=== PATIENT | female | born 1935 | race Caucasian/White ===

== ENCOUNTER 2017-09-05 17:10 | Inpatient (IN) | payer MEDICARE, OTHER, SELFPAY ==
[2017-09-05 17:22] VITALS: BP 125/73; PULSE 103; RESP 16; TEMP 37.1; O2SAT 91
--- NOTE | 2017-09-05 17:39 | NURSING ---
ARRIVED FROM [facility]IA [facility], FAMILY AT BEDSIDE.
[2017-09-05 17:53] VITALS: BMI 20.2
[2017-09-05 17:58] VITALS: BMI 20.2
--- NOTE | 2017-09-05 20:54 | PCM.HP.STD ---
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 The patient is a 82 year old Female with below past medical history presented to [facility] Emergency Department 08/29/2017 with fall. 08/29/2017 Chest X-ray bibasilar scarring, bilateral breast prosthesis calcifications. 08/29/2017 X-ray pelvis, right hip showed comminuted nondisplaced left intertrochanteric fracture with a cephalic migration of the distal fracture fragment. Right inferior pubic rami fracture. 08/29/2017 EKG sinus rhythm with marked sinus arrhythmia, nonspecific ST abnormality. Recent from [place] to [place]. Lives with medardo Saleh. Fell on right side. Bloodwork negative. Vargas placed, Morphine, Zofran, IV fluids given. 08/29/2017 Admit to Hospital. IV Dilaudid for pain. IV fluids for hypotension, dehydration. 08/29/2017 CT right hip showed comminuted intertrochanteric right hip fracture. 08/30/2017 Dr. Harvey consulted for sinus bradycardia with ventricular asystolic > 12 seconds. Troponin negative. Recommended transfer to tertiary care center for consideration of pacemaker. 08/30/2017 Transferred to [facility] for pacemaker, then right hip surgery. 09/01/2017 Right hip pinning performed. No pacemaker recommended. 09/04/2017 Transfused 2 units Packed Red Blood Cells, Post transfusion hemoglobin 10.1. 09/05/2017 Admit to TCU for rehabilitation, strengthening, prior to discharge home with medardo Saleh. I told [place] resident's risk of is at least 50%. 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 Smoking Status: Former smoker Tobacco Use: Non-smoker Alcohol: None Drugs: None - *Family History Maternal History Items: No pertinent history Paternal History Items: No pertinent history Review of Systems Constitutional: Denies: Chills, Fever, Weight Change HEENT: Denies: Head Aches, Sinus Congestion, Sinus Drainage Cardiovascular: Denies: Chest Pain, Palpitations Respiratory: Denies: Cough, Shortness of breath at rest, Sputum production Gastrointestinal: Denies: Abdominal Pain, Nausea, Vomiting Genitourinary: Denies: Dysuria Musculoskeletal: Denies: Joint Pain, Joint Tenderness Skin: Denies: Rash, Wounds Neurological: Denies: Numbness, Tingling, Focal weakness Psychiatric: Denies: Anxiety, Depression, Homicidal Ideations, Suicidal Ideations Hematologic/ Lymphatic: Denies: Easy Bruising, Easy Bleeding VTE Information - Inpt Only VTE Present on Admission: No VTE Mechan Device Prophylaxis: Knee High MOSHE Hose VTE Pharm Prophylaxis ordered?: Yes Patient Problems: Active and Suspected Problems Fall (Acute) Fracture of right inferior pubic ramus (Acute) Unresponsiveness (Acute) Sinus bradycardia (Acute) Postoperative anemia (Acute) - Physical Exam General: Alert, Oriented x3, Cooperative HEENT: Atraumatic, PERRLA, EOMI, Normocephalic Neck: Supple, No JVD, Negative Carotid Bruits Lungs: Clear to auscultation, Normal air movement Cardiovascular: Regular rate, No murmurs Abdomen: Bowel Sounds Present, Soft, Non Tender Extremities: No edema, Capillary Refill Less than 3 Seconds Skin: No rashes, No breakdown, Incision - Right hip celia clean, dry, intact. Musculoskeletal: No Tenderness to Palpation of Joints or Extremities Neurological: Cranial nerves II-XII grossly intact Psych/Mental Status: Normal Affect, Appropriate Weight: 60.3 kg Body Mass Index (BMI) 20.2 Assessment/Plan Active and Suspected Problems Fall (Acute) Fracture of right inferior pubic ramus (Acute) Unresponsiveness (Acute) Sinus bradycardia (Acute) Postoperative anemia (Acute) 82 year old female with below past medical history hospitalized for right hip fracture, underwent right hip pinning 09/01/2017, complicated by unresponsiveness secondary to prolonged ventricular asystole, no pacemaker recommended, admitted to TCU for rehabilitation, strengthening, prior to discharge home with daughter. Debility - PT/OT. Pain - Tylenol 650MG Q4H PRN mild pain, [place] 5/325MG 1 tablet Q6H PRN severe pain. Bowel - Miralax 17GM daily, Senna/colace 2 tablets BID, Dulcolax 10MG PO daily PRN. Pneumonia vaccination - Administer Prevnar 13 and/or Pneumovax 23 as necessary. DVT prophylaxis - Lovenox 40MG SC daily. CV prophylaxis - Aspirin 81MG daily. Hypertension - Lisinopril 10MG daily. Macular degeneration - Ocuvite 1 tablet daily.
--- NOTE | 2017-09-05 21:04 | HP.PCM_ITS ---
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 The patient is a 82 year old Female with below past medical history presented to [facility] Emergency Department 08/29/2017 with fall. 08/29/2017 Chest X-ray bibasilar scarring, bilateral breast prosthesis calcifications. 08/29/2017 X-ray pelvis, right hip showed comminuted nondisplaced left intertrochanteric fracture with a cephalic migration of the distal fracture fragment. Right inferior pubic rami fracture. 08/29/2017 EKG sinus rhythm with marked sinus arrhythmia, nonspecific ST abnormality. Recent from [place] to [place]. Lives with medardo Saleh. Fell on right side. Bloodwork negative. Vargas placed, Morphine, Zofran, IV fluids given. 08/29/2017 Admit to Hospital. IV Dilaudid for pain. IV fluids for hypotension, dehydration. 08/29/2017 CT right hip showed comminuted intertrochanteric right hip fracture. 08/30/2017 Dr. Harvey consulted for sinus bradycardia with ventricular asystolic > 12 seconds. Troponin negative. Recommended transfer to tertiary care center for consideration of pacemaker. 08/30/2017 Transferred to [facility] for pacemaker, then right hip surgery. 09/01/2017 Right hip pinning performed. No pacemaker recommended. 09/04/2017 Transfused 2 units Packed Red Blood Cells, Post transfusion hemoglobin 10.1. 09/05/2017 Admit to TCU for rehabilitation, strengthening, prior to discharge home with medardo Saleh. I told [place] resident's risk of is at least 50%. 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 Smoking Status: Former smoker Tobacco Use: Non-smoker Alcohol: None Drugs: None - *Family History Maternal History Items: No pertinent history Paternal History Items: No pertinent history Review of Systems Constitutional: Denies: Chills, Fever, Weight Change HEENT: Denies: Head Aches, Sinus Congestion, Sinus Drainage Cardiovascular: Denies: Chest Pain, Palpitations Respiratory: Denies: Cough, Shortness of breath at rest, Sputum production Gastrointestinal: Denies: Abdominal Pain, Nausea, Vomiting Genitourinary: Denies: Dysuria Musculoskeletal: Denies: Joint Pain, Joint Tenderness Skin: Denies: Rash, Wounds Neurological: Denies: Numbness, Tingling, Focal weakness Psychiatric: Denies: Anxiety, Depression, Homicidal Ideations, Suicidal Ideations Hematologic/ Lymphatic: Denies: Easy Bruising, Easy Bleeding VTE Information - Inpt Only VTE Present on Admission: No VTE Mechan Device Prophylaxis: Knee High MOSHE Hose VTE Pharm Prophylaxis ordered?: Yes Patient Problems: Active and Suspected Problems Fall (Acute) Fracture of right inferior pubic ramus (Acute) Unresponsiveness (Acute) Sinus bradycardia (Acute) Postoperative anemia (Acute) - Physical Exam General: Alert, Oriented x3, Cooperative HEENT: Atraumatic, PERRLA, EOMI, Normocephalic Neck: Supple, No JVD, Negative Carotid Bruits Lungs: Clear to auscultation, Normal air movement Cardiovascular: Regular rate, No murmurs Abdomen: Bowel Sounds Present, Soft, Non Tender Extremities: No edema, Capillary Refill Less than 3 Seconds Skin: No rashes, No breakdown, Incision - Right hip celia clean, dry, intact. Musculoskeletal: No Tenderness to Palpation of Joints or Extremities Neurological: Cranial nerves II-XII grossly intact Psych/Mental Status: Normal Affect, Appropriate Weight: 60.3 kg Body Mass Index (BMI) 20.2 Assessment/Plan Active and Suspected Problems Fall (Acute) Fracture of right inferior pubic ramus (Acute) Unresponsiveness (Acute) Sinus bradycardia (Acute) Postoperative anemia (Acute) 82 year old female with below past medical history hospitalized for right hip fracture, underwent right hip pinning 09/01/2017, complicated by unresponsiveness secondary to prolonged ventricular asystole, no pacemaker recommended, admitted to TCU for rehabilitation, strengthening, prior to discharge home with daughter. * Debility - PT/OT. * Pain - Tylenol 650MG Q4H PRN mild pain, [place] 5/325MG 1 tablet Q6H PRN severe pain. * Bowel - Miralax 17GM daily, Senna/colace 2 tablets BID, Dulcolax 10MG PO daily PRN. * Pneumonia vaccination - Administer Prevnar 13 and/or Pneumovax 23 as necessary. * DVT prophylaxis - Lovenox 40MG SC daily. * CV prophylaxis - Aspirin 81MG daily. * Hypertension - Lisinopril 10MG daily. * Macular degeneration - Ocuvite 1 tablet daily.
[2017-09-05] MEDS: Senna/Docusate Sodium 1 Tablet 2 TABLET PO (21:36)
[2017-09-05] MEDS: HYDROcodone Bitartrate/Apap 5/325 Tablet PO (22:28)
[2017-09-05] MEDS: Bisacodyl 5 MG Tablet 10 MG PO (22:29)
[2017-09-06] MEDS: Polyethylene Glycol 3350 17 GM PACKET PO (05:02)
[2017-09-06] MEDS: Lisinopril 10 MG Tablet PO (05:05)
[2017-09-06] MEDS: Enoxaparin 40 MG/0.4 ML Syringe SC (05:05)
[2017-09-06] MEDS: Senna/Docusate Sodium 1 Tablet 2 TABLET PO ×2 (05:05→17:34)
[2017-09-06] MEDS: Menthol/Lanolin/Calamine/Znox 113 GM Tube 1 APPLIC TOPICAL ×2 (05:06→20:43)
[2017-09-06 06:30] LABS: Hematocrit 35.2 % (37-47); Hemoglobin 11.4 g/dl (12.0-15.0); Mean Corp Hgb Conc 32.4 g/gl (32-36); Mean Corpuscular Hgb 29.7 pg (27.0-32.0); Mean Corpuscular Volume 91.7 fL (81-99); Mean Platelet Vol. 9.8 fl (6.2-12.0); Platelet Count 207 K/mm3 (150-450); RBC Distribution Width CV 14.9 % (11.6-14.6); RBC Distribution Width SD 46.3 fl (35.1-43.9); Red Blood Count 3.84 M/mm3 (4.2-5.4); White Blood Count 8.6 K/mm3 (4.4-11.0)
[2017-09-06 06:31] LABS: Anion Gap 8 (5-15); BUN 17 mg/dL (7-18); BUN/Creat Ratio 41.8 RATIO (10-20); Calcium,Total 8.2 mg/dL (8.5-10.1); Chloride 98 mmol/L (98-107); Creatinine, Serum 0.41 mg/dL (0.55-1.02); EST Glomerular Filtration Rate 159 mL/min (>60); Est Glom Filt Rate - Afr Amer 193 mL/min (>60); Estimated Creatinine Clearance 41.29 ml/min; Glucose 88 mg/dL (70-110); Potassium 3.8 mmol/L (3.5-5.1); Sodium Level 135 mmol/L (136-145)
[2017-09-06 06:32] LABS: Differential Indicated MANUAL DIFF; POSITIVE COUNT YES; POSITIVE DIFFERENTIAL NO; POSITIVE MORPHOLOGY YES
[2017-09-06 06:51] LABS: Eosinophil 1 % (0-5); Lymphocyte 23 % (19-41); Metamyelocyte 1 % (0-1); Monocyte 11 % (0-10); Neutrophil-Band 1 % (0-5); Neutrophil-Segmented 63 % (47-70); Nucleated Red Bld Cells,Manual 1 % (0-5); Total Cells Counted 100 (MANUAL DIFF)
[2017-09-06 06:52] LABS: Platelet Estimate ADEQUATE (ADEQ); Red Cell Morphology NORM C+C NORMAL (NORM C&C)
[2017-09-06 06:53] LABS: Absolute Lymphocyte Count 1.98 X10^3/ul (0.83-4.51); Absolute Neutrophil Count 5.5 X10^3/uL (2.0-7.7); Lymphocyte # 1.98 X10^3/ul (4.0)
[2017-09-06] MEDS: HYDROcodone Bitartrate/Apap 5/325 Tablet PO ×2 (07:41→17:37)
--- NOTE | 2017-09-06 09:48 | NURSING ---
CODE STATUS CLARIFIED WITH DAUGHTER, KIKO, WANTS MOTHER TO BE A FULL CODE FOR NOW
[2017-09-06] MEDS: Aspirin 81 MG TAB.CHEW PO (12:23)
[2017-09-06] MEDS: Tuberculin,Purif.prot.deriv. 50 TU/ML Vial 5 ML ID (12:27)
--- NOTE | 2017-09-06 13:59 | PCM.PN.RX ---
<Carlos Bryantip D - Last Filed: 09/06/17 13:59> Progress Note - Pharmacy Subjective: TCU Admission Objective: Allergies Penicillins [PCN] Allergy (Verified 08/29/17 16:37) Unknown Home Medications Medication Instructions Recorded Aspirin [Aspirin, Baby] 81 mg PO DAILY@0800 08/29/17 Lisinopril [Prinivil] 10 mg PO DAILY 08/29/17 Multivitamin [Animal Shapes] 1 each PO DAILY 08/29/17 Acetaminophen 650 mg PO Q4H PRN PRN 09/05/17 Hydrocodone/Acetaminophen 1 each PO Q6H PRN PRN 09/05/17 [Hydrocodon-Acetaminophen 5-325] Current Medications Generic Name Dose Route Start Last Admin Trade Name Scottq PRN Reason Stop Dose Admin Acetaminophen 650 mg 09/05/17 17:31 Tylenol PO Q4H PRN PRN MILD-MOD PAIN (1-5/10) Hydrocodone Bitart/Acetaminophen 1 tablet 09/05/17 17:31 09/06/17 07:41 [place] 5mg-325mg PO 1 tablet Q6H PRN PRN Administration SEVERE PAIN (6-10/10) Aspirin 81 mg 09/06/17 08:00 09/06/17 12:23 Aspirin, Baby PO 81 mg DAILY@0800 [facility] Administration Bisacodyl 10 mg 09/05/17 21:11 09/05/17 22:29 Dulcolax PO 10 mg DAILY PRN Administration Constipation Calamine/Phenol 1 applic 09/06/17 06:00 09/06/17 05:06 Calmoseptine Ointment TOPICAL 1 applicatio 0600,2200 [facility] Administration Protocol Enoxaparin Sodium 40 mg 09/06/17 06:00 09/06/17 05:05 Lovenox SC 40 mg DAILY@0600 [facility] Administration Lisinopril 10 mg 09/06/17 06:00 09/06/17 05:05 Zestril PO 10 mg DAILY [facility] Administration Multivitamins/Minerals 1 tablet 09/06/17 06:00 09/06/17 05:06 Ocuvite PO 1 tablet DAILY [facility] Administration Polyethylene Glycol 17 gm 09/06/17 06:00 09/06/17 05:02 Miralax PO 17 gm DAILY [facility] Administration Senna/Docusate Sodium 2 tablet 09/05/17 18:00 09/06/17 05:05 Senokot-S, Olena-Colace PO 2 tablet BID [facility] Administration Tuberculin PPD 5 tu 09/13/17 10:00 Tubersol, Aplisol, Ppd ID 09/13/17 10:01 X1 ONE Problem List Fall (Acute) Fracture of right inferior pubic ramus (Acute) Unresponsiveness (Acute) Sinus bradycardia (Acute) Hypertension (Chronic) 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 (Chronic) Postoperative anemia (Acute) Vital Signs Temp Pulse Resp BP Pulse Ox 98.7 F 103 H 16 125/73 H 91 09/05/17 17:22 09/05/17 17:22 09/05/17 17:22 09/05/17 17:22 09/05/17 17:22 Oxygen Delivery Method Room Air Weight: 60.3 kg Body Mass Index (BMI) 20.2 Sodium 135 mmol/L (136-145) L 09/06/17 05:28 Potassium 3.8 mmol/L (3.5-5.1) 09/06/17 05:28 Chloride 98 mmol/L (98-107) 09/06/17 05:28 Carbon Dioxide 29.0 mmol/L (21.0-32.0) 09/06/17 05:28 Anion Gap 8 (5-15) 09/06/17 05:28 BUN 17 mg/dL (7-18) 09/06/17 05:28 Creatinine 0.41 mg/dL (0.55-1.02) L 09/06/17 05:28 Est GFR (MDRD) Af Amer 193 mL/min (>60) 09/06/17 05:28 Est GFR (MDRD) Non-Af 159 mL/min (>60) 09/06/17 05:28 BUN/Creatinine Ratio 41.8 RATIO (10-20) H 09/06/17 05:28 Glucose 88 mg/dL (70-110) 09/06/17 05:28 Assessment/Plan: 1) Pain APAP for mild-moderate pain, hydrocodone/APAP for severe pain. Continue to monitor prn medication use, daily pain scores. 2) HTN/CV PPx Lisinopril, ASA. BP within goal range, K wnl, BUN/SCr at baseline. Continue to monitor BP, renal function, electrolytes. 3) Nutrition Multivitamin daily. Continue to monitor clinically. 4) Derm Calmoseptine topically. Continue to monitor clinically. 5) DVT PPx Enoxaparin daily. Continue to monitor s/s bleeding/clot. Psychotropic Medications: None Unnecessary Medications: None Bowel Regimen: 6) Senna/s, PEG, prn bisacodyl. Continue to monitor prn medication use, for constipation/diarrhea. Date of Note:: 09/06/17 - Provider Comments Provider responsibility: Provider responsible to enter orders to implement recommendations <Royce Salinas Chi - Last Filed: 09/06/17 18:34> Progress Note - Pharmacy Subjective: [] Objective: Allergies Penicillins [PCN] Allergy (Verified 08/29/17 16:37) Unknown Home Medications Medication Instructions Recorded Aspirin [Aspirin, Baby] 81 mg PO DAILY@0800 08/29/17 Lisinopril [Prinivil] 10 mg PO DAILY 08/29/17 Multivitamin [Animal Shapes] 1 each PO DAILY 08/29/17 Acetaminophen 650 mg PO Q4H PRN PRN 09/05/17 Hydrocodone/Acetaminophen 1 each PO Q6H PRN PRN 09/05/17 [Hydrocodon-Acetaminophen 5-325] Current Medications Generic Name Dose Route Start Last Admin Trade Name Freq PRN Reason Stop Dose Admin Acetaminophen 650 mg 09/05/17 17:31 Tylenol PO Q4H PRN PRN MILD-MOD PAIN (1-5/10) Hydrocodone Bitart/Acetaminophen 1 tablet 09/05/17 17:31 09/06/17 17:37 [place] 5mg-325mg PO 1 tablet Q6H PRN PRN Administration SEVERE PAIN (6-10/10) Aspirin 81 mg 09/06/17 08:00 09/06/17 12:23 Aspirin, Baby PO 81 mg DAILY@0800 [facility] Administration Bisacodyl 10 mg 09/05/17 21:11 09/05/17 22:29 Dulcolax PO 10 mg DAILY PRN Administration Constipation Calamine/Phenol 1 applic 09/06/17 06:00 09/06/17 05:06 Calmoseptine Ointment TOPICAL 1 applicatio 0600,2200 [facility] Administration Protocol Enoxaparin Sodium 40 mg 09/06/17 06:00 09/06/17 05:05 Lovenox SC 40 mg DAILY@0600 [facility] Administration Lisinopril 10 mg 09/06/17 06:00 09/06/17 05:05 Zestril PO 10 mg DAILY [facility] Administration Multivitamins/Minerals 1 tablet 09/06/17 06:00 09/06/17 05:06 Ocuvite PO 1 tablet DAILY [facility] Administration Nutritional Formula (Lactose Free) 120 ml 09/06/17 17:00 09/06/17 17:34 Ensure Enlive PO 120 ml 4X/DAY [facility] Administration Polyethylene Glycol 17 gm 09/06/17 06:00 09/06/17 05:02 Miralax PO 17 gm DAILY [facility] Administration Senna/Docusate Sodium 2 tablet 09/05/17 18:00 09/06/17 17:34 Senokot-S, Olena-Colace PO 2 tablet BID [facility] Administration Tuberculin PPD 5 tu 09/13/17 10:00 Tubersol, Aplisol, Ppd ID 09/13/17 10:01 X1 ONE Problem List Fall (Acute) Fracture of right inferior pubic ramus (Acute) Unresponsiveness (Acute) Sinus bradycardia (Acute) Hypertension (Chronic) 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 (Chronic) Postoperative anemia (Acute) Vital Signs Temp Pulse Resp BP Pulse Ox 98.3 F 92 16 106/57 L 95 09/06/17 16:00 09/06/17 16:00 09/06/17 16:00 09/06/17 16:00 09/06/17 16:00 Oxygen Delivery Method Room Air Weight: 60.3 kg Body Mass Index (BMI) 20.2 Sodium 135 mmol/L (136-145) L 09/06/17 05:28 Potassium 3.8 mmol/L (3.5-5.1) 09/06/17 05:28 Chloride 98 mmol/L (98-107) 09/06/17 05:28 Carbon Dioxide 29.0 mmol/L (21.0-32.0) 09/06/17 05:28 Anion Gap 8 (5-15) 09/06/17 05:28 BUN 17 mg/dL (7-18) 09/06/17 05:28 Creatinine 0.41 mg/dL (0.55-1.02) L 09/06/17 05:28 Est GFR (MDRD) Af Amer 193 mL/min (>60) 09/06/17 05:28 Est GFR (MDRD) Non-Af 159 mL/min (>60) 09/06/17 05:28 BUN/Creatinine Ratio 41.8 RATIO (10-20) H 09/06/17 05:28 Glucose 88 mg/dL (70-110) 09/06/17 05:28 Assessment/Plan: Psychotropic Medications: Unnecessary Medications: Bowel Regimen: - Provider Comments Provider responsibility: Provider responsible to enter orders to implement recommendations Provider Comments to Recommendations by Pharmacy: Agree
--- NOTE | 2017-09-06 14:04 | PHA.CONS_ITS ---
<Carlos Bryantip D - Last Filed: 09/06/17 13:59> Progress Note - Pharmacy Subjective: TCU Admission Objective: Allergies Penicillins [PCN] Allergy (Verified 08/29/17 16:37) Unknown Home Medications Medication Instructions Recorded Aspirin [Aspirin, Baby] 81 mg PO DAILY@0800 08/29/17 Lisinopril [Prinivil] 10 mg PO DAILY 08/29/17 Multivitamin [Animal Shapes] 1 each PO DAILY 08/29/17 Acetaminophen 650 mg PO Q4H PRN PRN 09/05/17 Hydrocodone/Acetaminophen 1 each PO Q6H PRN PRN 09/05/17 [Hydrocodon-Acetaminophen 5-325] Current Medications Generic Name Dose Route Start Last Admin Trade Name Scottq PRN Reason Stop Dose Admin Acetaminophen 650 mg 09/05/17 17:31 Tylenol PO Q4H PRN PRN MILD-MOD PAIN (1-5/10) Hydrocodone Bitart/Acetaminophen 1 tablet 09/05/17 17:31 09/06/17 07:41 [place] 5mg-325mg PO 1 tablet Q6H PRN PRN Administration SEVERE PAIN (6-10/10) Aspirin 81 mg 09/06/17 08:00 09/06/17 12:23 Aspirin, Baby PO 81 mg DAILY@0800 [facility] Administration Bisacodyl 10 mg 09/05/17 21:11 09/05/17 22:29 Dulcolax PO 10 mg DAILY PRN Administration Constipation Calamine/Phenol 1 applic 09/06/17 06:00 09/06/17 05:06 Calmoseptine Ointment TOPICAL 1 applicatio 0600,2200 [facility] Administration Protocol Enoxaparin Sodium 40 mg 09/06/17 06:00 09/06/17 05:05 Lovenox SC 40 mg DAILY@0600 [facility] Administration Lisinopril 10 mg 09/06/17 06:00 09/06/17 05:05 Zestril PO 10 mg DAILY [facility] Administration Multivitamins/Minerals 1 tablet 09/06/17 06:00 09/06/17 05:06 Ocuvite PO 1 tablet DAILY [facility] Administration Polyethylene Glycol 17 gm 09/06/17 06:00 09/06/17 05:02 Miralax PO 17 gm DAILY [facility] Administration Senna/Docusate Sodium 2 tablet 09/05/17 18:00 09/06/17 05:05 Senokot-S, Olena-Colace PO 2 tablet BID [facility] Administration Tuberculin PPD 5 tu 09/13/17 10:00 Tubersol, Aplisol, Ppd ID 09/13/17 10:01 X1 ONE Problem List Fall (Acute) Fracture of right inferior pubic ramus (Acute) Unresponsiveness (Acute) Sinus bradycardia (Acute) Hypertension (Chronic) 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 (Chronic) Postoperative anemia (Acute) Vital Signs Temp Pulse Resp BP Pulse Ox 98.7 F 103 H 16 125/73 H 91 09/05/17 17:22 09/05/17 17:22 09/05/17 17:22 09/05/17 17:22 09/05/17 17:22 Oxygen Delivery Method Room Air Weight: 60.3 kg Body Mass Index (BMI) 20.2 Sodium 135 mmol/L (136-145) L 09/06/17 05:28 Potassium 3.8 mmol/L (3.5-5.1) 09/06/17 05:28 Chloride 98 mmol/L (98-107) 09/06/17 05:28 Carbon Dioxide 29.0 mmol/L (21.0-32.0) 09/06/17 05:28 Anion Gap 8 (5-15) 09/06/17 05:28 BUN 17 mg/dL (7-18) 09/06/17 05:28 Creatinine 0.41 mg/dL (0.55-1.02) L 09/06/17 05:28 Est GFR (MDRD) Af Amer 193 mL/min (>60) 09/06/17 05:28 Est GFR (MDRD) Non-Af 159 mL/min (>60) 09/06/17 05:28 BUN/Creatinine Ratio 41.8 RATIO (10-20) H 09/06/17 05:28 Glucose 88 mg/dL (70-110) 09/06/17 05:28 Assessment/Plan: 1) Pain APAP for mild-moderate pain, hydrocodone/APAP for severe pain. Continue to monitor prn medication use, daily pain scores. 2) HTN/CV PPx Lisinopril, ASA. BP within goal range, K wnl, BUN/SCr at baseline. Continue to monitor BP, renal function, electrolytes. 3) Nutrition Multivitamin daily. Continue to monitor clinically. 4) Derm Calmoseptine topically. Continue to monitor clinically. 5) DVT PPx Enoxaparin daily. Continue to monitor s/s bleeding/clot. Psychotropic Medications: None Unnecessary Medications: None Bowel Regimen: 6) Senna/s, PEG, prn bisacodyl. Continue to monitor prn medication use, for constipation/diarrhea. Date of Note:: 09/06/17 - Provider Comments Provider responsibility: Provider responsible to enter orders to implement recommendations <Royce Salinas Chi - Last Filed: 09/06/17 18:34> Progress Note - Pharmacy Subjective: [] Objective: Allergies Penicillins [PCN] Allergy (Verified 08/29/17 16:37) Unknown Home Medications Medication Instructions Recorded Aspirin [Aspirin, Baby] 81 mg PO DAILY@0800 08/29/17 Lisinopril [Prinivil] 10 mg PO DAILY 08/29/17 Multivitamin [Animal Shapes] 1 each PO DAILY 08/29/17 Acetaminophen 650 mg PO Q4H PRN PRN 09/05/17 Hydrocodone/Acetaminophen 1 each PO Q6H PRN PRN 09/05/17 [Hydrocodon-Acetaminophen 5-325] Current Medications Generic Name Dose Route Start Last Admin Trade Name Freq PRN Reason Stop Dose Admin Acetaminophen 650 mg 09/05/17 17:31 Tylenol PO Q4H PRN PRN MILD-MOD PAIN (1-5/10) Hydrocodone Bitart/Acetaminophen 1 tablet 09/05/17 17:31 09/06/17 17:37 [place] 5mg-325mg PO 1 tablet Q6H PRN PRN Administration SEVERE PAIN (6-10/10) Aspirin 81 mg 09/06/17 08:00 09/06/17 12:23 Aspirin, Baby PO 81 mg DAILY@0800 [facility] Administration Bisacodyl 10 mg 09/05/17 21:11 09/05/17 22:29 Dulcolax PO 10 mg DAILY PRN Administration Constipation Calamine/Phenol 1 applic 09/06/17 06:00 09/06/17 05:06 Calmoseptine Ointment TOPICAL 1 applicatio 0600,2200 [facility] Administration Protocol Enoxaparin Sodium 40 mg 09/06/17 06:00 09/06/17 05:05 Lovenox SC 40 mg DAILY@0600 [facility] Administration Lisinopril 10 mg 09/06/17 06:00 09/06/17 05:05 Zestril PO 10 mg DAILY [facility] Administration Multivitamins/Minerals 1 tablet 09/06/17 06:00 09/06/17 05:06 Ocuvite PO 1 tablet DAILY [facility] Administration Nutritional Formula (Lactose Free) 120 ml 09/06/17 17:00 09/06/17 17:34 Ensure Enlive PO 120 ml 4X/DAY [facility] Administration Polyethylene Glycol 17 gm 09/06/17 06:00 09/06/17 05:02 Miralax PO 17 gm DAILY [facility] Administration Senna/Docusate Sodium 2 tablet 09/05/17 18:00 09/06/17 17:34 Senokot-S, Olena-Colace PO 2 tablet BID [facility] Administration Tuberculin PPD 5 tu 09/13/17 10:00 Tubersol, Aplisol, Ppd ID 09/13/17 10:01 X1 ONE Problem List Fall (Acute) Fracture of right inferior pubic ramus (Acute) Unresponsiveness (Acute) Sinus bradycardia (Acute) Hypertension (Chronic) 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 (Chronic) Postoperative anemia (Acute) Vital Signs Temp Pulse Resp BP Pulse Ox 98.3 F 92 16 106/57 L 95 09/06/17 16:00 09/06/17 16:00 09/06/17 16:00 09/06/17 16:00 09/06/17 16:00 Oxygen Delivery Method Room Air Weight: 60.3 kg Body Mass Index (BMI) 20.2 Sodium 135 mmol/L (136-145) L 09/06/17 05:28 Potassium 3.8 mmol/L (3.5-5.1) 09/06/17 05:28 Chloride 98 mmol/L (98-107) 09/06/17 05:28 Carbon Dioxide 29.0 mmol/L (21.0-32.0) 09/06/17 05:28 Anion Gap 8 (5-15) 09/06/17 05:28 BUN 17 mg/dL (7-18) 09/06/17 05:28 Creatinine 0.41 mg/dL (0.55-1.02) L 09/06/17 05:28 Est GFR (MDRD) Af Amer 193 mL/min (>60) 09/06/17 05:28 Est GFR (MDRD) Non-Af 159 mL/min (>60) 09/06/17 05:28 BUN/Creatinine Ratio 41.8 RATIO (10-20) H 09/06/17 05:28 Glucose 88 mg/dL (70-110) 09/06/17 05:28 Assessment/Plan: Psychotropic Medications: Unnecessary Medications: Bowel Regimen: - Provider Comments Provider responsibility: Provider responsible to enter orders to implement recommendations Provider Comments to Recommendations by Pharmacy: Agree
[2017-09-06 15:33] LABS: Pathologist Review Reviewed
[2017-09-06 16:00] VITALS: BP 106/57; PULSE 92; RESP 16; TEMP 36.8; O2SAT 95
[2017-09-07] MEDS: HYDROcodone Bitartrate/Apap 5/325 Tablet PO ×2 (01:16→08:58)
[2017-09-07] MEDS: Enoxaparin 40 MG/0.4 ML Syringe SC (04:13)
[2017-09-07] MEDS: Senna/Docusate Sodium 1 Tablet 2 TABLET PO ×2 (04:13→17:48)
[2017-09-07] MEDS: Lisinopril 10 MG Tablet PO (04:13)
[2017-09-07] MEDS: Polyethylene Glycol 3350 17 GM PACKET PO (04:15)
[2017-09-07] MEDS: Menthol/Lanolin/Calamine/Znox 113 GM Tube 1 APPLIC TOPICAL ×2 (04:24→21:44)
[2017-09-07] MEDS: Aspirin 81 MG TAB.CHEW PO (08:57)
--- NOTE | 2017-09-07 15:37 | CASEMGMT ---
Insurance Clinical information faxed. Pending continued stay approval at this time. Auth#[id number] Kari MORALES, FIELD SERVICES MANAGER
[2017-09-07 16:00] VITALS: BP 100/64; PULSE 98; RESP 16; TEMP 36.8; O2SAT 94
[2017-09-08] MEDS: Acetaminophen 325 MG Tablet 650 MG PO (01:22)
[2017-09-08] MEDS: Menthol/Lanolin/Calamine/Znox 113 GM Tube 1 APPLIC TOPICAL ×2 (04:59→20:48)
[2017-09-08] MEDS: Senna/Docusate Sodium 1 Tablet 2 TABLET PO ×2 (04:59→17:19)
[2017-09-08] MEDS: Lisinopril 10 MG Tablet PO (04:59)
[2017-09-08] MEDS: Polyethylene Glycol 3350 17 GM PACKET PO (05:00)
[2017-09-08] MEDS: Enoxaparin 40 MG/0.4 ML Syringe SC (05:01)
[2017-09-08] MEDS: Aspirin 81 MG TAB.CHEW PO (08:38)
[2017-09-08] MEDS: HYDROcodone Bitartrate/Apap 5/325 Tablet PO ×2 (11:10→20:47)
[2017-09-08 16:07] VITALS: BP 121/65; PULSE 94; RESP 16; TEMP 36.8; O2SAT 93
[2017-09-09] MEDS: Enoxaparin 40 MG/0.4 ML Syringe SC (05:15)
[2017-09-09] MEDS: Menthol/Lanolin/Calamine/Znox 113 GM Tube 1 APPLIC TOPICAL ×2 (05:15→20:05)
[2017-09-09] MEDS: Lisinopril 10 MG Tablet PO (05:16)
[2017-09-09] MEDS: Polyethylene Glycol 3350 17 GM PACKET PO (05:16)
[2017-09-09] MEDS: Senna/Docusate Sodium 1 Tablet 2 TABLET PO ×2 (05:17→16:46)
[2017-09-09] MEDS: Aspirin 81 MG TAB.CHEW PO (08:42)
[2017-09-09] MEDS: HYDROcodone Bitartrate/Apap 5/325 Tablet PO (11:57)
--- NOTE | 2017-09-09 13:23 | NURSING ---
DR PONCE NOTIFIED, DAUGHTER REQUESTING SOMETHING TO HELP PT CALM DOWN. PT RAISING FISTS AT STAFF AND ARGUMENTATIVE WITH CARE. RESTLESS, DIFFICULTY SITTING STILL, TRIED PAIN MEDICATION WHICH WAS INEFFECTIVE. PT WAS PAINFUL WITH TRANSFER FROM RECLINER CHAIR TO [facility]SC BUT WHEN ASKING IF SHE HURTS PT STATES NO BUT GRIMMACING AND AGITATED. NEW ORDER FOR ATIVAN PRN
[2017-09-09 16:00] VITALS: BP 126/73; PULSE 94; RESP 14; TEMP 36.4; O2SAT 98
[2017-09-09] MEDS: LORazepam 0.5 MG Tablet PO (16:46)
[2017-09-09] MEDS: Bisacodyl 5 MG Tablet 10 MG PO (20:08)
[2017-09-10] MEDS: Enoxaparin 40 MG/0.4 ML Syringe SC (05:20)
[2017-09-10] MEDS: Menthol/Lanolin/Calamine/Znox 113 GM Tube 1 APPLIC TOPICAL ×2 (05:20→20:15)
[2017-09-10] MEDS: HYDROcodone Bitartrate/Apap 5/325 Tablet PO ×3 (05:21→18:20)
[2017-09-10] MEDS: Senna/Docusate Sodium 1 Tablet 2 TABLET PO ×2 (05:21→17:01)
[2017-09-10] MEDS: Lisinopril 10 MG Tablet PO (05:21)
[2017-09-10] MEDS: Aspirin 81 MG TAB.CHEW PO (08:30)
[2017-09-10] MEDS: LORazepam 0.5 MG Tablet PO (10:36)
[2017-09-10 16:00] VITALS: BP 128/68; PULSE 84; RESP 16; TEMP 36.3; O2SAT 100
[2017-09-11] MEDS: Lisinopril 10 MG Tablet PO (05:05)
[2017-09-11] MEDS: Enoxaparin 40 MG/0.4 ML Syringe SC (05:05)
[2017-09-11] MEDS: Senna/Docusate Sodium 1 Tablet 2 TABLET PO ×2 (05:05→18:07)
[2017-09-11] MEDS: HYDROcodone Bitartrate/Apap 5/325 Tablet PO ×2 (05:05→22:40)
[2017-09-11] MEDS: Polyethylene Glycol 3350 17 GM PACKET PO (05:05)
[2017-09-11] MEDS: Menthol/Lanolin/Calamine/Znox 113 GM Tube 1 APPLIC TOPICAL ×2 (05:06→22:40)
[2017-09-11] MEDS: Bisacodyl 5 MG Tablet 10 MG PO (05:13)
[2017-09-11] MEDS: Aspirin 81 MG TAB.CHEW PO (09:10)
--- NOTE | 2017-09-11 10:57 | RAD_ITS ---
STUDY: X-RAY - ABDOMEN/PELVIS REASON FOR EXAM: Female, 82 years old. Constipation. TECHNIQUE: Two AP supine views of the abdomen and pelvis. COMPARISON: None. FINDINGS: Normal visualized lung bases. Moderate amount of fecal material is seen throughout the colon. I suspect fecal impaction in the rectum. The small bowel measures upper limits of normal. The visualized liver, spleen and kidneys are grossly normal in size and morphology. Normal soft tissue structures. There are degenerative changes of the visualized lumbar spine. The patient is status post intramedullary jayne and screw fixation of a right intertrochanteric fracture. Fracture of the right inferior pubic ramus. There is good alignment. Dextroscoliosis. RAD/Abdomen Single View IMPRESSION: Findings suggestive of constipation. Electronically Signed: Archie Carreon MD at 12:52 EST Tel [phone], Service support ,
--- NOTE | 2017-09-11 10:59 | NURSING ---
Pt's abd distended and hard. Pt has not had a BM in a few days. Dr. Salinas made aware, NO for soap suds enema x1 and KUB xray.
--- NOTE | 2017-09-11 11:49 | NURSING ---
SOAP SUDS ENEMA GIVEN, PT UNABLE TO HOLD IN FOR LONG, MEDIUM RESULTS, SOME SOFT FORMED STOOL AND LIQUID.
--- NOTE | 2017-09-11 12:42 | CASEMGMT ---
Insurance Continued stay approved with next update due on 09/14/17 Auth#[id number] Kari MORALES, MAINT MECHANIC
[2017-09-11 16:00] VITALS: BP 127/52; PULSE 95; RESP 16; TEMP 36.8; O2SAT 97
[2017-09-12] MEDS: Menthol/Lanolin/Calamine/Znox 113 GM Tube 1 APPLIC TOPICAL ×2 (05:46→19:42)
[2017-09-12] MEDS: Lisinopril 10 MG Tablet PO (05:46)
[2017-09-12] MEDS: Enoxaparin 40 MG/0.4 ML Syringe SC (05:46)
[2017-09-12] MEDS: HYDROcodone Bitartrate/Apap 5/325 Tablet PO (05:46)
[2017-09-12] MEDS: Aspirin 81 MG TAB.CHEW PO (09:30)
--- NOTE | 2017-09-12 11:55 | NURSING ---
DR PONCE NOTIFIED THAT PT DAUGHTER IS REQUESTING URINALYSIS. DAUGHTER REPORTS PT IS MORE AGITATED/ANXIOUS AND KEEPS STATING SHE HAS TO URINATE. NEW ORDER RECEIVED FOR U/A AND CULTURE VIA CATH
--- NOTE | 2017-09-12 12:55 | CASEMGMT ---
Brief interview for mental status (BIMS) and resident mood interview (PHQ-9) completed on this day. BIMS score 10/26. PHQ-9 score
[2017-09-12 16:20] VITALS: BP 116/66; PULSE 85; RESP 14; TEMP 36.8; O2SAT 95
[2017-09-12 19:29] LABS: Red Blood Cells-Urine 0 SEEN /hpf (0-5)
[2017-09-12 19:31] LABS: Color, Urine Yellow (Yellow); Glucose, Dipstick Normal (Normal); Ketone-Dipstick Negative (Negative); Leukocyte Esterase-Dipstick 500 /ul (Negative); Nitrite-Dipstick Negative (Negative); Occult Blood-Urine 10 /ul (Negative); Protein-Dipstick 15 mg/dl (Negative); Specific Gravity, Urine 1.025 (1.002-1.030); Urine Bilirubin Dipstick Negative (Negative); Urine Clarity Cloudy (Clear); Urine Urobilinogen 1 mg/dl (Normal)
[2017-09-12 19:51] LABS: White Blood Cells 25-50 SEEN /hpf (0-5)
[2017-09-12 19:52] LABS: Bacteria 2+ /hpf (None Seen); Squamous Epithelial Cells - UA 50-100 SEEN /hpf (5-10)
[2017-09-12 19:56] LABS: Mucous, Urine 2+ /hpf (<or=2+)
--- NOTE | 2017-09-12 20:51 | NURSING ---
Pts urine came back as positive. New order for cipro BID for 10 days. Pts daughter aware.
--- NOTE | 2017-09-12 21:06 | PCA ---
Patient's daughter came into see patient at around 20:00, pt's daughter insisted on having both bottom bed rails up on the bed said that she would do whatever she had to do thru management to make it okay for her mother to have them up while she is in bed due to her confused estate at times, MILO rodriguez Notified
[2017-09-12] MEDS: LORazepam 0.5 MG Tablet PO (21:54)
[2017-09-13] MEDS: HYDROcodone Bitartrate/Apap 5/325 Tablet PO ×2 (00:07→13:04)
[2017-09-13] MEDS: Menthol/Lanolin/Calamine/Znox 113 GM Tube 1 APPLIC TOPICAL ×2 (04:42→21:13)
[2017-09-13] MEDS: Lisinopril 10 MG Tablet PO (04:43)
[2017-09-13] MEDS: Ciprofloxacin 250 MG Tablet PO ×2 (04:43→17:53)
[2017-09-13] MEDS: Enoxaparin 40 MG/0.4 ML Syringe SC (04:44)
[2017-09-13 05:56] LABS: Absolute Lymphocyte Count 1.09 X10^3/ul (0.83-4.51); Absolute Neutrophil Count 4.3 X10^3/uL (2.0-7.7); Basophil# 0.02 X10^3/uL; Basophil% 0.3 % (0-1); Eosinophil# 0.11 X10^3/uL; Eosinophils% 1.7 % (0-5); Hematocrit 33.4 % (37-47); Hemoglobin 10.7 g/dl (12.0-15.0); Lymphocyte # 1.09 X10^3/ul (4.0); Lymphocyte % 16.9 % (19-41); Mean Corpuscular Hgb 29.7 pg (27.0-32.0); Mean Corpuscular Volume 92.8 fL (81-99); Monocyte# 0.86 X10^3/uL; Monocyte% 13.4 % (0-10); Neutrophil # 4.26 X10^3/uL (2.7-7.7); Neutrophil % 66.1 % (47-70); Platelet Count 181 K/mm3 (150-450); RBC Distribution Width CV 15.8 % (11.6-14.6); White Blood Count 6.4 K/mm3 (4.4-11.0)
[2017-09-13 06:02] LABS: POSITIVE COUNT NO; POSITIVE DIFFERENTIAL NO; POSITIVE MORPHOLOGY NO
[2017-09-13 06:12] LABS: Anion Gap 9 (5-15); BUN 29 mg/dL (7-18); BUN/Creat Ratio 69.7 RATIO (10-20); Calcium,Total 7.9 mg/dL (8.5-10.1); Chloride 100 mmol/L (98-107); Creatinine, Serum 0.42 mg/dL (0.55-1.02); EST Glomerular Filtration Rate 155 mL/min (>60); Est Glom Filt Rate - Afr Amer 188 mL/min (>60); Estimated Creatinine Clearance 41.29 ml/min; Glucose 91 mg/dL (70-110); Potassium 3.7 mmol/L (3.5-5.1); Sodium Level 134 mmol/L (136-145)
[2017-09-13] MEDS: Aspirin 81 MG TAB.CHEW PO (08:52)
--- NOTE | 2017-09-13 09:21 | CASEMGMT ---
Plan of care meeting held. Resident present as well as resident daughter, Therese (via speaker phone). Resident to continue with further care and treatment on the Transitional Care Unit at this time. No discharge date set. Resident does have another insurance update due on 09/14. Resident plans to discharge home with daughter where daughter is able to provide 24hr care at time of discharge. Support given. Will continue to follow. Kari MORALES, STILL OPERATOR WHISKEY
[2017-09-13] MEDS: Tuberculin,Purif.prot.deriv. 50 TU/ML Vial 5 ML ID (11:03)
[2017-09-13 15:59] VITALS: BP 141/72; PULSE 90; RESP 18; TEMP 37.1; O2SAT 92
[2017-09-13] MEDS: Senna/Docusate Sodium 1 Tablet 2 TABLET PO (17:53)
[2017-09-13] MEDS: LORazepam 0.5 MG Tablet PO (23:42)
[2017-09-14] MEDS: HYDROcodone Bitartrate/Apap 5/325 Tablet PO (04:29)
[2017-09-14] MEDS: Ciprofloxacin 250 MG Tablet PO ×2 (04:30→17:55)
[2017-09-14] MEDS: Menthol/Lanolin/Calamine/Znox 113 GM Tube 1 APPLIC TOPICAL ×2 (04:30→21:58)
[2017-09-14] MEDS: Enoxaparin 40 MG/0.4 ML Syringe SC (04:31)
[2017-09-14] MEDS: Lisinopril 10 MG Tablet PO (04:31)
[2017-09-14] MEDS: Aspirin 81 MG TAB.CHEW PO (08:37)
--- NOTE | 2017-09-14 09:45 | RAD_ITS ---
STUDY: X-RAY - ABDOMEN/PELVIS REASON FOR EXAM: Female, 82 years old. Constipation. TECHNIQUE: Two AP supine views of the abdomen and pelvis. COMPARISON: Comparison is made with prior study dated March 11, 2018. FINDINGS: Normal visualized lung bases. There is an abundance of fecal material throughout the colon. The visualized liver, spleen and kidneys are grossly normal in size and morphology. Normal soft tissue structures. There are diffuse degenerative changes of the visualized lumbar spine. Loss of height of the L3 vertebrae. Right intertrochanteric fracture nailing. RAD/Abdomen Single View IMPRESSION: Large amount of fecal material is seen in the colon. Electronically Signed: Archie Carreon MD at 12:47 EST Tel [phone], Service support ,
--- NOTE | 2017-09-14 10:24 | CASEMGMT ---
Insurance Clinical information faxed. Pending continued stay approval at this time. Auth#[id number] Kari MORALES, SENIOR ATTORNEY
[2017-09-14] MEDS: LORazepam 0.5 MG Tablet PO ×2 (12:46→21:58)
--- NOTE | 2017-09-14 13:00 | NURSING ---
R' ANXIOUS, RESTLESS. KEEPS TRYING TO GET UP SEVERAL TIMES. DISTRACTION, 1:1 GIVEN. FOOD/FLUIDS/TOILET. ATIVAN GIVEN. WILL MONITOR. ALARM IN PLACE.
[2017-09-14 15:58] VITALS: BP 145/64; PULSE 94; RESP 20; TEMP 37.2; O2SAT 91
[2017-09-14] MEDS: Senna/Docusate Sodium 1 Tablet 2 TABLET PO (17:55)
[2017-09-14] MEDS: Magnesium Citrate 300 ML PO (18:46)
--- NOTE | 2017-09-14 19:46 | NURSING ---
Dr Salinas aware of final urine cx showing E.coli. Continue with Cipro.
[2017-09-15] MEDS: LORazepam 0.5 MG Tablet PO ×2 (02:00→21:15)
[2017-09-15] MEDS: Menthol/Lanolin/Calamine/Znox 113 GM Tube 1 APPLIC TOPICAL ×2 (05:10→21:15)
[2017-09-15] MEDS: Enoxaparin 40 MG/0.4 ML Syringe SC (05:10)
[2017-09-15] MEDS: Ciprofloxacin 250 MG Tablet PO ×2 (05:10→17:58)
[2017-09-15] MEDS: Senna/Docusate Sodium 1 Tablet 2 TABLET PO ×2 (05:10→15:01)
[2017-09-15] MEDS: Lisinopril 10 MG Tablet PO (05:11)
[2017-09-15] MEDS: Aspirin 81 MG TAB.CHEW PO (15:01)
[2017-09-15 16:00] VITALS: BP 120/70; PULSE 88; RESP 20; TEMP 37.1; O2SAT 93
[2017-09-16] MEDS: Menthol/Lanolin/Calamine/Znox 113 GM Tube 1 APPLIC TOPICAL ×2 (05:18→20:27)
[2017-09-16] MEDS: Lisinopril 10 MG Tablet PO (05:19)
[2017-09-16] MEDS: Enoxaparin 40 MG/0.4 ML Syringe SC (05:19)
[2017-09-16] MEDS: Ciprofloxacin 250 MG Tablet PO ×2 (05:19→18:12)
[2017-09-16] MEDS: Senna/Docusate Sodium 1 Tablet 2 TABLET PO ×2 (05:19→18:12)
[2017-09-16] MEDS: Polyethylene Glycol 3350 17 GM PACKET PO (05:19)
[2017-09-16] MEDS: LORazepam 0.5 MG Tablet PO ×2 (09:22→20:26)
[2017-09-16] MEDS: Aspirin 81 MG TAB.CHEW PO (09:22)
[2017-09-16] MEDS: HYDROcodone Bitartrate/Apap 5/325 Tablet PO (14:34)
[2017-09-16 18:28] VITALS: BP 119/56; PULSE 92; RESP 18; TEMP 36.4; O2SAT 93
[2017-09-17] MEDS: Polyethylene Glycol 3350 17 GM PACKET PO (05:02)
[2017-09-17] MEDS: Ciprofloxacin 250 MG Tablet PO ×2 (05:04→17:25)
[2017-09-17] MEDS: Senna/Docusate Sodium 1 Tablet 2 TABLET PO ×2 (05:04→17:25)
[2017-09-17] MEDS: Lisinopril 10 MG Tablet PO (05:05)
[2017-09-17] MEDS: Menthol/Lanolin/Calamine/Znox 113 GM Tube 1 APPLIC TOPICAL ×2 (05:05→21:20)
[2017-09-17] MEDS: Enoxaparin 40 MG/0.4 ML Syringe SC (05:08)
[2017-09-17] MEDS: Aspirin 81 MG TAB.CHEW PO (09:55)
[2017-09-17] MEDS: LORazepam 0.5 MG Tablet PO ×2 (09:55→21:19)
[2017-09-17 15:44] VITALS: BP 114/60; PULSE 88; RESP 14; TEMP 36.6; O2SAT 98
[2017-09-18] MEDS: Lisinopril 10 MG Tablet PO (04:59)
[2017-09-18] MEDS: Enoxaparin 40 MG/0.4 ML Syringe SC (04:59)
[2017-09-18] MEDS: Senna/Docusate Sodium 1 Tablet 2 TABLET PO ×2 (04:59→17:46)
[2017-09-18] MEDS: Polyethylene Glycol 3350 17 GM PACKET PO (04:59)
[2017-09-18] MEDS: Ciprofloxacin 250 MG Tablet PO ×2 (05:07→17:46)
[2017-09-18] MEDS: Menthol/Lanolin/Calamine/Znox 113 GM Tube 1 APPLIC TOPICAL ×2 (05:11→21:27)
[2017-09-18] MEDS: Aspirin 81 MG TAB.CHEW PO (09:01)
[2017-09-18] MEDS: LORazepam 0.5 MG Tablet PO ×2 (09:05→21:27)
--- NOTE | 2017-09-18 11:56 | MDS.RN ---
Information for the mds was obtained from review of the clinical record, interview of resident, staff, and direct observation of resident's care.
[2017-09-18] MEDS: HYDROcodone Bitartrate/Apap 5/325 Tablet PO ×2 (13:25→21:31)
[2017-09-18 15:22] VITALS: BP 152/71; PULSE 82; RESP 20; TEMP 36.8; O2SAT 97
[2017-09-19] MEDS: HYDROcodone Bitartrate/Apap 5/325 Tablet PO ×2 (05:36→21:18)
[2017-09-19] MEDS: Lisinopril 10 MG Tablet PO (05:37)
[2017-09-19] MEDS: Senna/Docusate Sodium 1 Tablet 2 TABLET PO ×2 (05:37→16:50)
[2017-09-19] MEDS: Ciprofloxacin 250 MG Tablet PO ×2 (05:37→16:50)
[2017-09-19] MEDS: Polyethylene Glycol 3350 17 GM PACKET PO (05:37)
[2017-09-19] MEDS: Enoxaparin 40 MG/0.4 ML Syringe SC (05:37)
[2017-09-19] MEDS: Menthol/Lanolin/Calamine/Znox 113 GM Tube 1 APPLIC TOPICAL ×2 (05:45→21:22)
[2017-09-19] MEDS: Aspirin 81 MG TAB.CHEW PO (07:08)
[2017-09-19] MEDS: LORazepam 0.5 MG Tablet PO ×2 (09:06→21:17)
--- NOTE | 2017-09-19 12:59 | CASEMGMT ---
Brief interview for mental status (BIMS) and resident mood interview (PHQ-9) completed under staff assessment due to resident declining to participate in assessment. Kari MOARLES, TRAFFIC ADMINISTRATOR
[2017-09-19 15:16] VITALS: BP 127/71; PULSE 85; RESP 14; TEMP 36.8; O2SAT 95
[2017-09-20] MEDS: HYDROcodone Bitartrate/Apap 5/325 Tablet PO ×2 (04:22→10:35)
[2017-09-20] MEDS: Senna/Docusate Sodium 1 Tablet 2 TABLET PO ×2 (04:23→17:42)
[2017-09-20] MEDS: Polyethylene Glycol 3350 17 GM PACKET PO (04:23)
[2017-09-20] MEDS: Lisinopril 10 MG Tablet PO (04:23)
[2017-09-20] MEDS: Menthol/Lanolin/Calamine/Znox 113 GM Tube 1 APPLIC TOPICAL ×2 (04:24→21:16)
[2017-09-20] MEDS: Enoxaparin 40 MG/0.4 ML Syringe SC (04:24)
[2017-09-20] MEDS: Ciprofloxacin 250 MG Tablet PO ×2 (04:24→17:42)
[2017-09-20 05:58] LABS: Absolute Lymphocyte Count 1.06 X10^3/ul (0.83-4.51); Absolute Neutrophil Count 2.9 X10^3/uL (2.0-7.7); Basophil# 0.04 X10^3/uL; Basophil% 0.8 % (0-1); Eosinophil# 0.13 X10^3/uL; Eosinophils% 2.6 % (0-5); Hematocrit 38.9 % (37-47); Hemoglobin 12.2 g/dl (12.0-15.0); Lymphocyte # 1.06 X10^3/ul (4.0); Lymphocyte % 21.5 % (19-41); Mean Corp Hgb Conc 31.4 g/gl (32-36); Mean Corpuscular Hgb 29.7 pg (27.0-32.0); Mean Corpuscular Volume 94.6 fL (81-99); Mean Platelet Vol. 9.6 fl (6.2-12.0); Monocyte% 16.3 % (0-10); Neutrophil # 2.88 X10^3/uL (2.7-7.7); Neutrophil % 58.6 % (47-70); Platelet Count 244 K/mm3 (150-450); RBC Distribution Width CV 15.8 % (11.6-14.6); RBC Distribution Width SD 52.9 fl (35.1-43.9); Red Blood Count 4.11 M/mm3 (4.2-5.4); White Blood Count 4.9 K/mm3 (4.4-11.0)
[2017-09-20 06:02] LABS: POSITIVE COUNT NO; POSITIVE DIFFERENTIAL NO; POSITIVE MORPHOLOGY NO
[2017-09-20 06:16] LABS: Anion Gap 7 (5-15); BUN 30 mg/dL (7-18); BUN/Creat Ratio 55.1 RATIO (10-20); Calcium,Total 8.6 mg/dL (8.5-10.1); Chloride 101 mmol/L (98-107); Creatinine, Serum 0.54 mg/dL (0.55-1.02); EST Glomerular Filtration Rate 114 mL/min (>60); Est Glom Filt Rate - Afr Amer 138 mL/min (>60); Estimated Creatinine Clearance 39.27 ml/min; Glucose 96 mg/dL (74-106); Potassium 4.1 mmol/L (3.5-5.1); Sodium Level 138 mmol/L (136-145)
[2017-09-20] MEDS: Aspirin 81 MG TAB.CHEW PO (09:05)
[2017-09-20] MEDS: LORazepam 0.5 MG Tablet PO ×2 (09:05→21:14)
--- NOTE | 2017-09-20 11:50 | CASEMGMT ---
Insurance Continued stay approved with next update due on 09/22/17 Auth#[id number] Kari MORALES, WASH OIL COOLER OPERATOR
--- NOTE | 2017-09-20 12:45 | NURSING ---
Weekly labs reviewed, NNO.
[2017-09-20 16:00] VITALS: BP 122/74; PULSE 90; RESP 16; TEMP 36.8; O2SAT 93
[2017-09-21] MEDS: Polyethylene Glycol 3350 17 GM PACKET PO (04:04)
[2017-09-21] MEDS: Senna/Docusate Sodium 1 Tablet 2 TABLET PO ×2 (04:04→17:04)
[2017-09-21] MEDS: Ciprofloxacin 250 MG Tablet PO ×2 (04:04→17:04)
[2017-09-21] MEDS: Lisinopril 10 MG Tablet PO (04:04)
[2017-09-21] MEDS: Menthol/Lanolin/Calamine/Znox 113 GM Tube 1 APPLIC TOPICAL ×2 (04:05→21:07)
[2017-09-21] MEDS: Enoxaparin 40 MG/0.4 ML Syringe SC (04:05)
[2017-09-21] MEDS: Aspirin 81 MG TAB.CHEW PO (09:44)
[2017-09-21] MEDS: LORazepam 0.5 MG Tablet PO ×2 (09:44→21:07)
[2017-09-21] MEDS: HYDROcodone Bitartrate/Apap 5/325 Tablet PO (12:08)
[2017-09-21 15:48] VITALS: BP 112/68; PULSE 89; RESP 18; TEMP 37.2; O2SAT 93
[2017-09-22] MEDS: Ciprofloxacin 250 MG Tablet PO ×2 (06:37→16:44)
[2017-09-22] MEDS: Menthol/Lanolin/Calamine/Znox 113 GM Tube 1 APPLIC TOPICAL ×2 (06:37→20:20)
[2017-09-22] MEDS: Polyethylene Glycol 3350 17 GM PACKET PO (06:37)
[2017-09-22] MEDS: Enoxaparin 40 MG/0.4 ML Syringe SC (06:37)
[2017-09-22] MEDS: Lisinopril 10 MG Tablet PO (06:38)
[2017-09-22] MEDS: HYDROcodone Bitartrate/Apap 5/325 Tablet PO (09:11)
[2017-09-22] MEDS: Aspirin 81 MG TAB.CHEW PO (09:11)
[2017-09-22] MEDS: LORazepam 0.5 MG Tablet PO ×2 (09:12→20:17)
--- NOTE | 2017-09-22 13:33 | CASEMGMT ---
Insurance Clinical information faxed. Pending continued stay approval at this time. Auth#[id number] Kari MORALES, SEARCH ENGINE OPTIMIZATION STRATEGIST
[2017-09-22 16:14] VITALS: BP 109/62; PULSE 63; RESP 18; TEMP 36.9; O2SAT 97
[2017-09-22] MEDS: Senna/Docusate Sodium 1 Tablet 2 TABLET PO (16:44)
[2017-09-23] MEDS: Menthol/Lanolin/Calamine/Znox 113 GM Tube 1 APPLIC TOPICAL ×2 (05:13→21:02)
[2017-09-23] MEDS: Ciprofloxacin 250 MG Tablet PO (05:13)
[2017-09-23] MEDS: Polyethylene Glycol 3350 17 GM PACKET PO (05:13)
[2017-09-23] MEDS: Senna/Docusate Sodium 1 Tablet 2 TABLET PO ×2 (05:13→17:04)
[2017-09-23] MEDS: Enoxaparin 40 MG/0.4 ML Syringe SC (05:14)
[2017-09-23] MEDS: Lisinopril 10 MG Tablet PO (05:14)
[2017-09-23] MEDS: LORazepam 0.5 MG Tablet PO ×2 (09:37→21:02)
[2017-09-23] MEDS: Aspirin 81 MG TAB.CHEW PO (09:37)
[2017-09-23] MEDS: HYDROcodone Bitartrate/Apap 5/325 Tablet PO (12:19)
[2017-09-23 15:44] VITALS: BP 118/73; PULSE 87; RESP 20; TEMP 36.8; O2SAT 93
[2017-09-24] MEDS: Menthol/Lanolin/Calamine/Znox 113 GM Tube 1 APPLIC TOPICAL ×2 (05:16→20:44)
[2017-09-24] MEDS: Enoxaparin 40 MG/0.4 ML Syringe SC (05:16)
[2017-09-24] MEDS: Senna/Docusate Sodium 1 Tablet 2 TABLET PO ×2 (05:17→18:13)
[2017-09-24] MEDS: Polyethylene Glycol 3350 17 GM PACKET PO (05:17)
[2017-09-24] MEDS: Lisinopril 10 MG Tablet PO (05:18)
[2017-09-24] MEDS: Aspirin 81 MG TAB.CHEW PO (12:10)
[2017-09-24] MEDS: LORazepam 0.5 MG Tablet PO ×2 (12:10→20:44)
[2017-09-24 16:00] VITALS: BP 110/48; PULSE 93; RESP 18; TEMP 36.7; O2SAT 92
[2017-09-25] MEDS: Polyethylene Glycol 3350 17 GM PACKET PO (05:37)
[2017-09-25] MEDS: Menthol/Lanolin/Calamine/Znox 113 GM Tube 1 APPLIC TOPICAL ×2 (05:37→21:51)
[2017-09-25] MEDS: Enoxaparin 40 MG/0.4 ML Syringe SC (05:37)
[2017-09-25] MEDS: Lisinopril 10 MG Tablet PO (05:38)
[2017-09-25 05:48] VITALS: PULSE 83; O2SAT 95
[2017-09-25] MEDS: LORazepam 0.5 MG Tablet PO ×2 (09:31→21:52)
[2017-09-25] MEDS: Aspirin 81 MG TAB.CHEW PO (09:31)
[2017-09-25] MEDS: HYDROcodone Bitartrate/Apap 5/325 Tablet PO (13:07)
[2017-09-25 15:38] VITALS: BP 116/61; PULSE 86; RESP 20; TEMP 36.6; O2SAT 95
[2017-09-25] MEDS: Senna/Docusate Sodium 1 Tablet 2 TABLET PO (17:35)
[2017-09-26] MEDS: Polyethylene Glycol 3350 17 GM PACKET PO (04:46)
[2017-09-26] MEDS: Lisinopril 10 MG Tablet PO (04:47)
[2017-09-26] MEDS: Senna/Docusate Sodium 1 Tablet 2 TABLET PO ×2 (04:47→16:48)
[2017-09-26] MEDS: Enoxaparin 40 MG/0.4 ML Syringe SC (04:47)
[2017-09-26] MEDS: Menthol/Lanolin/Calamine/Znox 113 GM Tube 1 APPLIC TOPICAL ×2 (04:52→20:50)
[2017-09-26] MEDS: Aspirin 81 MG TAB.CHEW PO (08:47)
[2017-09-26] MEDS: HYDROcodone Bitartrate/Apap 5/325 Tablet PO ×2 (08:49→23:25)
[2017-09-26] MEDS: LORazepam 0.5 MG Tablet PO ×3 (10:38→23:26)
[2017-09-26 15:46] VITALS: BP 127/77; PULSE 98; RESP 16; TEMP 37.1; O2SAT 96
[2017-09-27] MEDS: Menthol/Lanolin/Calamine/Znox 113 GM Tube 1 APPLIC TOPICAL ×2 (05:10→20:48)
[2017-09-27] MEDS: Senna/Docusate Sodium 1 Tablet 2 TABLET PO ×2 (05:11→17:38)
[2017-09-27] MEDS: Lisinopril 10 MG Tablet PO (05:11)
[2017-09-27] MEDS: Enoxaparin 40 MG/0.4 ML Syringe SC (05:15)
[2017-09-27 06:30] LABS: Absolute Lymphocyte Count 1.51 X10^3/ul (0.83-4.51); Absolute Neutrophil Count 2.6 X10^3/uL (2.0-7.7); Basophil# 0.03 X10^3/uL; Basophil% 0.6 % (0-1); Eosinophil# 0.16 X10^3/uL; Eosinophils% 3.1 % (0-5); Hematocrit 40.9 % (37-47); Hemoglobin 12.4 g/dl (12.0-15.0); Lymphocyte # 1.51 X10^3/ul (4.0); Lymphocyte % 29.5 % (19-41); Mean Corp Hgb Conc 30.3 g/gl (32-36); Mean Corpuscular Volume 95.6 fL (81-99); Mean Platelet Vol. 9.4 fl (6.2-12.0); Monocyte# 0.79 X10^3/uL; Monocyte% 15.4 % (0-10); Neutrophil # 2.62 X10^3/uL (2.7-7.7); Neutrophil % 51.2 % (47-70); Platelet Count 179 K/mm3 (150-450); RBC Distribution Width CV 15.2 % (11.6-14.6); Red Blood Count 4.28 M/mm3 (4.2-5.4); White Blood Count 5.1 K/mm3 (4.4-11.0)
[2017-09-27 06:35] LABS: POSITIVE COUNT NO; POSITIVE DIFFERENTIAL NO; POSITIVE MORPHOLOGY NO
[2017-09-27 06:58] LABS: Anion Gap 9 (5-15); BUN 31 mg/dL (7-18); BUN/Creat Ratio 68.6 RATIO (10-20); Calcium,Total 8.4 mg/dL (8.5-10.1); Chloride 105 mmol/L (98-107); Creatinine, Serum 0.45 mg/dL (0.55-1.02); EST Glomerular Filtration Rate 141 mL/min (>60); Est Glom Filt Rate - Afr Amer 171 mL/min (>60); Estimated Creatinine Clearance 37.87 ml/min; Glucose 79 mg/dL (74-106); Potassium 4.2 mmol/L (3.5-5.1); Sodium Level 138 mmol/L (136-145)
[2017-09-27] MEDS: HYDROcodone Bitartrate/Apap 5/325 Tablet PO (08:49)
[2017-09-27] MEDS: Aspirin 81 MG TAB.CHEW PO (08:50)
[2017-09-27] MEDS: LORazepam 0.5 MG Tablet PO ×2 (08:59→20:47)
--- NOTE | 2017-09-27 11:50 | CASEMGMT ---
Insurance Continued stay approval with next update due on 10/02/17. Auth#[id number] Kari MORALES, AUTOMATIC FABRIC CUTTER
[2017-09-27 15:31] VITALS: BP 114/58; PULSE 86; RESP 18; TEMP 36.7; O2SAT 96
[2017-09-28] MEDS: Polyethylene Glycol 3350 17 GM PACKET PO (05:04)
[2017-09-28] MEDS: Lisinopril 10 MG Tablet PO (05:04)
[2017-09-28] MEDS: Senna/Docusate Sodium 1 Tablet 2 TABLET PO ×2 (05:04→17:36)
[2017-09-28] MEDS: LORazepam 0.5 MG Tablet PO ×3 (05:04→21:07)
[2017-09-28] MEDS: Enoxaparin 40 MG/0.4 ML Syringe SC (05:05)
[2017-09-28] MEDS: Menthol/Lanolin/Calamine/Znox 113 GM Tube 1 APPLIC TOPICAL ×2 (05:09→21:08)
[2017-09-28] MEDS: Aspirin 81 MG TAB.CHEW PO (11:13)
[2017-09-28] MEDS: HYDROcodone Bitartrate/Apap 5/325 Tablet PO (12:27)
[2017-09-28 16:00] VITALS: BP 116/63; PULSE 93; RESP 20; TEMP 37.2; O2SAT 94
[2017-09-29] MEDS: Lisinopril 10 MG Tablet PO (04:32)
[2017-09-29] MEDS: Menthol/Lanolin/Calamine/Znox 113 GM Tube 1 APPLIC TOPICAL ×2 (04:35→21:05)
[2017-09-29] MEDS: Enoxaparin 40 MG/0.4 ML Syringe SC (04:35)
[2017-09-29] MEDS: LORazepam 0.5 MG Tablet PO ×2 (10:22→21:05)
[2017-09-29] MEDS: Aspirin 81 MG TAB.CHEW PO (10:22)
[2017-09-29 15:58] VITALS: BP 113/66; PULSE 92; RESP 20; TEMP 37.6; O2SAT 94
[2017-09-29] MEDS: Senna/Docusate Sodium 1 Tablet 2 TABLET PO (17:35)
[2017-09-29 21:10] VITALS: PULSE 87; O2SAT 95
[2017-09-30] MEDS: Menthol/Lanolin/Calamine/Znox 113 GM Tube 1 APPLIC TOPICAL ×2 (06:11→23:53)
[2017-09-30] MEDS: Lisinopril 10 MG Tablet PO (06:12)
[2017-09-30] MEDS: Enoxaparin 40 MG/0.4 ML Syringe SC (06:12)
[2017-09-30] MEDS: Senna/Docusate Sodium 1 Tablet 2 TABLET PO ×2 (06:12→17:58)
[2017-09-30] MEDS: LORazepam 0.5 MG Tablet PO ×2 (12:32→23:51)
[2017-09-30] MEDS: Aspirin 81 MG TAB.CHEW PO (12:32)
[2017-09-30 16:00] VITALS: BP 102/72; PULSE 70; RESP 16; TEMP 36.2; O2SAT 95
[2017-10-01] MEDS: Menthol/Lanolin/Calamine/Znox 113 GM Tube 1 APPLIC TOPICAL ×2 (05:32→20:30)
[2017-10-01] MEDS: Senna/Docusate Sodium 1 Tablet 2 TABLET PO ×2 (05:33→17:33)
[2017-10-01] MEDS: Enoxaparin 40 MG/0.4 ML Syringe SC (05:33)
[2017-10-01] MEDS: Lisinopril 10 MG Tablet PO (05:33)
[2017-10-01] MEDS: Polyethylene Glycol 3350 17 GM PACKET PO (05:34)
[2017-10-01] MEDS: Aspirin 81 MG TAB.CHEW PO (11:52)
[2017-10-01] MEDS: LORazepam 0.5 MG Tablet PO ×2 (11:52→20:28)
[2017-10-01 15:39] VITALS: BP 135/68; PULSE 87; RESP 18; TEMP 36.8; O2SAT 92
[2017-10-02] MEDS: Polyethylene Glycol 3350 17 GM PACKET PO (05:12)
[2017-10-02] MEDS: Senna/Docusate Sodium 1 Tablet 2 TABLET PO ×2 (05:12→16:29)
[2017-10-02] MEDS: Enoxaparin 40 MG/0.4 ML Syringe SC (05:12)
[2017-10-02] MEDS: Lisinopril 10 MG Tablet PO (05:12)
[2017-10-02] MEDS: Menthol/Lanolin/Calamine/Znox 113 GM Tube 1 APPLIC TOPICAL ×2 (05:22→20:32)
[2017-10-02] MEDS: LORazepam 0.5 MG Tablet PO ×2 (08:47→20:32)
[2017-10-02] MEDS: Acetaminophen 325 MG Tablet 650 MG PO (08:48)
[2017-10-02] MEDS: Aspirin 81 MG TAB.CHEW PO (08:48)
--- NOTE | 2017-10-02 13:00 | CASEMGMT ---
Insurance Clinical information faxed. Pending continued stay approval at this time. Auth#[id number] Kari MORALES, MERCHANDISE MANAGER
[2017-10-02] MEDS: HYDROcodone Bitartrate/Apap 5/325 Tablet PO (15:10)
[2017-10-02 15:33] VITALS: BP 118/71; PULSE 98; RESP 20; TEMP 37.3; O2SAT 95
--- NOTE | 2017-10-02 19:33 | PCM.TCUNOT ---
Subjective: Resident seen sitting. She has no complaints, spoke with daughter Kath, let her know resident is doing well with therapy, but due to her dementia, will need around the clock care. Vitals/I&O's: Vital Signs Temp Pulse Resp BP Pulse Ox 99.2 F H 98 20 H 118/71 95 10/02/17 15:33 10/02/17 15:33 10/02/17 15:33 10/02/17 15:33 10/02/17 15:33 Oxygen Delivery Method Room Air Weight: 55.3 kg Body Mass Index (BMI) 20.2 Intake and Output for Last 24 Hours 09/30/17 10/01/17 10/02/17 23:59 23:59 23:59 Intake Total 300 / 300 320 / 320 700 / 700 Balance 300 / 300 320 / 320 700 / 700 Past Medical History Past Medical History (Chronic Problems): Chronic Problems Hypertension (Chronic) Dementia (Chronic) Essential hypertension, benign (Chronic) 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 (Chronic) Allergies Penicillins [PCN] Allergy (Verified 08/29/17 16:37) Unknown Home Medications: Ambulatory Orders Medication Instructions Recorded Aspirin [Aspirin, Baby] 81 mg PO DAILY@0800 08/29/17 Lisinopril [Prinivil] 10 mg PO DAILY 08/29/17 Multivitamin [Animal Shapes] 1 each PO DAILY 08/29/17 Acetaminophen 650 mg PO Q4H PRN PRN 09/05/17 Hydrocodone/Acetaminophen 1 each PO Q6H PRN PRN 09/05/17 [Hydrocodon-Acetaminophen 5-325] Surgical History: cataract, - - Right hip pinning (09/01/2017). Psychiatric History: No pertinent psych hx SALES REPRESENTATIVE History: No pertinent SALES REPRESENTATIVE history Lives: With Family - Daughter Therese. Smoking Status: Former smoker Tobacco Use: Non-smoker Alcohol: None Drugs: None - *Family History Maternal History Items: No pertinent history Paternal History Items: No pertinent history Review of Systems Constitutional: Denies: Chills, Fever, Weight Change HEENT: Denies: Head Aches, Sinus Congestion, Sinus Drainage Cardiovascular: Denies: Chest Pain, Palpitations Respiratory: Denies: Cough, Shortness of breath at rest, Sputum production Gastrointestinal: Denies: Abdominal Pain, Nausea, Vomiting Genitourinary: Denies: Dysuria Musculoskeletal: Denies: Joint Pain, Joint Tenderness Skin: Denies: Rash, Wounds Neurological: Denies: Numbness, Tingling, Focal weakness Psychiatric: Denies: Anxiety, Depression, Homicidal Ideations, Suicidal Ideations Hematologic/ Lymphatic: Denies: Easy Bruising, Easy Bleeding Patient Problems: Active and Suspected Problems Sinus bradycardia (Acute) Unresponsiveness (Acute) Fracture of right inferior pubic ramus (Acute) Fall (Acute) Postoperative anemia (Acute) - Physical Exam General: Alert, Oriented x3, Cooperative HEENT: Atraumatic, PERRLA, EOMI, Normocephalic Neck: Supple, No JVD, Negative Carotid Bruits Lungs: Clear to auscultation, Normal air movement Cardiovascular: Regular rate, No murmurs Abdomen: Bowel Sounds Present, Soft, Non Tender Extremities: No edema, Capillary Refill Less than 3 Seconds Skin: No rashes, No breakdown Musculoskeletal: No Tenderness to Palpation of Joints or Extremities Neurological: Cranial nerves II-XII grossly intact Psych/Mental Status: Normal Affect, Appropriate Vital Signs Temp Pulse Resp BP Pulse Ox 99.2 F H 98 20 H 118/71 95 10/02/17 15:33 10/02/17 15:33 10/02/17 15:33 10/02/17 15:33 10/02/17 15:33 Oxygen Delivery Method Room Air Weight: 55.3 kg Body Mass Index (BMI) 20.2 Intake and Output for Last 24 Hours 09/30/17 10/01/17 10/02/17 23:59 23:59 23:59 Intake Total 300 / 300 320 / 320 700 / 700 Balance 300 / 300 320 / 320 700 / 700 Assessment/Plan Active and Suspected Problems Sinus bradycardia (Acute) Unresponsiveness (Acute) Fracture of right inferior pubic ramus (Acute) Fall (Acute) Postoperative anemia (Acute) 82 year old female with below past medical history hospitalized for right hip fracture, underwent right hip pinning 09/01/2017, complicated by unresponsiveness secondary to prolonged ventricular asystole, no pacemaker recommended, admitted to TCU for rehabilitation, strengthening, prior to discharge home with daughter. Debility - PT/OT. Pain - Tylenol 650MG Q4H PRN mild pain, [place] 5/325MG 1 tablet Q6H PRN severe pain. Bowel - Miralax 17GM daily, Senna/colace 2 tablets BID, Dulcolax 10MG PO daily PRN. DVT prophylaxis - Lovenox 40MG SC daily. CV prophylaxis - Aspirin 81MG daily. Hypertension - Lisinopril 10MG daily. Macular degeneration - Ocuvite 1 tablet daily. Alzheimer's disease - will need around the clock care.
--- NOTE | 2017-10-02 19:37 | PN_ITS ---
Subjective: Resident seen sitting. She has no complaints, spoke with daughter Kath, let her know resident is doing well with therapy, but due to her dementia, will need around the clock care. Vitals/I&O's: Vital Signs Temp Pulse Resp BP Pulse Ox 99.2 F H 98 20 H 118/71 95 10/02/17 15:33 10/02/17 15:33 10/02/17 15:33 10/02/17 15:33 10/02/17 15:33 Oxygen Delivery Method Room Air Weight: 55.3 kg Body Mass Index (BMI) 20.2 Intake and Output for Last 24 Hours 09/30/17 10/01/17 10/02/17 23:59 23:59 23:59 Intake Total 300 / 300 320 / 320 700 / 700 Balance 300 / 300 320 / 320 700 / 700 Past Medical History Past Medical History (Chronic Problems): Chronic Problems Hypertension (Chronic) Dementia (Chronic) Essential hypertension, benign (Chronic) 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 (Chronic) Allergies Penicillins [PCN] Allergy (Verified 08/29/17 16:37) Unknown Home Medications: Ambulatory Orders Medication Instructions Recorded Aspirin [Aspirin, Baby] 81 mg PO DAILY@0800 08/29/17 Lisinopril [Prinivil] 10 mg PO DAILY 08/29/17 Multivitamin [Animal Shapes] 1 each PO DAILY 08/29/17 Acetaminophen 650 mg PO Q4H PRN PRN 09/05/17 Hydrocodone/Acetaminophen 1 each PO Q6H PRN PRN 09/05/17 [Hydrocodon-Acetaminophen 5-325] Surgical History: cataract, - - Right hip pinning (09/01/2017). Psychiatric History: No pertinent psych hx DIAZO TECHNICIAN History: No pertinent DIAZO TECHNICIAN history Lives: With Family - Daughter Therese. Smoking Status: Former smoker Tobacco Use: Non-smoker Alcohol: None Drugs: None - *Family History Maternal History Items: No pertinent history Paternal History Items: No pertinent history Review of Systems Constitutional: Denies: Chills, Fever, Weight Change HEENT: Denies: Head Aches, Sinus Congestion, Sinus Drainage Cardiovascular: Denies: Chest Pain, Palpitations Respiratory: Denies: Cough, Shortness of breath at rest, Sputum production Gastrointestinal: Denies: Abdominal Pain, Nausea, Vomiting Genitourinary: Denies: Dysuria Musculoskeletal: Denies: Joint Pain, Joint Tenderness Skin: Denies: Rash, Wounds Neurological: Denies: Numbness, Tingling, Focal weakness Psychiatric: Denies: Anxiety, Depression, Homicidal Ideations, Suicidal Ideations Hematologic/ Lymphatic: Denies: Easy Bruising, Easy Bleeding Patient Problems: Active and Suspected Problems Sinus bradycardia (Acute) Unresponsiveness (Acute) Fracture of right inferior pubic ramus (Acute) Fall (Acute) Postoperative anemia (Acute) - Physical Exam General: Alert, Oriented x3, Cooperative HEENT: Atraumatic, PERRLA, EOMI, Normocephalic Neck: Supple, No JVD, Negative Carotid Bruits Lungs: Clear to auscultation, Normal air movement Cardiovascular: Regular rate, No murmurs Abdomen: Bowel Sounds Present, Soft, Non Tender Extremities: No edema, Capillary Refill Less than 3 Seconds Skin: No rashes, No breakdown Musculoskeletal: No Tenderness to Palpation of Joints or Extremities Neurological: Cranial nerves II-XII grossly intact Psych/Mental Status: Normal Affect, Appropriate Vital Signs Temp Pulse Resp BP Pulse Ox 99.2 F H 98 20 H 118/71 95 10/02/17 15:33 10/02/17 15:33 10/02/17 15:33 10/02/17 15:33 10/02/17 15:33 Oxygen Delivery Method Room Air Weight: 55.3 kg Body Mass Index (BMI) 20.2 Intake and Output for Last 24 Hours 09/30/17 10/01/17 10/02/17 23:59 23:59 23:59 Intake Total 300 / 300 320 / 320 700 / 700 Balance 300 / 300 320 / 320 700 / 700 Assessment/Plan Active and Suspected Problems Sinus bradycardia (Acute) Unresponsiveness (Acute) Fracture of right inferior pubic ramus (Acute) Fall (Acute) Postoperative anemia (Acute) 82 year old female with below past medical history hospitalized for right hip fracture, underwent right hip pinning 09/01/2017, complicated by unresponsiveness secondary to prolonged ventricular asystole, no pacemaker recommended, admitted to TCU for rehabilitation, strengthening, prior to discharge home with daughter. * Debility - PT/OT. * Pain - Tylenol 650MG Q4H PRN mild pain, [place] 5/325MG 1 tablet Q6H PRN severe pain. * Bowel - Miralax 17GM daily, Senna/colace 2 tablets BID, Dulcolax 10MG PO daily PRN. * DVT prophylaxis - Lovenox 40MG SC daily. * CV prophylaxis - Aspirin 81MG daily. * Hypertension - Lisinopril 10MG daily. * Macular degeneration - Ocuvite 1 tablet daily. * Alzheimer's disease - will need around the clock care.
[2017-10-03 06:01] VITALS: O2SAT 96
[2017-10-03] MEDS: Menthol/Lanolin/Calamine/Znox 113 GM Tube 1 APPLIC TOPICAL ×2 (06:08→20:32)
[2017-10-03] MEDS: Polyethylene Glycol 3350 17 GM PACKET PO (06:08)
[2017-10-03] MEDS: Enoxaparin 40 MG/0.4 ML Syringe SC (06:08)
[2017-10-03] MEDS: Senna/Docusate Sodium 1 Tablet 2 TABLET PO ×2 (06:09→17:16)
[2017-10-03] MEDS: Lisinopril 10 MG Tablet PO (06:09)
--- NOTE | 2017-10-03 08:10 | MDS.RN ---
Information for the mds was obtained from review of the clinical record, interview of resident, staff, and direct observation of resident's care.
[2017-10-03] MEDS: LORazepam 0.5 MG Tablet PO ×2 (09:37→20:26)
[2017-10-03] MEDS: Aspirin 81 MG TAB.CHEW PO (09:38)
[2017-10-03] MEDS: HYDROcodone Bitartrate/Apap 5/325 Tablet PO (10:42)
[2017-10-03 15:26] VITALS: BP 129/67; PULSE 85; RESP 18; TEMP 36.1; O2SAT 96
[2017-10-04] MEDS: Polyethylene Glycol 3350 17 GM PACKET PO (05:07)
[2017-10-04] MEDS: Menthol/Lanolin/Calamine/Znox 113 GM Tube 1 APPLIC TOPICAL ×2 (05:07→20:37)
[2017-10-04] MEDS: Lisinopril 10 MG Tablet PO (05:09)
[2017-10-04] MEDS: Senna/Docusate Sodium 1 Tablet 2 TABLET PO ×2 (05:09→16:47)
[2017-10-04] MEDS: Enoxaparin 40 MG/0.4 ML Syringe SC (05:12)
[2017-10-04 06:22] LABS: Absolute Lymphocyte Count 1.75 X10^3/ul (0.83-4.51); Absolute Neutrophil Count 3.7 X10^3/uL (2.0-7.7); Basophil# 0.02 X10^3/uL; Basophil% 0.3 % (0-1); Eosinophil# 0.09 X10^3/uL; Eosinophils% 1.4 % (0-5); Hematocrit 41.1 % (37-47); Hemoglobin 12.8 g/dl (12.0-15.0); Lymphocyte # 1.75 X10^3/ul (4.0); Lymphocyte % 27.8 % (19-41); Mean Corp Hgb Conc 31.1 g/gl (32-36); Mean Corpuscular Hgb 29.2 pg (27.0-32.0); Mean Corpuscular Volume 93.6 fL (81-99); Mean Platelet Vol. 10.3 fl (6.2-12.0); Monocyte# 0.68 X10^3/uL; Monocyte% 10.8 % (0-10); Neutrophil # 3.74 X10^3/uL (2.7-7.7); Neutrophil % 59.4 % (47-70); Platelet Count 197 K/mm3 (150-450); RBC Distribution Width CV 14.8 % (11.6-14.6); RBC Distribution Width SD 50.7 fl (35.1-43.9); Red Blood Count 4.39 M/mm3 (4.2-5.4); White Blood Count 6.3 K/mm3 (4.4-11.0)
[2017-10-04 06:24] LABS: POSITIVE COUNT NO; POSITIVE DIFFERENTIAL NO; POSITIVE MORPHOLOGY NO
[2017-10-04 06:29] LABS: Anion Gap 6 (5-15); BUN 30 mg/dL (7-18); BUN/Creat Ratio 53.4 RATIO (10-20); Calcium,Total 8.9 mg/dL (8.5-10.1); Chloride 101 mmol/L (98-107); Creatinine, Serum 0.56 mg/dL (0.55-1.02); EST Glomerular Filtration Rate 110 mL/min (>60); Est Glom Filt Rate - Afr Amer 133 mL/min (>60); Glucose 123 mg/dL (74-106); Potassium 3.9 mmol/L (3.5-5.1); Sodium Level 136 mmol/L (136-145)
[2017-10-04] MEDS: Aspirin 81 MG TAB.CHEW PO (08:11)
[2017-10-04] MEDS: LORazepam 0.5 MG Tablet PO ×2 (08:11→20:36)
--- NOTE | 2017-10-04 08:28 | CASEMGMT ---
Insurance Continued stay approved with next update due on 10/06/17. Auth#[id number] Kari MORALES, DISC PAD GRINDER
[2017-10-04] MEDS: HYDROcodone Bitartrate/Apap 5/325 Tablet PO (11:49)
[2017-10-04 15:45] VITALS: BP 107/70; PULSE 88; RESP 20; TEMP 36.4; O2SAT 93
[2017-10-05] MEDS: Polyethylene Glycol 3350 17 GM PACKET PO (05:10)
[2017-10-05] MEDS: Lisinopril 10 MG Tablet PO (05:11)
[2017-10-05] MEDS: Senna/Docusate Sodium 1 Tablet 2 TABLET PO ×2 (05:11→17:24)
[2017-10-05] MEDS: Enoxaparin 40 MG/0.4 ML Syringe SC (05:18)
[2017-10-05] MEDS: Menthol/Lanolin/Calamine/Znox 113 GM Tube 1 APPLIC TOPICAL ×2 (05:20→22:08)
[2017-10-05] MEDS: Aspirin 81 MG TAB.CHEW PO (08:06)
[2017-10-05] MEDS: HYDROcodone Bitartrate/Apap 5/325 Tablet PO (08:06)
[2017-10-05] MEDS: LORazepam 0.5 MG Tablet PO ×2 (08:07→22:08)
[2017-10-05 15:25] VITALS: BP 98/59; PULSE 91; RESP 20; TEMP 36.4; O2SAT 95
[2017-10-06] MEDS: HYDROcodone Bitartrate/Apap 5/325 Tablet PO (04:54)
[2017-10-06] MEDS: Polyethylene Glycol 3350 17 GM PACKET PO (04:54)
[2017-10-06] MEDS: Senna/Docusate Sodium 1 Tablet 2 TABLET PO ×2 (04:54→17:52)
[2017-10-06] MEDS: Menthol/Lanolin/Calamine/Znox 113 GM Tube 1 APPLIC TOPICAL ×2 (04:55→21:17)
[2017-10-06] MEDS: Enoxaparin 40 MG/0.4 ML Syringe SC (04:55)
[2017-10-06] MEDS: Lisinopril 10 MG Tablet PO (04:55)
[2017-10-06] MEDS: LORazepam 0.5 MG Tablet PO ×2 (08:39→21:08)
[2017-10-06] MEDS: Aspirin 81 MG TAB.CHEW PO (08:39)
--- NOTE | 2017-10-06 09:35 | CASEMGMT ---
Insurance Clinical information faxed. Pending continued stay approval at this time. Auth#[id number] Kari MORALES, IT PORTFOLIO MANAGER
[2017-10-06 13:32] LABS: Mucous, Urine 0 SEEN /hpf (<or=2+); Red Blood Cells-Urine 0 SEEN /hpf (0-5)
[2017-10-06 13:46] LABS: Color, Urine Yellow (Yellow); Glucose, Dipstick Normal (Normal); Ketone-Dipstick Negative (Negative); Leukocyte Esterase-Dipstick Negative /ul (Negative); Nitrite-Dipstick Negative (Negative); Occult Blood-Urine Negative /ul (Negative); Protein-Dipstick Negative (Negative); Specific Gravity, Urine 1.015 (1.002-1.030); Urine Bilirubin Dipstick Negative (Negative); Urine Clarity Clear (Clear); Urine Urobilinogen Normal (Normal); Urine pH 6.5 (5.0 - 8.0)
[2017-10-06 14:01] LABS: Bacteria RARE /hpf (None Seen); Squamous Epithelial Cells - UA 0-5 SEEN /hpf (5-10); White Blood Cells 0-5 SEEN /hpf (0-5)
[2017-10-06 15:26] VITALS: BP 99/57; PULSE 89; RESP 18; TEMP 36.4; O2SAT 93
[2017-10-06 21:00] VITALS: RESP 15
[2017-10-07] MEDS: LORazepam 0.5 MG Tablet PO ×3 (01:48→21:43)
[2017-10-07] MEDS: Enoxaparin 40 MG/0.4 ML Syringe SC (04:45)
[2017-10-07] MEDS: Polyethylene Glycol 3350 17 GM PACKET PO (04:45)
[2017-10-07] MEDS: Senna/Docusate Sodium 1 Tablet 2 TABLET PO ×2 (04:45→16:26)
[2017-10-07] MEDS: Lisinopril 10 MG Tablet PO (04:45)
[2017-10-07] MEDS: Menthol/Lanolin/Calamine/Znox 113 GM Tube 1 APPLIC TOPICAL ×2 (04:52→21:43)
[2017-10-07] MEDS: Aspirin 81 MG TAB.CHEW PO (08:54)
[2017-10-07] MEDS: Acetaminophen 325 MG Tablet 650 MG PO (11:04)
[2017-10-07 13:15] VITALS: BP 105/88; PULSE 96; RESP 20; TEMP 36.8; O2SAT 95
--- NOTE | 2017-10-07 13:43 | NURSING ---
Addendum entered by Shannan De La O 10/07/17 16:07: Daughter here and aware of fall today. Pt asleep in bed. Cont to monitor. Original Note: Addendum entered by Shannan De La O 10/07/17 13:54: supervisor toy assembly aware, Dr. Salinas aware, NNO. This nurse tried to called daughter, unable to leave VM, will try again. Original Note: CALLED OUT OF ROOM 16 BY AIDE CALLING FOR ASSIST D/T PT FELL TO FLOOR. AIDE REPORTS PT USED TABLE IN FRONT OF HER TO TRY TO STAND AND TOOK A STEP TO THE SIDE THEN WENT TO SIT AGAIN BUT CHAIR WAS OFF TO HER SIDE SO PT SAT ON FLOOR AND LAID HEAD DOWN ON FLOOR. AIDE REPORTS PT DID NOT HIT HER HEAD. PT NOT COMPLAINING OF PAIN. ALERT. VSS. PT ASSISTED TO CHAIR X2. ASSISTED TO RESTROOM VIA CHAIR. HAD SMALL BM AND URINATED. ASSISTED TO BED. AGAIN NO C/O PAIN. NO BRUISING OR REDNESS NOTED. BED PLACED IN LOW POSITION, ALARM ON AND PERSONAL ALARM ON. FLOOR MATS IN PLACE.
[2017-10-08] MEDS: Enoxaparin 40 MG/0.4 ML Syringe SC (04:52)
[2017-10-08] MEDS: Lisinopril 10 MG Tablet PO (04:53)
[2017-10-08] MEDS: Senna/Docusate Sodium 1 Tablet 2 TABLET PO ×2 (04:53→17:48)
[2017-10-08] MEDS: Polyethylene Glycol 3350 17 GM PACKET PO (04:53)
[2017-10-08] MEDS: Menthol/Lanolin/Calamine/Znox 113 GM Tube 1 APPLIC TOPICAL ×2 (05:01→20:44)
[2017-10-08] MEDS: Aspirin 81 MG TAB.CHEW PO (09:10)
--- NOTE | 2017-10-08 10:01 | NURSING ---
Pt's daughter, Therese, here, asking how often the schedule Ativan is given. Asking that the pt no longer be on scheduled Ativan as she feels it makes her too sleepy, Dr. Salinas updated. N.O. for 0.5 mg Ativan Q6H PRN, daughter aware.
[2017-10-08 15:53] VITALS: BP 125/66; PULSE 82; RESP 20; TEMP 36.7; O2SAT 93
[2017-10-09] MEDS: Menthol/Lanolin/Calamine/Znox 113 GM Tube 1 APPLIC TOPICAL ×2 (04:36→20:19)
[2017-10-09] MEDS: Lisinopril 10 MG Tablet PO (04:37)
[2017-10-09] MEDS: Senna/Docusate Sodium 1 Tablet 2 TABLET PO ×2 (04:37→17:55)
[2017-10-09] MEDS: Enoxaparin 40 MG/0.4 ML Syringe SC (04:41)
[2017-10-09] MEDS: Polyethylene Glycol 3350 17 GM PACKET PO (04:57)
--- NOTE | 2017-10-09 09:37 | NURSING ---
pt sleeping sound, did not disturb, will administer aspirin when awake
--- NOTE | 2017-10-09 15:11 | CASEMGMT ---
Insurance Continued stay approved with next update due on 10/12/17. Auth#[id number] Kari MORALES, CURRICULUM DEVELOPMENT COORDINATOR
[2017-10-09 15:47] VITALS: BP 119/64; PULSE 83; RESP 20; TEMP 36.6; O2SAT 90
[2017-10-10] MEDS: LORazepam 0.5 MG Tablet PO ×2 (01:09→23:25)
[2017-10-10] MEDS: Menthol/Lanolin/Calamine/Znox 113 GM Tube 1 APPLIC TOPICAL ×2 (04:46→21:47)
[2017-10-10] MEDS: Polyethylene Glycol 3350 17 GM PACKET PO (04:48)
[2017-10-10] MEDS: Enoxaparin 40 MG/0.4 ML Syringe SC (04:48)
[2017-10-10] MEDS: Senna/Docusate Sodium 1 Tablet 2 TABLET PO ×2 (04:48→16:34)
[2017-10-10] MEDS: Lisinopril 10 MG Tablet PO (04:48)
--- NOTE | 2017-10-10 08:56 | CASEMGMT ---
Brief interview for mental status (BIMS) and resident mood assessment (PHQ-9) completed on this day via staff assessment as resident declined to participate in assessment. Kari MORALES, SUPERVISOR METER SHOP
[2017-10-10] MEDS: Aspirin 81 MG TAB.CHEW PO (10:21)
[2017-10-10 15:24] VITALS: BP 133/73; PULSE 84; RESP 16; TEMP 36.4; O2SAT 94
[2017-10-11] MEDS: Polyethylene Glycol 3350 17 GM PACKET PO (05:30)
[2017-10-11] MEDS: Enoxaparin 40 MG/0.4 ML Syringe SC (05:30)
[2017-10-11] MEDS: Senna/Docusate Sodium 1 Tablet 2 TABLET PO ×2 (05:30→16:13)
[2017-10-11] MEDS: Lisinopril 10 MG Tablet PO (05:30)
[2017-10-11] MEDS: Menthol/Lanolin/Calamine/Znox 113 GM Tube 1 APPLIC TOPICAL ×2 (05:36→22:05)
[2017-10-11 06:21] LABS: Absolute Lymphocyte Count 1.45 X10^3/ul (0.83-4.51); Absolute Neutrophil Count 4.1 X10^3/uL (2.0-7.7); Basophil# 0.03 X10^3/uL; Basophil% 0.5 % (0-1); Eosinophil# 0.09 X10^3/uL; Eosinophils% 1.4 % (0-5); Hematocrit 43.4 % (37-47); Hemoglobin 13.9 g/dl (12.0-15.0); Lymphocyte # 1.45 X10^3/ul (4.0); Lymphocyte % 22.8 % (19-41); Mean Corpuscular Volume 93.5 fL (81-99); Mean Platelet Vol. 10.1 fl (6.2-12.0); Monocyte# 0.65 X10^3/uL; Monocyte% 10.2 % (0-10); Neutrophil # 4.13 X10^3/uL (2.7-7.7); Neutrophil % 64.9 % (47-70); Platelet Count 203 K/mm3 (150-450); RBC Distribution Width CV 14.3 % (11.6-14.6); RBC Distribution Width SD 47.6 fl (35.1-43.9); Red Blood Count 4.64 M/mm3 (4.2-5.4); White Blood Count 6.4 K/mm3 (4.4-11.0)
[2017-10-11 06:27] LABS: POSITIVE COUNT NO; POSITIVE DIFFERENTIAL NO; POSITIVE MORPHOLOGY NO
[2017-10-11 06:31] LABS: Anion Gap 7 (5-15); BUN 30 mg/dL (7-18); Chloride 100 mmol/L (98-107); Creatinine, Serum 0.54 mg/dL (0.55-1.02); EST Glomerular Filtration Rate 114 mL/min (>60); Est Glom Filt Rate - Afr Amer 137 mL/min (>60); Estimated Creatinine Clearance 37.59 ml/min; Glucose 93 mg/dL (74-106); Potassium 3.3 mmol/L (3.5-5.1); Sodium Level 139 mmol/L (136-145)
[2017-10-11] MEDS: Aspirin 81 MG TAB.CHEW PO (07:17)
[2017-10-11] MEDS: Acetaminophen 325 MG Tablet 650 MG PO (11:23)
[2017-10-11] MEDS: LORazepam 0.5 MG Tablet PO (14:39)
[2017-10-11 15:25] VITALS: BP 124/53; PULSE 82; RESP 20; TEMP 36.6; O2SAT 95
[2017-10-12] MEDS: Menthol/Lanolin/Calamine/Znox 113 GM Tube 1 APPLIC TOPICAL ×2 (05:45→20:24)
[2017-10-12] MEDS: Enoxaparin 40 MG/0.4 ML Syringe SC (05:46)
[2017-10-12 06:23] LABS: Anion Gap 7 (5-15); BUN 28 mg/dL (7-18); BUN/Creat Ratio 52.4 RATIO (10-20); Calcium,Total 8.5 mg/dL (8.5-10.1); Chloride 105 mmol/L (98-107); Creatinine, Serum 0.53 mg/dL (0.55-1.02); EST Glomerular Filtration Rate 116 mL/min (>60); Est Glom Filt Rate - Afr Amer 141 mL/min (>60); Estimated Creatinine Clearance 37.59 ml/min; Glucose 77 mg/dL (74-106); Potassium 4.2 mmol/L (3.5-5.1); Sodium Level 141 mmol/L (136-145)
[2017-10-12] MEDS: Senna/Docusate Sodium 1 Tablet 2 TABLET PO ×2 (06:45→16:35)
[2017-10-12] MEDS: Polyethylene Glycol 3350 17 GM PACKET PO (06:45)
[2017-10-12] MEDS: Lisinopril 10 MG Tablet PO (06:45)
[2017-10-12] MEDS: Aspirin 81 MG TAB.CHEW PO (08:54)
--- NOTE | 2017-10-12 13:12 | CASEMGMT ---
Insurance Clinical information faxed. Pending continued stay approval at this time. Auth#[id number] Kari MORALES, DONOR SERVICES TECHNICIAN
--- NOTE | 2017-10-12 14:04 | PCM.PN.RX ---
<GelyAbhijeet masterson D - Last Filed: 10/12/17 14:04> Progress Note - Pharmacy Subjective: TCU Follow-Up Objective: Allergies Penicillins [PCN] Allergy (Verified 08/29/17 16:37) Unknown Home Medications Medication Instructions Recorded Aspirin [Aspirin, Baby] 81 mg PO DAILY@0800 08/29/17 Lisinopril [Prinivil] 10 mg PO DAILY 08/29/17 Multivitamin [Animal Shapes] 1 each PO DAILY 08/29/17 Acetaminophen 650 mg PO Q4H PRN PRN 09/05/17 Hydrocodone/Acetaminophen 1 each PO Q6H PRN PRN 09/05/17 [Hydrocodon-Acetaminophen 5-325] Current Medications Generic Name Dose Route Start Last Admin Trade Name Scottq PRN Reason Stop Dose Admin Acetaminophen 650 mg 09/05/17 17:31 10/11/17 11:23 Tylenol PO 650 mg Q4H PRN PRN Administration MILD-MOD PAIN (1-5/10) Hydrocodone Bitart/Acetaminophen 1 tablet 09/05/17 17:31 10/06/17 04:54 [place] 5mg-325mg PO 1 tablet Q6H PRN PRN Administration SEVERE PAIN (6-10/10) Aspirin 81 mg 09/06/17 08:00 10/12/17 08:54 Aspirin, Baby PO 81 mg DAILY@0800 MENDOZA Administration Bisacodyl 10 mg 09/05/17 21:11 09/11/17 05:13 Dulcolax PO 10 mg DAILY PRN Administration Constipation Calamine/Phenol 1 applic 09/06/17 06:00 10/12/17 05:45 Calmoseptine Ointment TOPICAL 1 applicatio 0600,2200 MENDOZA Administration Protocol Enoxaparin Sodium 40 mg 09/06/17 06:00 10/12/17 05:46 Lovenox SC 40 mg DAILY@0600 MENDOZA Administration Lisinopril 10 mg 09/06/17 06:00 10/12/17 06:45 Zestril PO 10 mg DAILY MENDOZA Administration Lorazepam 0.5 mg 10/08/17 09:50 10/11/17 14:39 Ativan PO 0.5 mg Q6H PRN PRN Administration ANXIETY/RESTLESSNESS/SLEEP Multivitamins/Minerals 1 tablet 09/06/17 06:00 10/12/17 06:45 Ocuvite PO 1 tablet DAILY MENDOZA Administration Nutritional Formula (Lactose Free) 120 ml 09/06/17 17:00 10/12/17 11:57 Ensure Enlive PO 120 ml 4X/DAY MENDOZA Administration Polyethylene Glycol 17 gm 09/06/17 06:00 10/12/17 06:45 Miralax PO 17 gm DAILY MENDOZA Administration Senna/Docusate Sodium 2 tablet 09/05/17 18:00 10/12/17 06:45 Senokot-S, Olena-Colace PO 2 tablet BID MENDOZA Administration Problem List Hypertension (Chronic) Sinus bradycardia (Acute) Unresponsiveness (Acute) Fracture of right inferior pubic ramus (Acute) Fall (Acute) Postoperative anemia (Acute) 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 (Chronic) Vital Signs Temp Pulse Resp BP Pulse Ox 97.9 F 82 20 H 124/53 H 95 10/11/17 15:25 10/11/17 15:25 10/11/17 15:25 10/11/17 15:25 10/11/17 15:25 Oxygen Delivery Method Room Air Weight: 54.9 kg Body Mass Index (BMI) 20.2 Sodium 141 mmol/L (136-145) 10/12/17 05:40 Potassium 4.2 mmol/L (3.5-5.1) 10/12/17 05:40 Chloride 105 mmol/L (98-107) 10/12/17 05:40 Carbon Dioxide 29.0 mmol/L (21.0-32.0) 10/12/17 05:40 Anion Gap 7 (5-15) 10/12/17 05:40 BUN 28 mg/dL (7-18) H 10/12/17 05:40 Creatinine 0.53 mg/dL (0.55-1.02) L 10/12/17 05:40 Est GFR (MDRD) Af Amer 141 mL/min (>60) 10/12/17 05:40 Est GFR (MDRD) Non-Af 116 mL/min (>60) 10/12/17 05:40 BUN/Creatinine Ratio 52.4 RATIO (10-20) H 10/12/17 05:40 Glucose 77 mg/dL (74-106) 10/12/17 05:40 Assessment/Plan: 1) Pain APAP for mild-moderate pain, hydrocodone/APAP for severe pain. Continue to monitor prn medication use, daily pain scores. 2) HTN/CV PPx Lisinopril, ASA. BP within goal range, K wnl, BUN/SCr at baseline. Continue to monitor BP, renal function, electrolytes. 3) Nutrition Multivitamin, Ensure. Continue to monitor clinically. 4) Derm Calmoseptine topically. Continue to monitor clinically. 5) DVT PPx Enoxaparin daily. Continue to monitor s/s bleeding/clot. Psychotropic Medications: 6) Anxiety/Restlessness/Sleep Lorazepam as needed. Continue to monitor prn medication use. Unnecessary Medications: None Bowel Regimen: 7) Senna/s, PEG, prn bisacodyl. Continue to monitor prn medication use, for constipation/diarrhea. Date of Note:: 10/12/17 - Provider Comments Provider responsibility: Provider responsible to enter orders to implement recommendations <Royce Salinas Chi - Last Filed: 10/12/17 17:53> Progress Note - Pharmacy Subjective: [] Objective: Allergies Penicillins [PCN] Allergy (Verified 08/29/17 16:37) Unknown Home Medications Medication Instructions Recorded Aspirin [Aspirin, Baby] 81 mg PO DAILY@0800 08/29/17 Lisinopril [Prinivil] 10 mg PO DAILY 08/29/17 Multivitamin [Animal Shapes] 1 each PO DAILY 08/29/17 Acetaminophen 650 mg PO Q4H PRN PRN 09/05/17 Hydrocodone/Acetaminophen 1 each PO Q6H PRN PRN 09/05/17 [Hydrocodon-Acetaminophen 5-325] Current Medications Generic Name Dose Route Start Last Admin Trade Name Freq PRN Reason Stop Dose Admin Acetaminophen 650 mg 09/05/17 17:31 10/11/17 11:23 Tylenol PO 650 mg Q4H PRN PRN Administration MILD-MOD PAIN (1-5/10) Hydrocodone Bitart/Acetaminophen 1 tablet 09/05/17 17:31 10/06/17 04:54 [place] 5mg-325mg PO 1 tablet Q6H PRN PRN Administration SEVERE PAIN (6-10/10) Aspirin 81 mg 09/06/17 08:00 10/12/17 08:54 Aspirin, Baby PO 81 mg DAILY@0800 MENDOZA Administration Bisacodyl 10 mg 09/05/17 21:11 09/11/17 05:13 Dulcolax PO 10 mg DAILY PRN Administration Constipation Calamine/Phenol 1 applic 09/06/17 06:00 10/12/17 05:45 Calmoseptine Ointment TOPICAL 1 applicatio 0600,2200 MENDOZA Administration Protocol Enoxaparin Sodium 40 mg 09/06/17 06:00 10/12/17 05:46 Lovenox SC 40 mg DAILY@0600 MENDOZA Administration Lisinopril 10 mg 09/06/17 06:00 10/12/17 06:45 Zestril PO 10 mg DAILY MENDOZA Administration Lorazepam 0.5 mg 10/08/17 09:50 10/11/17 14:39 Ativan PO 0.5 mg Q6H PRN PRN Administration ANXIETY/RESTLESSNESS/SLEEP Multivitamins/Minerals 1 tablet 09/06/17 06:00 10/12/17 06:45 Ocuvite PO 1 tablet DAILY MENDOZA Administration Nutritional Formula (Lactose Free) 120 ml 09/06/17 17:00 10/12/17 16:35 Ensure Enlive PO 120 ml 4X/DAY MENDOZA Administration Polyethylene Glycol 17 gm 09/06/17 06:00 10/12/17 06:45 Miralax PO 17 gm DAILY MENDOZA Administration Senna/Docusate Sodium 2 tablet 09/05/17 18:00 10/12/17 16:35 Senokot-S, Olena-Colace PO 2 tablet BID MENDOZA Administration Problem List Hypertension (Chronic) Sinus bradycardia (Acute) Unresponsiveness (Acute) Fracture of right inferior pubic ramus (Acute) Fall (Acute) Postoperative anemia (Acute) 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 (Chronic) Vital Signs Temp Pulse Resp BP Pulse Ox 98.3 F 90 18 128/85 H 93 10/12/17 15:52 10/12/17 15:52 10/12/17 15:52 10/12/17 15:52 10/12/17 15:52 Oxygen Delivery Method Room Air Weight: 54.9 kg Body Mass Index (BMI) 20.2 Sodium 141 mmol/L (136-145) 10/12/17 05:40 Potassium 4.2 mmol/L (3.5-5.1) 10/12/17 05:40 Chloride 105 mmol/L (98-107) 10/12/17 05:40 Carbon Dioxide 29.0 mmol/L (21.0-32.0) 10/12/17 05:40 Anion Gap 7 (5-15) 10/12/17 05:40 BUN 28 mg/dL (7-18) H 10/12/17 05:40 Creatinine 0.53 mg/dL (0.55-1.02) L 10/12/17 05:40 Est GFR (MDRD) Af Amer 141 mL/min (>60) 10/12/17 05:40 Est GFR (MDRD) Non-Af 116 mL/min (>60) 10/12/17 05:40 BUN/Creatinine Ratio 52.4 RATIO (10-20) H 10/12/17 05:40 Glucose 77 mg/dL (74-106) 10/12/17 05:40 Assessment/Plan: Psychotropic Medications: Unnecessary Medications: Bowel Regimen: - Provider Comments Provider responsibility: Provider responsible to enter orders to implement recommendations Provider Comments to Recommendations by Pharmacy: Agree
[2017-10-12 15:52] VITALS: BP 128/85; PULSE 90; RESP 18; TEMP 36.8; O2SAT 93
[2017-10-12] MEDS: Acetaminophen 325 MG Tablet 650 MG PO (19:09)
[2017-10-12] MEDS: LORazepam 0.5 MG Tablet PO (20:24)
[2017-10-13] MEDS: Senna/Docusate Sodium 1 Tablet 2 TABLET PO ×2 (05:01→17:57)
[2017-10-13] MEDS: Menthol/Lanolin/Calamine/Znox 113 GM Tube 1 APPLIC TOPICAL ×2 (05:01→22:39)
[2017-10-13] MEDS: Lisinopril 10 MG Tablet PO (05:01)
[2017-10-13] MEDS: Polyethylene Glycol 3350 17 GM PACKET PO (05:01)
[2017-10-13] MEDS: Enoxaparin 40 MG/0.4 ML Syringe SC (05:01)
[2017-10-13] MEDS: Aspirin 81 MG TAB.CHEW PO (07:33)
--- NOTE | 2017-10-13 13:12 | CASEMGMT ---
Insurance Continued stay denied with last cover day being 10/15/17 and resident discharge or financial responsibility to begin on 10/16/17. Auth#[id number] Kari MORALES, WAITER/WAITRESS TOURIST CLASS
--- NOTE | 2017-10-13 13:13 | CASEMGMT ---
Social Work Spoke with resident daughter. This social work faculty member communicating that continued stay has been denied with a last cover day of 10/15/17 and a discharge or resident financial responsibility to begin on 10/16/17. Resident daughter choosing for discharge date to be set for 10/16/17. Resident plans to discharge home with daughter. Resident daughter aware that resident currently requires 24hr care within the home. Resident daughter voicing to be able to provide the 24hr care. This social work faculty member communicating that physical and occupational therapy are recommending for resident to continue with services within the home. Resident daughter is agreeable to recommendation and also requesting for a home health aide to be set up. Resident daughter requesting for home health services to be set up through [facility] ([facility]). Resident daughter reporting to have all needed durable medical equipment already set up within the home for resident. Resident daughter to provide transportation home for resident at time of discharge. Support given. Telephone call to [facility], Brittany. This social work faculty member making referral for physical and occupational therapy as well as a home health aide. Order to be completed. Proposed discharge date: 10/16/17 PLAN: Discharge home with daughter and home health services. Kari MORALES, FOUR SLIDE OPERATOR
--- NOTE | 2017-10-13 14:17 | DCINST_ITS ---
- Discharge Diagnoses Current Active Problems: Current Active and Chronic Problems Hypertension (Chronic) Sinus bradycardia (Acute) Unresponsiveness (Acute) Fracture of right inferior pubic ramus (Acute) Fall (Acute) Postoperative anemia (Acute) 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 (Chronic) You will use the following diet at home:: No restrictions, Regular Your food should be the consistency of: Regular Your liquids should be the consistency of: Regular/Thin Discharge Activity: Return to Normal Activity, May Shower, Use Walker Weight Bearing Status: Weight bearing as tolerated Call your doctor if you observe: Fever of 101 or Higher, Inability to urinate, Inability to have a bowel movement, Shortness of breath, Chest pain, Uncontrolled pain Allergies/Adverse Reactions: Allergies Penicillins [PCN] Allergy (Verified 08/29/17 16:37) Unknown Medications to take at Discharge Aspirin [Aspirin, Baby] 81 mg PO DAILY@0800 08/29/17 Lisinopril [Prinivil] 10 mg PO DAILY 08/29/17 Multivitamin [Animal Shapes] 1 each PO DAILY 08/29/17 Acetaminophen 650 mg PO Q4H PRN PRN 09/05/17 Hydrocodone/Acetaminophen [Hydrocodon-Acetaminophen 5-325] 1 each PO Q6H PRN PRN #30 tablet 10/13/17 Lorazepam [Ativan] 0.5 mg PO Q6H PRN PRN #30 tablet 10/13/17 Menthol/Lanolin/Calamine/Znox [Calmoseptine Ointment] 1 applic TOPICAL 0600, 2200 tube 10/13/17 Polyethylene Glycol 3350 [Miralax] 17 gm PO DAILY #30 packet 10/13/17 The following prescriptions were given: Hydrocodone/Acetaminophen [Hydrocodon-Acetaminophen 5-325] 1 each PO Q6H PRN PRN #30 tablet PRN Reason: Severe Pain (6-10/10) Lorazepam [Ativan] 0.5 mg PO Q6H PRN PRN #30 tablet PRN Reason: ANXIETY/RESTLESSNESS/SLEEP Polyethylene Glycol 3350 [Miralax] 17 gm PO DAILY #30 packet Primary Care Physician: Jay Porter MD [Primary Care Provider] - Please follow up with your Primary Care Physician in: 1 week. Proposed Discharge Date: 10/16/17
--- NOTE | 2017-10-13 14:18 | DS.PCM_ITS ---
Discharge Date and Diagnosis - Problem List Patient Problems: Active and Suspected Problems Sinus bradycardia (Acute) Unresponsiveness (Acute) Fracture of right inferior pubic ramus (Acute) Fall (Acute) Postoperative anemia (Acute) Date of Admission: 09/05/17 Date of Discharge: 10/16/17 - Primary Discharge Diagnosis Active and Suspected Problems Sinus bradycardia (Acute) Unresponsiveness (Acute) Fracture of right inferior pubic ramus (Acute) Fall (Acute) Postoperative anemia (Acute) - Secondary Discharge Diagnosis Chronic Problems Hypertension (Chronic) Dementia (Chronic) Essential hypertension, benign (Chronic) 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 Electronically Signed: Archie Carreon MD at 12:47 EST Tel [phone], Service support , Labs (Last 48 Hours) 10/12/17 05:40 Sodium 141 Potassium 4.2 Chloride 105 Carbon Dioxide 29.0 Anion Gap 7 BUN 28 H Creatinine 0.53 L Estim Creat Clear Calc 37.59 Est GFR (MDRD) Af Amer 141 Est GFR (MDRD) Non-Af 116 BUN/Creatinine Ratio 52.4 H Glucose 77 Calcium 8.5 Operations: None Procedures: None Summary of Care Provided: The patient is a 82 year old Female with below past medical history hospitalized for right hip fracture, underwent right hip pinning 09/01/2017, complicated by unresponsiveness secondary to prolonged ventricular asystole, no pacemaker recommended, admitted to TCU for rehabilitation, strengthening, prior to discharge home with daughter. [] Discharge home with daughter for 24 hour care, and home health services. Home health ordered. Discharge Diet: No Restrictions Discharge Activity: Return to Normal Activity, May Shower, Use Walker Weight Bearing Status: Weight bearing as tolerated Call your doctor if you observe: Fever of 101 or Higher, Inability to urinate, Inability to have a bowel movement, Shortness of breath, Chest pain, Uncontrolled pain Home Medications: Medications to take at Discharge Aspirin [Aspirin, Baby] 81 mg PO DAILY@0800 08/29/17 Lisinopril [Prinivil] 10 mg PO DAILY 08/29/17 Multivitamin [Animal Shapes] 1 each PO DAILY 08/29/17 Acetaminophen 650 mg PO Q4H PRN PRN 09/05/17 Hydrocodone/Acetaminophen [Hydrocodon-Acetaminophen 5-325] 1 each PO Q6H PRN PRN #30 tablet 10/13/17 Lorazepam [Ativan] 0.5 mg PO Q6H PRN PRN #30 tablet 10/13/17 Menthol/Lanolin/Calamine/Znox [Calmoseptine Ointment] 1 applic TOPICAL 0600, 2200 tube 10/13/17 Polyethylene Glycol 3350 [Miralax] 17 gm PO DAILY #30 packet 10/13/17 Following Prescrptions Were Given to Patient: Hydrocodone/Acetaminophen [Hydrocodon-Acetaminophen 5-325] 1 each PO Q6H PRN PRN #30 tablet PRN Reason: Severe Pain (6-10/10) Lorazepam [Ativan] 0.5 mg PO Q6H PRN PRN #30 tablet PRN Reason: ANXIETY/RESTLESSNESS/SLEEP Polyethylene Glycol 3350 [Miralax] 17 gm PO DAILY #30 packet Primary Care Physician: Jay Porter MD [Primary Care Provider] - Please follow up with your Primary Care Physician in: 1 week. Disposition: Home with Home Health Minutes spent on discharge:: 35 Patient Condition:: Good Meaningful Use Info Meaningful Use Diagnoses (Choose all that apply): None applicable
--- NOTE | 2017-10-13 14:19 | HHNOTE_ITS ---
Home Health Note - Plan Overview of reason of hospitalization: The patient is a 82 year old Female with below past medical history hospitalized for right hip fracture, underwent right hip pinning 09/01/2017, complicated by unresponsiveness secondary to prolonged ventricular asystole, no pacemaker recommended, admitted to TCU for rehabilitation, strengthening, prior to discharge home with daughter. [] Discharge home with daughter for 24 hour care, and home health services. Home health ordered. 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 (Chronic) Fracture of hip, right, closed (Acute) - Requirements and Reasons Disciplines Needed/Ordered: Physical Therapy Reason for Disciplines: Gait Training, Stair Training, Fall Prevention, Home Safety/Equipment Instruction, Balance and/or Posture Training, Transfer Training Related To: Limited/Poor Endurance, Shortness of Breath with Activity, Physical Impairments, Unsteady Gait/Balance, Fall Risk Patient is unable to leave the home: Without Aid of Supportive Devices (crutches , cane, wheelchair, walker), Without the assistance of another person - Additional Disciplines Additional Disciplines Needed/Ordered: Occupational Therapy, Home Health Aide
[2017-10-13 15:41] VITALS: BP 145/64; PULSE 89; RESP 20; TEMP 37.3; O2SAT 95
[2017-10-13] MEDS: Acetaminophen 325 MG Tablet 650 MG PO (22:33)
[2017-10-13] MEDS: LORazepam 0.5 MG Tablet PO (22:34)
[2017-10-14] MEDS: Senna/Docusate Sodium 1 Tablet 2 TABLET PO ×2 (04:43→17:11)
[2017-10-14] MEDS: Lisinopril 10 MG Tablet PO (04:43)
[2017-10-14] MEDS: Menthol/Lanolin/Calamine/Znox 113 GM Tube 1 APPLIC TOPICAL ×2 (04:49→20:23)
[2017-10-14] MEDS: Enoxaparin 40 MG/0.4 ML Syringe SC (04:50)
[2017-10-14] MEDS: Aspirin 81 MG TAB.CHEW PO (08:36)
[2017-10-14 15:17] VITALS: BP 125/64; PULSE 85; RESP 18; TEMP 36.4
[2017-10-15] MEDS: Menthol/Lanolin/Calamine/Znox 113 GM Tube 1 APPLIC TOPICAL ×2 (04:54→19:26)
[2017-10-15] MEDS: Polyethylene Glycol 3350 17 GM PACKET PO (04:56)
[2017-10-15] MEDS: Enoxaparin 40 MG/0.4 ML Syringe SC (04:58)
[2017-10-15] MEDS: Senna/Docusate Sodium 1 Tablet 2 TABLET PO (04:58)
[2017-10-15] MEDS: Lisinopril 10 MG Tablet PO (04:58)
[2017-10-15] MEDS: Aspirin 81 MG TAB.CHEW PO (08:45)
[2017-10-15 15:54] VITALS: BP 125/72; PULSE 81; RESP 15; TEMP 37.1; O2SAT 95
[2017-10-15] MEDS: LORazepam 0.5 MG Tablet PO (23:09)
[2017-10-16] MEDS: Senna/Docusate Sodium 1 Tablet 2 TABLET PO (05:48)
[2017-10-16] MEDS: Lisinopril 10 MG Tablet PO (05:48)
[2017-10-16] MEDS: Enoxaparin 40 MG/0.4 ML Syringe SC (05:48)
--- NOTE | 2017-10-16 08:15 | CASEMGMT ---
Insurance Insurance did not send notice of Medicare Noncoverage form on 10/13/17, thus cut letter was not issued on 10/13/17. Insurance contacting this community mental health social worker and now faxing Notice of Medicare Noncoverage form on this day, 10/16/17 with new last cover day now being 10/18/17 and discharge or resident financial responsibility to begin on 10/19/17 in order to be in compliance with Medicare guidelines. Auth#[id number] Kari MORALES, LIMNOLOGY TEACHER
[2017-10-16] MEDS: Aspirin 81 MG TAB.CHEW PO (08:57)
--- NOTE | 2017-10-16 09:18 | MDS.RN ---
Information for the mds was obtained from review of the clinical record, interview of resident, staff, and direct observation of resident's care.
--- NOTE | 2017-10-16 10:35 | CASEMGMT ---
Social Work Spoke with resident daughter. This high school social science teacher informing resident daughter of last cover day now being 10/18/17 with discharge or resident financial responsibility to begin on 10/19/17. Resident daughter is agreeable to change in dates. Discharge plan remains the same with resident discharging home with daughter on 10/19/17 with home health services through [facility] ([facility]). Resident daughter planning to provide transportation. Resident daughter identifying a need for a hospital bed and wheelchair. This high school social science teacher communicating that orders can be faxed to [facility] (resident daughters choice) but that there is not guarantee of coverage. Resident daughter voicing understanding. Support given. Telephone call to [facility], Brittany. This high school social science teacher updating Brittany on discharge date change. Orders for the hospital bed and wheelchair faxed to [facility]. Proposed discharge date: 10/19/17 PLAN: Discharge home with daughter and home health services. Kari MORALES, PARADICHLOROBENZENE MACHINE OPERATOR
[2017-10-16] MEDS: Acetaminophen 325 MG Tablet 650 MG PO (11:37)
[2017-10-16 15:22] VITALS: BP 119/72; PULSE 84; RESP 18; TEMP 36.9; O2SAT 96
[2017-10-16] MEDS: Menthol/Lanolin/Calamine/Znox 113 GM Tube 1 APPLIC TOPICAL (21:10)
[2017-10-16] MEDS: LORazepam 0.5 MG Tablet PO (21:12)
[2017-10-17] MEDS: Senna/Docusate Sodium 1 Tablet 2 TABLET PO ×2 (04:52→17:42)
[2017-10-17] MEDS: Lisinopril 10 MG Tablet PO (04:52)
[2017-10-17] MEDS: Polyethylene Glycol 3350 17 GM PACKET PO (04:52)
[2017-10-17] MEDS: Enoxaparin 40 MG/0.4 ML Syringe SC (04:53)
[2017-10-17] MEDS: Menthol/Lanolin/Calamine/Znox 113 GM Tube 1 APPLIC TOPICAL ×2 (04:53→22:45)
[2017-10-17] MEDS: Aspirin 81 MG TAB.CHEW PO (07:08)
[2017-10-17 15:12] VITALS: BP 111/64; PULSE 87; RESP 14; TEMP 36.3; O2SAT 97
[2017-10-17] MEDS: LORazepam 0.5 MG Tablet PO (22:47)
[2017-10-18] MEDS: Polyethylene Glycol 3350 17 GM PACKET PO (05:16)
[2017-10-18] MEDS: Senna/Docusate Sodium 1 Tablet 2 TABLET PO ×2 (05:17→16:08)
[2017-10-18] MEDS: Enoxaparin 40 MG/0.4 ML Syringe SC (05:17)
[2017-10-18] MEDS: Lisinopril 10 MG Tablet PO (05:17)
[2017-10-18] MEDS: Menthol/Lanolin/Calamine/Znox 113 GM Tube 1 APPLIC TOPICAL ×2 (05:17→21:04)
[2017-10-18 06:56] LABS: Absolute Neutrophil Count 3.7 X10^3/uL (2.0-7.7); Basophil# 0.02 X10^3/uL; Basophil% 0.3 % (0-1); Eosinophil# 0.14 X10^3/uL; Eosinophils% 2.3 % (0-5); Hematocrit 40.1 % (37-47); Hemoglobin 12.7 g/dl (12.0-15.0); Lymphocyte % 25.8 % (19-41); Mean Corp Hgb Conc 31.7 g/gl (32-36); Mean Corpuscular Hgb 29.3 pg (27.0-32.0); Mean Corpuscular Volume 92.6 fL (81-99); Mean Platelet Vol. 9.7 fl (6.2-12.0); Monocyte# 0.72 X10^3/uL; Monocyte% 11.6 % (0-10); Neutrophil # 3.72 X10^3/uL (2.7-7.7); Neutrophil % 59.8 % (47-70); Platelet Count 177 K/mm3 (150-450); RBC Distribution Width CV 14.3 % (11.6-14.6); RBC Distribution Width SD 48.7 fl (35.1-43.9); Red Blood Count 4.33 M/mm3 (4.2-5.4); White Blood Count 6.2 K/mm3 (4.4-11.0)
[2017-10-18 07:13] LABS: Anion Gap 7 (5-15); BUN 31 mg/dL (7-18); BUN/Creat Ratio 55.7 RATIO (10-20); Calcium,Total 8.7 mg/dL (8.5-10.1); Chloride 101 mmol/L (98-107); Creatinine, Serum 0.56 mg/dL (0.55-1.02); EST Glomerular Filtration Rate 111 mL/min (>60); Est Glom Filt Rate - Afr Amer 134 mL/min (>60); Estimated Creatinine Clearance 37.59 ml/min; Glucose 89 mg/dL (74-106); Sodium Level 138 mmol/L (136-145)
[2017-10-18 07:52] LABS: POSITIVE COUNT NO; POSITIVE DIFFERENTIAL NO; POSITIVE MORPHOLOGY NO
[2017-10-18] MEDS: Aspirin 81 MG TAB.CHEW PO (08:31)
[2017-10-18 16:00] VITALS: BP 126/67; PULSE 83; RESP 22; TEMP 37.1; O2SAT 94
[2017-10-18] MEDS: LORazepam 0.5 MG Tablet PO (21:04)
[2017-10-19] MEDS: Menthol/Lanolin/Calamine/Znox 113 GM Tube 1 APPLIC TOPICAL (04:53)
[2017-10-19] MEDS: Enoxaparin 40 MG/0.4 ML Syringe SC (04:54)
[2017-10-19] MEDS: Polyethylene Glycol 3350 17 GM PACKET PO (04:55)
[2017-10-19] MEDS: Lisinopril 10 MG Tablet PO (04:55)
[2017-10-19] MEDS: Senna/Docusate Sodium 1 Tablet 2 TABLET PO ×2 (04:55→17:20)
--- NOTE | 2017-10-19 07:53 | NURSING ---
Addendum entered by Chrissy Godoy 10/19/17 08:06: Dr Salinas aware. N.O. Dottie. Original Note: Pt assisted to restroom. Urine noted to have an order and be cloudy. Will update Dr Salinas.
[2017-10-19] MEDS: Ciprofloxacin 250 MG Tablet PO ×2 (09:36→17:20)
[2017-10-19] MEDS: Aspirin 81 MG TAB.CHEW PO (09:36)
--- NOTE | 2017-10-20 15:56 | CASEMGMT ---
Insurance Notified insurance of resident discharge on 10/19/17 to home with daughter and home health services. Auth#[id number] Kari MORALES, CENTRAL OFFICE TECHNICIAN
== END 2017-10-19 18:45 | disposition home health service (06) | DRG 561 ==
PROVIDERS: Admitting Provider Family Medicine Geriatric Medicine; Family Provider Family Medicine; PCP Family Medicine; Visit Provider Family Medicine Geriatric Medicine
DX: S32.591D Other specified fracture of right pubis, subsequent encounter for fracture with routine healing (principal); G30.9 Alzheimer's disease, unspecified; I49.8 Other specified cardiac arrhythmias; F02.80 Dementia in other diseases classified elsewhere, unspecified severity, without behavioral disturbance, psychotic disturbance, mood disturbance, and anxiety; S72.145D Nondisplaced intertrochanteric fracture of left femur, subsequent encounter for closed fracture with routine healing; W19.XXXD Unspecified fall, subsequent encounter; I10 Essential (primary) hypertension; H35.30 Unspecified macular degeneration; Z79.899 Other long term (current) drug therapy; Z79.82 Long term (current) use of aspirin; Z87.891 Personal history of nicotine dependence
CPT/HCPCS: 36415; 74018; 80048; 81001; 85025; 87077; 87086; 87088; 87186; 97110; 97116; 97162; 97166; 97530; 97535; 97802

== ENCOUNTER 2017-12-30 08:42 | Observation (INO) | payer MEDICARE, OTHER, SELFPAY ==
[2017-12-30] VITALS (10 sets, daily range): BP systolic 92–115; BP diastolic 51–66; PULSE 63–71; RESP 12–18; TEMP 36.3–36.8; O2SAT 90–98; BMI 19.5; BMI 17.8
--- NOTE | 2017-12-30 08:51 | EKG12_ITS ---
Test Reason : Blood Pressure : / mmHG Vent. Rate : 073 BPM Atrial Rate : 073 BPM P-R Int : 206 ms QRS Dur : 080 ms QT Int : 414 ms P-R-T Axes : 054 035 033 degrees QTc Int : 456 ms Normal sinus rhythm Normal ECG Confirmed by ANTONINO WASHINGTON, CHONG ([id number]), greeting card editor FRITZ FOLEY ([id number]) on 01/02/2018 2:36:53 PM Referred By: [place]T Confirmed By:CHONG MUÑIZ MD
--- NOTE | 2017-12-30 08:52 | RAD_ITS ---
STUDY: X-RAY CHEST REASON FOR EXAM: Female, 82 years old. Cough TECHNIQUE: August 29, 2017 COMPARISON: None. FINDINGS: No lung consolidation, pleural effusion or pneumothorax. Mild pulmonary vascular congestion. Subtle developing infiltrates in the right lower lobe suspected. Calcified lesion in the right upper lobe. Cardiac size is slightly prominent. Left lower lobe retrocardiac region airspace opacities also seen bilateral breast prostheses IMPRESSION: Reticulonodular opacities in the lung bases with lower lobe retrocardiac region airspace opacities. No pneumothorax or pleural effusion. Electronically Signed: Vu Novoa, at 10:36 EDT Tel , Service support , RAD/Chest 1 View (Portable)
[2017-12-30] MEDS: Ondansetron 4 MG/2 ML Vial IV (09:03)
[2017-12-30 09:13] LABS: Hematocrit 41.4 % (37-47); Hemoglobin 13.8 g/dl (12.0-15.0); Mean Corp Hgb Conc 33.3 g/gl (32-36); Mean Corpuscular Hgb 29.7 pg (27.0-32.0); Red Blood Count 4.65 M/mm3 (4.2-5.4); White Blood Count 15.4 K/mm3 (4.4-11.0)
[2017-12-30 09:14] LABS: Absolute Lymphocyte Count 2.47 X10^3/ul (0.83-4.51); Absolute Neutrophil Count 11.4 X10^3/uL (2.0-7.7); Basophil# 0.03 X10^3/uL; Basophil% 0.2 % (0-1); Eosinophil# 0.09 X10^3/uL; Eosinophils% 0.6 % (0-5); Lymphocyte # 2.47 X10^3/ul (4.0); Lymphocyte % 16.1 % (19-41); Mean Platelet Vol. 9.6 fl (6.2-12.0); Monocyte# 1.37 X10^3/uL; Monocyte% 8.9 % (0-10); Neutrophil # 11.38 X10^3/uL (2.7-7.7); POSITIVE COUNT NO; POSITIVE DIFFERENTIAL NO; POSITIVE MORPHOLOGY NO; Platelet Count 262 K/mm3 (150-450); RBC Distribution Width CV 14.2 % (11.6-14.6); RBC Distribution Width SD 45.3 fl (35.1-43.9)
[2017-12-30 09:29] LABS: Anion Gap 7 (5-15); BUN 20 mg/dL (7-18); BUN/Creat Ratio 32.7 RATIO (10-20); Calcium,Total 8.5 mg/dL (8.5-10.1); Chloride 102 mmol/L (98-107); Creatinine, Serum 0.61 mg/dL (0.55-1.02); EST Glomerular Filtration Rate 100 mL/min (>60); Est Glom Filt Rate - Afr Amer 120 mL/min (>60); Estimated Creatinine Clearance 38.69 ml/min; Glucose 119 mg/dL (74-106); Potassium 3.8 mmol/L (3.5-5.1); Sodium Level 137 mmol/L (136-145)
--- NOTE | 2017-12-30 10:00 | ED.VISSUMM ---
- ER Visit Summary Date of Service: 12/30/17 Chief Complaint: Syncope History of Present Illness: The patient is a 82 F who sees Silverio Garcia. She does not see a piggyback clerk. Patient has a history of dementia and is not able to give any history. Daughter, whom she lives with, reports that this morning patient was sitting at the table she heard a thump and looked over and the patient's head had slumped backward. Her mouth was open and her eyes were wide open. She had a blank stare. Daughter reports that she is flipped her head forward and got the food out of her mouth. She was unresponsive for approximately 15-30 seconds. There is no seizure activity during this. Patient had a similar episode in August and was transferred to [facility] for assessment for a pacemaker as she had bradycardia with a 12 second period of ventricular asystole while here. 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 Daughter also reports the patient had diarrhea for the past 2 days. She is having at 89 times per day. No blood in her stool. She is given 3 doses of Imodium. She has had sick contacts and daughter reports that this is been going through the house. She has had subjective fever. No vomiting. No cough or difficulty breathing. She is more weak than usual. Physical Examination: Vitals: 97.7, 97/66, 69, 12, 90% on room air which is hypoxic. General: Well-nourished and well-developed. Head: Normocephalic atraumatic. Neck: Supple, no lymphadenopathy. No JVD. Nontender. Cardiovascular: Regular rate and rhythm. 2 out of 6 systolic murmur. Respiratory: No respiratory distress. Clear to auscultation bilaterally. Abdominal: Soft, nontender, nondistended, normal bowel sounds. No guarding, rebound, or peritoneal signs. Back: Nontender. Extremities: Nontender, no edema. Skin: Normal color, no rash. Neurologic: Alert and oriented ?1. Moves all extremities well. Psych: Normal affect. Test Results: EKG is sinus at 73 is unchanged from August. Troponin is negative. Chem-7 is more for glucose of 119, BUN of 20, BUN/creatinine ratio 32.7. CBC is marked for a white count of 15.4 with 74 segmented neutrophils and 16 lymphocytes. Chest x-ray shows chronic changes. Emergency Department Course and Treatment: Patient denies any pain. She did have a straight cath and we were not able to appearing urine. Had a prolonged discussion with patient's daughter about treatment options. Again she does not want a pacemaker placed. Treatment Plan: Patient will be admitted to the hospital for observation and hydration. She was discussed with Dr. Samson. Disposition: Admitted in improved condition. Impression: 1. Diarrhea. 2. Syncope. 3. Dehydration. This note was generated with [employer] dictation software. It may contain incorrect words, spelling, and punctuation that were not noted in review of the chart prior to signing ED Disposition - Plan for ED Patient: Chief Complaint: Syncope Referrals: Kamaljit Garcia PA [Primary Care Provider] -
--- NOTE | 2017-12-30 10:03 | NURSING ---
dr machelle durbin
--- NOTE | 2017-12-30 10:07 | ED.DCSUM_ITS ---
- ER Visit Summary Date of Service: 12/30/17 Chief Complaint: Syncope History of Present Illness: The patient is a 82 F who sees Silverio Garcia. She does not see a continuous process coffee roaster. Patient has a history of dementia and is not able to give any history. Daughter, whom she lives with, reports that this morning patient was sitting at the table she heard a thump and looked over and the patient's head had slumped backward. Her mouth was open and her eyes were wide open. She had a blank stare. Daughter reports that she is flipped her head forward and got the food out of her mouth. She was unresponsive for approximately 15-30 seconds. There is no seizure activity during this. Patient had a similar episode in August and was transferred to [facility] for assessment for a pacemaker as she had bradycardia with a 12 second period of ventricular asystole while here. 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 Daughter also reports the patient had diarrhea for the past 2 days. She is having at 89 times per day. No blood in her stool. She is given 3 doses of Imodium. She has had sick contacts and daughter reports that this is been going through the house. She has had subjective fever. No vomiting. No cough or difficulty breathing. She is more weak than usual. Physical Examination: Vitals: 97.7, 97/66, 69, 12, 90% on room air which is hypoxic. General: Well-nourished and well-developed. Head: Normocephalic atraumatic. Neck: Supple, no lymphadenopathy. No JVD. Nontender. Cardiovascular: Regular rate and rhythm. 2 out of 6 systolic murmur. Respiratory: No respiratory distress. Clear to auscultation bilaterally. Abdominal: Soft, nontender, nondistended, normal bowel sounds. No guarding, rebound, or peritoneal signs. Back: Nontender. Extremities: Nontender, no edema. Skin: Normal color, no rash. Neurologic: Alert and oriented ?1. Moves all extremities well. Psych: Normal affect. Test Results: EKG is sinus at 73 is unchanged from August. Troponin is negative. Chem-7 is more for glucose of 119, BUN of 20, BUN/creatinine ratio 32.7. CBC is marked for a white count of 15.4 with 74 segmented neutrophils and 16 lymphocytes. Chest x-ray shows chronic changes. Emergency Department Course and Treatment: Patient denies any pain. She did have a straight cath and we were not able to appearing urine. Had a prolonged discussion with patient's daughter about treatment options. Again she does not want a pacemaker placed. Treatment Plan: Patient will be admitted to the hospital for observation and hydration. She was discussed with Dr. Samson. Disposition: Admitted in improved condition. Impression: 1. Diarrhea. 2. Syncope. 3. Dehydration. This note was generated with [employer] dictation software. It may contain incorrect words, spelling, and punctuation that were not noted in review of the chart prior to signing ED Disposition - Plan for ED Patient: Chief Complaint: Syncope Referrals: Kamaljit Garcia PA [Primary Care Provider] -
--- NOTE | 2017-12-30 10:16 | NURSING ---
322 OBS SYNCOPE, DIARRHEA SEMENTI
--- NOTE | 2017-12-30 12:38 | HP.PCM_ITS ---
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 She did not fall. Her dtr immediately went to her and swept the food out of her mouth. She was unresponsive for approximately 15-30 seconds. She has been having loose stool since and has not been eating or drinking much. She lives with her dtr and the r runs a daycare in the home with small children. Some of the children have been ill recently. No recent antibiotics. Vital signs at presentation to the emergency room are temperature 97.7, pulse rate 69, blood pressure 97/66, respiratory rate 12 and she was 90%-93% saturated on room air. White blood cell count is elevated at 15.4 with 74% neutrophils. Hemoglobin is 13.8 and the platelets are within normal limits. Electrolytes are within normal limits and the BUN is 20 with a creatinine of 0.61 and a BUN/creatinine ratio of 32.7 troponin was less than 0.015. Chest x-ray showed possible developing infiltrates in the right lower lobe. Once she arrived on MS3 she had another episode of unresponsiveness. The pt is a poor historian and hx was obtained from her dtr. She is being admitted to the hospital with transient unresponsiveness, dehydration and diarrhea. 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 Denies: Abdominal Pain Genitourinary: Reports: - - unknown - hx is being given by the dtr-- pt is unable to answer my questions Gynecological: Reports: - - has BL breast implants Skin: Denies: Jaundice, Rash, Wounds Neurological: Reports: Difficulty swallowing, - - she ambulates at home without an AD.....she takes her daughter's hand or wall walks. No recent falls. Denies : Focal weakness Psychiatric: Reports: Depression Hematologic/ Lymphatic: Denies: Hx of blood clot VTE Information - Inpt Only VTE Present on Admission: No VTE Mechan Device Prophylaxis: Knee High MOSHE Hose VTE Pharm Prophylaxis ordered?: Yes Patient Problems: Active and Suspected Problems Nausea, vomiting and diarrhea (Acute) Syncope (Acute) Dehydration (Acute) UTI (urinary tract infection) (Acute) - Physical Exam General: Confused, - - slow to respond to commands. seems very sleepy HEENT: Atraumatic, PERRLA, EOMI, Normocephalic Oral: No Gingival or Mucosal Lesions/ Ulcerations, Dry Mucosa, - - she has torii Neck: Supple, No JVD, No Nodes, No Nuchal Rigidity, Trachea Midline Lungs: Clear to auscultation, No rhonchi, No wheeze, No rales, Diminished Cardiovascular: Regular Rhythm, Normal S1, Normal S2, No murmurs, Bradycardic, No Gallop Abdomen: Bowel Sounds Present, Soft, Non Tender, Non-Distended, - - No guarding with palpation Extremities: No clubbing, No cyanosis, No edema, Diminished Peripheral Pulses Skin: No rashes, No breakdown Neurological: Cranial nerves II-XII grossly intact, Neuro grossly intact, - - Moving all extremities Psych/Mental Status: - - advanced dementia with no behavioral disturbances Vital Signs Temp Pulse Resp BP Pulse Ox 97.4 F L 66 12 100/61 98 12/30/17 11:10 12/30/17 11:10 12/30/17 11:10 12/30/17 11:10 12/30/17 11:10 Oxygen Flow Rate (L/min) 2 Oxygen Delivery Method Nasal Cannula Weight: 113 lb 11.2 oz Body Mass Index (BMI) 17.8 Intake and Output for Last 24 Hours 12/28/17 12/29/17 12/30/17 23:59 23:59 23:59 Intake Total 501 / 501 Balance 501 / 501 Assessment/Plan Active and Suspected Problems Nausea, vomiting and diarrhea (Acute) Syncope (Acute) Dehydration (Acute) UTI (urinary tract infection) (Acute) Impressions 1. N/V/D - suspect viral 2. transient episodes of unresponsiveness - orthostatics are negative. The second epidose happened when she was lying flat in bed. I suspect this may be cardiac syncope. 3. Advanced Alzheimer's dementia with no behavioral disturbances 4. Leukocytosis with history of urinary tract infections in the past 5. History of depression 6. Hypertension 7. Dehydration 8. possible aspiration? will repeat the CXR for now and start clindamycin and Levaquin which will treat the UTI and also aspiration PNA Hydrate recheck lab in the AM Telemetry orthostatics negative Discussed code status with her dtr. CODE STATUS: Discussed code status at length with patients dtr including the difference between FULL CODE, DNR CCA and DNR CC status. All questions were answered. An order for DNR CC arrest was entered into the computer. A total of 20 minutes face to face time was devoted to advanced care planning. No intubation, no CPR, no Cardioversion but, can give meds She did urinate a large amount this AM......straight cath attempted in the ER and no return......will straight cath for UA and culture after she receives more fluid. enteric pathogen panel, fecal leukocytes Clinda and Levaquin --- allergic to PCN Code Visit OBSV E&M: 84442 Initial observation care L3
[2017-12-30] MEDS: Lactated Ringers 1,000 ML 100 ML IV (13:26)
[2017-12-30] MEDS: 0.9% NaCl Peripheral Flush Adult/Peds IV (13:27)
[2017-12-30] MEDS: levoFLOXacin IV 500 MG/100 ML BAG 100 MG IV (13:55)
[2017-12-30] MEDS: Clindamycin 600 MG/50 ML BAG 100 MG IV ×2 (15:06→22:12)
--- NOTE | 2017-12-30 15:07 | NURSING ---
attempted to straight cath with no return. bladder scan for 200ml.
[2017-12-30 16:33] LABS: Mucous, Urine 0 SEEN /hpf (<or=2+)
[2017-12-30 16:35] LABS: Color, Urine Yellow (Yellow); Glucose, Dipstick Normal (Normal); Ketone-Dipstick Negative (Negative); Leukocyte Esterase-Dipstick 500 /ul (Negative); Nitrite-Dipstick Positive (Negative); Occult Blood-Urine 10 /ul (Negative); Protein-Dipstick 15 mg/dl (Negative); Specific Gravity, Urine 1.015 (1.002-1.030); Urine Bilirubin Dipstick Negative (Negative); Urine Clarity Sl. Cloudy (Clear); Urine Urobilinogen Normal (Normal)
[2017-12-30 16:48] LABS: Amorphous Sediment 1+ URATE; Bacteria 3+ /hpf (None Seen); Red Blood Cells-Urine 0-5 SEEN /hpf (0-5); Squamous Epithelial Cells - UA 0-5 SEEN /hpf (5-10); White Blood Cells 50-100 SEEN /hpf (0-5)
[2017-12-31] MEDS: Lactated Ringers 1,000 ML 100 ML IV (00:32)
[2017-12-31 02:12] VITALS: PULSE 70
[2017-12-31 03:49] VITALS: BP 114/67; PULSE 67; RESP 18; TEMP 36.7; O2SAT 95
--- NOTE | 2017-12-31 03:51 | NURSING ---
Pt sitting in bed with gown and ecg leads off, iv was pulled out of arm. Rice cath beside bed with balloon intact. Replaced leads, IV and rice.
--- NOTE | 2017-12-31 04:50 | NURSING ---
pt pulled out rice with balloon intact for second time and also IV. Charge nurse Janet made aware. She will text hospitalist
[2017-12-31] MEDS: 0.9% NaCl Peripheral Flush Adult/Peds IV (05:22)
[2017-12-31] MEDS: LORazepam 1 MG Tablet PO (05:22)
[2017-12-31] MEDS: Clindamycin 600 MG/50 ML BAG 100 MG IV ×2 (05:33→14:49)
[2017-12-31] MEDS: Enoxaparin 30 MG/0.3 ML Syringe SC (05:35)
[2017-12-31 06:00] VITALS: PULSE 80
[2017-12-31 07:04] LABS: Absolute Lymphocyte Count 1.16 X10^3/ul (0.83-4.51); Absolute Neutrophil Count 6.6 X10^3/uL (2.0-7.7); Basophil# 0.01 X10^3/uL; Basophil% 0.1 % (0-1); Eosinophil# 0.09 X10^3/uL; Hematocrit 37.7 % (37-47); Hemoglobin 12.3 g/dl (12.0-15.0); Lymphocyte # 1.16 X10^3/ul (4.0); Lymphocyte % 13.3 % (19-41); Mean Corp Hgb Conc 32.6 g/gl (32-36); Mean Corpuscular Volume 88.9 fL (81-99); Mean Platelet Vol. 9.3 fl (6.2-12.0); Monocyte# 0.84 X10^3/uL; Monocyte% 9.6 % (0-10); Neutrophil # 6.61 X10^3/uL (2.7-7.7); Neutrophil % 75.9 % (47-70); Platelet Count 197 K/mm3 (150-450); RBC Distribution Width CV 13.8 % (11.6-14.6); RBC Distribution Width SD 44.8 fl (35.1-43.9); Red Blood Count 4.24 M/mm3 (4.2-5.4); White Blood Count 8.7 K/mm3 (4.4-11.0)
[2017-12-31 07:05] LABS: POSITIVE COUNT NO; POSITIVE DIFFERENTIAL NO; POSITIVE MORPHOLOGY NO
[2017-12-31 07:31] LABS: ALB/GLOB Ratio 0.9 RATIO (0.9-2.4); AST(SGOT) 26 U/L (15-37); Alanine Aminotransfer ALT/SGPT 14 U/L (13-56); Albumin, Serum 2.7 g/dL (3.2-5.0); Alkaline Phosphatase 74 U/L (45-117); Anion Gap 8 (5-15); BUN 13 mg/dL (7-18); BUN/Creat Ratio 27.4 RATIO (10-20); Calcium,Total 8.1 mg/dL (8.5-10.1); Chloride 103 mmol/L (98-107); Creatinine, Serum 0.47 mg/dL (0.55-1.02); EST Glomerular Filtration Rate 133 mL/min (>60); Est Glom Filt Rate - Afr Amer 161 mL/min (>60); Estimated Creatinine Clearance 35.31 ml/min; Globulin 3.1 g/dL (2.2-4.2); Glucose 89 mg/dL (74-106); Magnesium 2.2 mg/dL (1.6-2.6); Phosphorus 3.3 mg/dL (2.5-4.9); Potassium 3.4 mmol/L (3.5-5.1); Protein, Total 5.8 g/dL (6.4-8.2); Sodium Level 141 mmol/L (136-145)
[2017-12-31 07:52] VITALS: PULSE 69
[2017-12-31 09:22] VITALS: BP 105/67; PULSE 70; RESP 16; TEMP 36.4; O2SAT 92
[2017-12-31] MEDS: levoFLOXacin IV 250 MG/50 ML BAG 50 MG IV (10:18)
[2017-12-31] MEDS: Sertraline 50 MG Tablet 25 MG PO (10:18)
--- NOTE | 2017-12-31 13:12 | PCM.DC ---
- Discharge Diagnoses Current Active Problems: Current Active and Chronic Problems Nausea, vomiting and diarrhea (Acute) Syncope (Acute) Dehydration (Acute) UTI (urinary tract infection) (Acute) You will use the following diet at home:: No restrictions Your food should be the consistency of: Regular Your liquids should be the consistency of: Regular/Thin Discharge Activity: Return to Normal Activity Call your doctor if you observe: Fever of 101 or Higher, - - rash, greater than 5 BM's in 24H Instructions: ED Hypotension Orthostatic Additional Instructions: 1. You have a urinary tract infection. The infection is the likely reason for the nausea and the vomiting. The urine culture is still pending but the preliminary is consistent with urinary tract infections you have had in the past due to a bacteria called E. Coli. This bacteria lives in everyone's intestines and is a frequent cause of urinary tract infections, maryjo in women. I am sending you home with a prescription for an antibiotic called Levaquin. You will take this antibiotic twice a day until all gone. 2. The final urine culture report should be back Monday or Monday. If you call my cell phone at [phone] Monday afternoon or Monday I will review the results of the urine culture with you on the phone. 3. There was no problem with the rhythm of the heart while you were on the heart monitor in the hospital. The most likely reason for passing out would be low blood pressure due to dehydration and the BP medicine. The BP in the hospital is better after hydration with IV fluids. I have decreased the Lisinopril to 1/2 tab daily (5 mg). Try and stay well hydrated. Sometimes salty foods will increase thirst in patients with dementia and they will drink more......it is always a challenge getting enough fluid into a woman with dementia. Pending Tests on Discharge: final urine culutre Allergies/Adverse Reactions: Allergies Penicillins [PCN] Allergy (Verified 12/30/17 08:43) Unknown Medications to take at Discharge Aspirin [Aspirin, Baby] 81 mg PO DAILY@0800 08/29/17 Multivitamin [Animal Shapes] 1 each PO DAILY 08/29/17 Polyethylene Glycol 3350 [Miralax] 17 gm PO PRN PRN 12/30/17 Sertraline HCl [Zoloft] 25 mg PO DAILY 12/30/17 Lisinopril [Prinivil] 5 mg PO DAILY #0 12/31/17 Potassium Chloride [K-Dur] 20 meq PO BIDCM #2 tab 12/31/17 The following prescriptions were given: Potassium Chloride [K-Dur] 20 meq PO BIDCM #2 tab Primary Care Physician: Kamaljit Garcia PA [Primary Care Provider] - Please follow up with your Primary Care Physician in: 1 week Proposed Discharge Date: 12/31/17
--- NOTE | 2017-12-31 13:40 | DS.PCM_ITS ---
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 (Chronic) Fracture of hip, right, closed (Chronic) - ORIF August 2017 Hospital Course and Treatment Imaging Results: Clinical Impression(s) from Imaging Studies Chest X-Ray 12/30/17 08:52 Laboratory Results - last 24 hr 12/30/17 12/31/17 12/31/17 16:00 06:30 06:30 WBC 8.7 RBC 4.24 Hgb 12.3 Hct 37.7 MCV 88.9 MCH 29.0 MCHC 32.6 RDW 13.8 RDW Differential 44.8 H Plt Count 197 MPV 9.3 Immature Gran % (Auto) 0.100 Neut % (Auto) 75.9 H Lymph % (Auto) 13.3 L [place] % (Auto) 9.6 Eos % (Auto) 1.0 Baso % (Auto) 0.1 Absolute Neuts (auto) 6.6 Absolute Lymphs (auto) 1.16 Total Counted Not Reportable Sodium 141 Potassium 3.4 L Chloride 103 Carbon Dioxide 30.0 Anion Gap 8 BUN 13 Creatinine 0.47 L Estim Creat Clear Calc 35.31 Est GFR (MDRD) Af Amer 161 Est GFR (MDRD) Non-Af 133 BUN/Creatinine Ratio 27.4 H Glucose 89 Calcium 8.1 L Phosphorus 3.3 Magnesium 2.2 Total Bilirubin 0.80 AST 26 ALT 14 Alkaline Phosphatase 74 Total Protein 5.8 L Albumin 2.7 L Globulin 3.1 Albumin/Globulin Ratio 0.9 Urine Color Yellow Urine Clarity Sl. Cloudy Urine pH 6.0 Ur Specific [place] 1.015 Urine Protein 15 H Urine Glucose (UA) Normal Urine Ketones Negative Urine Occult Blood 10 H Urine Nitrite Positive H Urine Bilirubin Negative Urine Urobilinogen Normal Ur Leukocyte Esterase 500 H Urine RBC 0-5 SEEN Urine WBC 50-100 SEEN Ur Squamous Epith Cells 0-5 SEEN Amorphous Sediment 1+ URATE Urine Bacteria 3+ Urine Mucus 0 SEEN none Operations: None Procedures: None Summary of Care Provided: The patient is a 82 year old F with a PMH of severe dementia, HTN, hx of SB and also ventricular asystole when in the hospital for hip fx in August 2017 and depression who was brought to the ED at [facility] today after becoming unresponsive at the table while eating breakfast. She did not fall. Her dtr immediately went to her and swept the food out of her mouth. She was unresponsive for approximately 15-30 seconds. She had been having loose stool since (no more than 2 a day but loose) and had not been eating or drinking much. She lives with her dtr who runs a daycare in the home with small children. Some of the children had been ill recently. She had not been on any recent antibiotics. Vital signs at presentation to the emergency room were temperature 97.7, pulse rate 69, blood pressure 97/66, respiratory rate 12 and she was 90%-93% saturated on room air. White blood cell count was elevated at 15.4 with 74% neutrophils. Hemoglobin was 13.8 and the platelets were within normal limits. Electrolytes were within normal limits and the BUN was 20 with a creatinine of 0.61 and a BUN/creatinine ratio of 32.7 Troponin was less than 0.015. Chest x-ray showed possible developing infiltrates in the right lower lobe. Once she arrived on MS3 she had another episode of unresponsiveness. The pt is a poor historian and hx was obtained from her Kath. She was admitted to the hospital with transient unresponsiveness suspected to be due to dehydration and hypotension. She takes Lisinopril 10 mg daily. Lisinopril was held and she was hydrated. She was straight cath'd for urine and the UA showed 50-100 WBC's per HPF. She was started on Levaquin. Review of old charts shows she has had a few urine cultures + for E. Coli and it has always been sensitive to Levaquin. She was placed on telemetry due to the hx of SB and ventricular asystole in August 2017 when she fractured her hip. Telemetry showed normal sinus rhythm with no significant ectopy, no pauses and no ventricular asystole. One day following admission she was very alert but confused, which is her baseline. She sat up in the chair for a prolonged period of of time with no periods of unresponsiveness. The preliminary on the urine culture is greater than 100,000 gram-negative rods. She was discharged home on Levaquin 250 mg daily to complete 7 days of treatment for urinary tract infection. She was given my cell phone number and will call me Monday or Monday afternoon for the final urine culture results. She will follow-up with Dr. Garcia in 1 week. Potassium was mildly decreased at 3.4 on the date of discharge and she was given a potassium supplement. Because of the hypotension at admission lisinopril was decreased to 5 mg daily from 10 mg daily. PE: alert and in NAD Lungs - CTA Heart - RRR, no gallop Abd: soft, NT, ND no edema This note was generated with [employer] dictation software. It may contain incorrect words, spelling, and punctuation that were not noted in checking the note before signing. Discharge Activity: Return to Normal Activity Call your doctor if you observe: Fever of 101 or Higher, - - rash, greater than 5 BM's in 24H Home Medications: Medications to take at Discharge Aspirin [Aspirin, Baby] 81 mg PO DAILY@0800 08/29/17 Multivitamin [Animal Shapes] 1 each PO DAILY 08/29/17 Polyethylene Glycol 3350 [Miralax] 17 gm PO PRN PRN 12/30/17 Sertraline HCl [Zoloft] 25 mg PO DAILY 12/30/17 Levofloxacin [Levaquin] 250 mg PO DAILY #5 tab 12/31/17 Lisinopril [Prinivil] 5 mg PO DAILY #0 12/31/17 Potassium Chloride [K-Dur] 20 meq PO BIDCM #2 tab 12/31/17 Following Prescrptions Were Given to Patient: Levofloxacin [Levaquin] 250 mg PO DAILY #5 tab Potassium Chloride [K-Dur] 20 meq PO BIDCM #2 tab Primary Care Physician: Kamaljit Garcia PA [Primary Care Provider] - Please follow up with your Primary Care Physician in: 1 week Patient Instructions: ED Hypotension Orthostatic Disposition: Home Minutes spent on discharge:: 30 Patient Condition:: Stable Medical Necessity - Tobacco Use Smoking Status: Former smoker Tobacco Use: Non-smoker Meaningful Use Info Meaningful Use Diagnoses (Choose all that apply): None applicable Code Visit OBSV E&M: 69274 Initial observation care L3
[2017-12-31 17:01] VITALS: BP 102/58; PULSE 83; RESP 16; TEMP 37.4; O2SAT 93
== END 2017-12-31 19:30 | disposition home or self-care (01) ==
LOC: ED 10:16 → MS3 10:19
PROVIDERS: Admitting Provider Internal Medicine; Emergency Provider Emergency Medicine; Family Provider Physician Assistant; PCP Physician Assistant; Visit Provider Internal Medicine
DX: R55 Syncope and collapse (principal); E86.0 Dehydration; N39.0 Urinary tract infection, site not specified; R11.2 Nausea with vomiting, unspecified; R19.7 Diarrhea, unspecified; E87.6 Hypokalemia; I10 Essential (primary) hypertension; G30.9 Alzheimer's disease, unspecified; F02.80 Dementia in other diseases classified elsewhere, unspecified severity, without behavioral disturbance, psychotic disturbance, mood disturbance, and anxiety; Z87.891 Personal history of nicotine dependence; R00.1 Bradycardia, unspecified; Z66 Do not resuscitate; B96.20 Unspecified Escherichia coli [E. coli] as the cause of diseases classified elsewhere
CPT/HCPCS: 36415; 71045; 80048; 80053; 81001; 83735; 84100; 84484; 85025; 87077; 87086; 87088; 87186; 93005; 96361; 96365; 96366; 96372; 96375; 97110; 97162; 97166; 97530; 99218; 99285; J7040; J7120; P9612; A4216; G0378; J2405

== ENCOUNTER 2018-02-16 22:46 | Inpatient (IN) | payer MEDICARE, SELFPAY ==
[2018-02-16 22:47] VITALS: BP 114/89; PULSE 76; RESP 18; TEMP 36.6; O2SAT 94; BMI 18.6
--- NOTE | 2018-02-16 22:52 | RAD_ITS ---
STUDY: X-RAY CHEST REASON FOR EXAM: Female, 82 years old. Patient fell TECHNIQUE: 1 view COMPARISON: None. FINDINGS: Bilateral breast implants. The heart is normal in size. The aorta is tortuous. There is no acute pneumonia or failure and no pleural effusions.. Normal visualized thoracic spine. Normal visualized ribs, clavicles, and shoulders. There is no demonstrated abnormality of the visualized soft tissue structures of the upper abdomen. RAD/Chest 1 View (Portable) IMPRESSION: Bilateral breast implants. No acute findings in the lungs. A tortuous aorta. No acute fractures Electronically Signed: Silvestre Murray, at 0:10 EDT Tel , Service support ,
--- NOTE | 2018-02-16 22:53 | RAD_ITS ---
STUDY: X-RAY - PELVIS AND LEFT HIP REASON FOR EXAM: Female, 82 years old. Patient fell. Left hip pain TECHNIQUE: Radiological exam, hip, unilateral, with pelvis when performed; 2 or 3 views. COMPARISON: None. FINDINGS: There is a midcervical fracture of the proximal left femur with varus deformity. The left hip joint is well-maintained. The left superior inferior pubic rami are normal. An intramedullary jayne and 2 interference screws have been used to transfix a healed or healing intertrochanteric fracture of the proximal right femur. There are no acute fractures. The right superior and inferior rami are normal. RAD/Hip 2-3 Views with Pelvis IMPRESSION: An acute mid cervical fracture of the proximal left femur with a varus deformity. An internally fixed healed or healing intertrochanteric fracture of the proximal right femur. Electronically Signed: Silvestre Murray, at 0:08 EDT Tel , Service support ,
--- NOTE | 2018-02-16 22:53 | EKG12_ITS ---
Test Reason : Blood Pressure : / mmHG Vent. Rate : 075 BPM Atrial Rate : 075 BPM P-R Int : 194 ms QRS Dur : 072 ms QT Int : 394 ms P-R-T Axes : 042 009 024 degrees QTc Int : 439 ms Poor data quality, interpretation may be adversely affected Normal sinus rhythm Normal ECG Confirmed by JOSE ANTONIO WASHINGTON, FRED ([id number]), television news video editor FRITZ FOLEY ([id number]) on 02/19/2018 2:18:55 PM Referred By: GIOVANNI Confirmed By:FRED BRADY MD
--- NOTE | 2018-02-16 22:54 | ED.VISSUMM ---
- ER Visit Summary Date of Service: 02/16/18 Chief Complaint: Fall History of Present Illness: The patient is a 82 F presenting after fall at home. Patient lives with family. She has a history of Alzheimer's dementia. She is unable to provide history. She arrives via EMS. She complains of left hip pain. Per patient's daughter she witnessed the fall. She was trying to close a window and lost her balance and fell. She did not hit her head or lose consciousness. She was unable to get up after the fall. Physical Examination: Vitals are stable. Patient is afebrile. Alert no acute distress. HEENT exam is unremarkable. Neck is nontender Lungs are clear and equal bilaterally. Heart is regular rate and rhythm. Abdomen is soft nontender nondistended. Extremities left anterior hip tenderness with pain with logrolling. Skin is warm and dry. No focal neurologic deficit. Remainder of exam is unremarkable. Emergency Department Course and Treatment: Patient given morphine, Zofran. EKG is sinus rate is 75. CBC, chemistries unremarkable other than creatinine 0.53. INR is 1.0. Left hip x-ray shows an acute mid cervical fracture of the proximal left femur with a varus deformity. An internally fixed healed or healing intertrochanteric fracture of the proximal right femur. Chest x-ray shows no acute process. Discussed with Dr. Gordon and the hospitalist for admission. Disposition: Admission Impression: Left proximal femur fracture This note was generated with [employer] dictation software. It may contain incorrect words, spelling, and punctuation that were not noted in review of the chart prior to signing ED Disposition - Plan for ED Patient: Chief Complaint: Fall Referrals: Kamaljit Garcia PA [Primary Care Provider] -
[2018-02-16] MEDS: Morphine 2 MG/ML Syringe IV (23:08)
[2018-02-16] MEDS: Ondansetron 4 MG/2 ML Vial IV (23:08)
[2018-02-16 23:09] LABS: Absolute Lymphocyte Count 1.73 X10^3/ul (0.83-4.51); Absolute Neutrophil Count 4.5 X10^3/uL (2.0-7.7); Basophil# 0.05 X10^3/uL; Basophil% 0.7 % (0-1); Eosinophil# 0.21 X10^3/uL; Eosinophils% 2.9 % (0-5); Hematocrit 42.3 % (37-47); Hemoglobin 13.6 g/dl (12.0-15.0); Lymphocyte # 1.73 X10^3/ul (4.0); Lymphocyte % 24.2 % (19-41); Mean Corp Hgb Conc 32.2 g/gl (32-36); Mean Corpuscular Hgb 29.4 pg (27.0-32.0); Mean Corpuscular Volume 91.4 fL (81-99); Mean Platelet Vol. 9.3 fl (6.2-12.0); Monocyte# 0.61 X10^3/uL; Monocyte% 8.5 % (0-10); Neutrophil # 4.52 X10^3/uL (2.7-7.7); Neutrophil % 63.3 % (47-70); Platelet Count 215 K/mm3 (150-450); RBC Distribution Width CV 13.2 % (11.6-14.6); RBC Distribution Width SD 44.2 fl (35.1-43.9); Red Blood Count 4.63 M/mm3 (4.2-5.4); White Blood Count 7.2 K/mm3 (4.4-11.0)
[2018-02-16 23:17] LABS: POSITIVE COUNT NO; POSITIVE DIFFERENTIAL NO; POSITIVE MORPHOLOGY NO
[2018-02-16 23:21] LABS: Anion Gap 6 (5-15); BUN 23 mg/dL (7-18); BUN/Creat Ratio 43.3 RATIO (10-20); Calcium,Total 8.7 mg/dL (8.5-10.1); Chloride 102 mmol/L (98-107); Creatinine, Serum 0.53 mg/dL (0.55-1.02); EST Glomerular Filtration Rate 117 mL/min (>60); Est Glom Filt Rate - Afr Amer 142 mL/min (>60); Estimated Creatinine Clearance 39.17 ml/min; Glucose 90 mg/dL (74-106); Potassium 3.8 mmol/L (3.5-5.1); Sodium Level 139 mmol/L (136-145)
[2018-02-16 23:29] LABS: Prothrombin Time (Protime)PT. 13.2 SECONDS (11.7-14.9)
[2018-02-16 23:58] VITALS: O2SAT 94
[2018-02-17] VITALS (17 sets, daily range): BP systolic 97–139; BP diastolic 52–88; PULSE 72–96; RESP 12–20; TEMP 36.6–37.6; O2SAT 95–100; BMI 17.7; BMI 18.6
--- NOTE | 2018-02-17 | HIP_PTH ---
PATIENT: REYNOLD HERNANDEZ LOC: MS3 U#:[id number] AGE/SX: 82/F ROOM: [facility] RE02/17/[address]: Dr. Jessee Falk DO : 1935 BED: 1 DIS: 02/21/2018 SPEC #: [id number] RECD: 02/19/18 14:43 STATUS: JEREMY REQ #: [id number] RUPA: 02/17/18 00:[address]: Roge Gordon DEPT: SURGICAL PATHOLOGY RECD BY: Shyam Dahl ENTERED: 02/19/18 14:44 SP TYPE: TOTAL HIP OTHR DR: DO Kamaljit Hackett PA Tissues: Hip, NOS Procedures: Decalcification bone/plaque Surgery Specimen Level IV Comments: @ Ordering doctor for DEC edited from to @ by ZAC at 02/20/18938 @ Ordering doctor for SUIV edited from to DR.MKNAPI Anderson by ZAC at 02/20/18 0939 @ Submitting doctor edited from to DR.MKNAPI Anderson by ZAC at 02/20/18 0939 HEADER OPERATION: Left hemiarthroplasty, hip PRE-OP DIAGNOSIS: Subcapital fracture left hip TISSUE SUBMITTED: Left femoral head and bone MICROSCOPIC DIAGNOSIS Left femoral head and bone, hemiarthroplasty: Femoral head and detached pieces of bone with focal area of hemorrhage, clinically subcapital fracture left hip. GEORGIE:mal 02/22/18 MICROSCOPIC DESCRIPTION Slides are reviewed. GROSS DESCRIPTION Received is one container designated left femoral head. The specimen consists of a femoral head measuring 4.5 x 4.5 x 4 cm. The resection margin is irregular and hemorrhagic. The articular surface is smooth. Also present in the container are multiple pieces of bone measuring in aggregate 7 x 6 x 3 cm. Soft tissue is not identified. Reservation Clerk sections are submitted in three cassettes as follows: 1 & 2 ? detached pieces of bone, 3- femoral head after decalcification. / GEORGIE:mal 02/19/18 TC:5 CPT: 99363, 44585
[2018-02-17] MEDS: Morphine 4 MG/ML Syringe IV (00:24)
--- NOTE | 2018-02-17 02:10 | HP.PCM_ITS ---
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 She is unable to provide history secondary to dementia x 10 years. History is taken from her daughter. Her daughter told her not to close the window and she went to close the window. Her daughter startled her and she felt on her left hip. No lost of consciousness. However, she was unable to get up and a few minutes later, her daughter heard crackle sounds. Her daughter called EMS given that sound. Past Medical History Past Medical History (Chronic Problems): Chronic Problems Sinus bradycardia (Chronic) Fracture of right inferior pubic ramus (Chronic) Essential hypertension, benign (Chronic) 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 (Chronic) Fracture of hip, right, closed (Chronic) Allergies Penicillins [PCN] Allergy (Verified 12/30/17 08:43) Unknown Home Medications: Ambulatory Orders Medication Instructions Recorded Aspirin [Aspirin, Baby] 81 mg PO DAILY@0800 08/29/17 Multivitamin [Animal Shapes] 1 each PO DAILY 08/29/17 Polyethylene Glycol 3350 [Miralax] 17 gm PO PRN PRN 12/30/17 Sertraline HCl [Zoloft] 25 mg PO DAILY 12/30/17 Lisinopril [Prinivil] 5 mg PO DAILY #0 12/31/17 Doxycycline [Doxycycline] 100 mg PO DAILY 02/16/18 Surgical History: cataract, - - Right hip pinning (09/01/2017). Psychiatric History: No pertinent psych hx TELEVISION SCRIPT WRITER History: No pertinent TELEVISION SCRIPT WRITER history Lives: With Family Smoking Status: Former smoker - *Family History Maternal History Items: No pertinent history Paternal History Items: No pertinent history Review of Systems Constitutional: Denies: Chills, Fever, Weight Change HEENT: Denies: Head Aches, Sinus Congestion, Sinus Drainage Cardiovascular: Denies: Chest Pain, Palpitations Respiratory: Denies: Cough, Shortness of breath at rest, Sputum production Gastrointestinal: Denies: Abdominal Pain, Nausea, Vomiting Genitourinary: Denies: Dysuria Musculoskeletal: Denies: Joint Pain, Joint Tenderness Skin: Denies: Rash, Wounds Neurological: Denies: Numbness, Tingling, Focal weakness Psychiatric: Denies: Anxiety, Depression, Homicidal Ideations, Suicidal Ideations Hematologic/ Lymphatic: Denies: Easy Bruising, Easy Bleeding VTE Information - Inpt Only VTE Present on Admission: No VTE Mechan Device Prophylaxis: SCD's VTE Pharm Prophylaxis ordered?: No Patient Problems: Active and Suspected Problems Left femoral shaft fracture (Acute) - Physical Exam General: Confused, Disoriented HEENT: Atraumatic, PERRLA, EOMI, Normocephalic Neck: Supple, No JVD, Negative Carotid Bruits Lungs: Clear to auscultation, Normal air movement Cardiovascular: Regular rate, No murmurs Abdomen: Bowel Sounds Present, Soft, Non Tender Extremities: No edema, Capillary Refill Less than 3 Seconds Skin: No rashes, No breakdown Musculoskeletal: No Tenderness to Palpation of Joints or Extremities Neurological: Cranial nerves II-XII grossly intact Psych/Mental Status: Normal Affect, Appropriate Vital Signs Temp Pulse Resp BP Pulse Ox 97.8 F 83 12 139/88 H 97 02/16/18 22:47 02/17/18 01:04 02/17/18 01:04 02/17/18 01:04 02/17/18 01:04 Oxygen Flow Rate (L/min) 3 Oxygen Delivery Method Nasal Cannula Weight: 57.2 kg Body Mass Index (BMI) 18.6 Laboratory Tests Past 24 Hrs 02/16/18 02/16/18 02/16/18 23:00 23:00 23:00 WBC 7.2 RBC 4.63 Hgb 13.6 Hct 42.3 MCV 91.4 MCH 29.4 MCHC 32.2 RDW 13.2 RDW Differential 44.2 H Plt Count 215 MPV 9.3 Immature Gran % (Auto) 0.400 Neut % (Auto) 63.3 Lymph % (Auto) 24.2 [place] % (Auto) 8.5 Eos % (Auto) 2.9 Baso % (Auto) 0.7 Absolute Neuts (auto) 4.5 Absolute Lymphs (auto) 1.73 Total Counted Not Reportable PT 13.2 INR 1.0 Sodium 139 Potassium 3.8 Chloride 102 Carbon Dioxide 31.0 Anion Gap 6 BUN 23 H Creatinine 0.53 L Estim Creat Clear Calc 39.17 Est GFR (MDRD) Af Amer 142 Est GFR (MDRD) Non-Af 117 BUN/Creatinine Ratio 43.3 H Glucose 90 Calcium 8.7 Assessment/Plan All Active Problems Nausea, vomiting and diarrhea (Acute) Syncope (Acute) Dehydration (Acute) UTI (urinary tract infection) (Acute) Left femoral shaft fracture (Acute) Ventricular asystolia (Acute) Postoperative anemia (Resolved) 82 year old female w/ h/o HTN and alzheimer's admitted for left proximal femur fracture. 1) Left proximal femur fracture: Secondary to mechanical fall. Xray disclosed acute mid cervical fracture of the proximal left femur with a varus deformity. EKG nondiagnostic. NPO. Pain controlled. IVF hydration. Consulted ortho. 2) HTN: Hold lisinopril given possible surgery. Monitor SBP. Will add coreg if elevated. 3) Alzheimer's: Resume home meds. Supportive care. 4) Prophylaxis: SCD.
[2018-02-17] MEDS: 0.9% Normal Saline 1,000 ML 75 ML IV ×2 (03:53→18:14)
--- NOTE | 2018-02-17 06:14 | NURSING ---
Dr. Gordon called and stated he will be in approximately an hour. Gave him an update on patient.
--- NOTE | 2018-02-17 08:40 | PCM.PN.ORT ---
Patient Problems: Active and Suspected Problems Left femoral shaft fracture (Acute) Subjective: ORTHOPEDIC CONSULT Patient is an 82 yo female with dementia who fell suffering a left hip displaced subcaptital fracture. She apparently had a right intertrochanteric hip fx in August for which she was treated in [place] with an Intertan nail. Family wishes to stay in [place] for definitive treatment of this fracture. Patient is an inadequate historian due to dementia. PMHx, PSHx, family Hx, ROS, medications and allergies reviewed per intake H&P. Patient reports left hip pain. Denies N/T/P or other areas of pain. - Physical Exam General: Alert, No apparent distress Extremities: Tenderness - Left hip. LLE shortened and externaly rotated. NV checkn intact. Vital Signs Temp Pulse Resp BP Pulse Ox 99.5 F H 96 16 132/74 H 95 02/17/18 03:05 02/17/18 03:22 02/17/18 03:05 02/17/18 03:05 02/17/18 07:20 Oxygen Flow Rate (L/min) 2 Oxygen Delivery Method Nasal Cannula Weight: 109 lb 12.643 oz Body Mass Index (BMI) 17.7 Intake and Output for Last 24 Hours 02/15/18 02/16/18 02/17/18 23:59 23:59 23:59 Intake Total 179 / 179 Balance 179 / 179 Laboratory Tests Past 24 Hrs 02/17/18 02/17/18 02/17/18 07:50 07:50 07:50 WBC Pending RBC Pending Hgb Pending Hct Pending MCV Pending MCH Pending MCHC Pending RDW Pending RDW Differential Pending Plt Count Pending Neut % (Auto) Pending Absolute Neuts (auto) Pending Total Counted Pending Sodium Pending Potassium Pending Chloride Pending Carbon Dioxide Pending Anion Gap Pending BUN Pending Creatinine Pending Est GFR (MDRD) Af Amer Pending Est GFR (MDRD) Non-Af Pending BUN/Creatinine Ratio Pending Glucose Pending Calcium Pending Blood Type Pending Antibody Screen Pending Medical Necessity - Tobacco Use Smoking Status: Former smoker Assessment/Plan All Active Problems Nausea, vomiting and diarrhea (Acute) Syncope (Acute) Dehydration (Acute) UTI (urinary tract infection) (Acute) Left femoral shaft fracture (Acute) Ventricular asystolia (Acute) Postoperative anemia (Resolved) Displaced, subcapital fx left hip I reccomend a cemented hemiarthroplasty of the left hip for definitive treatment of this fracture. Potential risks, benefits, complications and alternatives to this treatment plan discussed with patients POA. Consent for treatment on chart.
[2018-02-17 08:50] LABS: Absolute Lymphocyte Count 1.17 X10^3/ul (0.83-4.51); Absolute Neutrophil Count 8.2 X10^3/uL (2.0-7.7); Basophil# 0.02 X10^3/uL; Basophil% 0.2 % (0-1); Eosinophil# 0.06 X10^3/uL; Eosinophils% 0.6 % (0-5); Hematocrit 41.1 % (37-47); Hemoglobin 13.2 g/dl (12.0-15.0); Lymphocyte # 1.17 X10^3/ul (4.0); Lymphocyte % 11.6 % (19-41); Mean Corp Hgb Conc 32.1 g/gl (32-36); Mean Corpuscular Hgb 29.2 pg (27.0-32.0); Mean Corpuscular Volume 90.9 fL (81-99); Mean Platelet Vol. 9.4 fl (6.2-12.0); Monocyte# 0.66 X10^3/uL; Monocyte% 6.5 % (0-10); Neutrophil # 8.17 X10^3/uL (2.7-7.7); Platelet Count 194 K/mm3 (150-450); RBC Distribution Width CV 13.2 % (11.6-14.6); RBC Distribution Width SD 43.8 fl (35.1-43.9); Red Blood Count 4.52 M/mm3 (4.2-5.4); White Blood Count 10.1 K/mm3 (4.4-11.0)
[2018-02-17 08:53] LABS: POSITIVE COUNT NO; POSITIVE DIFFERENTIAL NO; POSITIVE MORPHOLOGY NO
[2018-02-17 09:19] LABS: Anion Gap 7 (5-15); BUN 19 mg/dL (7-18); Calcium,Total 8.3 mg/dL (8.5-10.1); Chloride 103 mmol/L (98-107); Creatinine, Serum 0.54 mg/dL (0.55-1.02); EST Glomerular Filtration Rate 114 mL/min (>60); Est Glom Filt Rate - Afr Amer 138 mL/min (>60); Glucose 85 mg/dL (74-106); Potassium 4.1 mmol/L (3.5-5.1); Sodium Level 138 mmol/L (136-145)
--- NOTE | 2018-02-17 09:52 | NURSING ---
report given to geena sanders or, daughter at bedside and willingly signed consent, daughter is aware it is hemiarthoplasty and not a nailing (as last fx, right side)
--- NOTE | 2018-02-17 09:58 | CASEMGMT ---
Social Work Note Attempted to see pt for initial assessment and to discuss discharge planning. Pt went down for surgery with ortho around 929. SW to f/u on Monday. Shannan Miller, MARINA DRY DOCK MANAGER, THERMO PROCESSOR
--- NOTE | 2018-02-17 10:05 | CASEMGMT ---
Social Work Note Updated by RNXiomy, that family was wanting the pt to go to TCU at discharge. No family present. Left with referral line for TCU at discharge and SW on Monday to / with discharge plan. Plan: SNF pending acceptance and pre-cert. Shannan Miller, WOOD TILE INSTALLATION HELPER, CLOTH SHRINKING TESTER
--- NOTE | 2018-02-17 11:13 | PCM.IMDPSTOP ---
Immediate Post-Op Note Date of Procedure: 02/17/18 Primary Surgeon/Physician: Roge Gordon landfill gas collection system operator: Olayinka Rawls Pre-Operative Diagnosis: Displaced subcapial fracture left hip Post-Operative Diagnosis: same Surgery/Procedure Performed:: Cemented hemiarthroplasty left hip Description of Surgical Findings:: see full note Estimated Blood Loss: 75cc Specimen's removed: femoral head and neck Type of Anesthesia:: Spinal ASA Class: ASA3 Plus Emergency - Admit VTE Documentation VTE Present on Admission: No VTE Mechan Device Prophylaxis: SCD's, Knee High MOSHE Hose VTE Pharm Prophylaxis ordered?: Yes
--- NOTE | 2018-02-17 11:16 | OP.PN_ITS ---
Immediate Post-Op Note Date of Procedure: 02/17/18 Primary Surgeon/Physician: Roge Gordon cam milling machine operator: Olayinka Rawls Pre-Operative Diagnosis: Displaced subcapial fracture left hip Post-Operative Diagnosis: same Surgery/Procedure Performed:: Cemented hemiarthroplasty left hip Description of Surgical Findings:: see full note Estimated Blood Loss: 75cc Specimen's removed: femoral head and neck Type of Anesthesia:: Spinal ASA Class: ASA3 Plus Emergency - Admit VTE Documentation VTE Present on Admission: No VTE Mechan Device Prophylaxis: SCD's, Knee High MOSHE Hose VTE Pharm Prophylaxis ordered?: Yes
--- NOTE | 2018-02-17 11:45 | RAD_ITS ---
STUDY: X-RAY - PELVIS AND RIGHT HIP REASON FOR EXAM: Female, 82 years old. Postop. TECHNIQUE: Radiological exam, hip, unilateral, with pelvis when performed; 2 or 3 views. COMPARISON: Pelvis and left hip, January 17, 2018. FINDINGS: There is a non-specific bowel gas pattern. Normal visualized soft tissue structures. Normal visualized iliac wings, sacroiliac joints and sacrum. Normal bilateral superior and inferior pubic rami. Normal pubic symphysis. Normal bilateral ischial tuberosities. Again seen is evidence of remote internal fixation of a right intertrochanteric fracture which appears unchanged from prior study. There is now a left total hip arthroplasty. The prosthetic components are intact. There is no fracture dislocation or loosening from the underlying bone. Air is seen in the surrounding soft tissues with lateral skin clips. RAD/Hip Min 2 Views (Portable) IMPRESSION: Status post left hip replacement. Electronically Signed: Hebert Felix DO at 12:25 EDT Tel [phone], Service support ,
[2018-02-17 12:21] LABS: Hematocrit 40.5 % (37-47); Hemoglobin 13.3 g/dl (12.0-15.0); Mean Corp Hgb Conc 32.8 g/gl (32-36); Mean Corpuscular Hgb 30.1 pg (27.0-32.0); Mean Corpuscular Volume 91.6 fL (81-99); Mean Platelet Vol. 9.1 fl (6.2-12.0); Platelet Count 170 K/mm3 (150-450); RBC Distribution Width CV 13.2 % (11.6-14.6); RBC Distribution Width SD 43.9 fl (35.1-43.9); Red Blood Count 4.42 M/mm3 (4.2-5.4); White Blood Count 12.7 K/mm3 (4.4-11.0)
[2018-02-17 12:22] LABS: Scan Indicated on CBC? Y/N NO
--- NOTE | 2018-02-17 12:57 | NURSING ---
pt has returned from surgery, pt smiling, denies pain-will monitor-bed exit is on-attends saturated and changed at this time
[2018-02-17] MEDS: Acetaminophen 500 MG Tablet 1000 MG PO ×2 (16:35→22:25)
[2018-02-17] MEDS: oxyCODONE 5 MG Tablet PO (16:36)
[2018-02-18] VITALS (16 sets, daily range): BP systolic 87–129; BP diastolic 35–93; PULSE 88–122; RESP 16–24; TEMP 36.9–38; O2SAT 91–100
[2018-02-18] MEDS: Ketorolac 15 MG/ML Vial IV ×2 (04:12→22:18)
[2018-02-18] MEDS: Rivaroxaban 10 MG Tablet PO (05:48)
[2018-02-18] MEDS: Acetaminophen 500 MG Tablet 1000 MG PO ×2 (05:48→14:20)
--- NOTE | 2018-02-18 06:01 | NURSING ---
This RN attempted to given patient her pills this morning crushed in yogurt. Patient is awake and alert during this time. This RN gave a bite of yogurt with crushed meds, patient would not swallow pills and was holding meds in her mouth. This Rn attempted to give direction to patient and have her swallow yet patient would not. This RN had patient spit out her meds.
[2018-02-18 06:14] LABS: Hematocrit 34.3 % (37-47); Mean Corp Hgb Conc 32.1 g/gl (32-36); Mean Corpuscular Hgb 29.2 pg (27.0-32.0); Mean Platelet Vol. 9.5 fl (6.2-12.0); Platelet Count 154 K/mm3 (150-450); RBC Distribution Width CV 13.3 % (11.6-14.6); RBC Distribution Width SD 44.3 fl (35.1-43.9); Red Blood Count 3.77 M/mm3 (4.2-5.4); White Blood Count 12.4 K/mm3 (4.4-11.0)
[2018-02-18 06:15] LABS: Scan Indicated on CBC? Y/N NO
[2018-02-18 06:44] LABS: Anion Gap 8 (5-15); BUN 21 mg/dL (7-18); BUN/Creat Ratio 37.2 RATIO (10-20); Calcium,Total 7.9 mg/dL (8.5-10.1); Chloride 103 mmol/L (98-107); Creatinine, Serum 0.56 mg/dL (0.55-1.02); EST Glomerular Filtration Rate 109 mL/min (>60); Est Glom Filt Rate - Afr Amer 132 mL/min (>60); Glucose 94 mg/dL (74-106); Sodium Level 137 mmol/L (136-145)
--- NOTE | 2018-02-18 07:35 | NURSING ---
called to pt's room by pt's daughter stating that pt's eyes were rolling back and her mouth was open but not responsive. noted pt did have head thrown back mouth open, responsive to tactile stimuli but nonverbal. staff assist emergancy button pressed. bp checked 135/97, 89%RA, HR 122. pt being hooked up to tele monitor, and getting EKG. on unit into room informed of above and ordered continuous telemonitoring. Dr. Falk paged
--- NOTE | 2018-02-18 07:35 | EKG12_ITS ---
Test Reason : POSS SEIZURE Blood Pressure : / mmHG Vent. Rate : 089 BPM Atrial Rate : 089 BPM P-R Int : 198 ms QRS Dur : 082 ms QT Int : 364 ms P-R-T Axes : 033 005 008 degrees QTc Int : 442 ms Normal sinus rhythm Nonspecific ST abnormality Abnormal ECG When compared with ECG of 16-FEB-2018 23:07, MANUAL COMPARISON REQUIRED, DATA IS UNCONFIRMED Confirmed by JOSE ANTONIO WASHINGTON, FRED ([id number]), news video editor FRITZ FOLEY ([id number]) on 02/27/2018 3:09:34 PM Referred By: GORAN Confirmed By:FRED BRADY MD
--- NOTE | 2018-02-18 07:45 | PCM.PN.ORT ---
Patient Problems: Active and Suspected Problems Left femoral shaft fracture (Acute) Subjective: Patient is demented, but reports no pain. Had an episode of near-syncope this morning. Daughter states it was just like when she was in in August. - Physical Exam General: Cooperative, No apparent distress, Confused HEENT: Atraumatic, PERRLA Oral: Moist Mucosa Skin: Incision - intact Musculoskeletal: Tenderness - lef hip as expected Neurological: Neuro grossly intact Vital Signs Temp Pulse Resp BP Pulse Ox 99.1 F 95 18 109/74 91 02/18/18 02:25 02/18/18 02:25 02/18/18 02:25 02/18/18 02:25 02/18/18 06:50 Oxygen Flow Rate (L/min) 1 Oxygen Delivery Method Nasal Cannula Weight: 109 lb 12.643 oz Body Mass Index (BMI) 17.7 Intake and Output for Last 24 Hours 02/16/18 02/17/18 02/18/18 23:59 23:59 23:59 Intake Total 2745 / 2745 550 / 550 Balance 2745 / 2745 550 / 550 Laboratory Tests Past 24 Hrs 02/17/18 02/17/18 02/17/18 07:50 07:50 07:50 WBC 10.1 RBC 4.52 Hgb 13.2 Hct 41.1 MCV 90.9 MCH 29.2 MCHC 32.1 RDW 13.2 RDW Differential 43.8 Plt Count 194 MPV 9.4 Immature Gran % (Auto) 0.100 Neut % (Auto) 81.0 H Lymph % (Auto) 11.6 L [place] % (Auto) 6.5 Eos % (Auto) 0.6 Baso % (Auto) 0.2 Absolute Neuts (auto) 8.2 H Absolute Lymphs (auto) 1.17 Total Counted Not Reportable Sodium 138 Potassium 4.1 Chloride 103 Carbon Dioxide 28.0 Anion Gap 7 BUN 19 H Creatinine 0.54 L Estim Creat Clear Calc 34.10 Est GFR (MDRD) Af Amer 138 Est GFR (MDRD) Non-Af 114 BUN/Creatinine Ratio 35.0 H Glucose 85 Calcium 8.3 L Blood Type O POSITIVE Antibody Screen NEGATIVE 02/17/18 02/18/18 02/18/18 12:10 05:50 05:50 WBC 12.7 H 12.4 H RBC 4.42 3.77 L Hgb 13.3 11.0 L Hct 40.5 34.3 L MCV 91.6 91.0 MCH 30.1 29.2 MCHC 32.8 32.1 RDW 13.2 13.3 RDW Differential 43.9 44.3 H Plt Count 170 154 MPV 9.1 9.5 Immature Gran % (Auto) Neut % (Auto) Lymph % (Auto) [place] % (Auto) Eos % (Auto) Baso % (Auto) Absolute Neuts (auto) Absolute Lymphs (auto) Total Counted Sodium 137 Potassium 4.0 Chloride 103 Carbon Dioxide 26.0 Anion Gap 8 BUN 21 H Creatinine 0.56 Estim Creat Clear Calc 34.10 Est GFR (MDRD) Af Amer 132 Est GFR (MDRD) Non-Af 109 BUN/Creatinine Ratio 37.2 H Glucose 94 Calcium 7.9 L Blood Type Antibody Screen Medical Necessity - Tobacco Use Smoking Status: Former smoker Assessment/Plan All Active Problems Nausea, vomiting and diarrhea (Acute) Syncope (Acute) Dehydration (Acute) UTI (urinary tract infection) (Acute) Left femoral shaft fracture (Acute) Ventricular asystolia (Acute) Postoperative anemia (Resolved) sp Hemiarthroplasty left hip Post-op xrays reviewed and satisfactory, will start PT with WBAT when able Evaluation of near syncope underway
--- NOTE | 2018-02-18 07:55 | NURSING ---
updated Dr. Falk ordered EEG.
--- NOTE | 2018-02-18 07:55 | NURSING ---
88/52-88 hr. 97% 3lnc Ale RN checking manually 86/50's pt responsive to name but drowsy.
[2018-02-18] MEDS: 0.9% Normal Saline 1,000 ML 999 ML IV (08:10)
[2018-02-18] MEDS: 0.9% Normal Saline 1,000 ML 75 ML IV ×2 (08:12→21:40)
[2018-02-18] MEDS: Sertraline 50 MG Tablet 25 MG PO (10:54)
--- NOTE | 2018-02-18 15:45 | PN_ITS ---
Patient Problems: Active and Suspected Problems Left femoral shaft fracture (Acute) Subjective: Patient was seen and examined today, according to the patient's daughter who was in her room earlier this morning, patient had an episode of unresponsiveness which lasted for a few minutes, patient's daughter states that the patient's head went backwards and her eyes rolled back and the patient became unresponsive. It is unknown exactly how long this episode lasted, probably only for 1-2 minutes. Patient's blood pressure was also low this morning and I gave the patient a fluid bolus which appeared to correct her low blood pressure. Patient's daughter states that the patient had a similar episode in the past and this was worked up as to a cardiac etiology for the episode but none was found. Patient has never been checked for a seizure disorder. Patient's hemoglobin today was slightly lower than yesterday at 11. - Physical Exam General: Alert, Cooperative, No apparent distress, Well developed, Confused HEENT: Atraumatic, PERRLA, EOMI, Normocephalic Oral: Moist Mucosa Neck: Supple Lungs: Clear to auscultation, Normal air movement, No rhonchi, No wheeze, No rales Cardiovascular: Regular rate, Regular Rhythm, Normal S1, Normal S2, No murmurs, No Ectopic Activity, PMI Normal, No rub noted, No Gallop Abdomen: Bowel Sounds Present, Soft, Non Tender, Non-Distended, No hernias noted Extremities: No clubbing, No cyanosis, No edema, Capillary Refill Less than 3 Seconds Neurological: Cranial nerves II-XII grossly intact, Neuro grossly intact, Sensory exam intact to light touch and pain Psych/Mental Status: - - Patient is alert but confused Vital Signs Temp Pulse Resp BP Pulse Ox 98.7 F 113 H 20 H 117/93 H 96 02/18/18 14:24 02/18/18 14:24 02/18/18 14:24 02/18/18 14:24 02/18/18 14:24 Oxygen Flow Rate (L/min) 2 Oxygen Delivery Method Nasal Cannula Weight: 49.8 kg Body Mass Index (BMI) 17.7 Intake and Output for Last 24 Hours 02/16/18 02/17/18 02/18/18 23:59 23:59 23:59 Intake Total 2745 / 2745 2091 Balance 2745 / 2745 2091 Laboratory Tests Past 24 Hrs 02/18/18 02/18/18 05:50 05:50 WBC 12.4 H RBC 3.77 L Hgb 11.0 L Hct 34.3 L MCV 91.0 MCH 29.2 MCHC 32.1 RDW 13.3 RDW Differential 44.3 H Plt Count 154 MPV 9.5 Sodium 137 Potassium 4.0 Chloride 103 Carbon Dioxide 26.0 Anion Gap 8 BUN 21 H Creatinine 0.56 Estim Creat Clear Calc 34.10 Est GFR (MDRD) Af Amer 132 Est GFR (MDRD) Non-Af 109 BUN/Creatinine Ratio 37.2 H Glucose 94 Calcium 7.9 L Medical Necessity - Tobacco Use Smoking Status: Former smoker Assessment/Plan All Active Problems Nausea, vomiting and diarrhea (Resolved) Syncope (Resolved) Dehydration (Resolved) UTI (urinary tract infection) (Resolved) Left femoral shaft fracture (Acute) Fracture of right inferior pubic ramus (Resolved) Ventricular asystolia (Resolved) Postoperative anemia (Resolved) #1 proximal left femur fracture-postop day #1 hemiarthroplasty left hip- continue PT and OT #2 Alzheimer's dementia #3 brief syncopal episode-etiology unclear, patient was placed on telemetry, she will have an EEG performed tomorrow #4 essential hypertension #5 recently diagnosed cystitis-continue Macrodantin for now I talked with the patient's daughter by phone today, patient is a DNR CC arrest , I will enter the order Code Visit Inpatient E&M: 09528 Subs Hosp L2
[2018-02-18 23:16] LABS: Allen Test POS; Base Excess -2 mmol/L (-2 to +2); Bicarbonate 21.3 mmol/L (22-26); Blood Gas Specimen Type ART; O2 Delivery Device Nasal Can; PO2 52 mmHG (75-100); SITE R Radial; SO2 89 % (95-99); Time Given 2305; Total Carbon Dioxide 22 mmol/L; pCO2 29.9 mmHg (35-45); pH 7.46 (7.35-7.45)
--- NOTE | 2018-02-18 23:20 | RAD_ITS ---
STUDY: X-RAY CHEST REASON FOR EXAM: Female, 82 years old. SOB / SOA TECHNIQUE: Single frontal view of the chest. COMPARISON: Study done 2 days ago. FINDINGS: Chronic appearing increased interstitial lung markings. There are bilateral breast implants. The lung coe are hyperexpanded. There is no demonstrated pleural abnormality. There is a new infiltrate in the right lower lobe. Normal heart size. Normal mediastinum and mirza. Normal visualized pulmonary arteries. There is atherosclerotic calcification of the aortic arch with tortuosity. There are diffuse degenerative changes of the visualized thoracic spine. There is degenerative osteoarthritis of the bilateral shoulders. There is no demonstrated abnormality of the visualized soft tissue structures of the upper abdomen. RAD/Chest 1 View (Portable) IMPRESSION: Right lower lobe pneumonia. Electronically Signed: Arthur Valentino MD at 23:33 EDT , Service support ,
[2018-02-19] VITALS (14 sets, daily range): BP systolic 90–130; BP diastolic 46–66; PULSE 74–94; RESP 16–18; TEMP 36.1–37.1; O2SAT 93–99
[2018-02-19] MEDS: Acetaminophen 650 MG Suppository RECTAL ×2 (00:27→16:35)
[2018-02-19] MEDS: Piperacil/Tazobactam 3.375 GM/50 ML ML IV ×4 (01:04→22:06)
[2018-02-19] MEDS: 0.9% Normal Saline 1,000 ML 999 ML IV (02:23)
--- NOTE | 2018-02-19 02:45 | CPS ---
Jaime an ABG on this patient and her pO2 was 52. I put her on a high flow NC @ 8 L and then titrated her down to 6 L. Patient doing well.
[2018-02-19] MEDS: 0.9% Normal Saline 1,000 ML 75 ML IV ×2 (05:16→16:35)
[2018-02-19 06:09] LABS: Hematocrit 27.7 % (37-47); Hemoglobin 9.1 g/dl (12.0-15.0); Mean Corp Hgb Conc 32.9 g/gl (32-36); Mean Corpuscular Hgb 29.5 pg (27.0-32.0); Mean Corpuscular Volume 89.9 fL (81-99); Mean Platelet Vol. 9.6 fl (6.2-12.0); Platelet Count 118 K/mm3 (150-450); RBC Distribution Width CV 13.3 % (11.6-14.6); RBC Distribution Width SD 43.9 fl (35.1-43.9); Red Blood Count 3.08 M/mm3 (4.2-5.4); White Blood Count 9.6 K/mm3 (4.4-11.0)
[2018-02-19 06:33] LABS: Scan Indicated on CBC? Y/N NO
--- NOTE | 2018-02-19 08:55 | CASEMGMT ---
Social Work Note SW placed a call to Laura in TCU and left her a message asking if she received referral over weekend and if she is able to accept pt. JAMES waiting for call back. Plan: TCU pending acceptance and pre-cert Maricruz Wells MSW, AUTOMATIC MOLD SANDER
--- NOTE | 2018-02-19 11:11 | EEG ---
- Electroencephalogram This is an 18 channel EEG performed on this 82-year-old female with history of unresponsiveness status post left femur fracture. Nursing staff has noted an episode of eye rolling. 18 channel EEG is performed utilizing the international 1020 electrode placement protocol along with EKG reference leads. Photic stimulation was also performed however hyperventilation was unable to be performed due to the patient's unresponsiveness. Background activity is very slow at 4-5 Hz symmetrically in the posterior leads. Does not attenuate with eye opening. There are no lateralizing or epileptiform changes during this recording. Photic stimulation generates a normal symmetric driving response in the posterior leads. Impression this is an abnormal electroencephalogram due to the presence of nonspecific slowing it is noted that the patient has history of dementia and this may be the patient's baseline. There are no lateralizing or epileptiform changes.
--- NOTE | 2018-02-19 11:22 | CASEMGMT ---
Social Work Note JAMES received message from Laura in TCU stating that pre-cert has been obtained for TCU. JAMES informed Dr. Falk of this. Per Dr. Falk pt will be discharged tomorrow. JAMES placed a call to Luara in TCU and updated her of this. Laura states understanding. Plan: Discharge to TCU tomorrow Maricruz Wells WEIGHT LOSS SALES CONSULTANT, WIND TURBINE PERFORMANCE ENGINEER
--- NOTE | 2018-02-19 12:02 | PCM.PN.ORT ---
Patient Problems: Active and Suspected Problems Left femoral shaft fracture (Acute) Subjective: Patient asleep and not easily aroused. - Physical Exam General: No apparent distress Skin: Incision - stable Vital Signs Temp Pulse Resp BP Pulse Ox 97.6 F L 74 18 96/49 L 98 02/19/18 08:20 02/19/18 08:20 02/19/18 08:20 02/19/18 08:20 02/19/18 08:20 Oxygen Flow Rate (L/min) 2 Oxygen Delivery Method Nasal Cannula Weight: 109 lb 12.643 oz Body Mass Index (BMI) 17.7 Intake and Output for Last 24 Hours 02/17/18 02/18/18 02/19/18 23:59 23:59 23:59 Intake Total 2745 / 2745 2711 / 2711 1571 / 1571 Balance 2745 / 2745 2711 / 2711 1571 / 1571 Laboratory Tests Past 24 Hrs 02/18/18 02/19/18 23:10 05:46 WBC 9.6 RBC 3.08 L Hgb 9.1 L Hct 27.7 L MCV 89.9 MCH 29.5 MCHC 32.9 RDW 13.3 RDW Differential 43.9 Plt Count 118 L MPV 9.6 Specimen Type ART Sample Site R Radial pH 7.46 H Bicarbonate Actual 21.3 L POC Total CO2 22 Base Excess -2 O2 Saturation 89 L ABG pCO2 29.9 L ABG pO2 52 L Bacilio Test POS O2 Delivery Device Nasal Can Liter Flow 4.0 Blood Gas Notified Whom HOSP Blood Gas Notified Time 2305 Medical Necessity - Tobacco Use Smoking Status: Former smoker Assessment/Plan All Active Problems Nausea, vomiting and diarrhea (Resolved) Syncope (Resolved) Dehydration (Resolved) UTI (urinary tract infection) (Resolved) Left femoral shaft fracture (Acute) Fracture of right inferior pubic ramus (Resolved) Ventricular asystolia (Resolved) Postoperative anemia (Resolved) s/p Left hip tj Will do physical therapy when able
--- NOTE | 2018-02-19 13:10 | CHAPLAIN ---
Type of Pastoral Visit _x__ Initial Visit ___ Follow-up Visit ___ On-call Visit ___ General Patient Visit ___ Spiritual Assessment ___ Family Conference ___ Bereavement ___ Rapid Response ___ Code Blue ___ Other (describe below) Pastoral Care Referral From _x__ Patient ___ Family ___ Nurse ___ Physician ___ Tool Crib Clerk ___ Scene And Lighting Design Lecturer ___ Other (describe below) Sacrament/Intervention ___ Active listening ___ Anointing ___ Congregational ___ Bereavement ___ Communion ___ Darya exploration ___ ___ Life review ___ Prayer ___ Reconciliation ___ Sacrament of Sick ___ Supportive presence ___ Wedding _x__ Other (describe below) Pastoral Comments patient is sound asleep and did not awaken for me; left a calling card
--- NOTE | 2018-02-19 17:36 | PN_ITS ---
Patient Problems: Active and Suspected Problems Left femoral shaft fracture (Acute) Subjective: Patient seen and examined today, she does not appear as alert as she did yesterday, chest x-ray was done last night which showed the presence of a right lower lobe infiltrate or atelectasis, patient was placed on Zosyn, last night she had a spike in her temperature. Speech therapy saw the patient today and she is currently n.p.o., she will be reevaluated tomorrow. I talked to her daughter about these issues plus the fact that her EEG did not show a seizure focus only a diffuse slowing indicative of dementia. - Physical Exam General: No apparent distress, Well developed, Lethargic HEENT: Atraumatic, PERRLA, EOMI, Normocephalic Oral: Moist Mucosa Neck: Supple, No JVD, No Nuchal Rigidity, Trachea Midline, Thyroid Normal Size and Texture Lungs: Clear to auscultation, Normal air movement, No rhonchi, No wheeze, No rales Cardiovascular: Regular rate, Regular Rhythm, Normal S1, Normal S2, No murmurs, No Ectopic Activity, PMI Normal, No rub noted, No Gallop Abdomen: Bowel Sounds Present, Soft, Non Tender, Non-Distended, No hernias noted Extremities: No edema, Capillary Refill Less than 3 Seconds Neurological: Cranial nerves II-XII grossly intact, Neuro grossly intact Psych/Mental Status: Flat Affect, - - Patient is lethargic at the time my examination Vital Signs Temp Pulse Resp BP Pulse Ox 98.7 F 75 18 100/58 L 96 02/19/18 13:50 02/19/18 13:50 02/19/18 13:50 02/19/18 13:50 02/19/18 13:50 Oxygen Flow Rate (L/min) 2 Oxygen Delivery Method Nasal Cannula Weight: 49.8 kg Body Mass Index (BMI) 17.7 Intake and Output for Last 24 Hours 02/17/18 02/18/18 02/19/18 23:59 23:59 23:59 Intake Total 2745 / 2745 2711 / 2711 2288 / 2288 Balance 2745 / 2745 2711 / 2711 2287 / 2288 Laboratory Tests Past 24 Hrs 02/18/18 02/19/18 23:10 05:46 WBC 9.6 RBC 3.08 L Hgb 9.1 L Hct 27.7 L MCV 89.9 MCH 29.5 MCHC 32.9 RDW 13.3 RDW Differential 43.9 Plt Count 118 L MPV 9.6 Specimen Type ART Sample Site R Radial pH 7.46 H Bicarbonate Actual 21.3 L POC Total CO2 22 Base Excess -2 O2 Saturation 89 L ABG pCO2 29.9 L ABG pO2 52 L Bacilio Test POS O2 Delivery Device Nasal Can Liter Flow 4.0 Blood Gas Notified Whom HOSP Blood Gas Notified Time 2305 Medical Necessity - Tobacco Use Smoking Status: Former smoker Assessment/Plan All Active Problems Nausea, vomiting and diarrhea (Resolved) Syncope (Resolved) Dehydration (Resolved) UTI (urinary tract infection) (Resolved) Left femoral shaft fracture (Acute) Fracture of right inferior pubic ramus (Resolved) Ventricular asystolia (Resolved) Postoperative anemia (Resolved) #1 proximal left femur fracture-postop day #2 hemiarthroplasty left hip- continue PT and OT, we have a skilled bed in TCU waiting for the patient #2 Alzheimer's dementia #3 brief syncopal episode-etiology unclear, patient remains on telemetry, there have been no events relayed to me by nursing #4 essential hypertension #5 recently diagnosed cystitis-patient's Macrodantin was stopped due to the fact she is on Zosyn #6 right lower lobe infiltrate-presumed to be either pneumonia or atelectasis, continue aerosol treatments, I have elected to continue her Zosyn for now, I would recommend that she complete a seven-day course of antibiotics with follow- up chest x-ray. Code Visit Inpatient E&M: 11513 Subs Hosp L2
[2018-02-19] MEDS: Enoxaparin 40 MG/0.4 ML Syringe SC (19:31)
[2018-02-20] VITALS (11 sets, daily range): BP systolic 132–144; BP diastolic 68–79; PULSE 77–84; RESP 16–18; TEMP 36.3–37; O2SAT 93–96
[2018-02-20] MEDS: Piperacil/Tazobactam 3.375 GM/50 ML ML IV ×3 (05:59→21:49)
[2018-02-20] MEDS: 0.9% Normal Saline 1,000 ML 75 ML IV ×2 (06:01→23:54)
[2018-02-20 06:18] LABS: Hematocrit 25.9 % (37-47); Hemoglobin 8.5 g/dl (12.0-15.0); Mean Corp Hgb Conc 32.8 g/gl (32-36); Mean Corpuscular Hgb 29.8 pg (27.0-32.0); Mean Corpuscular Volume 90.9 fL (81-99); Mean Platelet Vol. 10.2 fl (6.2-12.0); Platelet Count 152 K/mm3 (150-450); RBC Distribution Width CV 12.9 % (11.6-14.6); RBC Distribution Width SD 41.9 fl (35.1-43.9); Red Blood Count 2.85 M/mm3 (4.2-5.4); White Blood Count 7.3 K/mm3 (4.4-11.0)
[2018-02-20 06:25] LABS: Scan Indicated on CBC? Y/N NO
--- NOTE | 2018-02-20 07:54 | PCM.PN.ORT ---
Patient Problems: Active and Suspected Problems Left femoral shaft fracture (Acute) Subjective: Pt. reports min pain at left hip. Confused, but easily arousable. - Physical Exam General: Alert, No apparent distress HEENT: Atraumatic Skin: Incision - stable, C/D/I Musculoskeletal: Tenderness - Left hip as expected Vital Signs Temp Pulse Resp BP Pulse Ox 98.3 F 80 18 135/68 H 93 02/20/18 05:55 02/20/18 05:55 02/20/18 05:55 02/20/18 05:55 02/20/18 05:55 Oxygen Flow Rate (L/min) 1 Oxygen Delivery Method Nasal Cannula Weight: 109 lb 12.643 oz Body Mass Index (BMI) 17.7 Intake and Output for Last 24 Hours 02/18/18 02/19/18 02/20/18 23:59 23:59 23:59 Intake Total 2711 / 2711 3339.5 / 3339.5 451.7 / 451.7 Balance 2711 / 2711 3339.5 / 3339.5 451.7 / 451.7 Laboratory Tests Past 24 Hrs 02/20/18 06:00 WBC 7.3 RBC 2.85 L Hgb 8.5 L Hct 25.9 L MCV 90.9 MCH 29.8 MCHC 32.8 RDW 12.9 RDW Differential 41.9 Plt Count 152 MPV 10.2 Medical Necessity - Tobacco Use Smoking Status: Former smoker Assessment/Plan All Active Problems Nausea, vomiting and diarrhea (Resolved) Syncope (Resolved) Dehydration (Resolved) UTI (urinary tract infection) (Resolved) Left femoral shaft fracture (Acute) Fracture of right inferior pubic ramus (Resolved) Ventricular asystolia (Resolved) Postoperative anemia (Resolved) POD #3 Hemiarthroplasty left hip D/C abduction pillow 2 pillows between legs Transfer and PT with [facility] out in 1 week F/U in ortho office 2 weeks post discharge
--- NOTE | 2018-02-20 10:34 | NURSING ---
Dr. Rousseau verbal ordered to remove the continuous Pulsox. However, there was no order in the system to have pt. on it. I removed pulsox per doctor order.
[2018-02-20] MEDS: Acetaminophen 500 MG Tablet 1000 MG PO ×2 (13:08→21:49)
[2018-02-20] MEDS: Sertraline 50 MG Tablet 25 MG PO (13:09)
--- NOTE | 2018-02-20 15:00 | CASEMGMT ---
Social Work Note JAMES received call from Dr. Falk informing this worker that ST saw pt and pt is unable to eat at this time and daughter is refusing feeding tube. Dr. Falk asked this worker if TCU will still accept pt. JAMES placed a call to Laura in TCU. Per Laura they can take pt 24 hours without feeding but there needs to be a plan as to what is going to happen to pt if she is unable to eat food. Laura states that pt will either needed a feeding tube, nasal feeding tube, or corepack feeding. Laura states that pre-cert is good for 48 hours, which would be tomorrow, and ST can evaluate pt again tomorrow to determine needs. JAMES updated Dr. Falk of this. JAMES informed Dr. Falk that if pt is unable to eat tomorrow and if pt needs a feeding tube but pt's daughter refuses then Hospice needs to be discussed. Dr. Falk states understanding. Plan: TCU pending speech therapy tomorrow Maricruz Wells REWRITER, DYE RANGE FEEDER
--- NOTE | 2018-02-20 15:37 | PCM.PROGNOTE ---
Patient Problems: Active and Suspected Problems Left femoral shaft fracture (Acute) Subjective: Patient seen and examined today, she appears more alert than yesterday, speech therapy however has not cleared her for food intake only her oral medications. Speech therapy will evaluate her again tomorrow, we are waiting to transfer her to a halfway facility but until we know for sure that she can eat, this transfer is going to be put on hold. Patient voices no complaints this examiner, she remains confused. - Physical Exam General: Alert, Cooperative, No apparent distress, Well developed, Confused HEENT: Atraumatic, PERRLA, EOMI, Normocephalic Oral: Dry Mucosa Neck: Supple, No JVD, No Nuchal Rigidity, Trachea Midline, Thyroid Normal Size and Texture Lungs: Clear to auscultation, Normal air movement, No rhonchi, No wheeze, No rales Cardiovascular: Regular rate, Regular Rhythm, Normal S1, Normal S2, No murmurs, No Ectopic Activity, PMI Normal, No rub noted, No Gallop Abdomen: Bowel Sounds Present, Soft, Non Tender, Non-Distended, No hernias noted Extremities: No clubbing, No cyanosis, No edema, Capillary Refill Less than 3 Seconds Neurological: Cranial nerves II-XII grossly intact, Neuro grossly intact, Sensory exam intact to light touch and pain Psych/Mental Status: Flat Affect, - - Patient is alert but confused Vital Signs Temp Pulse Resp BP Pulse Ox 97.4 F L 79 16 142/71 H 93 02/20/18 11:55 02/20/18 11:55 02/20/18 11:55 02/20/18 11:55 02/20/18 11:55 Oxygen Flow Rate (L/min) 1 Oxygen Delivery Method Room Air Weight: 49.8 kg Body Mass Index (BMI) 17.7 Intake and Output for Last 24 Hours 02/18/18 02/19/18 02/20/18 23:59 23:59 23:59 Intake Total 2710 / 2710 3339.5 / 3339.5 660.7 / 660.7 Balance 2710 / 2710 3339.5 / 3339.5 660.7 / 660.7 Laboratory Tests Past 24 Hrs 02/20/18 06:00 WBC 7.3 RBC 2.85 L Hgb 8.5 L Hct 25.9 L MCV 90.9 MCH 29.8 MCHC 32.8 RDW 12.9 RDW Differential 41.9 Plt Count 152 MPV 10.2 Medical Necessity - Tobacco Use Smoking Status: Former smoker Assessment/Plan All Active Problems Nausea, vomiting and diarrhea (Resolved) Syncope (Resolved) Dehydration (Resolved) UTI (urinary tract infection) (Resolved) Left femoral shaft fracture (Acute) Fracture of right inferior pubic ramus (Resolved) Ventricular asystolia (Resolved) Postoperative anemia (Resolved) #1 proximal left femur fracture-postop day #3 hemiarthroplasty left hip-continue PT and OT, we have a skilled bed in TCU waiting for the patient #2 Alzheimer's dementia #3 brief syncopal episode-etiology unclear, patient remains on telemetry, there have been no events relayed to me by nursing #4 essential hypertension #5 recently diagnosed cystitis-patient's Macrodantin was stopped due to the fact she is on Zosyn #6 right lower lobe infiltrate-presumed to be either pneumonia or atelectasis, continue aerosol treatments, I have elected to continue her Zosyn for now, I would recommend that she complete a seven-day course of antibiotics with follow-up chest x-ray. #7 dysphagia-speech therapy will reevaluate the patient tomorrow, she will be given her oral medications however Code Visit Inpatient E&M: [id number] Subs Hosp L2
--- NOTE | 2018-02-20 15:40 | PN_ITS ---
Patient Problems: Active and Suspected Problems Left femoral shaft fracture (Acute) Subjective: Patient seen and examined today, she appears more alert than yesterday, speech therapy however has not cleared her for food intake only her oral medications. Speech therapy will evaluate her again tomorrow, we are waiting to transfer her to a detention facility but until we know for sure that she can eat, this transfer is going to be put on hold. Patient voices no complaints this examiner , she remains confused. - Physical Exam General: Alert, Cooperative, No apparent distress, Well developed, Confused HEENT: Atraumatic, PERRLA, EOMI, Normocephalic Oral: Dry Mucosa Neck: Supple, No JVD, No Nuchal Rigidity, Trachea Midline, Thyroid Normal Size and Texture Lungs: Clear to auscultation, Normal air movement, No rhonchi, No wheeze, No rales Cardiovascular: Regular rate, Regular Rhythm, Normal S1, Normal S2, No murmurs, No Ectopic Activity, PMI Normal, No rub noted, No Gallop Abdomen: Bowel Sounds Present, Soft, Non Tender, Non-Distended, No hernias noted Extremities: No clubbing, No cyanosis, No edema, Capillary Refill Less than 3 Seconds Neurological: Cranial nerves II-XII grossly intact, Neuro grossly intact, Sensory exam intact to light touch and pain Psych/Mental Status: Flat Affect, - - Patient is alert but confused Vital Signs Temp Pulse Resp BP Pulse Ox 97.4 F L 79 16 142/71 H 93 02/20/18 11:55 02/20/18 11:55 02/20/18 11:55 02/20/18 11:55 02/20/18 11:55 Oxygen Flow Rate (L/min) 1 Oxygen Delivery Method Room Air Weight: 49.8 kg Body Mass Index (BMI) 17.7 Intake and Output for Last 24 Hours 02/18/18 02/19/18 02/20/18 23:59 23:59 23:59 Intake Total 2710 / 2710 3339.5 / 3339.5 660.7 / 660.7 Balance 2710 / 2710 3339.5 / 3339.5 660.7 / 660.7 Laboratory Tests Past 24 Hrs 02/20/18 06:00 WBC 7.3 RBC 2.85 L Hgb 8.5 L Hct 25.9 L MCV 90.9 MCH 29.8 MCHC 32.8 RDW 12.9 RDW Differential 41.9 Plt Count 152 MPV 10.2 Medical Necessity - Tobacco Use Smoking Status: Former smoker Assessment/Plan All Active Problems Nausea, vomiting and diarrhea (Resolved) Syncope (Resolved) Dehydration (Resolved) UTI (urinary tract infection) (Resolved) Left femoral shaft fracture (Acute) Fracture of right inferior pubic ramus (Resolved) Ventricular asystolia (Resolved) Postoperative anemia (Resolved) #1 proximal left femur fracture-postop day #3 hemiarthroplasty left hip- continue PT and OT, we have a skilled bed in TCU waiting for the patient #2 Alzheimer's dementia #3 brief syncopal episode-etiology unclear, patient remains on telemetry, there have been no events relayed to me by nursing #4 essential hypertension #5 recently diagnosed cystitis-patient's Macrodantin was stopped due to the fact she is on Zosyn #6 right lower lobe infiltrate-presumed to be either pneumonia or atelectasis, continue aerosol treatments, I have elected to continue her Zosyn for now, I would recommend that she complete a seven-day course of antibiotics with follow- up chest x-ray. #7 dysphagia-speech therapy will reevaluate the patient tomorrow, she will be given her oral medications however Code Visit Inpatient E&M: [id number] Subs Hosp L2
[2018-02-21] VITALS (9 sets, daily range): BP systolic 142–157; BP diastolic 70–84; PULSE 76–97; RESP 16; TEMP 36.5–37.2; O2SAT 93–96
[2018-02-21] MEDS: Piperacil/Tazobactam 3.375 GM/50 ML ML IV (05:47)
[2018-02-21] MEDS: Rivaroxaban 10 MG Tablet PO (05:47)
[2018-02-21] MEDS: Acetaminophen 500 MG Tablet 1000 MG PO (05:47)
--- NOTE | 2018-02-21 08:15 | PCM.PN.ORT ---
Patient Problems: Active and Suspected Problems Left femoral shaft fracture (Acute) Subjective: Patient denies pain in left hip. Pleasantly confused. - Physical Exam General: Alert, Cooperative, No apparent distress Skin: Incision - C/D/I Musculoskeletal: Tenderness - left hip as expected. Leg lengths equal. Neurological: Neuro grossly intact Vital Signs Temp Pulse Resp BP Pulse Ox 97.7 F L 76 16 147/84 H 93 02/21/18 04:10 02/21/18 06:00 02/21/18 04:10 02/21/18 04:10 02/21/18 04:10 Oxygen Flow Rate (L/min) 2 Oxygen Delivery Method Room Air Weight: 109 lb 12.643 oz Body Mass Index (BMI) 17.7 Intake and Output for Last 24 Hours 02/19/18 02/20/18 02/21/18 23:59 23:59 23:59 Intake Total 3339.5 / 3339.5 1111.7 / 1111.7 1000 / 1000 Output Total 2 / 2 Balance 3339.5 / 3339.5 1109.7 / 1109.7 1000 / 1000 Medical Necessity - Tobacco Use Smoking Status: Former smoker Assessment/Plan All Active Problems Nausea, vomiting and diarrhea (Resolved) Syncope (Resolved) Dehydration (Resolved) UTI (urinary tract infection) (Resolved) Left femoral shaft fracture (Acute) Fracture of right inferior pubic ramus (Resolved) Ventricular asystolia (Resolved) Postoperative anemia (Resolved) s/ hemiarthroplasty left hip D/C celia approximately 1 week from today d/c abduction pillow [facility] f/u as outpatient 2 weeks Ortho off case, call if needed
[2018-02-21] MEDS: Multivitamins,Therapeutic Tablet 1 TABLET PO (09:16)
[2018-02-21] MEDS: Sertraline 50 MG Tablet 25 MG PO (11:07)
[2018-02-21] MEDS: levoFLOXacin IV 500 MG/100 ML BAG 100 MG IV (12:19)
[2018-02-21] MEDS: 0.9% Normal Saline 1,000 ML 75 ML IV (13:38)
--- NOTE | 2018-02-21 14:50 | SP.MBSS_ITS ---
PRIMARY / SECONDARY DIAGNOSIS: dysphagia (R13.12) REFERRING PHYSICIAN: Dr. Jessee Falk MD CURRENT DIET: NPO DENTITION: WFL MENTAL STATUS: severely impaired RESPIRATORY STATUS: O2 via room air PREVIOUS MODIFIED BARIUM SWALLOW STUDY: none REASON FOR REFERRAL: Patient is an 82 year old female referred for a modified barium swallow (MBS) study to objectively assess the Patients oropharyngeal swallow function under fluoroscopy secondary to concerns for silent aspiration associated with recent right lower lung pneumonia and longstanding severe dementia, with inability to advance at bedside. MEDICAL HISTORY: 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, sinus bradycardia, benign essential hypertension, right inferior pubic ramus fracture, closed right hip fracture. STUDY FINDINGS: Patient participated in a Modified Barium Swallow (MBS) study on 02/21/2018. This study was recorded in the lateral view and images were sent to PACs for storage. The following consistencies were presented to this patient for analysis of oropharyngeal swallow function: thin liquids, pudding, and a regular textured, Elizabeth Doone cookie. Results of the MBS are as follows: PENETRATION / ASPIRATION SCALE (GLEASON): 1 = does not enter airway 2 = enters airway/above vocal folds/ejected 3 = enters airway/above vocal folds/not ejected 4 = enters airway/contacts vocal folds/ejected 5 = enters airway/contacts vocal folds/not ejected 6 = enters airway/below vocal folds/ejected 7 = enters airway/below vocal folds/not ejected despite effort 8 = enters airway/below vocal folds/no effort PENETRATION / ASPIRATION SCALE (SCORE): Thin liquid - 5 mL tsp.: 1 Thin liquids via cup (sequential swallows large volume): 1 Thin liquids via cup (sequential swallows large volume): 1 Pudding via spoon: 1 Regular textured cookie: NA* Thin liquids via straw (sequential swallows): 1 Thin liquids via straw (sequential swallows): 1 * denotes complete lack of mastication or attempt to manipulate the bolus despite maintenance of alertness, conversing between trials, apparent oral agnosia; required clinician assisted removal IMPRESSION: DIAGNOSIS: moderate to severe oral dysphagia (R13.11) ORAL PHASE CHARACTERIZED BY: LABIAL SEAL: escape beyond interlabial space or lateral juncture; no extension beyond sue border (associated with odd use of utensil during placement versus labial dysfunction) TONGUE CONTROL DURING BOLUS MANIPULATION: intermittent posterior escape of less than half of bolus BOLUS PREPARATION / MASTICATION: minimal to no chewing/mashing with bolus unchewed; required clinician assisted removal; unnecessary mastication motions with purees BOLUS TRANSPORT / LINGUAL MOTION: slowed tongue motion with occasional delayed initiation of tongue motion in addition to intermittent repetitive / disorganized tongue motion ORAL RESIDUE: residue collection on oral structures (primarily the posterior lingual blade) PHARYNGEAL PHASE CHARACTERIZED BY: INITIATION OF PHARYNGEAL SWALLOW: bolus head in valleculae at first hyoid excursion SOFT PALATE ELEVATION: no bolus between soft palate and pharyngeal wall LARYNGEAL ELEVATION: complete superior movement of thyroid cartilage with complete approximation of arytenoids cartilage to epiglottic petiole ANTERIOR HYOID EXCURSION: partial anterior movement EPIGLOTTIC MOVEMENT: complete epiglottic inversion LARYNGEAL VESTIBULE CLOSURE AT HEIGHT OF SWALLOW: complete laryngeal vestibule closure with no air/contrast in laryngeal vestibule PHARYNGEAL STRIPPING WAVE: pharyngeal stripping wave present / complete PHARYNGOESOPHAGEAL SEGMENT OPENING: partial distension and partial duration; partial obstruction of flow TONGUE BASE RETRACTION: trace column of contrast between tongue base and posterior pharyngeal wall PHARYNGEAL RESIDUE: intermittent collection of residue within or on pharyngeal structures (pyriforms with thin liquids) ESOPHAGEAL PHASE CHARACTERIZED BY: ESOPHAGEAL BOLUS CLEARANCE IN THE UPRIGHT POSITION: could not view DIET TEXTURE RECOMMENDATIONS: Will recommend a pureed textured, thin liquid diet. COMPENSATORY STRATEGIES RECOMMENDED: Supervision with assistance as needed, seated upright at 90 degrees during PO intake, medications whole with purees (check for oral clearance) INTERPRETATION OF RESULTS: Patient presents with moderate to severe oral dysphagia (R13.11) secondary to the diagnosis of Alzheimer's disease with severe major neurocognitive disorder. 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 This would place the Patient at HIGH RISK OF ASPIRATION DURING INTAKE IN SUBOPTIMAL POSITIONS. Based on the current study results and prior knowledge of this Patient, it is suspected that this is the cause of the individuals suspected aspiration event in the absence of silent aspiration. RECOMMENDATIONS: Patient requires intensive skilled speech-language intervention targeting continued diet texture management; and caregiver training targeting meal preparation if unable to advance to baseline diet textures prior to discharge; with any intervention targeting behavioral changes to yield no effect, as the Patient was unable to follow directions, and is considered to be at her baseline cognitive abilities per staff members familiar with the Patient ( prolonged recent TCU admissions). It is anticipated that the Patients oral phase dysphagia will only worsen with continued cognitive decline, and would likely benefit from roll up machine operator care placement. ADDITIONAL COMMENTS/RECOMMENDATIONS: Results and recommendations were discussed with the Patient immediately following MBS completion, with the Patient verbalizing understanding and agreement with all recommendations and education provided. IMAGE COUNT: [id number]
[2018-02-21] MEDS: 0.9% NaCl Peripheral Flush Adult/Peds IV (14:52)
--- NOTE | 2018-02-21 15:00 | RAD_ITS ---
STUDY: SWALLOWING STUDY REASON FOR EXAM: Female, 82 years old. Dysphagia. TECHNIQUE: The examination was performed with Speech Pathology in attendance. Under fluoroscopic observation, the patient ingested thin barium, thick barium, barium pudding, and barium coated cracker. FLUOROSCOPY TIME: 3:06 minutes/seconds. [id number] fluoroscopic images were obtained. RADIOLOGIST INVOLVEMENT: Radiologist was present and providing direct supervision. COMPARISON: None. FINDINGS: The following was observed during swallowing of the various mixtures of barium: Oral phase dysphagia. Thin Barium: There was no evidence of aspiration or laryngeal penetration. Barium Pudding: There was no evidence of aspiration or laryngeal penetration. Barium Coated Cracker: The patient was unable to ingest the cookie. RAD/Swallowing Function w/Video IMPRESSION: Normal tailored barium swallow study. Oral phase dysphagia. The swallow study findings were discussed with the patient by the speech pathologist at the conclusion of the examination. Please see speech pathology report for more information and recommendations. Electronically Signed: Archie Carreon MD at 16:01 EDT Tel [phone], Service support ,
--- NOTE | 2018-02-21 15:56 | CASEMGMT ---
Social Work Note Charge Nurse Vivien updated this worker that ST is clearing pt to go to TCU tonight. JAMES placed a call to Laura in TCU and left her a message informing her of this. Per previous conversations with Laura pt's precert was still good for today. JAMES placed a call to pt's daughter Kath and informed her that pt will be discharging to TCU tonight. Green sheet on pt's chart. Plan: Discharge to TCU tonight Maricruz Wells [employer], FIRST MATE
--- NOTE | 2018-02-21 16:22 | NURSING ---
daughter yue called and updated on plan to DC to TCU yet today.
--- NOTE | 2018-02-22 18:20 | PCM.DC.SUM ---
Discharge Date and Diagnosis Date of Admission: 02/17/18 Date of Discharge: 02/21/18 - Primary Discharge Diagnosis #1 proximal left femur fracture secondary to fall with osteoporosis #2 Alzheimer's dementia #3 syncopal episode-etiology unclear, not related to femur fracture #4 essential hypertension #5 right lower lobe infiltrate-either pneumonia or atelectasis-exact etiology unknown #6 dysphagia secondary to Alzheimer's dementia - Secondary Discharge Diagnosis Chronic Problems Hypertension (Chronic) Alzheimer's disease (Chronic) Sinus bradycardia (Chronic) Essential hypertension, benign (Chronic) 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 On evaluation in the emergency room, x-rays were obtained which indicated a proximal left femoral fracture, labs were remarkable for BUN of 23. Patient was admitted to [place] [id number], seen in consultation by orthopedic surgery who performed a cemented hemiarthroplasty of the left hip on 02/17/18. Patient was seen by PT and OT and it was felt she would benefit from placement in nursing home facility, postop course was complicated by an episode of syncope-the etiology of this was unknown, patient underwent an EEG which showed no evidence of seizure disorder. Evidently the patient had a similar episode during her hospitalization earlier in the year this year. Patient also had an episode of fever and a chest x-ray indicated a right lower lobe infiltrate that was felt to be either due to pneumonia or atelectasis. Patient was placed on a course of antibiotics which were then changed to oral antibiotics at the time of her discharge from [facility]. In addition, patient developed evidence of dysphagia and was seen by speech therapy who had to perform a videofluoroscopic examination to determine if the patient was safe for oral intake, it was determined that she could take oral intake with modifications of her diet. On 02/21/18, patient was seen and examined and felt to be in stable condition for [facility] to [facility]. Home Medications: Medications to take at Discharge Polyethylene Glycol 3350 [Miralax] 17 gm PO PRN PRN 12/30/17 Sertraline HCl [Zoloft] 25 mg PO DAILY 12/30/17 Acetaminophen [Tylenol] 650 mg PO Q6H PRN 02/21/18 Ipratropium/Albuterol Sulfate [Duoneb] 3 ml INHALATION TID 02/21/18 Oxycodone [Oxyir] 5 mg PO Q4H PRN PRN 02/21/18 Rivaroxaban [Xarelto] 10 mg PO DAILY 02/21/18 levoFLOXacin tablet [Levaquin tablet] 250 mg PO DAILY 02/21/18 Primary Care Physician: Kamaljit Garcia PA [Primary Care Provider] - Disposition: Retirement facility Minutes spent on discharge:: 32 Patient Condition:: Stable Medical Necessity - Tobacco Use Smoking Status: Former smoker Meaningful Use Info Meaningful Use Diagnoses (Choose all that apply): None applicable Code Visit Inpatient E&M: 82260 Disch Hosp
--- NOTE | 2018-02-22 18:27 | DS.PCM_ITS ---
Discharge Date and Diagnosis Date of Admission: 02/17/18 Date of Discharge: 02/21/18 - Primary Discharge Diagnosis #1 proximal left femur fracture secondary to fall with osteoporosis #2 Alzheimer's dementia #3 syncopal episode-etiology unclear, not related to femur fracture #4 essential hypertension #5 right lower lobe infiltrate-either pneumonia or atelectasis-exact etiology unknown #6 dysphagia secondary to Alzheimer's dementia - Secondary Discharge Diagnosis Chronic Problems Hypertension (Chronic) Alzheimer's disease (Chronic) Sinus bradycardia (Chronic) Essential hypertension, benign (Chronic) 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 after sustaining a fall at home when she went to close a window at her home, she has a history of Alzheimer's dementia and lives with her daughter. On evaluation in the emergency room, x-rays were obtained which indicated a proximal left femoral fracture, labs were remarkable for BUN of 23. Patient was admitted to [place] [address], seen in consultation by orthopedic surgery who performed a cemented hemiarthroplasty of the left hip on 02/17/18. Patient was seen by PT and OT and it was felt she would benefit from placement in half-way facility, postop course was complicated by an episode of syncope -the etiology of this was unknown, patient underwent an EEG which showed no evidence of seizure disorder. Evidently the patient had a similar episode during her hospitalization earlier in the year this year. Patient also had an episode of fever and a chest x-ray indicated a right lower lobe infiltrate that was felt to be either due to pneumonia or atelectasis. Patient was placed on a course of antibiotics which were then changed to oral antibiotics at the time of her discharge from [facility]. In addition, patient developed evidence of dysphagia and was seen by speech therapy who had to perform a videofluoroscopic examination to determine if the patient was safe for oral intake, it was determined that she could take oral intake with modifications of her diet. On , patient was seen and examined and felt to be in stable condition for transfer to [facility] for rehab services. Home Medications: Medications to take at Discharge Polyethylene Glycol 3350 [Miralax] 17 gm PO PRN PRN 12/30/17 Sertraline HCl [Zoloft] 25 mg PO DAILY 12/30/17 Acetaminophen [Tylenol] 650 mg PO Q6H PRN 02/21/18 Ipratropium/Albuterol Sulfate [Duoneb] 3 ml INHALATION TID 02/21/18 Oxycodone [Oxyir] 5 mg PO Q4H PRN PRN 02/21/18 Rivaroxaban [Xarelto] 10 mg PO DAILY 02/21/18 levoFLOXacin tablet [Levaquin tablet] 250 mg PO DAILY 02/21/18 Primary Care Physician: Kamaljit Garcia PA [Primary Care Provider] - Disposition: [facility] facility Minutes spent on discharge:: 32 Patient Condition:: Stable Medical Necessity - Tobacco Use Smoking Status: Former smoker Meaningful Use Info Meaningful Use Diagnoses (Choose all that apply): None applicable Code Visit Inpatient E&M: 88495 Disch Hosp
== END 2018-02-21 17:23 | disposition skilled nursing facility (03) | DRG 469 ==
LOC: ED 02-17 01:57 → MS3 02-17 02:02
PROVIDERS: Orthopaedic Surgery; Admitting Provider Internal Medicine; Emergency Provider Emergency Medicine; Family Provider Physician Assistant; PCP Physician Assistant; Visit Provider Internal Medicine
PROC: 0SRS0J9 Replacement of Left Hip Joint, Femoral Surface with Synthetic Substitute, Cemented, Open Approach (ICD-10-PCS; CPT 27125; principal; 2018-02-17 10:00)
DX: S72.012A Unspecified intracapsular fracture of left femur, initial encounter for closed fracture (principal); J18.9 Pneumonia, unspecified organism; J98.11 Atelectasis; W18.30XA Fall on same level, unspecified, initial encounter; Y92.009 Unspecified place in unspecified non-institutional (private) residence as the place of occurrence of the external cause; F02.80 Dementia in other diseases classified elsewhere, unspecified severity, without behavioral disturbance, psychotic disturbance, mood disturbance, and anxiety; G30.9 Alzheimer's disease, unspecified; R55 Syncope and collapse; N30.90 Cystitis, unspecified without hematuria; I10 Essential (primary) hypertension; Z66 Do not resuscitate; Z87.891 Personal history of nicotine dependence; M81.0 Age-related osteoporosis without current pathological fracture; R13.10 Dysphagia, unspecified
CPT/HCPCS: 36415; 36600; 71045; 73502; 74230; 80048; 82803; 85025; 85027; 85610; 86850; 86900; 88305; 88311; 92526; 92611; 93005; 97162; 97165; 97530; 99285; C1776; J7030; A4216; J2405

== ENCOUNTER 2018-02-21 17:27 | Inpatient (IN) | payer MEDICARE, SELFPAY ==
[2018-02-21 18:01] VITALS: BP 149/76; PULSE 73; RESP 18; TEMP 36.4; O2SAT 93
--- NOTE | 2018-02-21 18:13 | NURSING ---
pt arrived @ 1725 via bed, supper tray with pt as well. alert to self only.
--- NOTE | 2018-02-21 20:12 | PCM.HP.STD ---
Problem List (1) Hypertension Status: Chronic (2) Alzheimer's disease Status: Chronic (3) Left femoral shaft fracture Status: Acute History of Present Illness Date of Admission: 02/21/18 Chief Complaint: Here for rehabilitation, strengthening, prior to discharge home with family. The patient is a 82 year old Female with below past medical history presented to [facility] Emergency Department 02/16/2018 with fall. 02/16/2018 Chest X-ray bilateral breast implants, tortuous aorta. 02/16/2018 EKG Normal Sinus Rhythm, Normal EKG. 02/16/2018 X-ray pelvis, Left hip acute left femur fracture. Fall, lives with family, History of Alzheimer's Disease. Left hip pain. CBCD, BMP okay, Cr 0.53, INR 1.0. 02/17/2018 Admit to Hospital. IV fluids, hold lisinopril. 02/17/2018 Dr. Gordon performed cemented hemiarthroplasty left hip. 02/18/2018 Chest X-ray right lower lobe pneumonia. 02/19/2018 EEG showed non-specific slowing. 02/19/2018 Was on Macrodantin for UTI but stopped because patient on IV Zosyn for right lower lobe pneumonia. 02/20/2018 Brief syncope. Zosyn IV RLL pneumonia. Dysphagia, Speech Therapy will evaluate. 02/21/2018 Modified barium swallow showed moderate to severe dysphagia. Recommend pureed textured, thin liquid diet. 02/21/2018 Admit to TCU with debility, here for rehabilitation, strengthening, prior to discharge home with family. 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) Fracture of hip, right, closed (Chronic) Allergies Penicillins [PCN] Allergy (Verified 12/30/17 08:43) Unknown Home Medications: Ambulatory Orders Medication Instructions Recorded Polyethylene Glycol 3350 [Miralax] 17 gm PO PRN PRN 12/30/17 Sertraline HCl [Zoloft] 25 mg PO DAILY 12/30/17 Acetaminophen [Tylenol] 650 mg PO Q6H PRN 02/21/18 Ipratropium/Albuterol Sulfate 3 ml INHALATION TID 07/11/18 [Duoneb] Oxycodone [Oxyir] 5 mg PO Q4H PRN PRN 02/21/18 Rivaroxaban [Xarelto] 10 mg PO DAILY 02/21/18 levoFLOXacin tablet [Levaquin 250 mg PO DAILY 02/21/18 tablet] Surgical History: cataract, - - Right hip pinning (09/01/2017), Bilateral breast implants, Left hip cemented hemiarthroplasty. 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 Smoking Status: Former smoker Tobacco Use: Non-smoker Alcohol: None Drugs: None - *Family History Maternal History Items: No pertinent history Paternal History Items: No pertinent history Review of Systems Constitutional: Denies: Chills, Fever, Weight Change HEENT: Denies: Head Aches, Sinus Congestion, Sinus Drainage Cardiovascular: Denies: Chest Pain, Palpitations Respiratory: Denies: Cough, Shortness of breath at rest, Sputum production Gastrointestinal: Denies: Abdominal Pain, Nausea, Vomiting Genitourinary: Denies: Dysuria Musculoskeletal: Denies: Joint Pain, Joint Tenderness Skin: Denies: Rash, Wounds Neurological: Denies: Numbness, Tingling, Focal weakness Psychiatric: Denies: Anxiety, Depression, Homicidal Ideations, Suicidal Ideations Hematologic/ Lymphatic: Denies: Easy Bruising, Easy Bleeding VTE Information - Inpt Only VTE Present on Admission: No VTE Mechan Device Prophylaxis: Knee High MOSHE Hose VTE Pharm Prophylaxis ordered?: Yes - Physical Exam General: Alert, Oriented x3, Cooperative HEENT: Atraumatic, PERRLA, EOMI, Normocephalic Neck: Supple, No JVD, Negative Carotid Bruits Lungs: Clear to auscultation, Normal air movement Cardiovascular: Regular rate, No murmurs Abdomen: Bowel Sounds Present, Soft, Non Tender Extremities: No edema, Capillary Refill Less than 3 Seconds Skin: No rashes, No breakdown, Incision - Left hip clean, dry, intact. Musculoskeletal: No Tenderness to Palpation of Joints or Extremities Neurological: Cranial nerves II-XII grossly intact Psych/Mental Status: Normal Affect, Appropriate Intake and Output for Last 24 Hours 02/19/18 02/20/18 02/21/18 23:59 23:59 23:59 Intake Total 120 / 120 Balance 120 / 120 Assessment/Plan All Active Problems Nausea, vomiting and diarrhea (Resolved) Syncope (Resolved) Dehydration (Resolved) UTI (urinary tract infection) (Resolved) Left femoral shaft fracture (Acute) Fracture of right inferior pubic ramus (Resolved) Ventricular asystolia (Resolved) Postoperative anemia (Resolved) 82 year old female with below past medical history significant for Alzheimer's Disease, hospitalized for left hip fracture, underwent left hip hemiarthroplasty 02/17/[address] Gordon, complicated by right lower lobe pneumonia, admitted to TCU with debility, here for rehabilitation, strengthening, prior to discharge home with family. Debility - PT/OT. Dysphagia - ST, modified diet. Pain - Tylenol 1000MG Q8H PRN mild pain, Oxycodone 5MG Q4H PRN moderate to severe pain. Bowel - Miralax 17GM daily, Senna/colace 1 tablet BID, Dulcolax 10MG PO daily PRN. Pneumonia vaccination - Administer Prevnar 13 and/or Pneumovax 23 as necessary. DVT prophylaxis - Xarelto 10MG thru 03/24/2018. Shortness of breath - Duoneb 3ML TID. Right lower lobe pneumonia - Levaquin 250MG daily thru 02/26/2018. Depression - Sertraline 25MG daily.
--- NOTE | 2018-02-21 20:25 | HP.PCM_ITS ---
Problem List (1) Hypertension Status: Chronic (2) Alzheimer's disease Status: Chronic (3) Left femoral shaft fracture Status: Acute History of Present Illness Date of Admission: 02/21/18 Chief Complaint: Here for rehabilitation, strengthening, prior to discharge home with family. The patient is a 82 year old Female with below past medical history presented to [facility] Emergency Department 02/16/2018 with fall. 02/16/2018 Chest X-ray bilateral breast implants, tortuous aorta. 02/16/2018 EKG Normal Sinus Rhythm, Normal EKG. 02/16/2018 X-ray pelvis, Left hip acute left femur fracture. Fall, lives with family, History of Alzheimer's Disease. Left hip pain. CBCD, BMP okay, Cr 0.53, INR 1.0. 02/17/2018 Admit to Hospital. IV fluids, hold lisinopril. 02/17/2018 Dr. Gordon performed cemented hemiarthroplasty left hip. 02/18/2018 Chest X-ray right lower lobe pneumonia. 02/19/2018 EEG showed non-specific slowing. 02/19/2018 Was on Macrodantin for UTI but stopped because patient on IV Zosyn for right lower lobe pneumonia. 02/20/2018 Brief syncope. Zosyn IV RLL pneumonia. Dysphagia, Speech Therapy will evaluate. 02/21/2018 Modified barium swallow showed moderate to severe dysphagia. Recommend pureed textured, thin liquid diet. 02/21/2018 Admit to TCU with debility, here for rehabilitation, strengthening, prior to discharge home with family. 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) Fracture of hip, right, closed (Chronic) Allergies Penicillins [PCN] Allergy (Verified 12/30/17 08:43) Unknown Home Medications: Ambulatory Orders Medication Instructions Recorded Polyethylene Glycol 3350 [Miralax] 17 gm PO PRN PRN 12/30/17 Sertraline HCl [Zoloft] 25 mg PO DAILY 12/30/17 Acetaminophen [Tylenol] 650 mg PO Q6H PRN 02/21/18 Ipratropium/Albuterol Sulfate 3 ml INHALATION TID 07/11/18 [Duoneb] Oxycodone [Oxyir] 5 mg PO Q4H PRN PRN 02/21/18 Rivaroxaban [Xarelto] 10 mg PO DAILY 02/21/18 levoFLOXacin tablet [Levaquin 250 mg PO DAILY 02/21/18 tablet] Surgical History: cataract, - - Right hip pinning (09/01/2017), Bilateral breast implants, Left hip cemented hemiarthroplasty. 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 Smoking Status: Former smoker Tobacco Use: Non-smoker Alcohol: None Drugs: None - *Family History Maternal History Items: No pertinent history Paternal History Items: No pertinent history Review of Systems Constitutional: Denies: Chills, Fever, Weight Change HEENT: Denies: Head Aches, Sinus Congestion, Sinus Drainage Cardiovascular: Denies: Chest Pain, Palpitations Respiratory: Denies: Cough, Shortness of breath at rest, Sputum production Gastrointestinal: Denies: Abdominal Pain, Nausea, Vomiting Genitourinary: Denies: Dysuria Musculoskeletal: Denies: Joint Pain, Joint Tenderness Skin: Denies: Rash, Wounds Neurological: Denies: Numbness, Tingling, Focal weakness Psychiatric: Denies: Anxiety, Depression, Homicidal Ideations, Suicidal Ideations Hematologic/ Lymphatic: Denies: Easy Bruising, Easy Bleeding VTE Information - Inpt Only VTE Present on Admission: No VTE Mechan Device Prophylaxis: Knee High MOSHE Hose VTE Pharm Prophylaxis ordered?: Yes - Physical Exam General: Alert, Oriented x3, Cooperative HEENT: Atraumatic, PERRLA, EOMI, Normocephalic Neck: Supple, No JVD, Negative Carotid Bruits Lungs: Clear to auscultation, Normal air movement Cardiovascular: Regular rate, No murmurs Abdomen: Bowel Sounds Present, Soft, Non Tender Extremities: No edema, Capillary Refill Less than 3 Seconds Skin: No rashes, No breakdown, Incision - Left hip clean, dry, intact. Musculoskeletal: No Tenderness to Palpation of Joints or Extremities Neurological: Cranial nerves II-XII grossly intact Psych/Mental Status: Normal Affect, Appropriate Intake and Output for Last 24 Hours 02/19/18 02/20/18 02/21/18 23:59 23:59 23:59 Intake Total 120 / 120 Balance 120 / 120 Assessment/Plan All Active Problems Nausea, vomiting and diarrhea (Resolved) Syncope (Resolved) Dehydration (Resolved) UTI (urinary tract infection) (Resolved) Left femoral shaft fracture (Acute) Fracture of right inferior pubic ramus (Resolved) Ventricular asystolia (Resolved) Postoperative anemia (Resolved) 82 year old female with below past medical history significant for Alzheimer's Disease, hospitalized for left hip fracture, underwent left hip hemiarthroplasty 02/17/[address] Gordon, complicated by right lower lobe pneumonia, admitted to TCU with debility, here for rehabilitation, strengthening , prior to discharge home with family. * Debility - PT/OT. * Dysphagia - ST, modified diet. * Pain - Tylenol 1000MG Q8H PRN mild pain, Oxycodone 5MG Q4H PRN moderate to severe pain. * Bowel - Miralax 17GM daily, Senna/colace 1 tablet BID, Dulcolax 10MG PO daily PRN. * Pneumonia vaccination - Administer Prevnar 13 and/or Pneumovax 23 as necessary. * DVT prophylaxis - Xarelto 10MG thru 03/24/2018. * Shortness of breath - Duoneb 3ML TID. * Right lower lobe pneumonia - Levaquin 250MG daily thru 02/26/2018. * Depression - Sertraline 25MG daily.
--- NOTE | 2018-02-21 21:20 | RAD_ITS ---
STUDY: X-RAY - PELVIS AND LEFT HIP REASON FOR EXAM: Female, 82 years old. Postop left hip TECHNIQUE: Radiological exam, hip, unilateral, with pelvis when performed; 2 or 3 views. COMPARISON: 02/17/2018 FINDINGS: Residual contrast in the colon and appendix. Skin celia over the left hip. Right femoral hardware with remote femoral deformity. Left hip arthroplasty with normal alignment. Postoperative air on the left. RAD/Hip 2-3 Views with Pelvis IMPRESSION: Normally aligned left hip arthroplasty. No acute osseous abnormality is evident. Electronically Signed: Carlos Huizar MD at 7:02 EDT Tel , Service support ,
[2018-02-21 23:48] VITALS: BMI 17.6
[2018-02-21 23:50] VITALS: BMI 17.7
[2018-02-22] MEDS: oxyCODONE 5 MG Tablet PO ×2 (00:36→15:39)
[2018-02-22] MEDS: Senna/Docusate Sodium 1 Tablet PO ×2 (05:38→18:00)
[2018-02-22] MEDS: Sertraline 50 MG Tablet 25 MG PO (05:38)
[2018-02-22] MEDS: Polyethylene Glycol 3350 17 GM PACKET PO (05:39)
[2018-02-22] MEDS: Rivaroxaban 10 MG Tablet PO (05:39)
[2018-02-22] MEDS: levoFLOXacin 250 MG Tablet PO (05:41)
[2018-02-22 05:49] LABS: Absolute Lymphocyte Count 0.88 X10^3/ul (0.83-4.51); Basophil# 0.02 X10^3/uL; Basophil% 0.3 % (0-1); Eosinophil# 0.24 X10^3/uL; Eosinophils% 3.5 % (0-5); Hemoglobin 9.4 g/dl (12.0-15.0); Lymphocyte # 0.88 X10^3/ul (4.0); Lymphocyte % 12.8 % (19-41); Mean Corp Hgb Conc 33.6 g/gl (32-36); Mean Corpuscular Hgb 29.6 pg (27.0-32.0); Mean Corpuscular Volume 88.1 fL (81-99); Monocyte# 0.64 X10^3/uL; Monocyte% 9.3 % (0-10); Neutrophil # 5.01 X10^3/uL (2.7-7.7); Neutrophil % 73.2 % (47-70); Platelet Count 229 K/mm3 (150-450); RBC Distribution Width CV 12.6 % (11.6-14.6); RBC Distribution Width SD 39.4 fl (35.1-43.9); Red Blood Count 3.18 M/mm3 (4.2-5.4); White Blood Count 6.9 K/mm3 (4.4-11.0)
[2018-02-22 06:02] LABS: POSITIVE COUNT NO; POSITIVE DIFFERENTIAL NO; POSITIVE MORPHOLOGY NO
[2018-02-22 06:47] LABS: Anion Gap 9 (5-15); BUN 16 mg/dL (7-18); BUN/Creat Ratio 56.9 RATIO (10-20); Calcium,Total 7.8 mg/dL (8.5-10.1); Chloride 104 mmol/L (98-107); Creatinine, Serum 0.28 mg/dL (0.55-1.02); EST Glomerular Filtration Rate 244 mL/min (>60); Est Glom Filt Rate - Afr Amer 295 mL/min (>60); Estimated Creatinine Clearance 34.24 ml/min; Glucose 85 mg/dL (74-106); Potassium 2.7 mmol/L (3.5-5.1); Sodium Level 140 mmol/L (136-145)
--- NOTE | 2018-02-22 07:02 | NURSING ---
Dr Salinas aware of critical K+. N.O. entered
[2018-02-22] MEDS: Ipratropium/Albuterol Sulfate 3 ML AMPUL.NEB INHALATION (07:06)
[2018-02-22 07:07] VITALS: PULSE 99; RESP 16; O2SAT 90
[2018-02-22 10:00] VITALS: PULSE 104; RESP 18; O2SAT 94
[2018-02-22] MEDS: Tuberculin,Purif.prot.deriv. 50 TU/ML Vial 5 ML ID (10:11)
--- NOTE | 2018-02-22 12:39 | PCM.PN.RX ---
<Abhijeet Bryant D - Last Filed: 02/22/18 12:39> Progress Note - Pharmacy Subjective: TCU Admission Objective: Allergies Penicillins [PCN] Allergy (Verified 12/30/17 08:43) Unknown Current Medications Generic Name Dose Route Start Last Admin Trade Name Freq PRN Reason Stop Dose Admin Acetaminophen 1,000 mg 02/21/18 20:31 Tylenol PO Q8H PRN MILD PAIN (1-3/10) Albuterol Sulfate 2.5 mg 02/22/18 07:18 Ventolin Aerosols INHALATION Q2H PRN PRN SHORTNESS OF BREATH Bisacodyl 10 mg 02/21/18 20:31 Dulcolax PO DAILY PRN Constipation Levofloxacin 250 mg 02/22/18 06:00 02/22/18 05:41 Levaquin Tablet PO 02/26/18 06:01 250 mg DAILY MENDOZA Administration Nutritional Formula (Lactose Free) 120 ml 02/22/18 06:00 02/22/18 12:13 Ensure Enlive PO 120 ml 4X/DAY MENDOZA Administration Oxycodone HCl 5 mg 02/21/18 18:13 02/22/18 00:36 Oxyir PO 5 mg Q4H PRN PRN Administration MOD-SEVERE PAIN (4-10/10) Polyethylene Glycol 17 gm 02/22/18 06:00 02/22/18 05:39 Miralax PO 17 gm DAILY MENDOZA Administration Potassium Chloride 20 meq 02/22/18 08:00 02/22/18 07:59 K-Dur PO 20 meq BIDCM MENDOZA Administration Rivaroxaban 10 mg 02/22/18 06:00 02/22/18 05:39 Xarelto PO 03/24/18 23:59 10 mg DAILY MENDOZA Administration Senna/Docusate Sodium 1 tablet 02/22/18 06:00 02/22/18 05:38 Senokot-S, Olena-Colace PO 1 tablet BID MENDOZA Administration Sertraline HCl 25 mg 02/22/18 06:00 02/22/18 05:38 Zoloft PO 25 mg DAILY MENDOZA Administration Tuberculin PPD 5 tu 03/01/18 10:00 Tubersol, Aplisol, Ppd ID 03/01/18 10:01 X1 ONE Problem List Hypertension (Chronic) Alzheimer's disease (Chronic) Vital Signs Temp Pulse Resp BP Pulse Ox 97.6 F L 99 16 149/76 H 90 02/21/18 18:01 02/22/18 07:07 02/22/18 07:07 02/21/18 18:01 02/22/18 07:07 Oxygen Delivery Method Room Air Weight: 50 kg Body Mass Index (BMI) 17.6 Sodium 140 mmol/L (136-145) 02/22/18 05:05 Potassium 2.7 mmol/L (3.5-5.1) L* 02/22/18 05:05 Chloride 104 mmol/L (98-107) 02/22/18 05:05 Carbon Dioxide 27.0 mmol/L (21.0-32.0) 02/22/18 05:05 Anion Gap 9 (5-15) 02/22/18 05:05 BUN 16 mg/dL (7-18) 02/22/18 05:05 Creatinine 0.28 mg/dL (0.55-1.02) L 02/22/18 05:05 Est GFR (MDRD) Af Amer 295 mL/min (>60) 02/22/18 05:05 Est GFR (MDRD) Non-Af 244 mL/min (>60) 02/22/18 05:05 BUN/Creatinine Ratio 56.9 RATIO (10-20) H 02/22/18 05:05 Glucose 85 mg/dL (74-106) 02/22/18 05:05 Assessment/Plan: 1) Pain APAP for mild pain, oxycodone for mod-severe pain. Continue to monitor prn medication use, daily pain scores. 2) Pulm Albuterol for shortness of breath. Continue to monitor prn medication use, for shortness of breath. 3) DVT PPx Rivaroxaban daily. Continue to monitor s/s bleeding/clot. 4) ID Levofloxacin thru 02/26 for pneumonia. Continue to monitor s/s infection. 5) Nutrition KCL twice daily. Continue to monitor electrolytes. Psychotropic Medications: 6) Depression Sertraline daily. Continue to monitor for s/s depression/anxiety. Unnecessary Medications: None Bowel Regimen: 7) Senna/s, PEG, prn bisacodyl. Continue to monitor prn medication use, for constipation/diarrhea. Date of Note:: 02/22/18 - Provider Comments Provider responsibility: Provider responsible to enter orders to implement recommendations <Brad,Royce Chi - Last Filed: 02/22/18 17:52> Progress Note - Pharmacy Subjective: [] Objective: Allergies Penicillins [PCN] Allergy (Verified 12/30/17 08:43) Unknown Current Medications Generic Name Dose Route Start Last Admin Trade Name Freq PRN Reason Stop Dose Admin Acetaminophen 1,000 mg 02/21/18 20:31 Tylenol PO Q8H PRN MILD PAIN (1-3/10) Albuterol Sulfate 2.5 mg 02/22/18 07:18 Ventolin Aerosols INHALATION Q2H PRN PRN SHORTNESS OF BREATH Bisacodyl 10 mg 02/21/18 20:31 Dulcolax PO DAILY PRN Constipation Levofloxacin 250 mg 02/22/18 06:00 02/22/18 05:41 Levaquin Tablet PO 02/26/18 06:01 250 mg DAILY MENDOZA Administration Nutritional Formula (Lactose Free) 120 ml 02/22/18 06:00 02/22/18 12:13 Ensure Enlive PO 120 ml 4X/DAY MENDOZA Administration Oxycodone HCl 5 mg 02/21/18 18:13 02/22/18 15:39 Oxyir PO 5 mg Q4H PRN PRN Administration MOD-SEVERE PAIN (4-1010) Polyethylene Glycol 17 gm 02/22/18 06:00 02/22/18 05:39 Miralax PO 17 gm DAILY MENDOZA Administration Potassium Chloride 20 meq 02/22/18 08:00 02/22/18 07:59 K-Dur PO 20 meq BIDCM MENDOZA Administration Rivaroxaban 10 mg 02/22/18 06:00 02/22/18 05:39 Xarelto PO 03/24/18 23:59 10 mg DAILY MENDOZA Administration Senna/Docusate Sodium 1 tablet 02/22/18 06:00 02/22/18 05:38 Senokot-S, Olena-Colace PO 1 tablet BID MENDOZA Administration Sertraline HCl 25 mg 02/22/18 06:00 02/22/18 05:38 Zoloft PO 25 mg DAILY MENDOZA Administration Tuberculin PPD 5 tu 03/01/18 10:00 Tubersol, Aplisol, Ppd ID 03/01/18 10:01 X1 ONE Problem List Hypertension (Chronic) Alzheimer's disease (Chronic) Vital Signs Temp Pulse Resp BP Pulse Ox 97.6 F L 104 H 18 111/58 L 95 02/22/18 15:53 02/22/18 15:53 02/22/18 15:53 02/22/18 15:53 02/22/18 15:53 Oxygen Delivery Method Room Air Weight: 50 kg Body Mass Index (BMI) 17.6 Sodium 140 mmol/L (136-145) 02/22/18 05:05 Potassium 2.7 mmol/L (3.5-5.1) L* 02/22/18 05:05 Chloride 104 mmol/L (98-107) 02/22/18 05:05 Carbon Dioxide 27.0 mmol/L (21.0-32.0) 02/22/18 05:05 Anion Gap 9 (5-15) 02/22/18 05:05 BUN 16 mg/dL (7-18) 02/22/18 05:05 Creatinine 0.28 mg/dL (0.55-1.02) L 02/22/18 05:05 Est GFR (MDRD) Af Amer 295 mL/min (>60) 02/22/18 05:05 Est GFR (MDRD) Non-Af 244 mL/min (>60) 02/22/18 05:05 BUN/Creatinine Ratio 56.9 RATIO (10-20) H 02/22/18 05:05 Glucose 85 mg/dL (74-106) 02/22/18 05:05 Assessment/Plan: Psychotropic Medications: Unnecessary Medications: Bowel Regimen: - Provider Comments Provider responsibility: Provider responsible to enter orders to implement recommendations Provider Comments to Recommendations by Pharmacy: Agree
[2018-02-22 15:53] VITALS: BP 111/58; PULSE 104; RESP 18; TEMP 36.4; O2SAT 95
[2018-02-23] MEDS: Sertraline 50 MG Tablet 25 MG PO (06:22)
[2018-02-23] MEDS: Rivaroxaban 10 MG Tablet PO (06:23)
[2018-02-23] MEDS: Polyethylene Glycol 3350 17 GM PACKET PO (06:23)
[2018-02-23] MEDS: Senna/Docusate Sodium 1 Tablet PO ×2 (06:23→17:59)
[2018-02-23] MEDS: levoFLOXacin 250 MG Tablet PO (06:23)
[2018-02-23 09:30] VITALS: PULSE 84; RESP 18; O2SAT 92
[2018-02-23] MEDS: Menthol/Lanolin/Calamine/Znox 113 GM Tube 1 APPLIC TOPICAL ×2 (12:54→22:21)
--- NOTE | 2018-02-23 14:52 | CHAPLAIN ---
patient was sleeping and did not awaken; card left
[2018-02-23 15:24] VITALS: BP 118/70; PULSE 87; RESP 20; TEMP 36.9; O2SAT 94
[2018-02-24] MEDS: Menthol/Lanolin/Calamine/Znox 113 GM Tube 1 APPLIC TOPICAL ×3 (05:42→20:49)
[2018-02-24] MEDS: levoFLOXacin 250 MG Tablet PO (05:43)
[2018-02-24] MEDS: Sertraline 50 MG Tablet 25 MG PO (05:43)
[2018-02-24] MEDS: Senna/Docusate Sodium 1 Tablet PO ×2 (05:43→17:59)
[2018-02-24] MEDS: Rivaroxaban 10 MG Tablet PO (05:43)
[2018-02-24] MEDS: Polyethylene Glycol 3350 17 GM PACKET PO (05:44)
[2018-02-24 07:33] LABS: Anion Gap 8 (5-15); BUN 11 mg/dL (7-18); BUN/Creat Ratio 33.5 RATIO (10-20); Calcium,Total 8.3 mg/dL (8.5-10.1); Chloride 104 mmol/L (98-107); Creatinine, Serum 0.33 mg/dL (0.55-1.02); EST Glomerular Filtration Rate 204 mL/min (>60); Est Glom Filt Rate - Afr Amer 247 mL/min (>60); Estimated Creatinine Clearance 34.24 ml/min; Glucose 86 mg/dL (74-106); Potassium 4.2 mmol/L (3.5-5.1); Sodium Level 140 mmol/L (136-145)
[2018-02-24 09:37] VITALS: PULSE 84; RESP 16; O2SAT 94
[2018-02-24 15:19] VITALS: BP 103/71; PULSE 85; RESP 16; TEMP 36.2; O2SAT 90
[2018-02-25] MEDS: Menthol/Lanolin/Calamine/Znox 113 GM Tube 1 APPLIC TOPICAL ×3 (06:00→19:43)
[2018-02-25] MEDS: Senna/Docusate Sodium 1 Tablet PO ×2 (06:05→17:54)
[2018-02-25] MEDS: Sertraline 50 MG Tablet 25 MG PO (06:05)
[2018-02-25] MEDS: Rivaroxaban 10 MG Tablet PO (06:06)
[2018-02-25] MEDS: levoFLOXacin 250 MG Tablet PO (06:06)
[2018-02-25] MEDS: Polyethylene Glycol 3350 17 GM PACKET PO (06:15)
[2018-02-25 10:00] VITALS: PULSE 88; RESP 16; O2SAT 94
[2018-02-25 15:41] VITALS: BP 132/77; PULSE 103; RESP 20; TEMP 36.8; O2SAT 93
[2018-02-26] MEDS: Polyethylene Glycol 3350 17 GM PACKET PO (05:46)
[2018-02-26] MEDS: Sertraline 50 MG Tablet 25 MG PO (05:46)
[2018-02-26] MEDS: Bisacodyl 5 MG Tablet 10 MG PO (05:46)
[2018-02-26] MEDS: Rivaroxaban 10 MG Tablet PO (05:46)
[2018-02-26] MEDS: Senna/Docusate Sodium 1 Tablet PO ×2 (05:46→17:25)
[2018-02-26] MEDS: levoFLOXacin 250 MG Tablet PO (05:46)
[2018-02-26] MEDS: Menthol/Lanolin/Calamine/Znox 113 GM Tube 1 APPLIC TOPICAL ×3 (05:47→20:53)
--- NOTE | 2018-02-26 11:37 | CASEMGMT ---
Insurance Clinical information faxed. Pending continued stay approval. Auth#[id number] Kari MORALES, BOX STAPLER
[2018-02-26 15:32] VITALS: BP 146/75; PULSE 95; RESP 16; TEMP 36.7; O2SAT 94
[2018-02-26 20:00] VITALS: PULSE 84; RESP 18; O2SAT 93
[2018-02-26] MEDS: oxyCODONE 5 MG Tablet PO (22:17)
[2018-02-27] MEDS: Menthol/Lanolin/Calamine/Znox 113 GM Tube 1 APPLIC TOPICAL ×3 (05:27→20:01)
--- NOTE | 2018-02-27 05:46 | NURSING ---
Addendum entered by Shannan De La O 02/27/18 08:40: Daughter here, questions answered. Original Note: Addendum entered by Orin Galindo 02/27/18 07:27: Daughter Kath aware of CIVIL STRUCTURAL ENGINEER being called. Original Note: Addendum entered by Orin Galindo 02/27/18 05:59: Dr. Salinas notified of CIVIL STRUCTURAL ENGINEER. No new orders given Original Note: During am care, pt was yelling at staff while being washed up. Yelling out in pain, appeared in obvious distress. Meds crushed, prn oxyir 5mg added for pain management. Just before med administration pt had several dark yellow/green liquid emesis, foul smelling. When staff was attempting to clean her up, she went unresponsive. Eyes closed, pt did not respond to staff or to sternal rub. RN notified and CIVIL STRUCTURAL ENGINEER called. Vitals bp 139/80, apical 82, sp02 92% R 20. Shortly after staff arrived to assist with CIVIL STRUCTURAL ENGINEER pt began screaming out, returning to baseline. Pt given bed bath, hair washed, bed linens changed. Bed returned to lowest position. Did not receive am meds, will attempt after pt able to rest. All appropriate persons notified. Continuing to monitor.
[2018-02-27 05:51] LABS: Bedside Glucose 98 mg/dL (70-110)
[2018-02-27 06:20] LABS: Absolute Lymphocyte Count 1.26 X10^3/ul (0.83-4.51); Absolute Neutrophil Count 11.5 X10^3/uL (2.0-7.7); Basophil# 0.06 X10^3/uL; Basophil% 0.4 % (0-1); Eosinophil# 0.16 X10^3/uL; Eosinophils% 1.1 % (0-5); Hematocrit 32.7 % (37-47); Hemoglobin 10.4 g/dl (12.0-15.0); Lymphocyte # 1.26 X10^3/ul (4.0); Lymphocyte % 8.6 % (19-41); Mean Corp Hgb Conc 31.8 g/gl (32-36); Mean Corpuscular Volume 91.1 fL (81-99); Monocyte# 1.44 X10^3/uL; Monocyte% 9.9 % (0-10); Neutrophil # 11.53 X10^3/uL (2.7-7.7); POSITIVE COUNT NO; POSITIVE DIFFERENTIAL NO; POSITIVE MORPHOLOGY NO; Platelet Count 256 K/mm3 (150-450); RBC Distribution Width CV 15.4 % (11.6-14.6); RBC Distribution Width SD 47.9 fl (35.1-43.9); Red Blood Count 3.59 M/mm3 (4.2-5.4); White Blood Count 14.6 K/mm3 (4.4-11.0)
[2018-02-27 06:32] LABS: Anion Gap 8 (5-15); BUN 16 mg/dL (7-18); BUN/Creat Ratio 42.2 RATIO (10-20); Calcium,Total 8.4 mg/dL (8.5-10.1); Chloride 97 mmol/L (98-107); Creatinine, Serum 0.38 mg/dL (0.55-1.02); EST Glomerular Filtration Rate 173 mL/min (>60); Est Glom Filt Rate - Afr Amer 209 mL/min (>60); Estimated Creatinine Clearance 34.24 ml/min; Glucose 95 mg/dL (74-106); Potassium 4.2 mmol/L (3.5-5.1); Sodium Level 132 mmol/L (136-145)
[2018-02-27] MEDS: Rivaroxaban 10 MG Tablet PO (07:26)
[2018-02-27] MEDS: Sertraline 50 MG Tablet 25 MG PO (07:27)
[2018-02-27] MEDS: oxyCODONE 5 MG Tablet PO ×2 (07:27→20:03)
[2018-02-27] MEDS: Senna/Docusate Sodium 1 Tablet PO ×2 (07:27→16:45)
--- NOTE | 2018-02-27 07:31 | NURSING ---
Pt accepted am medications plus oxyir 5mg, crushed in applesauce. HOB elevated 30 degrees, no complaints offered from pt who has had no further emesis or abnormal behaviors. Oncoming shift aware, continuing to monitor.
--- NOTE | 2018-02-27 10:41 | CASEMGMT ---
Brief interview for mental status (BIMS) and resident mood interview (PHQ-9) completed on this day. BIMS score 10/26. PHQ-9 score 09/09
--- NOTE | 2018-02-27 15:33 | NURSING ---
Dr. Salinas reviewed labs, N.N.O.
[2018-02-27 15:59] VITALS: BP 107/71; PULSE 97; RESP 16; TEMP 37.2; O2SAT 94
[2018-02-27] MEDS: Acetaminophen 500 MG Tablet 1000 MG PO (16:44)
[2018-02-27] MEDS: Bisacodyl 5 MG Tablet 10 MG PO (16:45)
[2018-02-27 22:00] VITALS: PULSE 78; RESP 18; O2SAT 92
--- NOTE | 2018-02-28 01:13 | NURSING ---
Pt received soap suds enema as ordered, effective; large soft bowel movement produced. Tolerated well with no visible pain or discomfort. Repositioned afterwards and has been resting since.
[2018-02-28] MEDS: oxyCODONE 5 MG Tablet PO (05:17)
[2018-02-28] MEDS: Menthol/Lanolin/Calamine/Znox 113 GM Tube 1 APPLIC TOPICAL ×3 (05:17→20:48)
[2018-02-28] MEDS: Senna/Docusate Sodium 1 Tablet PO ×2 (05:20→18:01)
[2018-02-28] MEDS: Rivaroxaban 10 MG Tablet PO (05:20)
[2018-02-28] MEDS: Polyethylene Glycol 3350 17 GM PACKET PO (05:20)
[2018-02-28] MEDS: Sertraline 50 MG Tablet 25 MG PO (05:20)
--- NOTE | 2018-02-28 07:20 | NURSING ---
Per orders, 22 celia removed from left hip incision. Pt medicated prior with oxyir 5mg which was effective. Incision is clean, dry, and well approximated. 5 short steri strips applied to secure center of incision where skin appeared slightly loose, but not dehisced or open. No drainage, odor, redness or any other s/s infection noted. Incision cleansed and DSD applied. Pt repositioned for comfort, bed returned to lowest position. RN aware. Continuing to monitor.
--- NOTE | 2018-02-28 08:46 | PCA ---
Addendum entered by Ashley Dahl 02/28/18 08:58: Correction: Lunch instead of dinner for following meals Original Note: When total dependant feeding patient dinner on 02/27/2018 and breakfast the following day 02/28/18 patient seem to have no interest in opening her mouth to take bites of food at first. I had to liquify food for patient to eat. After a few drinks patient began to eat small nibbles of dinner. She ate 100% for dinner. Breakfast this morning patient was not opening mouth for bites of food, after liquifying breakfast food patient began drinking breakfast with no issues and ate 100%
--- NOTE | 2018-02-28 09:13 | CASEMGMT ---
Plan of care meeting held. Resident present. Resident daughter declining to have conference call or come in for meeting. Resident daughter requesting for this social economist to contact her later in the day with an update on the meeting. Resident to continue with further care and treatment on the Transitional Care Unit. Resident pending continued stay approval at this time. No discharge date set at this time. Resident plans to discharge home with daughter at time of discharge. Team currently recommending for resident to transition to an extended care facility at time of discharge. Support given. Will contact resident daughter later this day. Will continue to follow. Kari MORALES, ARBORICULTURIST
[2018-02-28 15:30] VITALS: PULSE 109; RESP 18; O2SAT 94
[2018-02-28 16:00] VITALS: BP 123/67; PULSE 109; RESP 16; TEMP 36.9; O2SAT 94
[2018-03-01] MEDS: Rivaroxaban 10 MG Tablet PO (05:16)
[2018-03-01] MEDS: Senna/Docusate Sodium 1 Tablet PO (05:17)
[2018-03-01] MEDS: Sertraline 50 MG Tablet 25 MG PO (05:17)
[2018-03-01] MEDS: Polyethylene Glycol 3350 17 GM PACKET PO (05:17)
[2018-03-01] MEDS: Menthol/Lanolin/Calamine/Znox 113 GM Tube 1 APPLIC TOPICAL ×3 (05:22→21:08)
[2018-03-01 05:23] VITALS: PULSE 87; RESP 18; O2SAT 97
[2018-03-01 05:52] LABS: Absolute Lymphocyte Count 1.63 X10^3/ul (0.83-4.51); Absolute Neutrophil Count 6.8 X10^3/uL (2.0-7.7); Basophil# 0.05 X10^3/uL; Basophil% 0.5 % (0-1); Eosinophil# 0.21 X10^3/uL; Eosinophils% 2.1 % (0-5); Hematocrit 30.6 % (37-47); Hemoglobin 9.7 g/dl (12.0-15.0); Lymphocyte # 1.63 X10^3/ul (4.0); Lymphocyte % 16.3 % (19-41); Mean Corp Hgb Conc 31.7 g/gl (32-36); Mean Corpuscular Hgb 29.6 pg (27.0-32.0); Mean Corpuscular Volume 93.3 fL (81-99); Mean Platelet Vol. 9.3 fl (6.2-12.0); Monocyte# 1.15 X10^3/uL; Monocyte% 11.5 % (0-10); Neutrophil # 6.79 X10^3/uL (2.7-7.7); Neutrophil % 68.2 % (47-70); Platelet Count 311 K/mm3 (150-450); RBC Distribution Width CV 15.6 % (11.6-14.6); RBC Distribution Width SD 49.3 fl (35.1-43.9); Red Blood Count 3.28 M/mm3 (4.2-5.4)
[2018-03-01 06:16] LABS: POSITIVE COUNT NO; POSITIVE DIFFERENTIAL NO; POSITIVE MORPHOLOGY NO
[2018-03-01 06:19] LABS: Anion Gap 8 (5-15); BUN 32 mg/dL (7-18); BUN/Creat Ratio 76.2 RATIO (10-20); Calcium,Total 8.4 mg/dL (8.5-10.1); Chloride 99 mmol/L (98-107); Creatinine, Serum 0.42 mg/dL (0.55-1.02); EST Glomerular Filtration Rate 153 mL/min (>60); Est Glom Filt Rate - Afr Amer 185 mL/min (>60); Estimated Creatinine Clearance 34.24 ml/min; Glucose 86 mg/dL (74-106); Sodium Level 137 mmol/L (136-145)
[2018-03-01] MEDS: Tuberculin,Purif.prot.deriv. 50 TU/ML Vial 5 ML ID (09:12)
--- NOTE | 2018-03-01 12:52 | CASEMGMT ---
Insurance Continued stay approved with clinical update due 03/07/18. Daughter notified. Auth # [id number] CARMEN Wilson
[2018-03-01 15:58] VITALS: BP 121/48; PULSE 103; RESP 18; TEMP 36.6; O2SAT 93
--- NOTE | 2018-03-01 16:17 | CHAPLAIN ---
Type of Pastoral Visit _x__ Initial Visit ___ Follow-up Visit ___ On-call Visit ___ General Patient Visit ___ Spiritual Assessment ___ Family Conference ___ Bereavement ___ Rapid Response ___ Code Blue ___ Other (describe below) Pastoral Care Referral From _x__ Patient ___ Family ___ Nurse ___ Physician ___ Needle Loom Setter ___ Health Outreach Worker ___ Other (describe below) Sacrament/Intervention _x__ Active listening ___ Anointing ___ Temple ___ Bereavement ___ Communion ___ Darya exploration ___ ___ Life review ___ Prayer ___ Reconciliation ___ Sacrament of Sick _x__ Supportive presence ___ Wedding ___ Other (describe below) Pastoral Comments patient is sitting at nursing station in U; engaged pt is conversation; she was not speaking in reality; pt was evidently also seeing things that were not there; pt was pleasant and did not seem to be uncomfortable being in conversation with someone; pt was aware of her surroundings but did not interpret events as others would; there was no response when asked if she would like me to offer a prayer for her and therefore did not say prayers
[2018-03-02] MEDS: Sertraline 50 MG Tablet 25 MG PO (05:40)
[2018-03-02] MEDS: Rivaroxaban 10 MG Tablet PO (05:42)
[2018-03-02] MEDS: Menthol/Lanolin/Calamine/Znox 113 GM Tube 1 APPLIC TOPICAL ×2 (07:14→20:02)
[2018-03-02 15:59] VITALS: BP 134/82; PULSE 83; RESP 16; TEMP 36.9; O2SAT 94
[2018-03-02] MEDS: Senna/Docusate Sodium 1 Tablet PO (20:02)
[2018-03-03] MEDS: Senna/Docusate Sodium 1 Tablet PO ×2 (06:27→17:00)
[2018-03-03] MEDS: Menthol/Lanolin/Calamine/Znox 113 GM Tube 1 APPLIC TOPICAL ×3 (06:27→22:41)
[2018-03-03] MEDS: Polyethylene Glycol 3350 17 GM PACKET PO (06:28)
[2018-03-03] MEDS: Sertraline 50 MG Tablet 25 MG PO (06:29)
[2018-03-03] MEDS: Rivaroxaban 10 MG Tablet PO (06:29)
[2018-03-03 15:31] VITALS: BP 113/60; PULSE 97; RESP 16; TEMP 36.3; O2SAT 92
[2018-03-03 22:45] VITALS: PULSE 78; RESP 18; O2SAT 97
[2018-03-04] MEDS: Menthol/Lanolin/Calamine/Znox 113 GM Tube 1 APPLIC TOPICAL ×3 (05:39→19:58)
[2018-03-04] MEDS: Sertraline 50 MG Tablet 25 MG PO (05:45)
[2018-03-04] MEDS: Rivaroxaban 10 MG Tablet PO (05:45)
[2018-03-04 16:00] VITALS: BP 121/68; PULSE 98; RESP 18; TEMP 36.7; O2SAT 94
[2018-03-04] MEDS: Senna/Docusate Sodium 1 Tablet PO (17:23)
[2018-03-04 19:47] VITALS: PULSE 94; RESP 16; O2SAT 94
[2018-03-05] MEDS: Menthol/Lanolin/Calamine/Znox 113 GM Tube 1 APPLIC TOPICAL ×3 (06:53→20:03)
[2018-03-05] MEDS: Sertraline 50 MG Tablet 25 MG PO (06:53)
[2018-03-05] MEDS: Rivaroxaban 10 MG Tablet PO (06:53)
[2018-03-05] MEDS: Senna/Docusate Sodium 1 Tablet PO (06:53)
[2018-03-05] MEDS: Polyethylene Glycol 3350 17 GM PACKET PO (06:54)
[2018-03-05 08:30] VITALS: PULSE 121; RESP 16
[2018-03-05 16:00] VITALS: BP 110/65; PULSE 100; RESP 16; TEMP 36.6; O2SAT 95
[2018-03-06] MEDS: Menthol/Lanolin/Calamine/Znox 113 GM Tube 1 APPLIC TOPICAL ×3 (06:27→20:24)
[2018-03-06] MEDS: Sertraline 50 MG Tablet 25 MG PO (06:28)
[2018-03-06] MEDS: Senna/Docusate Sodium 1 Tablet PO ×2 (06:28→18:02)
[2018-03-06] MEDS: Polyethylene Glycol 3350 17 GM PACKET PO (06:28)
[2018-03-06] MEDS: Rivaroxaban 10 MG Tablet PO (06:29)
--- NOTE | 2018-03-06 10:14 | MDS.RN ---
Information for the mds was obtained from review of the clinical record, interview of resident, staff, and direct observation of resident's care.
[2018-03-06 15:46] VITALS: BP 146/77; PULSE 91; RESP 14; TEMP 36.7; O2SAT 94
[2018-03-06 20:42] VITALS: PULSE 82; RESP 18; O2SAT 94
[2018-03-07] MEDS: Menthol/Lanolin/Calamine/Znox 113 GM Tube 1 APPLIC TOPICAL ×3 (05:11→19:48)
[2018-03-07] MEDS: Rivaroxaban 10 MG Tablet PO (05:11)
[2018-03-07] MEDS: Senna/Docusate Sodium 1 Tablet PO (05:12)
[2018-03-07] MEDS: Sertraline 50 MG Tablet 25 MG PO (05:13)
[2018-03-07 10:00] VITALS: PULSE 92; RESP 16; O2SAT 94
--- NOTE | 2018-03-07 11:53 | CASEMGMT ---
Insurance Clinical information faxed. Pending continued stay approval at this time. Auth#[id number] Kari MORALES, RESEARCH TEST ENGINE OPERATOR
--- NOTE | 2018-03-07 13:38 | CASEMGMT ---
Brief interview for mental status (BIMS) and resident mood interview (PHQ-9) completed on this day. BIMS score 10/26. PHQ-9 score
[2018-03-07 15:42] VITALS: BP 113/67; PULSE 76; RESP 16; TEMP 36.9; O2SAT 94
[2018-03-08 05:49] LABS: Absolute Lymphocyte Count 1.28 X10^3/ul (0.83-4.51); Absolute Neutrophil Count 2.9 X10^3/uL (2.0-7.7); Basophil# 0.03 X10^3/uL; Basophil% 0.6 % (0-1); Eosinophil# 0.14 X10^3/uL; Eosinophils% 2.7 % (0-5); Hematocrit 37.2 % (37-47); Hemoglobin 11.5 g/dl (12.0-15.0); Lymphocyte # 1.28 X10^3/ul (4.0); Mean Corp Hgb Conc 30.9 g/gl (32-36); Mean Corpuscular Hgb 28.7 pg (27.0-32.0); Mean Corpuscular Volume 92.8 fL (81-99); Mean Platelet Vol. 9.4 fl (6.2-12.0); Monocyte# 0.72 X10^3/uL; Neutrophil # 2.94 X10^3/uL (2.7-7.7); Neutrophil % 57.3 % (47-70); Platelet Count 339 K/mm3 (150-450); RBC Distribution Width CV 15.6 % (11.6-14.6); RBC Distribution Width SD 51.8 fl (35.1-43.9); Red Blood Count 4.01 M/mm3 (4.2-5.4); White Blood Count 5.1 K/mm3 (4.4-11.0)
[2018-03-08 06:09] LABS: Anion Gap 5 (5-15); BUN 24 mg/dL (7-18); Calcium,Total 8.6 mg/dL (8.5-10.1); Chloride 102 mmol/L (98-107); Creatinine, Serum 0.45 mg/dL (0.55-1.02); EST Glomerular Filtration Rate 140 mL/min (>60); Est Glom Filt Rate - Afr Amer 170 mL/min (>60); Glucose 86 mg/dL (74-106); POSITIVE COUNT NO; POSITIVE DIFFERENTIAL NO; POSITIVE MORPHOLOGY NO; Potassium 3.7 mmol/L (3.5-5.1); Sodium Level 140 mmol/L (136-145)
[2018-03-08] MEDS: Rivaroxaban 10 MG Tablet PO (06:43)
[2018-03-08] MEDS: Polyethylene Glycol 3350 17 GM PACKET PO (06:43)
[2018-03-08] MEDS: Sertraline 50 MG Tablet 25 MG PO (06:43)
[2018-03-08] MEDS: Senna/Docusate Sodium 1 Tablet PO ×2 (06:44→18:08)
[2018-03-08] MEDS: Menthol/Lanolin/Calamine/Znox 113 GM Tube 1 APPLIC TOPICAL ×3 (06:44→19:52)
--- NOTE | 2018-03-08 13:02 | CASEMGMT ---
Insurance Continued stay approved with next update due on 03/14/18. Auth#[id number] Kari MORALES, SKETCH LINER
[2018-03-08 15:23] VITALS: BP 125/68; PULSE 88; RESP 18; TEMP 36.8; O2SAT 95
[2018-03-08 19:40] VITALS: PULSE 82; RESP 18; O2SAT 92
[2018-03-09] MEDS: Senna/Docusate Sodium 1 Tablet PO ×2 (06:42→17:46)
[2018-03-09] MEDS: Sertraline 50 MG Tablet 25 MG PO (06:42)
[2018-03-09] MEDS: Rivaroxaban 10 MG Tablet PO (06:43)
[2018-03-09] MEDS: Polyethylene Glycol 3350 17 GM PACKET PO (06:43)
[2018-03-09] MEDS: Menthol/Lanolin/Calamine/Znox 113 GM Tube 1 APPLIC TOPICAL ×3 (06:49→22:53)
[2018-03-09 15:24] VITALS: BP 140/79; PULSE 87; RESP 16; TEMP 36.2; O2SAT 93
[2018-03-09 22:44] VITALS: PULSE 70; RESP 16; O2SAT 93
[2018-03-10] MEDS: Sertraline 50 MG Tablet 25 MG PO (06:49)
[2018-03-10] MEDS: Senna/Docusate Sodium 1 Tablet PO ×2 (06:49→17:08)
[2018-03-10] MEDS: Rivaroxaban 10 MG Tablet PO (06:50)
[2018-03-10] MEDS: Menthol/Lanolin/Calamine/Znox 113 GM Tube 1 APPLIC TOPICAL ×3 (06:50→20:12)
[2018-03-10] MEDS: Polyethylene Glycol 3350 17 GM PACKET PO (06:51)
[2018-03-10 07:00] VITALS: PULSE 83; O2SAT 93
[2018-03-10 15:44] VITALS: BP 135/75; PULSE 93; RESP 16; TEMP 36.4; O2SAT 94
[2018-03-10] MEDS: oxyCODONE 5 MG Tablet PO (16:58)
[2018-03-11] MEDS: oxyCODONE 5 MG Tablet PO ×2 (00:19→06:14)
[2018-03-11] MEDS: Menthol/Lanolin/Calamine/Znox 113 GM Tube 1 APPLIC TOPICAL ×3 (06:14→20:17)
[2018-03-11] MEDS: Rivaroxaban 10 MG Tablet PO (06:15)
[2018-03-11] MEDS: Senna/Docusate Sodium 1 Tablet PO ×2 (06:15→18:35)
[2018-03-11] MEDS: Sertraline 50 MG Tablet 25 MG PO (06:16)
[2018-03-11 10:00] VITALS: PULSE 92; RESP 16; O2SAT 92
[2018-03-11 15:14] VITALS: BP 151/59; PULSE 96; RESP 16; TEMP 36.4; O2SAT 93
[2018-03-12] MEDS: Menthol/Lanolin/Calamine/Znox 113 GM Tube 1 APPLIC TOPICAL ×3 (04:46→20:27)
[2018-03-12] MEDS: Polyethylene Glycol 3350 17 GM PACKET PO (04:47)
[2018-03-12] MEDS: Rivaroxaban 10 MG Tablet PO (04:47)
[2018-03-12] MEDS: Senna/Docusate Sodium 1 Tablet PO ×2 (04:47→17:42)
[2018-03-12] MEDS: oxyCODONE 5 MG Tablet PO (04:47)
[2018-03-12] MEDS: Sertraline 50 MG Tablet 25 MG PO (04:49)
[2018-03-12 11:30] VITALS: PULSE 93; RESP 18; O2SAT 91
[2018-03-12 15:27] VITALS: BP 133/77; PULSE 92; RESP 16; TEMP 36.8; O2SAT 94
[2018-03-13] MEDS: Sertraline 50 MG Tablet 25 MG PO (06:42)
[2018-03-13] MEDS: Senna/Docusate Sodium 1 Tablet PO ×2 (06:42→17:43)
[2018-03-13] MEDS: Rivaroxaban 10 MG Tablet PO (06:43)
[2018-03-13] MEDS: Polyethylene Glycol 3350 17 GM PACKET PO (06:47)
[2018-03-13] MEDS: Menthol/Lanolin/Calamine/Znox 113 GM Tube 1 APPLIC TOPICAL ×3 (06:52→20:55)
[2018-03-13 13:46] VITALS: PULSE 91; RESP 18; O2SAT 95
[2018-03-13 14:16] VITALS: TEMP 37
[2018-03-13 15:14] VITALS: BP 120/70; PULSE 96; RESP 24; TEMP 37.6; O2SAT 93
[2018-03-14] MEDS: Sertraline 50 MG Tablet 25 MG PO (06:53)
[2018-03-14] MEDS: Rivaroxaban 10 MG Tablet PO (06:54)
[2018-03-14] MEDS: Menthol/Lanolin/Calamine/Znox 113 GM Tube 1 APPLIC TOPICAL ×3 (06:55→22:08)
[2018-03-14] MEDS: Senna/Docusate Sodium 1 Tablet PO ×2 (06:59→18:21)
--- NOTE | 2018-03-14 09:35 | CASEMGMT ---
Insurance Clinical information faxed. Pending continued stay approval at this time. Auth#[id number] Kari MORALES, AVIATION ELECTRICIAN
[2018-03-14 10:00] VITALS: PULSE 82; O2SAT 96
[2018-03-14 15:48] VITALS: BP 117/68; PULSE 98; RESP 20; TEMP 36.9; O2SAT 96
[2018-03-15] MEDS: Sertraline 50 MG Tablet 25 MG PO (03:56)
[2018-03-15] MEDS: Senna/Docusate Sodium 1 Tablet PO ×2 (03:57→17:39)
[2018-03-15] MEDS: Polyethylene Glycol 3350 17 GM PACKET PO (03:57)
[2018-03-15] MEDS: Menthol/Lanolin/Calamine/Znox 113 GM Tube 1 APPLIC TOPICAL ×3 (03:57→20:49)
[2018-03-15] MEDS: Rivaroxaban 10 MG Tablet PO (03:58)
[2018-03-15 04:09] VITALS: PULSE 78; O2SAT 95
--- NOTE | 2018-03-15 10:34 | CASEMGMT ---
Insurance Continued stay denied with last cover day being 03/17/18 and resident to discharge or financial responsibility to beg in on 03/18/18. Auth#[id number] Kari MORALES, FIFTH GRADE TEACHER
--- NOTE | 2018-03-15 10:35 | CASEMGMT ---
Social Work Attempted to contact resident daughter, Kath in regards to insurance decision to discontinue coverage. Voicemail left for Kath to contact this social worker health services back. Will continue to follow. Kari MORALES, PARTICLE BOARD SUPERVISOR
--- NOTE | 2018-03-15 12:58 | CASEMGMT ---
Social Work Telephone call received from resident daughter, Kath. This transition social worker communicating to Kath that continued stay has been denied by insurance and that last cover day is 03/17/18 and resident to discharge or financial responsibility to begin on 03/18/18. Kath is not agreeable to insurance decision and is wanting to appeal. This transition social worker communicating how appeal process works. Kath planning to appeal. Kath voicing that plan would be for resident to discharge home with Kath at time of discharge if appeal is lost. Kath aware that team is recommending for resident to have 24hr direct care/supervision at time of discharge. Kath voicing understanding and plans to take resident home on 03/18/18 if appeal is lost. Support given. Proposed discharge date: 03/18/18 pending appeal. PLAN: Discharge home with daughter Kath if appeal is lost vs. continue with stay on TCU if appeal is won. Kari Scott PARACHUTE INSPECTOR, STATION ENGINEER CHIEF
[2018-03-15 15:28] VITALS: BP 135/71; PULSE 98; RESP 18; TEMP 37.2; O2SAT 95
--- NOTE | 2018-03-15 15:47 | NURSING ---
pt in chair at nurses desk d/t attempting to climb out of chair.
--- NOTE | 2018-03-15 18:07 | CASEMGMT ---
Brief interview for mental status (BIMS) and resident mood interview (PHQ-9) completed on this day. BIMS score 10/26. PHQ-9 score
[2018-03-16] MEDS: Menthol/Lanolin/Calamine/Znox 113 GM Tube 1 APPLIC TOPICAL ×3 (05:35→20:30)
[2018-03-16] MEDS: Senna/Docusate Sodium 1 Tablet PO ×2 (05:36→17:44)
[2018-03-16] MEDS: Sertraline 50 MG Tablet 25 MG PO (05:36)
[2018-03-16] MEDS: Polyethylene Glycol 3350 17 GM PACKET PO (05:36)
[2018-03-16] MEDS: Rivaroxaban 10 MG Tablet PO (05:36)
--- NOTE | 2018-03-16 12:29 | DCINST_ITS ---
- Discharge Diagnoses Current Active Problems: Current Active and Chronic Problems Hypertension (Chronic) Alzheimer's disease (Chronic) You will use the following diet at home:: No restrictions, Regular Your food should be the consistency of: Regular Your liquids should be the consistency of: Regular/Thin Discharge Activity: Return to Normal Activity, May Shower, Use Walker Weight Bearing Status: Weight bearing as tolerated Call your doctor if you observe: Fever of 101 or Higher, Inability to urinate, Inability to have a bowel movement, Shortness of breath, Chest pain, Uncontrolled pain Allergies/Adverse Reactions: Allergies Penicillins [PCN] Allergy (Verified 12/30/17 08:43) Unknown Medications to take at Discharge Polyethylene Glycol 3350 [Miralax] 17 gm PO PRN PRN 12/30/17 Sertraline HCl [Zoloft] 25 mg PO DAILY 12/30/17 Acetaminophen [Tylenol] 1,000 mg PO Q8H PRN tablet 03/16/18 Menthol/Lanolin/Calamine/Znox [Calmoseptine Ointment] 1 applic TOPICAL TID tube 03/16/18 Potassium Chloride [K-Dur] 20 meq PO DAILY #30 tab 03/16/18 Rivaroxaban [Xarelto] 10 mg PO DAILY #6 tab 03/16/18 The following prescriptions were given: Potassium Chloride [K-Dur] 20 meq PO DAILY #30 tab Rivaroxaban [Xarelto] 10 mg PO DAILY #6 tab Primary Care Physician: Kamaljit Garcia PA [Primary Care Provider] - Please follow up with your Primary Care Physician in: 1 week. Test Results: Test results from this visit will be discussed in further detail at your follow- up appointment, if applicable. Please Follow Up With: Roge Gordon DO When: 2 weeks Proposed Discharge Date: 03/18/18
--- NOTE | 2018-03-16 12:29 | PCM.DC.SUM ---
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 No acute osseous abnormality is evident. Electronically Signed: Carlos Huizar MD at 7:02 EDT Tel , Service support , Operations: None Procedures: None Summary of Care Provided: The patient is a 82 year old Female with below past medical history significant for Alzheimer's Disease, hospitalized for left hip fracture, underwent left hip hemiarthroplasty 02/17/[address] Gordon, complicated by right lower lobe pneumonia, admitted to TCU with debility, here for rehabilitation, strengthening, prior to discharge home with family. Discharge home with daughter Kath, and Home Health Services. Discharge Diet: No Restrictions Discharge Activity: Return to Normal Activity, May Shower, Use Walker Weight Bearing Status: Weight bearing as tolerated Call your doctor if you observe: Fever of 101 or Higher, Inability to urinate, Inability to have a bowel movement, Shortness of breath, Chest pain, Uncontrolled pain Home Medications: Medications to take at Discharge Polyethylene Glycol 3350 [Miralax] 17 gm PO PRN PRN 12/30/17 Sertraline HCl [Zoloft] 25 mg PO DAILY 12/30/17 Acetaminophen [Tylenol] 1,000 mg PO Q8H PRN tablet 03/16/18 Menthol/Lanolin/Calamine/Znox [Calmoseptine Ointment] 1 applic TOPICAL TID tube 03/16/18 Potassium Chloride [K-Dur] 20 meq PO DAILY #30 tab 03/16/18 Rivaroxaban [Xarelto] 10 mg PO DAILY #6 tab 03/16/18 Following Prescrptions Were Given to Patient: Potassium Chloride [K-Dur] 20 meq PO DAILY #30 tab Rivaroxaban [Xarelto] 10 mg PO DAILY #6 tab Primary Care Physician: Kamaljit Garcia PA [Primary Care Provider] - Please follow up with your Primary Care Physician in: 1 week. Please Follow Up With: Roge Gordon DO When: 2 weeks Disposition: Home with Home Health Minutes spent on discharge:: 35 Patient Condition:: Stable Medical Necessity - Tobacco Use Smoking Status: Former smoker Tobacco Use: Non-smoker Meaningful Use Info Meaningful Use Diagnoses (Choose all that apply): None applicable
--- NOTE | 2018-03-16 12:31 | HHNOTE_ITS ---
Home Health Note - Plan Overview of reason of hospitalization: The patient is a 82 year old Female with below past medical history significant for Alzheimer's Disease, hospitalized for left hip fracture, underwent left hip hemiarthroplasty 02/17/[address] Gordon, complicated by right lower lobe pneumonia, admitted to TCU with debility, here for rehabilitation, strengthening , prior to discharge home with family. Discharge home with daughter Kath, and Home Health Services. 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) Fracture of hip, right, closed (Chronic) - Requirements and Reasons Disciplines Needed/Ordered: Physical Therapy Reason for Disciplines: Gait Training, Stair Training, Fall Prevention, Home Safety/Equipment Instruction, Balance and/or Posture Training, Transfer Training Related To: Limited/Poor Endurance, Shortness of Breath with Activity, Physical Impairments, Unsteady Gait/Balance, Fall Risk Patient is unable to leave the home: Without Aid of Supportive Devices (crutches , cane, wheelchair, walker), Without the assistance of another person - Additional Disciplines Additional Disciplines Needed/Ordered: Occupational Therapy
--- NOTE | 2018-03-16 12:38 | CASEMGMT ---
Insurance Phone call from Desirae at [facility] and pt has won her appeal and will continue with treatment in the TCU. Will await call from insurance company to determine next clinical update. Phone call to pt dgt Kath and VM left informing of the above. Auth # [id number] CARMEN Wilson
--- NOTE | 2018-03-16 12:58 | CASEMGMT ---
Insurance Next review date 03/19/18. Auth # [id number] CARMEN Wilson
[2018-03-16 15:58] VITALS: BP 145/86; PULSE 86; RESP 20; TEMP 37.2; O2SAT 94
[2018-03-16] MEDS: oxyCODONE 5 MG Tablet PO (20:30)
[2018-03-16 22:00] VITALS: PULSE 74; RESP 18; O2SAT 94
[2018-03-17] MEDS: Menthol/Lanolin/Calamine/Znox 113 GM Tube 1 APPLIC TOPICAL ×3 (06:36→20:10)
[2018-03-17] MEDS: Polyethylene Glycol 3350 17 GM PACKET PO (06:37)
[2018-03-17] MEDS: Senna/Docusate Sodium 1 Tablet PO ×2 (06:37→17:04)
[2018-03-17] MEDS: Sertraline 50 MG Tablet 25 MG PO (06:38)
[2018-03-17] MEDS: Rivaroxaban 10 MG Tablet PO (06:38)
[2018-03-17 15:31] VITALS: BP 136/78; PULSE 80; RESP 18; TEMP 36.7; O2SAT 94
[2018-03-17 22:00] VITALS: PULSE 76; RESP 16; O2SAT 95
[2018-03-18] MEDS: Menthol/Lanolin/Calamine/Znox 113 GM Tube 1 APPLIC TOPICAL ×3 (05:39→19:51)
[2018-03-18] MEDS: Senna/Docusate Sodium 1 Tablet PO ×2 (05:40→17:45)
[2018-03-18] MEDS: Polyethylene Glycol 3350 17 GM PACKET PO (05:40)
[2018-03-18] MEDS: Sertraline 50 MG Tablet 25 MG PO (05:40)
[2018-03-18] MEDS: Rivaroxaban 10 MG Tablet PO (05:41)
[2018-03-18 15:30] VITALS: BP 125/69; PULSE 94; RESP 18; TEMP 36.7; O2SAT 95
[2018-03-18 20:00] VITALS: PULSE 88; RESP 16; O2SAT 94
[2018-03-19] MEDS: Menthol/Lanolin/Calamine/Znox 113 GM Tube 1 APPLIC TOPICAL ×3 (05:19→19:49)
[2018-03-19] MEDS: Sertraline 50 MG Tablet 25 MG PO (05:20)
[2018-03-19] MEDS: Polyethylene Glycol 3350 17 GM PACKET PO (05:21)
[2018-03-19] MEDS: Rivaroxaban 10 MG Tablet PO (05:21)
[2018-03-19] MEDS: Senna/Docusate Sodium 1 Tablet PO ×2 (05:21→17:46)
[2018-03-19 06:05] LABS: Absolute Lymphocyte Count 1.52 X10^3/ul (0.83-4.51); Absolute Neutrophil Count 3.3 X10^3/uL (2.0-7.7); Basophil# 0.02 X10^3/uL; Basophil% 0.4 % (0-1); Eosinophil# 0.09 X10^3/uL; Eosinophils% 1.6 % (0-5); Hematocrit 39.6 % (37-47); Hemoglobin 12.3 g/dl (12.0-15.0); Lymphocyte # 1.52 X10^3/ul (4.0); Mean Corp Hgb Conc 31.1 g/gl (32-36); Mean Corpuscular Hgb 28.2 pg (27.0-32.0); Mean Corpuscular Volume 90.8 fL (81-99); Mean Platelet Vol. 9.9 fl (6.2-12.0); Monocyte# 0.66 X10^3/uL; Monocyte% 11.7 % (0-10); Neutrophil # 3.34 X10^3/uL (2.7-7.7); Neutrophil % 59.3 % (47-70); Platelet Count 209 K/mm3 (150-450); RBC Distribution Width CV 14.6 % (11.6-14.6); RBC Distribution Width SD 48.2 fl (35.1-43.9); Red Blood Count 4.36 M/mm3 (4.2-5.4); White Blood Count 5.6 K/mm3 (4.4-11.0)
[2018-03-19 06:06] LABS: POSITIVE COUNT NO; POSITIVE DIFFERENTIAL NO; POSITIVE MORPHOLOGY NO
[2018-03-19 06:27] LABS: Anion Gap 9 (5-15); BUN 24 mg/dL (7-18); BUN/Creat Ratio 53.2 RATIO (10-20); Calcium,Total 8.7 mg/dL (8.5-10.1); Chloride 102 mmol/L (98-107); Creatinine, Serum 0.45 mg/dL (0.55-1.02); EST Glomerular Filtration Rate 141 mL/min (>60); Est Glom Filt Rate - Afr Amer 171 mL/min (>60); Estimated Creatinine Clearance 34.24 ml/min; Glucose 86 mg/dL (74-106); Potassium 3.8 mmol/L (3.5-5.1); Sodium Level 141 mmol/L (136-145)
[2018-03-19] MEDS: Acetaminophen 500 MG Tablet 1000 MG PO (06:40)
--- NOTE | 2018-03-19 07:46 | NURSING ---
Addendum entered by Nichelle Cui 03/19/18 12:04: Pt daughter able to make it to appt with LALIT Fan from appt. Original Note: Addendum entered by Nichelle Cui 03/19/18 08:17: Received call from nurse at Dr. To's office. Patient's daughter did not show up for appointment and patient must have family member present for appointment. Daughter changed appt to this day d/t her schedule. Nurse states she is going to attempt to call daughter's cell phone. Original Note: Pt picked up by Daniele Story at [address] Gordon.
--- NOTE | 2018-03-19 11:24 | CASEMGMT ---
Insurance Clinical information faxed. Pending continued stay approval at this time. Auth#[id number] Kari MORALES, LEGAL DEPARTMENT MANAGER
--- NOTE | 2018-03-19 13:26 | MDS.RN ---
Information for the mds was obtained from review of the clinical record, interview of resident, staff, and direct observation of resident's care.
[2018-03-19 15:16] VITALS: BP 120/82; PULSE 96; RESP 16; TEMP 36.3; O2SAT 95
[2018-03-19] MEDS: oxyCODONE 5 MG Tablet PO (19:49)
[2018-03-19 20:39] VITALS: PULSE 72; RESP 18; O2SAT 95
[2018-03-20] MEDS: Menthol/Lanolin/Calamine/Znox 113 GM Tube 1 APPLIC TOPICAL ×3 (05:36→19:47)
[2018-03-20] MEDS: oxyCODONE 5 MG Tablet PO ×2 (05:36→19:50)
[2018-03-20] MEDS: Sertraline 50 MG Tablet 25 MG PO (05:37)
[2018-03-20] MEDS: Polyethylene Glycol 3350 17 GM PACKET PO (05:38)
[2018-03-20] MEDS: Senna/Docusate Sodium 1 Tablet PO ×2 (05:38→18:05)
[2018-03-20] MEDS: Rivaroxaban 10 MG Tablet PO (05:38)
--- NOTE | 2018-03-20 09:43 | CASEMGMT ---
Insurance Continued stay denied with last cover day being 03/22/18 and resident to discharge or resident financial responsibility to begin on 03/23/18. Auth#[id number] Kari MORALES, CERAMIC RESEARCH ENGINEER
--- NOTE | 2018-03-20 09:45 | CASEMGMT ---
Social Work Telephone call to resident daughter. This social worker assistant communicating that continued stay has been denied with last cover day begin 03/22/18 and resident to discharge or financial responsibility to begin on 03/23/18. Resident daughter, Ktah does not agree with discharge and is planning to appeal. Kath initiating appeal. Kath unsure of discharge plan in the event that appeal is lost. Probable discharge plan would be for resident to discharge home with daughter and home health services. Support given. Proposed discharge date: 03/23/18 pending appeal. PLAN: Discharge home with daughter and home health services vs. continue with stay in facility. Kari MORALES, COOK PRESSURE
[2018-03-20 14:06] VITALS: PULSE 83; RESP 18; O2SAT 96
[2018-03-20 15:56] VITALS: BP 147/90; PULSE 96; RESP 16; TEMP 36.7; O2SAT 92
[2018-03-21] MEDS: Polyethylene Glycol 3350 17 GM PACKET PO (05:31)
[2018-03-21] MEDS: Rivaroxaban 10 MG Tablet PO (05:31)
[2018-03-21] MEDS: Senna/Docusate Sodium 1 Tablet PO ×2 (05:31→17:46)
[2018-03-21] MEDS: Sertraline 50 MG Tablet 25 MG PO (05:32)
[2018-03-21] MEDS: Menthol/Lanolin/Calamine/Znox 113 GM Tube 1 APPLIC TOPICAL ×3 (05:35→19:53)
[2018-03-21 10:00] VITALS: RESP 16
--- NOTE | 2018-03-21 11:39 | CASEMGMT ---
Brief interview for mental status (BIMS) and resident mood interview (PHQ-9) completed on this day. BIMS score 10/26. PHQ-9 score
--- NOTE | 2018-03-21 15:17 | CASEMGMT ---
Social Work Telephone call from [employer]. Resident has won appeal. [facility] notified daughter as well. Resident to continue with further care and treatment on the Transitional Care Unit. Will continue to follow. Kari MORALES, WINDOW DRESSER
[2018-03-21 15:26] VITALS: BP 133/60; PULSE 71; RESP 18; TEMP 36.8; O2SAT 92
[2018-03-21] MEDS: oxyCODONE 5 MG Tablet PO (17:46)
[2018-03-22] MEDS: Polyethylene Glycol 3350 17 GM PACKET PO (05:05)
[2018-03-22] MEDS: Sertraline 50 MG Tablet 25 MG PO (05:05)
[2018-03-22] MEDS: Rivaroxaban 10 MG Tablet PO (05:06)
[2018-03-22] MEDS: Senna/Docusate Sodium 1 Tablet PO ×2 (05:06→18:09)
[2018-03-22] MEDS: Menthol/Lanolin/Calamine/Znox 113 GM Tube 1 APPLIC TOPICAL ×3 (05:07→20:13)
[2018-03-22 10:00] VITALS: PULSE 86; RESP 18; O2SAT 95
[2018-03-22 15:19] VITALS: BP 120/68; PULSE 80; RESP 18; TEMP 36.7; O2SAT 94
[2018-03-23] MEDS: Menthol/Lanolin/Calamine/Znox 113 GM Tube 1 APPLIC TOPICAL ×3 (04:48→19:35)
[2018-03-23] MEDS: Sertraline 50 MG Tablet 25 MG PO (04:50)
[2018-03-23] MEDS: Rivaroxaban 10 MG Tablet PO (04:51)
[2018-03-23] MEDS: Senna/Docusate Sodium 1 Tablet PO ×2 (04:51→17:55)
[2018-03-23] MEDS: Polyethylene Glycol 3350 17 GM PACKET PO (04:52)
[2018-03-23 10:00] VITALS: PULSE 91; RESP 18; O2SAT 93
--- NOTE | 2018-03-23 11:32 | CASEMGMT ---
Insurance Clinical information faxed. Pending continued stay approval at this time. Auth#[id number] Kari MORALES, ACID REGENERATOR
[2018-03-23 14:56] VITALS: BP 131/69; PULSE 84; RESP 16; TEMP 36.4; O2SAT 95
[2018-03-23] MEDS: LORazepam 0.5 MG Tablet PO (17:54)
[2018-03-24] MEDS: Menthol/Lanolin/Calamine/Znox 113 GM Tube 1 APPLIC TOPICAL ×3 (04:51→19:50)
[2018-03-24] MEDS: Sertraline 50 MG Tablet 25 MG PO (04:56)
[2018-03-24] MEDS: Polyethylene Glycol 3350 17 GM PACKET PO (04:56)
[2018-03-24] MEDS: Senna/Docusate Sodium 1 Tablet PO ×2 (04:57→16:59)
[2018-03-24] MEDS: Rivaroxaban 10 MG Tablet PO (04:57)
[2018-03-24 05:10] VITALS: PULSE 80; O2SAT 93
[2018-03-24 15:58] VITALS: BP 150/68; PULSE 72; RESP 18; TEMP 37.2; O2SAT 93
[2018-03-25] MEDS: Sertraline 50 MG Tablet 25 MG PO (05:19)
[2018-03-25] MEDS: Senna/Docusate Sodium 1 Tablet PO (05:19)
[2018-03-25] MEDS: Menthol/Lanolin/Calamine/Znox 113 GM Tube 1 APPLIC TOPICAL ×3 (05:20→21:09)
[2018-03-25] MEDS: Polyethylene Glycol 3350 17 GM PACKET PO (05:21)
[2018-03-25 15:33] VITALS: BP 113/70; PULSE 88; RESP 18; TEMP 36.2; O2SAT 94
--- NOTE | 2018-03-25 21:03 | NURSING ---
pt has a small redness under right breast communicated with RN that she needs nystatin.
[2018-03-25] MEDS: Nystatin Powder 15gm Bottle 1 APPLIC TOPICAL (21:11)
[2018-03-26] MEDS: Nystatin Powder 15gm Bottle 1 APPLIC TOPICAL ×2 (04:57→19:52)
[2018-03-26] MEDS: Menthol/Lanolin/Calamine/Znox 113 GM Tube 1 APPLIC TOPICAL ×3 (04:57→19:52)
[2018-03-26] MEDS: Sertraline 50 MG Tablet 25 MG PO (04:58)
[2018-03-26] MEDS: Polyethylene Glycol 3350 17 GM PACKET PO (04:58)
[2018-03-26] MEDS: Senna/Docusate Sodium 1 Tablet PO ×2 (05:06→18:09)
[2018-03-26 06:08] LABS: Anion Gap 10 (5-15); BUN 22 mg/dL (7-18); BUN/Creat Ratio 40.1 RATIO (10-20); Calcium,Total 8.8 mg/dL (8.5-10.1); Chloride 104 mmol/L (98-107); Creatinine, Serum 0.55 mg/dL (0.55-1.02); EST Glomerular Filtration Rate 113 mL/min (>60); Est Glom Filt Rate - Afr Amer 136 mL/min (>60); Estimated Creatinine Clearance 33.02 ml/min; Glucose 80 mg/dL (74-106); Potassium 3.6 mmol/L (3.5-5.1); Sodium Level 143 mmol/L (136-145)
[2018-03-26 06:46] LABS: Hematocrit 40.1 % (37-47); Hemoglobin 12.5 g/dl (12.0-15.0); Mean Corp Hgb Conc 31.2 g/gl (32-36); Mean Corpuscular Hgb 28.4 pg (27.0-32.0); Mean Corpuscular Volume 91.1 fL (81-99); RBC Distribution Width CV 14.4 % (11.6-14.6); RBC Distribution Width SD 47.1 fl (35.1-43.9); White Blood Count 5.9 K/mm3 (4.4-11.0)
[2018-03-26 06:47] LABS: Absolute Lymphocyte Count 1.63 X10^3/ul (0.83-4.51); Absolute Neutrophil Count 3.5 X10^3/uL (2.0-7.7); Basophil# 0.02 X10^3/uL; Basophil% 0.3 % (0-1); Eosinophil# 0.13 X10^3/uL; Eosinophils% 2.7 % (0-5); Lymphocyte # 1.63 X10^3/ul (4.0); Lymphocyte % 27.4 % (19-41); Mean Platelet Vol. 10.7 fl (6.2-12.0); Monocyte# 0.67 X10^3/uL; Monocyte% 11.3 % (0-10); Neutrophil # 3.45 X10^3/uL (2.7-7.7); Neutrophil % 58.1 % (47-70); POSITIVE COUNT NO; POSITIVE DIFFERENTIAL NO; POSITIVE MORPHOLOGY NO; Platelet Count 225 K/mm3 (150-450)
--- NOTE | 2018-03-26 11:04 | CASEMGMT ---
Insurance Continued stay denied with last cover day being 03/28/18 and resident to discharge or financial responsibility to begin on 03/29/18. Auth#[id number] Kari MORALES, ASSET ACCOUNTANT
--- NOTE | 2018-03-26 11:05 | CASEMGMT ---
Social Work Spoke with resident daughter, Kath. This social media analyst communicating that continued stay has been denied by insurance and last cover day is now 03/28/18 and resident to discharge or financial responsibility to begin on 03/29/18. Kath voicing understanding and not agreeable to the discharge date. Kath planning to initiate appeal. Kath voicing to have all information need in regards to appeal and plans to call [facility] Kath voicing to plan to take resident home with home health services if appeal is lost. Support given. Proposed discharge date: 03/29/18 pending appeal. PLAN: Discharge to home with daughter vs. continue stay on SNF unit. Kari MORALES, FURNITURE FINISHER
[2018-03-26 15:15] VITALS: BP 120/85; PULSE 84; RESP 17; TEMP 36.6; O2SAT 93
[2018-03-26 20:00] VITALS: PULSE 90; RESP 18; O2SAT 93
[2018-03-27 05:30] VITALS: PULSE 70; RESP 16; O2SAT 95
[2018-03-27] MEDS: Polyethylene Glycol 3350 17 GM PACKET PO (05:39)
[2018-03-27] MEDS: Menthol/Lanolin/Calamine/Znox 113 GM Tube 1 APPLIC TOPICAL ×3 (05:40→20:00)
[2018-03-27] MEDS: Nystatin Powder 15gm Bottle 1 APPLIC TOPICAL ×2 (05:41→20:00)
[2018-03-27] MEDS: Sertraline 50 MG Tablet 25 MG PO (05:41)
[2018-03-27] MEDS: Senna/Docusate Sodium 1 Tablet PO ×2 (05:41→16:45)
--- NOTE | 2018-03-27 11:26 | NURSING ---
RASH TO PT LOWER BACK. PT SCRATCHING. CLEANED AND APPLIED LOTION. REPORTED TO MILO ARORA
[2018-03-27 15:33] VITALS: BP 119/79; PULSE 97; RESP 18; TEMP 36.6; O2SAT 94
[2018-03-28] MEDS: Senna/Docusate Sodium 1 Tablet PO (06:32)
[2018-03-28] MEDS: Polyethylene Glycol 3350 17 GM PACKET PO (06:32)
[2018-03-28] MEDS: Menthol/Lanolin/Calamine/Znox 113 GM Tube 1 APPLIC TOPICAL ×3 (06:32→20:56)
[2018-03-28] MEDS: Sertraline 50 MG Tablet 25 MG PO (06:32)
[2018-03-28] MEDS: Nystatin Powder 15gm Bottle 1 APPLIC TOPICAL ×2 (06:33→20:56)
[2018-03-28 07:00] VITALS: PULSE 68; RESP 16; O2SAT 96
--- NOTE | 2018-03-28 11:55 | CASEMGMT ---
Social Work Telephone call from resident daughter, Kath. Kath voicing to have not heard back from [facility] at this time. This social and political studies professor has also not heard back from [facility] in regards to appeal. Kath voicing to need a hospital bed set up for resident within the home and to have all other medical equipment needs already met within the home. Kath requesting for hospital bed to be set up through [facility]. This social and political studies professor also communicating that team is recommending for resident to have 24hr care within the home and to have continued physical and occupational therapy. Kath is agreeable to recommendations and requesting for home health services to be set up through [facility] ([facility]). Kath plans to provide transportation home for resident at time of discharge. Kath is voicing concern about ability to be able to get resident within the home at time of discharge due to stairs to enter the home and resident has not been able to practice stair training at this time. This social and political studies professor broaching topic of [place] for resident. Kath reporting that resident will never go into a [place] and that Kath will care for resident. Kath voicing to just have to figure something out in regards to getting resident within the home. This social and political studies professor also broached topic of a ramp to enter the home, Kath voicing understanding but unsure about this. Kath aware of where to go to get a ramp set up. Support given. [facility] This social and political studies professor making referral for physical and occupational therapy. Order completed. Telephone call to [facility]. This social and political studies professor making referral for hospital bed. Clinical information faxed. Proposed discharge date: 03/29/18 pending appeal. PLAN: Discharge to home with daughter and home health services. Kari MORALES, DRIVEMATIC MACHINE OPERATOR
--- NOTE | 2018-03-28 14:34 | CASEMGMT ---
Social Work Telephone call from [employer]. Resident lost appeal. Last cover day continues to be 03/28/18 with resident to discharge or financial responsibility to begin on 03/29/18. Telephone call to resident daughter, Kath. Ktah voicing to have gotten a call from [employer] as we and to be planning to take resident home tomorrow. Kath requesting for [facility] to also be set up as well as a home health aide along with physical and occupational therapy within the home. Kath reporting to be planning to provide transportation home for resident and declining for this social science teacher to set up transportation for resident. Kath voicing no further needs at this time. Support given. [facility] confirming resident discharge at 03/29/18. [facility] to resident home prior to resident discharge. [facility] This social science teacher adding referral for [facility] and home health aide as well as confirming resident discharge date. Order to be updated. Proposed discharge date: 03/29/18 PLAN: Discharge to home with daughter and home health services. Kari MORALES, AUTOMATIC OVEN OPERATOR
[2018-03-28 16:24] VITALS: BP 150/78; PULSE 85; RESP 16; TEMP 36.6; O2SAT 93
--- NOTE | 2018-03-28 17:38 | NURSING ---
pt refused senna, attempt x3. States no, no, no I don't want that and began shaking head.
[2018-03-29] MEDS: Menthol/Lanolin/Calamine/Znox 113 GM Tube 1 APPLIC TOPICAL ×3 (06:59→19:47)
[2018-03-29] MEDS: Sertraline 50 MG Tablet 25 MG PO (07:00)
[2018-03-29] MEDS: Polyethylene Glycol 3350 17 GM PACKET PO (07:01)
[2018-03-29] MEDS: Senna/Docusate Sodium 1 Tablet PO (07:01)
[2018-03-29] MEDS: Nystatin Powder 15gm Bottle 1 APPLIC TOPICAL ×2 (07:02→19:47)
[2018-03-29 09:59] VITALS: PULSE 81; O2SAT 94
[2018-03-29 15:11] VITALS: BP 126/75; PULSE 78; RESP 16; TEMP 36.9; O2SAT 93
--- NOTE | 2018-03-29 16:50 | CASEMGMT ---
Insurance Telephone call from insurance. This social secretary confirming that plan is for resident to discharge today to home with home health services and daughter. Auth#[id number] Kari MORALES, RANCH HAND SUPERVISOR
--- NOTE | 2018-03-29 20:56 | NURSING ---
Discharge instructions provided to pt's daughter. Pt's daughter denied further questions at this time. Pt's daughter refusing to take abductor pillow. Aides X2 assisting pt to daughter's vehicle.
--- NOTE | 2018-03-29 21:14 | NURSING ---
Aides X2 and pt's daughter, Kath assisting pt into van, gaitbelt in use. Pt bumped back of head on van during transfer. No visible injury noted by TCU staff. Daughter not seeking further evaluation. manager game notified.
--- NOTE | 2018-04-03 09:49 | MDS.RN ---
Information for the mds was obtained from review of the clinical record, interview of resident, staff, and direct observation of resident's care.
== END 2018-03-29 20:58 | disposition home health service (06) | DRG 559 ==
PROVIDERS: Family Medicine; Admitting Provider Family Medicine Geriatric Medicine; Family Provider Physician Assistant; PCP Physician Assistant; Visit Provider Family Medicine Geriatric Medicine
DX: S72.302D Unspecified fracture of shaft of left femur, subsequent encounter for closed fracture with routine healing (principal); J18.9 Pneumonia, unspecified organism; Q25.46 Tortuous aortic arch; W19.XXXD Unspecified fall, subsequent encounter; G30.9 Alzheimer's disease, unspecified; F02.80 Dementia in other diseases classified elsewhere, unspecified severity, without behavioral disturbance, psychotic disturbance, mood disturbance, and anxiety; I10 Essential (primary) hypertension; Z87.891 Personal history of nicotine dependence; F32.9 Major depressive disorder, single episode, unspecified
CPT/HCPCS: 36415; 73502; 80048; 82962; 85025; 92507; 92526; 92610; 94640; 97110; 97116; 97162; 97166; 97530; 97535; 97802

== ENCOUNTER 2018-04-03 00:27 | Inpatient (IN) | payer MEDICARE, SELFPAY ==
[2018-04-03] VITALS (10 sets, daily range): BP systolic 135–164; BP diastolic 71–116; PULSE 82–110; RESP 14–22; TEMP 36.5–37.2; O2SAT 87–95; BMI 20.5; BMI 18.2
[2018-04-03] MEDS: Morphine 2 MG/ML Syringe IV ×5 (01:52→23:36)
[2018-04-03 02:04] LABS: Basophil# 0.01 X10^3/uL; Basophil% 0.1 % (0-1); Eosinophil# 0.11 X10^3/uL; Hematocrit 40.4 % (37-47); Hemoglobin 12.8 g/dl (12.0-15.0); Lymphocyte % 12.2 % (19-41); Mean Corp Hgb Conc 31.7 g/gl (32-36); Mean Corpuscular Hgb 27.9 pg (27.0-32.0); Mean Corpuscular Volume 88.2 fL (81-99); Mean Platelet Vol. 9.4 fl (6.2-12.0); Monocyte# 0.86 X10^3/uL; Monocyte% 7.5 % (0-10); Neutrophil # 9.03 X10^3/uL (2.7-7.7); Platelet Count 211 K/mm3 (150-450); RBC Distribution Width CV 13.8 % (11.6-14.6); RBC Distribution Width SD 44.5 fl (35.1-43.9); Red Blood Count 4.58 M/mm3 (4.2-5.4); White Blood Count 11.4 K/mm3 (4.4-11.0)
[2018-04-03 02:05] LABS: POSITIVE COUNT NO; POSITIVE DIFFERENTIAL NO; POSITIVE MORPHOLOGY NO
[2018-04-03 02:13] LABS: Anion Gap 6 (5-15); BUN 21 mg/dL (7-18); BUN/Creat Ratio 42.4 RATIO (10-20); Calcium,Total 8.8 mg/dL (8.5-10.1); Chloride 100 mmol/L (98-107); EST Glomerular Filtration Rate 127 mL/min (>60); Est Glom Filt Rate - Afr Amer 153 mL/min (>60); Estimated Creatinine Clearance 39.51 ml/min; Glucose 107 mg/dL (74-106); Potassium 3.3 mmol/L (3.5-5.1); Sodium Level 136 mmol/L (136-145)
--- NOTE | 2018-04-03 04:22 | ED.VIS.GEN ---
History of Present Illness Chief Complaint: Upper Extremity Injury Informant: Patient, Family Limited by: Dementia Onset: Today Context: Sudden Onset - fell out of bed -- unwitnessed; limited hx. no apparent LOC Timing: Continuous Quality: pain Location: right shoulder, left hip Current Severity: Mild Maximum Severity: Severe Worsened by: movement Relieved by: remaining still Narrative: Recently discharged from TCU after having a left hip surgery. Still having issues with mobility and working with therapy. Living at home with daughter, but she was just discharged there. - Past Medical History (1) Alzheimer's disease Status: Chronic (2) Essential hypertension, benign Status: Chronic Past Medical History - Allergies and Home Meds Allergies/Adverse Reactions: Allergies Penicillins [PCN] Allergy (Verified 04/03/18 00:30) Unknown Primary Care Physician: Kamaljit Garcia PA [Primary Care Provider] - Surgical History: cataract, - - Right hip pinning (09/01/2017), Bilateral breast implants, Left hip cemented hemiarthroplasty. Smoking Status: Former smoker - Family History Maternal Family History: Reports: No pertinent history Paternal Family History: Reports: No pertinent history Review of Systems ROS: Unable to Obtain Musculoskeletal: Reports: Back pain, Extremity Pain Physical Exam Vital Signs/Narrative: Vital Signs Temp Pulse Resp BP Pulse Ox 04/03/18 01:20 95 04/03/18 00:31 97.9 F 82 14 163/75 H 87 Inital Vital Signs reviewed: Yes General: Well nourished, Well developed, Cachectic Head: Normocephalic, Atraumatic Eyes: Perrl, EOMI ENT: Moist mucous membranes, No rhinorrhea Neck: Supple, Nontender Cardiovascular: Regular rate, Regular rhythm, No murmurs Respiratory: No distress, CTA bilaterally, Chest nontender Abdomen: Soft, Nontender, Nondistended, Normal bowel sounds Back: Normal Inspection, Spinal tenderness - limited exam due to having to roll pt over onto left lat decub; no signs of trauma or step off, states diffusely tender when palpating middle of thoracic spine, multilevel. Extremities: No edema, Tenderness - right shoulder diffusely. limited ROM due to pain. not clinically dislocated. ttp left lateral hip; limited PROM due to pain. Skin: Normal color, No rash Neurological: Alert, Cranial nerves II-XII grossly intact, Normal Strength, Normal Sensation. Negative for: Oriented x3 Psychological: Agitated - verbally Diagnostic/Tx/Re-eval Impressions Brain CT 04/03/18 01:17 IMPRESSION: No fracture or hemorrhage. Electronically Signed: Carlos Huizar MD at 2:35 EDT Tel , Service support , Shoulder X-Ray 04/03/18 01:17 IMPRESSION: Displaced fracture of the surgical neck of the humerus. Electronically Signed: Carlos Huizar MD at 3:05 EDT Tel , Service support , Hip/Pelvis X-Ray 04/03/18 01:47 IMPRESSION: Acute fracture of the left greater femoral trochanter. Electronically Signed: Carlos Huizar MD at 3:09 EDT Tel , Service support , Thoracic Spine X-Ray 04/03/18 01:47 IMPRESSION: No acute osseous injury is evident. Comment: If there is further clinical concern for a radiographically occult spinal fracture, consider CT correlation if possible. Electronically Signed: Carlos Huizar MD at 2:57 EDT Tel , Service support , 04/03/18 01:17 Brain/Head without Contrast [CT] Stat Shoulder min 2 Views [RAD] Stat 04/03/18 01:47 HIP, UNI W/ Pelvis 2-3 Views [RAD] Stat Thoracic Spine 2 Views [RAD] Stat Laboratory Results 04/03/18 04/03/18 Range/Units 01:50 01:50 WBC 11.4 H (4.4-11.0) K/mm3 RBC 4.58 (4.2-5.4) M/mm3 Hgb 12.8 (12.0-15.0) g/dl Hct 40.4 (37-47) % MCV 88.2 (81-99) fL MCH 27.9 (27.0-32.0) pg MCHC 31.7 L (32-36) g/gl RDW 13.8 (11.6-14.6) % RDW Differential 44.5 H (35.1-43.9) fl Plt Count 211 (150-450) K/mm3 MPV 9.4 (6.2-12.0) fl Immature Gran % (Auto) 0.200 (0.0-0.9) % Neut % (Auto) 79.0 H (47-70) % Lymph % (Auto) 12.2 L (19-41) % [place] % (Auto) 7.5 (0-10) % Eos % (Auto) 1.0 (0-5) % Baso % (Auto) 0.1 (0-1) % Absolute Neuts (auto) 9.0 H (2.0-7.7) X10^3/uL Absolute Lymphs (auto) 1.40 (0.83-4.51) X10^3/ul Total Counted Not Reportable Sodium 136 (136-145) mmol/L Potassium 3.3 L (3.5-5.1) mmol/L Chloride 100 (98-107) mmol/L Carbon Dioxide 30.0 (21.0-32.0) mmol/L Anion Gap 6 (5-15) BUN 21 H (7-18) mg/dL Creatinine 0.50 L (0.55-1.02) mg/dL Estim Creat Clear Calc 39.51 ml/min Est GFR (MDRD) Af Amer 153 (>60) mL/min Est GFR (MDRD) Non-Af 127 (>60) mL/min BUN/Creatinine Ratio 42.4 H (10-20) RATIO Glucose 107 H (74-106) mg/dL Calcium 8.8 (8.5-10.1) mg/dL - Rhythm Strip Rhythm Strip: Sinus Rhythm Rate: 85 Ectopy: PAC(s) - EKG Initial EKG Interpretation: Sinus Rhythm, No Acute Injury Pattern Prior: Unchanged - Medical Decision Making X-rays show displaced 2 part proximal humerus fracture that is treated with sling and swath, as well as a new nondisplaced fracture of the left hip at the greater trochanter, this is new compared with her postoperative films from before, however it appears to already be stabilized by the pre-existing hardware. So far, her labs are revealing hypokalemia which is treated here, and she was given morphine for pain. EKG shows no gross changes, it is somewhat limited because the patient would not follow directions to stay still. Discussed with hospitalist for admission. ED Disposition - Plan for ED Patient: Disposition: Acute Care Hospital [facility] Chief Complaint: Upper Extremity Injury Diagnosis: 2-part displaced fracture of surgical neck of right humerus, Fracture of greater trochanter of left femur, Fall from bed, Alzheimer's disease, Hypokalemia
--- NOTE | 2018-04-03 04:29 | PCM.HP.STD ---
History of Present Illness Date of Admission: 04/03/18 Chief Complaint: fall with injury The patient is a 82 year old female withe a significant past medical history of severe dementia who is status post ORIF of left hip from fracture and subsequent stay for rehab presents after falling at home. The patient was found on the floor out of her hospital bed. X-ray reveals a new fracture line along her recent left hip repair and a displace right humerus fracture. The patient is not able to provide history due to dementia. The daughter is disappointed that the patient was discharged home when her insurance ran out. She did tell me that she refused to put her in a residential to her expressed wishes in her will. The daughter runs a day care in the home for children. The patient is DNR- CCA. 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) Fracture of hip, right, closed (Chronic) Allergies Penicillins [PCN] Allergy (Verified 04/03/18 00:30) Unknown Home Medications: Ambulatory Orders Medication Instructions Recorded Polyethylene Glycol 3350 [Miralax] 17 gm PO PRN PRN 12/30/17 Sertraline HCl [Zoloft] 25 mg PO DAILY 12/30/17 Acetaminophen [Tylenol] 1,000 mg PO Q8H PRN tablet 03/16/18 Menthol/Lanolin/Calamine/Znox 1 applic TOPICAL TID tube 03/16/18 [Calmoseptine Ointment] Potassium Chloride [K-Dur] 20 meq PO DAILY #30 tab 03/16/18 Rivaroxaban [Xarelto] 10 mg PO DAILY #6 tab 03/16/18 Surgical History: cataract, - - Right hip pinning (09/01/2017), Bilateral breast implants, Left hip cemented hemiarthroplasty. Smoking Status: Former smoker - *Family History Maternal History Items: No pertinent history Paternal History Items: No pertinent history Review of Systems Constitutional: Denies: Chills, Fever, Weight Change HEENT: Denies: Head Aches, Sinus Congestion, Sinus Drainage Cardiovascular: Denies: Chest Pain, Palpitations Respiratory: Denies: Cough, Shortness of breath at rest, Sputum production Gastrointestinal: Denies: Abdominal Pain, Nausea, Vomiting Genitourinary: Denies: Dysuria Musculoskeletal: Reports: Joint Pain, Joint Tenderness, Shoulder Pain Skin: Denies: Rash, Wounds Neurological: Denies: Numbness, Tingling, Focal weakness Psychiatric: Denies: Anxiety, Depression, Homicidal Ideations, Suicidal Ideations Hematologic/ Lymphatic: Denies: Easy Bruising, Easy Bleeding VTE Information - Inpt Only VTE Present on Admission: No VTE Mechan Device Prophylaxis: None VTE Pharm Prophylaxis ordered?: Yes - Physical Exam General: Alert, Confused, Disoriented HEENT: Atraumatic, Normocephalic Neck: Supple Lungs: Clear to auscultation, Normal air movement Cardiovascular: Regular rate, Regular Rhythm, Normal S1, Normal S2, No murmurs Abdomen: Bowel Sounds Present, Soft, Non Tender Extremities: No edema, Capillary Refill Less than 3 Seconds Skin: No rashes, No breakdown Musculoskeletal: No Tenderness to Palpation of Joints or Extremities Neurological: Neuro grossly intact, - Psych/Mental Status: Agitated, Restless, - - incoherent speech Vital Signs Temp Pulse Resp BP Pulse Ox 97.9 F 82 14 163/75 H 95 04/03/18 00:31 04/03/18 00:31 04/03/18 00:31 04/03/18 00:31 04/03/18 01:20 Oxygen Flow Rate (L/min) 2 Oxygen Delivery Method Nasal Cannula Weight: 127 lb 3.307 oz Body Mass Index (BMI) 20.5 Laboratory Tests Past 24 Hrs 04/03/18 04/03/18 01:50 01:50 WBC 11.4 H RBC 4.58 Hgb 12.8 Hct 40.4 MCV 88.2 MCH 27.9 MCHC 31.7 L RDW 13.8 RDW Differential 44.5 H Plt Count 211 MPV 9.4 Immature Gran % (Auto) 0.200 Neut % (Auto) 79.0 H Lymph % (Auto) 12.2 L [place] % (Auto) 7.5 Eos % (Auto) 1.0 Baso % (Auto) 0.1 Absolute Neuts (auto) 9.0 H Absolute Lymphs (auto) 1.40 Total Counted Not Reportable Sodium 136 Potassium 3.3 L Chloride 100 Carbon Dioxide 30.0 Anion Gap 6 BUN 21 H Creatinine 0.50 L Estim Creat Clear Calc 39.51 Est GFR (MDRD) Af Amer 153 Est GFR (MDRD) Non-Af 127 BUN/Creatinine Ratio 42.4 H Glucose 107 H Calcium 8.8 Assessment/Plan All Active Problems Nausea, vomiting and diarrhea (Resolved) Syncope (Resolved) Dehydration (Resolved) UTI (urinary tract infection) (Resolved) Left femoral shaft fracture (Acute) Fracture of right inferior pubic ramus (Resolved) Ventricular asystolia (Resolved) Postoperative anemia (Resolved) assessment 1. fall with reinjury to left hip 2. displaced right humerus fracture Plan - admit to general medical floor - morphine 2-4mg IV q 2hrs prn - Normal saline at 75cc/hour - consult Dr Cuellar - NPO pending consult - LMWH for DVT prohylaxis - place rice and bed rest only Code Visit Inpatient E&M: 16756 Init Hosp L3
[2018-04-03] MEDS: 0.9% Normal Saline 1,000 ML 75 ML IV ×2 (06:42→15:12)
[2018-04-03] MEDS: 0.9% NaCl Peripheral Flush Adult/Peds IV ×3 (06:42→18:25)
--- NOTE | 2018-04-03 07:49 | NURSING ---
Two different RNs attempted rice catheter insertion for a total of two times. Both times unsuccessful. Will pass on to dayshift.
--- NOTE | 2018-04-03 09:03 | PCM.PN.HOSP ---
Patient Problems: Active and Suspected Problems 2-part displaced fracture of surgical neck of right humerus (Acute) Fracture of greater trochanter of left femur (Acute) Fall from bed (Acute) Hypokalemia (Acute) Subjective: Patient was seen and examined. Daughter at the bedside. Pain is asleep. Pain was not well controlled overnight. It was worse with movements. No other acute events. Vitals/I&O's: Vital Signs Temp Pulse Resp BP Pulse Ox 98.2 F 97 20 H 138/87 H 93 04/03/18 05:39 04/03/18 05:39 04/03/18 05:39 04/03/18 05:39 04/03/18 05:39 Oxygen Flow Rate (L/min) 2 Oxygen Delivery Method Room Air Weight: 51.2 kg Body Mass Index (BMI) 18.2 General: Alert, Cooperative, No apparent distress, Lethargic HEENT: Atraumatic, PERRLA, EOMI, Normocephalic Oral: Dry Mucosa Neck: Supple Lungs: Clear to auscultation, Normal air movement Cardiovascular: Regular rate, Regular Rhythm, Normal S1, Normal S2, No murmurs Abdomen: Bowel Sounds Present, Soft, Non Tender, Non-Distended, No Hepato-splenomegaly Extremities: No edema, Tenderness - over the left UE, in brace, tenderness over the left hip Skin: No rashes Musculoskeletal: No Tenderness to Palpation of Joints or Extremities Lymphatic: No Cervical, Supraclavicular, or Inguinal Adenopathy Neurological: Cranial nerves II-XII grossly intact, Neuro grossly intact Psych/Mental Status: Normal Affect, Appropriate Current Medications Enoxaparin Sodium (Lovenox) 40 mg SC DAILY@1000 MENDOZA Sodium Chloride () 1,000 mls @ 75 mls/hr IV .[id number] [facility] Last Admin: 04/03/18 06:42 Dose: 75 mls/hr Magnesium Hydroxide (Milk Of Magnesia) 30 ml PO DAILY PRN PRN PRN Reason: Constipation Morphine Sulfate () 2 mg IV Q2H PRN PRN PRN Reason: SEVERE PAIN (6-10/10) Last Admin: 04/03/18 06:41 Dose: 2 mg Sodium Chloride () 5 - 30 ml IV UD PRN PRN Reason: SALINE FLUSH Last Admin: 04/03/18 06:42 Dose: 10 ml Medical Necessity - Tobacco Use Smoking Status: Former smoker Assessment/Plan All Active Problems 2-part displaced fracture of surgical neck of right humerus (Acute) Fracture of greater trochanter of left femur (Acute) Fall from bed (Acute) Hypokalemia (Acute) Nausea, vomiting and diarrhea (Resolved) Syncope (Resolved) Dehydration (Resolved) UTI (urinary tract infection) (Resolved) Left femoral shaft fracture (Acute) Fracture of right inferior pubic ramus (Resolved) Ventricular asystolia (Resolved) Postoperative anemia (Resolved) 2-year-old female with past medical history of eczematous disease, history of recent fracture, [facility] comes in after a fall sustained a displaced fracture surgical neck of the humerus as well as fracture of the left greater femoral trochanter. 1. Acute left surgical neck of the humerus fracture, left greater tomorrow trochanteric fracture, pain is uncontrolled, patient in upper extremity brace, orthopedics consulted, Plan: Schedule Tylenol, continue with morphine as needed, start also oxycodone as needed 2. Hypertension, controlled, not on meds, will continue to monitor especially whilst in pain 3. Alzheimer's dementia, not on any meds 4. Depression, on Zoloft 5. DVT PPx- Lovenox SC Code Visit Inpatient E&M: 56805 Subs Hosp L2
--- NOTE | 2018-04-03 10:08 | CASEMGMT ---
Social Work Note JAMES met with pt and pt's daughter Kath to confirm discharge plans. Pt soundly sleeping. Pt's daughter Kath is present and able to answer questions. It should be noted that Pt's Durable POA and Healthcare POA and guardianship paperwork has all been scanned into [facility] system and pt's daughter Kath is listed as Durable POA, HCPOA, and guardian for pt. Kath states that pt will need rehabilitation again before returning home. Kath states that insurance cut pt too soon at TCU and pt still need a few weeks at TCU. Kath states that her first choice would be for pt to return to TCU at [facility]. JAMES explained that this worker will have to check on bed availability and see if TCU can accept pt. Kath states understanding. JAMES placed a call to referral line and spoke with Nasrin and Laura. 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 JAMES updated Kath of pt not being accepted into TCU. JAMES provided Kath with list of in network SNF in [place], [place] and encouraged Kath to pick top three. Kath states understanding. AJMES will check back with pt's daughter Kath later today or tomorrow to confirm placement. Orthopedics should be seeing pt as well. 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
[2018-04-03 10:31] LABS: Bacteria 0 SEEN /hpf (None Seen); Mucous, Urine 0 SEEN /hpf (<or=2+); Red Blood Cells-Urine 0 SEEN /hpf (0-5)
[2018-04-03 10:37] LABS: Color, Urine Yellow (Yellow); Glucose, Dipstick Normal (Normal); Ketone-Dipstick Negative (Negative); Leukocyte Esterase-Dipstick 100 /ul (Negative); Nitrite-Dipstick Negative (Negative); Occult Blood-Urine Negative /ul (Negative); Protein-Dipstick 15 mg/dl (Negative); Urine Bilirubin Dipstick Negative (Negative); Urine Clarity Sl. Cloudy (Clear); Urine Urobilinogen Normal (Normal)
[2018-04-03 10:43] LABS: Squamous Epithelial Cells - UA 10-25 SEEN /hpf (5-10); White Blood Cells 0-5 SEEN /hpf (0-5)
--- NOTE | 2018-04-03 19:13 | PCM.CONS.GEN ---
Reason for Consult Date of Consultation: 04/03/18 Reason for Consultation: Left hip pain, right shoulder pain status post fall. Requested by Dr. Forman History of Present Illness: The patient is a 82 year old F with severe dementia who lives at home with her family presented to the emergency department last evening after a fall. Patient had a previous fall with left hip femoral neck fracture and subsequent hemiarthroplasty with cemented implants on February 17. Patient's daughter is at bedside and gives most of the history. She states the patient was discharged from the TCU after her insurance benefits ran out. She was discharged home with the family. Patient's daughter states patient is not able to follow orders and try to get up and walk and ended up falling last evening. She is complaining of left hip pain and right shoulder pain. The remainder of the details of the pain are difficult to obtain due to the patient's mental cognition. She is in her right sling. He remains neurovascularly intact. Per the daughter the patient has had dementia and Alzheimer's for the last 10 years and is noncompliant with instructions. When I asked if she will be able to do nonweightbearing or restrictions after surgery patient's daughter did not feel patient can follow with compliance. She is worried about nonweightbearing with nonoperative treatment during our discussion. 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) Fracture of hip, right, closed (Chronic) Allergies Penicillins [PCN] Allergy (Verified 04/03/18 05:48) Unknown Home Medications: Ambulatory Orders Medication Instructions Recorded Polyethylene Glycol 3350 [Miralax] 17 gm PO PRN PRN 12/30/17 Sertraline HCl [Zoloft] 25 mg PO DAILY 12/30/17 Acetaminophen [Tylenol] 1,000 mg PO Q8H PRN tablet 03/16/18 Menthol/Lanolin/Calamine/Znox 1 applic TOPICAL TID tube 03/16/18 [Calmoseptine Ointment] Potassium Chloride [K-Dur] 20 meq PO DAILY #30 tab 03/16/18 Aspirin [Aspirin, Baby] 81 mg PO DAILY@0800 04/03/18 Multivitamin [Multiple Vitamins] 1 tab PO DAILY 04/03/18 Surgical History: cataract, - - Right hip pinning (09/01/2017), Bilateral breast implants, Left hip cemented hemiarthroplasty. Smoking Status: Former smoker - *Family History Maternal History Items: No pertinent history Paternal History Items: No pertinent history Review of Systems Constitutional: Reports: - - Cachectic HEENT: Denies: Dysphasia Cardiovascular: Denies: Chest Pain Respiratory: Denies: Cough Gastrointestinal: Denies: Abdominal Pain Genitourinary: Denies: Dysuria Musculoskeletal: Reports: - - See HPI Skin: Denies: Dryness Neurological: Reports: Balance problems Psychiatric: Reports: - - Alzheimer's dementia Hematologic/ Lymphatic: Denies: Adenopathy Patient Problems: Active and Suspected Problems 2-part displaced fracture of surgical neck of right humerus (Acute) Fracture of greater trochanter of left femur (Acute) Fall from bed (Acute) Hypokalemia (Acute) Objective: Left hip radiographs are reviewed showing a nondisplaced greater trochanteric fracture. This is a Sims a periprosthetic fracture. Right shoulder x-ray show a displaced anatomic neck proximal humerus fracture with varus alignment and posterior displacement. - Physical Exam General: Non-Cooperative Abdomen: - - Right upper extremity bruising ecchymosis around the shoulder. Bruising and ecchymosis over the hip. Previous incision is well-healed. Remainder of the exam is difficult to obtain secondary to patient's mental status. Vital Signs Temp Pulse Resp BP Pulse Ox 98.9 F 99 14 149/74 H 91 04/03/18 17:52 04/03/18 17:52 04/03/18 17:52 04/03/18 17:52 04/03/18 17:52 Oxygen Flow Rate (L/min) 2 Oxygen Delivery Method Room Air Weight: 112 lb 14.027 oz Body Mass Index (BMI) 18.2 Intake and Output for Last 24 Hours 04/01/18 04/02/18 04/03/18 23:59 23:59 23:59 Intake Total 620 / 620 Output Total 110 / 110 Balance 510 / 510 Laboratory Tests Past 24 Hrs 04/03/18 10:25 Urine Color Yellow Urine Clarity Sl. Cloudy Urine pH 6.0 Ur Specific Robertson 1.020 Urine Protein 15 H Urine Glucose (UA) Normal Urine Ketones Negative Urine Occult Blood Negative Urine Nitrite Negative Urine Bilirubin Negative Urine Urobilinogen Normal Ur Leukocyte Esterase 100 H Urine RBC 0 SEEN Urine WBC 0-5 SEEN Ur Squamous Epith Cells 10-25 SEEN Urine Bacteria 0 SEEN Urine Mucus 0 SEEN Assessment/Plan All Active Problems 2-part displaced fracture of surgical neck of right humerus (Acute) Fracture of greater trochanter of left femur (Acute) Fall from bed (Acute) Hypokalemia (Acute) Nausea, vomiting and diarrhea (Resolved) Syncope (Resolved) Dehydration (Resolved) UTI (urinary tract infection) (Resolved) Left femoral shaft fracture (Acute) Fracture of right inferior pubic ramus (Resolved) Ventricular asystolia (Resolved) Postoperative anemia (Resolved) Patient has left greater trochanteric fracture periprosthetic fracture. The prosthesis appears stable at this time. I recommend weightbearing as tolerated. For the right shoulder fracture I explained to the daughter that normally this would likely be an operative fracture based on the displacement and positioning of the fracture however based on patient's inability to follow postoperative orders and overall medical health I recommended nonoperative treatment she is likely to feel operative interventions with her noncompliance. Patient's family demonstrated understanding at this time are going to be nonweightbearing on the right upper extremity placed in a sling follow-up in the office in 2 weeks weightbearing as tolerated on the left lower extremity with pain control per primary service patient would likely benefit from long-term [facility] facility I discussed this with the family. She would likely show greatest benefit from being in a Alzheimer's unit or dementia unit where she can be closely monitored. [facility] Office:
[2018-04-04 03:25] VITALS: BP 128/96; PULSE 96; RESP 18; TEMP 36.3; O2SAT 93
[2018-04-04] MEDS: 0.9% Normal Saline 1,000 ML 75 ML IV (06:23)
[2018-04-04 07:02] LABS: Absolute Lymphocyte Count 1.15 X10^3/ul (0.83-4.51); Absolute Neutrophil Count 6.5 X10^3/uL (2.0-7.7); Basophil# 0.03 X10^3/uL; Basophil% 0.3 % (0-1); Eosinophil# 0.09 X10^3/uL; Hematocrit 34.8 % (37-47); Hemoglobin 10.6 g/dl (12.0-15.0); Lymphocyte # 1.15 X10^3/ul (4.0); Lymphocyte % 13.3 % (19-41); Mean Corp Hgb Conc 30.5 g/gl (32-36); Mean Corpuscular Volume 91.8 fL (81-99); Mean Platelet Vol. 9.8 fl (6.2-12.0); Monocyte# 0.89 X10^3/uL; Monocyte% 10.3 % (0-10); Neutrophil # 6.47 X10^3/uL (2.7-7.7); Platelet Count 149 K/mm3 (150-450); RBC Distribution Width CV 14.2 % (11.6-14.6); RBC Distribution Width SD 47.4 fl (35.1-43.9); Red Blood Count 3.79 M/mm3 (4.2-5.4); White Blood Count 8.6 K/mm3 (4.4-11.0)
[2018-04-04 07:13] LABS: Anion Gap 12 (5-15); BUN 17 mg/dL (7-18); BUN/Creat Ratio 50.9 RATIO (10-20); Chloride 106 mmol/L (98-107); Creatinine, Serum 0.33 mg/dL (0.55-1.02); EST Glomerular Filtration Rate 200 mL/min (>60); Est Glom Filt Rate - Afr Amer 242 mL/min (>60); Estimated Creatinine Clearance 35.06 ml/min; Glucose 94 mg/dL (74-106); Potassium 3.8 mmol/L (3.5-5.1); Sodium Level 138 mmol/L (136-145)
[2018-04-04 07:24] LABS: POSITIVE COUNT NO; POSITIVE DIFFERENTIAL NO; POSITIVE MORPHOLOGY NO
[2018-04-04 08:38] VITALS: BP 161/94; PULSE 90; RESP 16; TEMP 37; O2SAT 93
[2018-04-04] MEDS: Morphine 2 MG/ML Syringe IV (08:46)
[2018-04-04] MEDS: Enoxaparin 40 MG/0.4 ML Syringe SC (11:30)
[2018-04-04 13:13] VITALS: BP 167/85; PULSE 84; RESP 16; TEMP 36.4; O2SAT 100
--- NOTE | 2018-04-04 14:30 | CASEMGMT ---
Per JAMES, referral to be sent to [facility]. Called and left voicemail for Elysia, agustín, that referral would be sent on pt. Referral packet faxed, confirmation rec'd. Shannan Reed LPN Clinical Support
--- NOTE | 2018-04-04 15:46 | CASEMGMT ---
Social Work Note JAMES placed a call to pt's daughter Kath to confirm discharge plans. Kath once again states that TCU would be her first choice for pt for rehabilitation. JAMES explained to Kath that pt's level of care is too much for TCU and pt may need longer stay at SNF then what TCU can provide. Kath states that her second choice is [facility]. JAMES explained referral process and that pre-cert will need to be obtained before pt can discharge to SNF. Kath states understanding. JAMES placed a call to Shannan Reed, case management support, to make referral to [facility]. Plan: [facility] pending acceptance and pre-cert Maricruz Wells CONCAVING MACHINE OPERATOR, CAKE ICER
--- NOTE | 2018-04-04 15:54 | PCM.PN.HOSP ---
Patient Problems: Active and Suspected Problems 2-part displaced fracture of surgical neck of right humerus (Acute) Fracture of greater trochanter of left femur (Acute) Fall from bed (Acute) Hypokalemia (Acute) Objective: Physical exam: General: Alert, Cooperative, No apparent distress, Lethargic HEENT: Atraumatic, PERRLA, EOMI, Normocephalic Oral: Dry Mucosa Neck: Supple Lungs: Clear to auscultation, Normal air movement Cardiovascular: Regular rate, Regular Rhythm, Normal S1, Normal S2, No murmurs Abdomen: Bowel Sounds Present, Soft, Non Tender, Non-Distended, No Hepato-splenomegaly Extremities: No edema, Tenderness - over the left UE, in brace, tenderness over the left hip Skin: No rashes Musculoskeletal: No Tenderness to Palpation of Joints or Extremities Lymphatic: No Cervical, Supraclavicular, or Inguinal Adenopathy Neurological: Cranial nerves II-XII grossly intact, Neuro grossly intact Psych/Mental Status: Normal Affect, Appropriate Vitals/I&O's: Vital Signs Temp Pulse Resp BP Pulse Ox 97.6 F L 84 16 167/85 H 100 04/04/18 13:13 04/04/18 13:13 04/04/18 13:13 04/04/18 13:13 04/04/18 13:13 Oxygen Flow Rate (L/min) 2 Oxygen Delivery Method Nasal Cannula Weight: 51.2 kg Body Mass Index (BMI) 18.2 Intake and Output for Last 24 Hours 04/02/18 04/03/18 04/04/18 23:59 23:59 23:59 Intake Total 620 / 620 1421 / 1421 Output Total 110 / 110 290 / 290 Balance 510 / 510 1131 / 1131 Laboratory Results 04/04/18 06:08: WBC 8.6, RBC 3.79 L, Hgb 10.6 L, Hct 34.8 L, MCV 91.8, MCH 28.0, MCHC 30.5 L, RDW 14.2, RDW Differential 47.4 H, Plt Count 149 L, MPV 9.8, Immature Gran % (Auto) 0.100, Neut % (Auto) 75.0 H, Lymph % (Auto) 13.3 L, [place] % (Auto) 10.3 H, Eos % (Auto) 1.0, Baso % (Auto) 0.3, Absolute Neuts (auto) 6.5, Absolute Lymphs (auto) 1.15, Total Counted Not Reportable 04/04/18 06:08: Sodium 138, Potassium 3.8, Chloride 106, Carbon Dioxide 20.0 L, Anion Gap 12, BUN 17, Creatinine 0.33 L, Estim Creat Clear Calc 35.06, Est GFR (MDRD) Af Amer 242, Est GFR (MDRD) Non-Af 200, BUN/Creatinine Ratio 50.9 H, Glucose 94, Calcium 8.0 L Current Medications Acetaminophen (Tylenol) 1,000 mg PO Q8 [facility] Last Admin: 04/04/18 13:12 Dose: Not Given Enoxaparin Sodium (Lovenox) 40 mg SC DAILY@1000 [facility] Last Admin: 04/04/18 11:30 Dose: 40 mg Sodium Chloride () 1,000 mls @ 100 mls/hr IV .Q10H [facility] Last Admin: 04/04/18 11:28 Dose: Not Given Magnesium Hydroxide (Milk Of Magnesia) 30 ml PO DAILY PRN PRN PRN Reason: Constipation Morphine Sulfate () 1 mg IV Q2H PRN PRN PRN Reason: SEVERE PAIN (6-10/10) Multivitamins (Multivitamin) 1 tablet PO DAILY@0800 [facility] Last Admin: 04/04/18 10:23 Dose: Not Given Nutritional Formula (Lactose Free) (Ensure Enlive) 120 ml PO 4X/DAY [facility] Last Admin: 04/04/18 15:47 Dose: Not Given Oxycodone HCl (Oxyir) 5 mg PO Q4H PRN PRN PRN Reason: SEVERE PAIN (6-10/10) Sertraline HCl (Zoloft) 25 mg PO DAILY [facility] Last Admin: 04/04/18 10:23 Dose: Not Given Sodium Chloride () 5 - 30 ml IV UD PRN PRN Reason: SALINE FLUSH Last Admin: 04/03/18 18:25 Dose: 10 ml Medical Necessity - Tobacco Use Smoking Status: Former smoker Assessment/Plan All Active Problems 2-part displaced fracture of surgical neck of right humerus (Acute) Fracture of greater trochanter of left femur (Acute) Fall from bed (Acute) Hypokalemia (Acute) Nausea, vomiting and diarrhea (Resolved) Syncope (Resolved) Dehydration (Resolved) UTI (urinary tract infection) (Resolved) Left femoral shaft fracture (Acute) Fracture of right inferior pubic ramus (Resolved) Ventricular asystolia (Resolved) Postoperative anemia (Resolved) 2-year-old female with past medical history of eczematous disease, history of recent fracture, discharged from [facility] facility comes in after a fall sustained a displaced fracture surgical neck of the humerus as well as fracture of the left greater femoral trochanter. 1. Acute left surgical neck of the humerus fracture, left greater tomorrow trochanteric fracture, pain is fairly controlled, patient is very sensitive to pain meds with increasing lethargy, orthopedics consulted, check recommendations. Do not recommend surgical output for now, recommend pain control and follow-up. Continue with scheduled Tylenol, oxycodone and morphine as needed. 2. Hypertension, fluctuating, may be somhow related to pain, will continue to monitor. If persistent, will start on low dose of amlodipine. 3. 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 Alzheimer's dementia, not on any meds 5. Depression, on Zoloft 6. DVT PPx- Lovenox SC Code Visit Inpatient E&M: 88003 Subs Hosp L2
--- NOTE | 2018-04-04 16:30 | CASEMGMT ---
Social Work Note JAMES received call from Elysia at [facility] asking about pt's discharge plans and plan for SNF. JAMES placed a call back to Elysia at [facility] and states that pt's daughter is wanting short term rehabilitation and then to have pt return home. JAMES updated Elysia of pt's home situation and how she has had multiple falls at home and would be a good fit for buttermaker care. Elysia states that she is unsure if insurance would even pay for pt to go to SNF. JAMES informed Elysia that this worker also had concerns about that as well but informed her that a pre-cert could at least be attempted for pt. Elysia states that she will continue to review referral and give this worker a call back tomorrow. Plan: [facility] pending acceptance and pre-cert Maricruz Wells PROMOTIONS ASSISTANT SALES MARKETING, CONSTRUCTION REPRESENTATIVE
[2018-04-04] MEDS: 0.9% Normal Saline 1,000 ML 100 ML IV (16:59)
[2018-04-04 17:00] VITALS: BP 157/93; PULSE 107; RESP 16; TEMP 37.1; O2SAT 94
[2018-04-04] MEDS: Morphine 2 MG/ML Syringe 1 MG IV (17:14)
[2018-04-04 21:24] VITALS: BP 153/99; PULSE 93; RESP 16; TEMP 37.2; O2SAT 97
[2018-04-05] MEDS: 0.9% Normal Saline 1,000 ML 100 ML IV ×3 (02:41→21:34)
[2018-04-05 02:43] VITALS: BP 177/92; PULSE 93; RESP 16; TEMP 36.7; O2SAT 100
[2018-04-05] MEDS: Morphine 2 MG/ML Syringe 1 MG IV (03:02)
[2018-04-05 05:06] VITALS: BP 149/73
--- NOTE | 2018-04-05 07:24 | PN_ITS ---
Patient Problems: Active and Suspected Problems 2-part displaced fracture of surgical neck of right humerus (Acute) Fracture of greater trochanter of left femur (Acute) Fall from bed (Acute) Hypokalemia (Acute) Subjective: Patient was seen and examined. Morning pain. No other acute events overnight. Seen by speech therapy, diet started. Objective: Physical exam: General: Alert, Cooperative, No apparent distress, Lethargic HEENT: Atraumatic, PERRLA, EOMI, Normocephalic Oral: Dry Mucosa Neck: Supple Lungs: Clear to auscultation, Normal air movement Cardiovascular: Regular rate, Regular Rhythm, Normal S1, Normal S2, No murmurs Abdomen: Bowel Sounds Present, Soft, Non Tender, Non-Distended, No Hepato- splenomegaly Extremities: No edema, Tenderness - over the left UE, in brace, tenderness over the left hip Skin: No rashes Musculoskeletal: No Tenderness to Palpation of Joints or Extremities Lymphatic: No Cervical, Supraclavicular, or Inguinal Adenopathy Neurological: Cranial nerves II-XII grossly intact, Neuro grossly intact Psych/Mental Status: Normal Affect, Appropriate Vitals/I&O's: Vital Signs Temp Pulse Resp BP Pulse Ox 98.1 F 93 16 149/73 H 100 04/05/18 02:43 04/05/18 02:43 04/05/18 02:43 04/05/18 05:06 04/05/18 02:43 Oxygen Flow Rate (L/min) 2 Oxygen Delivery Method Nasal Cannula Weight: 51.2 kg Body Mass Index (BMI) 18.2 Intake and Output for Last 24 Hours 04/03/18 04/04/18 04/05/18 23:59 23:59 23:59 Intake Total 620 / 620 1965 / 1965 1288 / 1288 Output Total 110 / 110 290 / 290 Balance 510 / 510 1676 / 1676 1288 / 1288 Laboratory Results 04/04/18 06:08: WBC 8.6, RBC 3.79 L, Hgb 10.6 L, Hct 34.8 L, MCV 91.8, MCH 28.0 , MCHC 30.5 L, RDW 14.2, RDW Differential 47.4 H, Plt Count 149 L, MPV 9.8, Immature Gran % (Auto) 0.100, Neut % (Auto) 75.0 H, Lymph % (Auto) 13.3 L, [place] % (Auto) 10.3 H, Eos % (Auto) 1.0, Baso % (Auto) 0.3, Absolute Neuts (auto) 6.5 , Absolute Lymphs (auto) 1.15, Total Counted Not Reportable Current Medications Acetaminophen (Tylenol) 1,000 mg PO Q8 [facility] Last Admin: 04/05/18 05:07 Dose: Not Given Enoxaparin Sodium (Lovenox) 40 mg SC DAILY@1000 [facility] Last Admin: 04/04/18 11:30 Dose: 40 mg Sodium Chloride () 1,000 mls @ 100 mls/hr IV .Q10H [facility] Last Admin: 04/05/18 02:41 Dose: 100 mls/hr Magnesium Hydroxide (Milk Of Magnesia) 30 ml PO DAILY PRN PRN PRN Reason: Constipation Morphine Sulfate () 1 mg IV Q4H PRN PRN PRN Reason: SEVERE PAIN (6-10/10) Last Admin: 04/05/18 03:02 Dose: 1 mg Multivitamins (Multivitamin) 1 tablet PO DAILY@0800 [facility] Last Admin: 04/04/18 10:23 Dose: Not Given Nutritional Formula (Lactose Free) (Ensure Enlive) 120 ml PO 4X/DAY [facility] Last Admin: 04/04/18 21:30 Dose: Not Given Oxycodone HCl (Oxyir) 5 mg PO Q4H PRN PRN PRN Reason: SEVERE PAIN (6-10/10) Sertraline HCl (Zoloft) 25 mg PO DAILY [facility] Last Admin: 04/04/18 10:23 Dose: Not Given Sodium Chloride () 5 - 30 ml IV UD PRN PRN Reason: SALINE FLUSH Last Admin: 04/03/18 18:25 Dose: 10 ml Medical Necessity - Tobacco Use Smoking Status: Former smoker Assessment/Plan All Active Problems 2-part displaced fracture of surgical neck of right humerus (Acute) Fracture of greater trochanter of left femur (Acute) Fall from bed (Acute) Hypokalemia (Acute) Nausea, vomiting and diarrhea (Resolved) Syncope (Resolved) Dehydration (Resolved) UTI (urinary tract infection) (Resolved) Left femoral shaft fracture (Acute) Fracture of right inferior pubic ramus (Resolved) Ventricular asystolia (Resolved) Postoperative anemia (Resolved) 82-year-old female with past medical history of Alzheimer's disease, osteoporosis, history of recent fracture, discharged from [facility] facility comes in after a fall sustained a displaced fracture surgical neck of the humerus as well as fracture of the left greater femoral trochanter. 1. Acute left surgical neck of the humerus fracture, left greater trochanteric fracture, pain is fairly controlled, patient is very sensitive to pain meds with increasing lethargy, orthopedics consulted, appreciate recommendations. Surgical option not recommended for now, recommended pain control and follow- up. Continue with scheduled Tylenol, oxycodone and morphine as needed. 2. Hypertension, fluctuating, may be somehow related to pain, will continue to monitor. If persistent, will start on low dose of amlodipine. 3. 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 4. Alzheimer's dementia, not on any meds 5. Depression, on Zoloft 6. DVT PPx- Lovenox SC Code Visit Inpatient E&M: 47710 Subs Hosp L2
--- NOTE | 2018-04-05 09:03 | CASEMGMT ---
Addendum entered by Maricruz Wells 04/05/18 10:18: JAMES faxed updated clinicals to Elysia at [facility]. JAMES placed a call to Elysia and informed her to submit for pre-cert to try to obtain it. Original Note: Addendum entered by Maricruz Wells 04/05/18 09:33: JAMES received message from Elysia at [facility] stating that they are recommending pt go into tank assembler bed at facility but they will submit for pre-cert for skilled services. Elysia states that if pt gets denied then it would be private pay for pt. JAMES placed a call to pt's daughter Kath to update her of this. Kath questioned why pt would be going in to tank assembler bed and not short term skilled. JAMES explained that pt may not be able to tolerate PT/OT at facility so the facility is recommending pt still get skilled services but in a tank assembler bed. JAMES explained to Kath that pt may get denied as currently she isn't moving well with therapy. Kath states of course she isn't moving well she has a hip fracture and arm fracture. JAMES informed Kath that this worker understands that and so does [facility] and that is probably why they are recommending tank assembler bed for pt in the event she is unable to tolerate PT/OT. JAMES explained that Elysia at [facility] will submit for pre-cert and this worker will let Kath know there are updates. Kath states understanding. Original Note: Social Work Note SW received message from Elysia at [facility] stating that they are able to accept pt in assisted room and that pt and pt's family may have to pay out of pocket. JAMES called Elysia at [facility] to confirm the plans for pt. JAMES waiting for call back from Elysia at [facility]. Plan: Possibly [facility] Maricruz Wells HEEL GUMMER, CONTRACT RECRUITER
[2018-04-05 09:34] VITALS: BP 146/73; PULSE 102; RESP 18; TEMP 37.1; O2SAT 94
[2018-04-05 09:38] VITALS: PULSE 102
[2018-04-05] MEDS: Enoxaparin 40 MG/0.4 ML Syringe SC (10:44)
[2018-04-05] MEDS: Acetaminophen 500 MG Tablet 1000 MG PO ×2 (14:18→21:33)
[2018-04-05 20:18] VITALS: BP 126/71; PULSE 89; RESP 18; TEMP 36.8; O2SAT 95
[2018-04-06 02:05] VITALS: BP 133/71; PULSE 78; RESP 18; TEMP 36.9; O2SAT 93
[2018-04-06] MEDS: Acetaminophen 500 MG Tablet 1000 MG PO ×2 (05:16→15:30)
--- NOTE | 2018-04-06 07:44 | PCM.PN.HOSP ---
Patient Problems: Active and Suspected Problems 2-part displaced fracture of surgical neck of right humerus (Acute) Fracture of greater trochanter of left femur (Acute) Fall from bed (Acute) Hypokalemia (Acute) Subjective: No acute events overnight. Waiting on insurance pre-cert for discharge Objective: Physical exam: General: Alert, Cooperative, No apparent distress, much awake today HEENT: Atraumatic, PERRLA, EOMI, Normocephalic Oral: Dry Mucosa Neck: Supple Lungs: Clear to auscultation, Normal air movement Cardiovascular: Regular rate, Regular Rhythm, Normal S1, Normal S2, No murmurs Abdomen: Bowel Sounds Present, Soft, Non Tender, Non-Distended, No Hepato-splenomegaly Extremities: No edema, Tenderness - over the left UE, in brace, tenderness over the left hip Skin: No rashes Musculoskeletal: No Tenderness to Palpation of Joints or Extremities Lymphatic: No Cervical, Supraclavicular, or Inguinal Adenopathy Neurological: Cranial nerves II-XII grossly intact, Neuro grossly intact Psych/Mental Status: Normal Affect, Appropriate Vitals/I&O's: Vital Signs Temp Pulse Resp BP Pulse Ox 98.5 F 78 18 133/71 H 93 04/06/18 02:05 04/06/18 02:05 04/06/18 02:05 04/06/18 02:05 04/06/18 02:05 Oxygen Flow Rate (L/min) 2 Oxygen Delivery Method Room Air Weight: 51.2 kg Body Mass Index (BMI) 18.2 Intake and Output for Last 24 Hours 04/04/18 04/05/18 04/06/18 23:59 23:59 23:59 Intake Total 1965 / 1965 2933 / 2933 644 / 644 Output Total 290 / 290 Balance 1676 / 1676 2933 / 2933 644 / 644 Current Medications Acetaminophen (Tylenol) 1,000 mg PO Q8 [facility] Last Admin: 04/06/18 05:16 Dose: 1,000 mg Enoxaparin Sodium (Lovenox) 40 mg SC DAILY@1000 [facility] Last Admin: 04/05/18 10:44 Dose: 40 mg Sodium Chloride () 1,000 mls @ 100 mls/hr IV .Q10H [facility] Last Admin: 04/05/18 21:34 Dose: 100 mls/hr Magnesium Hydroxide (Milk Of Magnesia) 30 ml PO DAILY PRN PRN PRN Reason: Constipation Morphine Sulfate () 1 mg IV Q4H PRN PRN PRN Reason: SEVERE PAIN (6-1010) Last Admin: 04/05/18 03:02 Dose: 1 mg Multivitamins (Multivitamin) 1 tablet PO DAILY@0800 [facility] Last Admin: 04/05/18 07:49 Dose: Not Given Nutritional Formula (Lactose Free) (Ensure Enlive) 120 ml PO 4X/DAY [facility] Last Admin: 04/05/18 21:35 Dose: 120 ml Oxycodone HCl (Oxyir) 5 mg PO Q4H PRN PRN PRN Reason: SEVERE PAIN (6-10) Sertraline HCl (Zoloft) 25 mg PO DAILY [facility] Last Admin: 04/05/18 10:43 Dose: Not Given Sodium Chloride () 5 - 30 ml IV UD PRN PRN Reason: SALINE FLUSH Last Admin: 04/03/18 18:25 Dose: 10 ml Medical Necessity - Tobacco Use Smoking Status: Former smoker Assessment/Plan All Active Problems 2-part displaced fracture of surgical neck of right humerus (Acute) Fracture of greater trochanter of left femur (Acute) Fall from bed (Acute) Hypokalemia (Acute) Nausea, vomiting and diarrhea (Resolved) Syncope (Resolved) Dehydration (Resolved) UTI (urinary tract infection) (Resolved) Left femoral shaft fracture (Acute) Fracture of right inferior pubic ramus (Resolved) Ventricular asystolia (Resolved) Postoperative anemia (Resolved) 82-year-old female with past medical history of Alzheimer's disease, osteoporosis, history of recent fracture, discharged from longterm facility comes in after a fall sustained a displaced fracture surgical neck of the humerus as well as fracture of the left greater femoral trochanter. 1. Acute left surgical neck of the humerus fracture, left greater trochanteric fracture, pain is fairly controlled, patient is very sensitive to pain meds with increasing lethargy, orthopedics consulted, appreciate recommendations. Surgical option not recommended for now, recommended pain control and follow-up. Continue with scheduled Tylenol, oxycodone and morphine as needed. 2. Hypertension, better controlled, not on meds, will continue to monitor. 3. 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 4. Malnutrition, moderate, director loss prevention following 5. Alzheimer's dementia, not on any meds 6. Depression, on Zoloft 7. DVT PPx- Lovenox SC Code Visit Inpatient E&M: 16891 Subs Hosp L2
--- NOTE | 2018-04-06 08:51 | CASEMGMT ---
Addendum entered by Maricruz Wells 04/06/18 08:53: SW faxed updated clinicals to Elysia at [facility]. Original Note: Social Work Note SW received message from Elysia at [facility] stating that pt's case has went to Medical Review. SW also received call from Charley at [facility] stating that pt's case went to Medical Review. Direct number for Charley at [employer] ext. [phone]. Plan: [facility] pending pre-cert/Medical Review Maricruz Wells POULTRY PROCESS WORKER, SPINDLE PLUMBER
[2018-04-06 10:00] VITALS: BP 130/66; PULSE 75; RESP 16; TEMP 36.6; O2SAT 93
[2018-04-06] MEDS: Sertraline 50 MG Tablet 25 MG PO (10:24)
[2018-04-06] MEDS: Enoxaparin 40 MG/0.4 ML Syringe SC (10:24)
[2018-04-06] MEDS: Multivitamins,Therapeutic Tablet 1 TABLET PO (10:24)
--- NOTE | 2018-04-06 12:32 | PCM.TXEXTCAR ---
- Diet 04/05/18 09:21 Diet: Regular Diet Food consistency:: Puree Liquid Consistency:: Regular/Thin Dietary Modifications:: Pureed Diet Type of Dietary Supplement:: [place] Breakfast Is pt able to select menu?: No Diet Comments: 1:1 supervision, meds crushed, likes chocolate ice cream & strwbrry yogurt - Routine Orders/Code Status Routine Lab Work: CBC - within 3 days, BMP - within 3 days Code Status: DNRCC-A - Therapies Weight Bearing: Weight bearing as tolerated Extremity Affected:: Bilateral Lower Physical Therapy: Eval and Treat Occupational Therapy: Eval and Treat - Allergies/Procedures Done in Hospital Allergies/Adverse Reactions: Allergies Penicillins [PCN] Allergy (Verified 04/03/18 05:48) Unknown Procedures: None - Type of Care/Length of Stay Estimated LOS: Convalescent Care Less Than 30 days Type of Care Needed: Skilled Rehab Potential: Fair Prognosis: Fair - Additional Orders/Day of Discharge Day of Discharge: 04/06/18 - Dietary and Speech Recommendations Dietitian Recommendations/Changes: Suggest advance diet as tolerated to regular/no added salt as medically able. Will add 120 ml ensure enlive 4 times per day on medpass, pending advancement of PO diet. - Follow Up Care Primary Care Physician: Kamaljit Garcia PA [Primary Care Provider] - Please follow up with your Primary Care Physician in: within 2 weeks Please Follow Up With: Nick To MD When: in 2 weeks
--- NOTE | 2018-04-06 12:35 | TREXTCAR_ITS ---
- Diet 04/05/18 09:21 Diet: Regular Diet Food consistency:: Puree Liquid Consistency:: Regular/Thin Dietary Modifications:: Pureed Diet Type of Dietary Supplement:: [place] Breakfast Is pt able to select menu?: No Diet Comments: 1:1 supervision, meds crushed, likes chocolate ice cream & strwbrry yogurt - Routine Orders/Code Status Routine Lab Work: CBC - within 3 days, BMP - within 3 days Code Status: DNRCC-A - Therapies Weight Bearing: Weight bearing as tolerated Extremity Affected:: Bilateral Lower Physical Therapy: Eval and Treat Occupational Therapy: Eval and Treat - Allergies/Procedures Done in Hospital Allergies/Adverse Reactions: Allergies Penicillins [PCN] Allergy (Verified 04/03/18 05:48) Unknown Procedures: None - Type of Care/Length of Stay Estimated LOS: Convalescent Care Less Than 30 days Type of Care Needed: Skilled Rehab Potential: Fair Prognosis: Fair - Additional Orders/Day of Discharge Day of Discharge: 04/06/18 - Dietary and Speech Recommendations Dietitian Recommendations/Changes: Suggest advance diet as tolerated to regular/ no added salt as medically able. Will add 120 ml ensure enlive 4 times per day on medpass, pending advancement of PO diet. - Follow Up Care Primary Care Physician: Kamaljit Garcia PA [Primary Care Provider] - Please follow up with your Primary Care Physician in: within 2 weeks Please Follow Up With: Nick To MD When: in 2 weeks
--- NOTE | 2018-04-06 12:35 | PCM.DC.SUM ---
Discharge Date and Diagnosis - Problem List Patient Problems: Active and Suspected Problems 2-part displaced fracture of surgical neck of right humerus (Acute) Fracture of greater trochanter of left femur (Acute) Fall from bed (Acute) Hypokalemia (Acute) Date of Admission: 04/03/18 Date of Discharge: 04/06/18 - Primary Discharge Diagnosis Active and Suspected Problems 2-part displaced fracture of surgical neck of right humerus (Acute) Fracture of greater trochanter of left femur (Acute) Fall from bed (Acute) Hypokalemia (Acute) - Secondary Discharge Diagnosis Chronic Problems Hypertension (Chronic) Alzheimer's disease (Chronic) Sinus bradycardia (Chronic) Essential hypertension, benign (Chronic) 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 Electronically Signed: Carlos Huizar MD at 2:35 EDT Tel , Service support , Shoulder X-Ray 04/03/18 01:17 IMPRESSION: Displaced fracture of the surgical neck of the humerus. Electronically Signed: Carlos Huizar MD at 3:05 EDT Tel , Service support , Hip/Pelvis X-Ray 04/03/18 01:47 IMPRESSION: Acute fracture of the left greater femoral trochanter. Electronically Signed: Carlos Huizar MD at 3:09 EDT Tel , Service support , Thoracic Spine X-Ray 04/03/18 01:47 IMPRESSION: No acute osseous injury is evident. Comment: If there is further clinical concern for a radiographically occult spinal fracture, consider CT correlation if possible. Electronically Signed: Carlos Huizar MD at 2:57 EDT Tel , Service support , Hip X-Ray 04/03/18 07:55 IMPRESSION: Status post left total hip replacement. Nondisplaced fracture in the proximal femoral shaft just distal to the intertrochanteric region. Electronically Signed: Archie Carreon MD at 11:26 EDT Tel [phone], Service support , Orthopedics Operations: None Procedures: None Summary of Care Provided: 82-year-old female with past medical history of Alzheimer's disease, osteoporosis, history of recent fracture, [facility] comes in after a fall and sustained a displaced fracture surgical neck of the humerus as well as fracture of the left greater femoral trochanter. 1. Acute left surgical neck of the humerus fracture, left greater trochanteric fracture, secondary to mechanical fall, orthopedics were consulted. Did not recommend surgery after long discussion with the patient's daughter. Recommended conservative management with pain control and follow-up. Patient was managed on scheduled Tylenol as well as oxycodone. She was found to be very sensitive to the IV morphine and pain meds with reported lethargy 2. Hypertension, initially was elevated secondary to pain, better controlled with pain control, not on any home regimen 3. 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 4. Malnutrition, moderate, cable spooler following 5. Alzheimer's dementia, not on any meds 6. Depression, on Zoloft Discharge Diet: No Restrictions Discharge Activity: Return to Normal Activity Home Medications: Medications to take at Discharge Polyethylene Glycol 3350 [Miralax] 17 gm PO PRN PRN 12/30/17 Sertraline HCl [Zoloft] 25 mg PO DAILY 12/30/17 Acetaminophen [Tylenol] 1,000 mg PO Q8H PRN tablet 03/16/18 Menthol/Lanolin/Calamine/Znox [Calmoseptine Ointment] 1 applic TOPICAL TID tube 03/16/18 Potassium Chloride [K-Dur] 20 meq PO DAILY #30 tab 03/16/18 Aspirin [Aspirin, Baby] 81 mg PO DAILY@0800 04/03/18 Multivitamin [Multiple Vitamins] 1 tab PO DAILY 04/03/18 Enoxaparin [Lovenox] 40 mg SC DAILY@1000 syringe 04/06/18 Ensure Enlive 120 ml PO 4X/DAY liquid 04/06/18 Oxycodone [Oxyir] 5 mg PO Q4H PRN PRN 5 Days #20 tab 04/06/18 Following Prescrptions Were Given to Patient: Oxycodone [Oxyir] 5 mg PO Q4H PRN PRN 5 Days #20 tab PRN Reason: Severe Pain (-05/23) Primary Care Physician: Kamaljit Garcia PA [Primary Care Provider] - Please follow up with your Primary Care Physician in: within 2 weeks Please Follow Up With: Nick To MD When: in 2 weeks Disposition: Custodial facility Minutes spent on discharge:: 40 Patient Condition:: Stable Medical Necessity - Tobacco Use Smoking Status: Former smoker Meaningful Use Info Meaningful Use Diagnoses (Choose all that apply): None applicable Code Visit Inpatient E&M: 79742 Disch Hosp
--- NOTE | 2018-04-06 15:30 | CASEMGMT ---
Social Work Note SW received message from Elysia at [facility] stating that pre-cert has been obtained and pt is able to discharge today. JAMES faxed completed discharge paperwork to Elysia at [facility] including transfer to extended care facility, signed medication list and any scripts. Originals in SNF folder and copy on pt's chart. JAMES set up transportation through [facility] via cot for 4:00pm. Transportation form on SNF folder and copy on pt's chart. JAMES completed [facility] in [facility] with original in SNF folder and copy on pt's chart. JAMES placed a call to pt's daughter Kath and updated her on pre-cert and of transportation time. Kath states understanding. JAMES updated Charge Nurse Vivien and RN Kyle of transportation time. JAMES placed a call to Elysia at [facility] and left her a message informing her of transportation time and that this worker will make APS referral and to have SW at [facility] follow up with referral once pt is at [facility]. JAMES placed a call to [facility] and provide APS referral to [facility]. JAMES informed [facility] that pt is being discharged today to [facility] and that the SW is to follow up with referral once pt is at [facility]. Plan: Pt to discharge to [facility] today under skilled through [facility] via cot at 4:00pm. Maricruz Wells MSW, SPRAGGER
[2018-04-06 15:42] VITALS: BP 140/70; PULSE 85; RESP 18; TEMP 36.7; O2SAT 93
== END 2018-04-06 16:18 | disposition skilled nursing facility (03) | DRG 562 ==
LOC: ED 04:29 → MS3 04:34
PROVIDERS: Admitting Provider Family Medicine; Emergency Provider Emergency Medicine; Family Provider Physician Assistant; PCP Physician Assistant; Visit Provider Internal Medicine
DX: S42.221A 2-part displaced fracture of surgical neck of right humerus, initial encounter for closed fracture (principal); S72.115A Nondisplaced fracture of greater trochanter of left femur, initial encounter for closed fracture; M97.02XA Periprosthetic fracture around internal prosthetic left hip joint, initial encounter; E44.0 Moderate protein-calorie malnutrition; Z68.1 Body mass index [BMI] 19.9 or less, adult; W06.XXXA Fall from bed, initial encounter; Y92.009 Unspecified place in unspecified non-institutional (private) residence as the place of occurrence of the external cause; E87.6 Hypokalemia; I10 Essential (primary) hypertension; G30.9 Alzheimer's disease, unspecified; F02.80 Dementia in other diseases classified elsewhere, unspecified severity, without behavioral disturbance, psychotic disturbance, mood disturbance, and anxiety; F32.9 Major depressive disorder, single episode, unspecified; R13.10 Dysphagia, unspecified; Z87.891 Personal history of nicotine dependence; Z66 Do not resuscitate; Z96.642 Presence of left artificial hip joint; M81.0 Age-related osteoporosis without current pathological fracture
CPT/HCPCS: 36415; 70450; 72070; 73030; 73502; 80048; 81001; 85025; 92526; 93005; 97162; 97166; 97530; 97535; 97802; 99284; J7030; A4216; G8978; G8979; G8987; G8988

== ENCOUNTER 2018-07-28 17:04 | Emergency (ER) | payer SELFPAY ==
[2018-07-28 17:05] VITALS: BP 148/83; PULSE 82; RESP 16; TEMP 36.6; O2SAT 96; BMI 19.3
--- NOTE | 2018-07-28 17:20 | ED.VISSUMM ---
- ER Visit Summary Date of Service: 07/28/18 Chief Complaint: Left shoulder injury History of Present Illness: The patient is a 83 F who presents with a left shoulder injury that occurred today. Patient fell out of a chair today and landed on her left shoulder. Patient lives at a hospice facility due to advanced Alzheimer's dementia. Patient is a poor historian. Staff at the facility does not report any change in mental status. Patient denies any numbness. Physical Examination: Vital signs are stable. Patient is afebrile. Patient is in no acute distress. There is a hematoma noted over the left shoulder. Range of motion was limited in all motions of the left shoulder secondary to pain. Sensation was intact to light touch in the radial, median, ulnar, and axillary areas. Radial pulses are equal bilaterally. Cranial nerves II through XII are grossly intact. Heart was regular rate and rhythm. Lungs are clear and equal bilaterally. There is adequate respiratory effort noted. Abdomen is soft and nontender. Test Results: X-rays of the left shoulder were obtained. There is a proximal humerus fracture. Emergency Department Course and Treatment: Patient was given an injection of morphine here. Patient was placed in a sling and swath. Patient was discharged back to the hospice facility. Disposition: Discharged back to hospice facility Impression: Left proximal humerus fracture This note was generated with [employer] dictation software. It may contain incorrect words, spelling, and punctuation that were not noted in review of the chart prior to signing ED Disposition - Plan for ED Patient: Disposition: Penitentiary Facility Chief Complaint: Upper Extremity Injury Diagnosis: Closed fracture of left proximal humerus Instructions: ED Fx Shoulder Referrals: Kamajlit Garcia PA [PHYSICIAN PROMOTIONS ASSOCIATE] -
--- NOTE | 2018-07-28 17:26 | ED.DCSUM_ITS ---
- ER Visit Summary Date of Service: 07/28/18 Chief Complaint: Left shoulder injury History of Present Illness: The patient is a 83 F who presents with a left shoulder injury that occurred today. Patient fell out of a chair today and landed on her left shoulder. Patient lives at a hospice facility due to a dvanced Alzheimer's dementia. Patient is a poor historian. Staff at the facility does not report any change in mental status. Patient denies any numbness. Physical Examination: Vital signs are stable. Patient is afebrile. Patient is in no acute distress. There is a hematoma noted over the left shoulder. Range of motion was limited in all motions of the left shoulder secondary to pain. Sensation was intact to light touch in the radial, median, ulnar, and axillary areas. Radial pulses are equal bilaterally. Cranial nerves II through XII are grossly intact. Heart was regular rate and rhythm. Lungs are clear and equal bilaterally. There is adequate respiratory effort noted. Abdomen is soft and nontender. Test Results: X-rays of the left shoulder were obtained. There is a proximal humerus fracture. Emergency Department Course and Treatment: Patient was given an injection of morphine here. Patient was placed in a sling and swath. Patient was discharged back to the hospice facility. Disposition: Discharged back to hospice facility Impression: Left proximal humerus fracture This note was generated with [employer] dictation software. It may contain incorrect words, spelling, and punctuation that were not noted in review of the chart prior to signing ED Disposition - Plan for ED Patient: Disposition: Nursing Home Facility Chief Complaint: Upper Extremity Injury Diagnosis: Closed fracture of left proximal humerus Instructions: ED Fx Shoulder Referrals: Kamaljit Garcia PA [PHYSICIAN MANAGER REQUIREMENTS] -
--- NOTE | 2018-07-28 17:30 | RAD_ITS ---
STUDY: X-RAY - LEFT SHOULDER REASON FOR EXAM: Female, 83 years old. Left shoulder deformity after fall TECHNIQUE: 3 view(s) of the shoulder. COMPARISON: None. FINDINGS: Normal glenohumeral articulation. Normal acromioclavicular joint. Normal acromion. Transverse comment fracture of the humeral neck with longitudinal components extending into the lesser and greater tuberosities. Maximum displacement measures up to 9 mm. There is anterior apical angulation on scapular Y view, approximately 55 degrees. The soft tissue structures are unremarkable. Normal visualized pulmonary apex. RAD/Shoulder min 2 Views IMPRESSION: 1. Humeral neck fracture, likely Neer 2 part classification. Electronically Signed: Sushant Saha MD at 17:53 EST , Service support ,
[2018-07-28] MEDS: morphine 10 MG/ML Syringe 4 MG SC (18:57)
[2018-07-28 19:41] VITALS: BP 131/74; PULSE 82; RESP 18; O2SAT 98
--- NOTE | 2018-07-28 19:41 | ED.RN ---
REPORT GIVEN TO [facility]
--- OUTSIDE RECORDS SUMMARY | 2018-10-31 12:16 | XMS RPT_ITS ---
:1935 Author Organization OHIP Support Name Relationship Address Phone Merillat, Rosa Unavailable [address] + [place] [address] R Unavailable Unavailable Unavailable Merillat, Rosa Unavailable [address] + [place] [address] R Unavailable Unavailable Unavailable Merillat, Rosa Unavailable [address] + [place] [address] R Unavailable Unavailable Unavailable MERILLAT, ROSA Unavailable [address] + [place] [address] R Unavailable Unavailable Unavailable MERILLAT, ROSA Unavailable [address] + [place] [address] R Unavailable Unavailable Unavailable MERILLAT, ROSA Unavailable [address] + [place] [address] R Unavailable Unavailable Unavailable MERILLAT, ROSA Unavailable [address] + [place] [address] R Unavailable Unavailable Unavailable MERILLAT, ROSA Unavailable [address] + [place] [address] R Unavailable Unavailable Unavailable MERILLAT, ROSA Unavailable [address] + [place] [address] R Unavailable Unavailable Unavailable MERILLAT, ROSA Unavailable [address] + [place] [address] R Unavailable Unavailable Unavailable MERILLAT, ROSA Unavailable [address] + [place] [address] R Unavailable Unavailable Unavailable MERILLAT, ROSA Unavailable [address] + [place] [address] R Unavailable Unavailable Unavailable MERILLAT, ROSA Unavailable [address] + [place] [address] R Unavailable Unavailable Unavailable MERILLAT, ROSA Unavailable [address] + [place] [address] R Unavailable Unavailable Unavailable MERILLAT, ROSA Unavailable [address] + [place] [address] R Unavailable Unavailable Unavailable MERILLAT, ROSA Unavailable [address] + [place] [address] R Unavailable Unavailable Unavailable MERILLAT, ROSA Unavailable [address] + [place] [address] R Unavailable Unavailable Unavailable MERILLAT, ROSA Unavailable [address] + [place] [address] R Unavailable Unavailable Unavailable MERILLAT, ROSA Unavailable [address] + [place] [address] R Unavailable Unavailable Unavailable MERILLAT, ROSA Unavailable [address] + [place] [address] R Unavailable Unavailable Unavailable MERILLAT, ROSA Unavailable [address] + [place] [address] R Unavailable Unavailable Unavailable Care Team Providers Name Role Phone DAPHNE ROCHA ([facility]) Attending Unavailable Kamaljit GARCIA (PA-C) Attending Unavailable SHIMA CULP Attending Unavailable KULDIP YOUNGBLOOD Referring Unavailable Kamaljit GARCIA (ITAC) Attending Unavailable Kamaljit GARCIA (EVA-C) Referring Unavailable CARLOS BELTRAN Attending Unavailable CARLOS BELTRAN Referring Unavailable KULDIP YOUNGBLOOD Referring Unavailable CARLOS BELTRAN Referring Unavailable Sandip Valencia Attending Unavailable PROVIDER, UNKNOWN Referring Unavailable Mila Hodge Primary Care Unavailable Cristiano Best Attending Unavailable Carlos Beltran Primary Care Unavailable Adan Hernandez Admitting Unavailable Edmondtsil, Caldwell Attending Unavailable Kamaljit Garcia Primary Care Unavailable Nick To Consulting Unavailable Paintsil, Caldwell Consulting Unavailable Brad, Royce Chi Admitting Unavailable Brad, Royce Chi Attending Unavailable Jay Youngblood Primary Care Unavailable Jay Youngblood Primary Care Unavailable Pricilla, Yoichi Admitting Unavailable Roge Pelayo Consulting Unavailable Naveen Bonilla Attending Unavailable Adan Harvey Consulting Unavailable Brendon Foley Attending Unavailable Brendon Foley Attending Unavailable David Adan Admitting Unavailable Paintsil, Caldwell Attending Unavailable Kamaljit Garcia Primary Care Unavailable Zuleika, Nick Consulting Unavailable Paintsil, Caldwell Consulting Unavailable Hernandez, Adan Admitting Unavailable Paintsil, Caldwell Attending Unavailable Kamaljit Garciaory Primary Care Unavailable Zuleika, Nick Consulting Unavailable Paintsil, Caldwell Consulting Unavailable Andrez Parkril Attending Unavailable Jesese Falk Referring Unavailable Deepthi, Cayetano Admitting Unavailable Jessee Falk Attending Unavailable Kamaljit Garcia Primary Care Unavailable Roge Gordon Consulting Unavailable TerJessee curtis Consulting Unavailable Brad, Royce Chi Admitting Unavailable Brad, Royce Chi Attending Unavailable Brad, Royce Chi Referring Unavailable Kamaljit Garcia Primary Care Unavailable Jessee Falk Admitting Unavailable TerJessee curtis Attending Unavailable Kamaljit Garcia Primary Care Unavailable TerJessee curits Consulting Unavailable DioniciokyJessee Admitting Unavailable Jessee Falk Attending Unavailable Kamaljit Garcia Primary Care Unavailable Jessee Falk Consulting Unavailable Jessee Falk Admitting Unavailable Jessee Falk Attending Unavailable Kamaljit Garciaory Primary Care Unavailable TereletsJessee lloyd Consulting Unavailable Deepthi, Cayetano Admitting Unavailable Kamaljit Garcia Primary Care Unavailable Deepthi, Cayetano Consulting Unavailable Janny Alves Attending Unavailable Kamaljit Garciaory Primary Care Unavailable TerJessee curtis Attending Unavailable Jessee Falk Admitting Unavailable Sementi, Beverly Admitting Unavailable Sementi, Beverly Attending Unavailable Kamaljit Garciaory Primary Care Unavailable Sementi, Beverly Consulting Unavailable Sementi, Beverly Admitting Unavailable Sementi, Beverly Attending Unavailable Kamaljit Garciaory Primary Care Unavailable Sementi, Beverly Consulting Unavailable Kamaljit Garciaory Primary Care Unavailable Sementi, Beverly Admitting Unavailable Sementi, Beverly Attending Unavailable Hernandez, Adan Admitting Unavailable Hernandez, Adan Attending Unavailable Kamaljit Garciaory Primary Care Unavailable Hernandez, Adan Consulting Unavailable Kamaljit Garciaory Primary Care Unavailable Hernandez, Adan Admitting Unavailable Paintsil, Caldwell Attending Unavailable Zuleika, Nick Consulting Unavailable PROBLEMS PROBLEMS DATE TYPE CONDITION / CODE ATTENDING STATUS SOURCE Unknown S49.92XA - Unspecified Cristiano Best Active [place] 9 injury of left Community shoulder and upper Hospital arm, initial encounter Repository / S49.92XA(ICD-10) Active Unknown / UNK(Unknown) NA Active [address] Main [place] Repository Unknown S72.001A - Fracture of Paintsil, Caldwell Active [place] 8 unspecified part of Community neck of right femur, Hospital initial encounter for Repository closed fracture / S72.001A(ICD-10) Unknown S42.221A - 2-part Paintsil, Caldwell Active [place] 8 displaced fracture of Community surgical neck of right Hospital humerus, initial Repository encounter for closed fracture / S42.221A(ICD-10) Unknown S72.302D - Unspecified Brad, Royce Chi Active [place] 8 fracture of shaft of Community left femur, subsequent Hospital encounter for closed Repository fracture with routine healing / S72.302D(ICD-10) Unknown R13.12 - Dysphagia, Brad, Royce Chi Active [place] 8 oropharyngeal phase / Community R13.12(ICD-10) Hospital Repository Unknown R94.31 - Abnormal Xavier, Jayy Active [place] 8 electrocardiogram Community [ECG] [EKG] / Hospital R94.31(ICD-10) Repository Unknown I10 - Essential Xavier, [place] Active [place] 8 (primary) hypertension Community / I10(ICD-10) Hospital Repository Unknown S72.002A - Fracture of Tereletsky, Active [place] 8 unspecified part of [place] Community neck of left femur, Hospital initial encounter for Repository closed fracture / S72.002A(ICD-10) Active Alzheimer's disease, NA Active [place] 8 unspecified / Clinic Main G30.9(ICD-10) [place] Repository Active Dementia in other NA Active [place] 8 diseases classified Clinic Main elsewhere without [place] behavioral disturbance Repository / F02.80(ICD-10) Active Hesitancy of NA Active [place] 8 micturition / Clinic Main R39.11(ICD-10) [place] Repository Active Unspecified urinary NA Active [place] 8 incontinence / Clinic Main R32(ICD-10) [place] Repository Active Cough / R05(ICD-10) NA Active [place] [address] [facility] Main [place] Repository Active Dehydration / NA Active [place] [address] E86.0(ICD-10) Clinic Main [place] Repository Active Urinary tract NA Active [place] [address] infection, site not Clinic Main specified / [place] N39.0(ICD-10) Repository Active Unspecified NA Active [place] 8 Escherichia coli (E. Clinic Main coli) as the cause of [place] diseases classified Repository elsewhere / B96.20(ICD-10) Admitting Displ intertroch fx r Frangiamore, [facility] femur, subs for clos Sandip System fx w routn heal / Repository S72.141D(ICD-10) Unknown S32.591D - Other Brad, Royce Chi Active [place] 8 specified fracture of Community right pubis, Hospital subsequent encounter Repository for fracture with routine healing / S32.591D(ICD-10) Unknown S72.141A - Displaced Chad, Naveen Active [place] 8 intertrochanteric Community fracture of right Hospital femur, initial Repository encounter for closed fracture / S72.141A(ICD-10) PROCEDURES PROCEDURES No Procedure Records FoundRESULTS RESULTS EMERGENCY DEPARTMENT Observed: 07/28/2018 Status: F Source: [place] SUMMARY 6:47 PM [facility] [place] [facility] Medical Records Department [address] [place] [address] Emergency Department Summary 07/28/18 1720 MR#: [id number] Acct: [id number] Name: REYNOLD HERNANDEZ Rep #: [id number] : 1935 83 From: Cristiano Best DO PCP: Carlos Beltran MD Status: REG ER - ER Visit Summary Date of Service: 07/28/18 Chief Complaint: Left shoulder injury History of Present Illness: The patient is a 83 F who presents with a left shoulder injury that occurred today. Patient fell out of a chair today and landed on her left shoulder. Patient lives at a hospice facility due to advanced Alzheimer's dementia. Patient is a poor historian. Staff at the facility does not report any change in mental status. Patient denies any numbness. Physical Examination: Vital signs are stable. Patient is afebrile. Patient is in no acute distress. There is a hematoma noted over the left shoulder. Range of motion was limited in all motions of the left shoulder secondary to pain. Sensation was intact to light touch in the radial, median, ulnar, and axillary areas. Radial pulses are equal bilaterally. Cranial nerves II through XII are grossly intact. Heart was regular rate and rhythm. Lungs are clear and equal bilaterally. There is adequate respiratory effort noted. Abdomen is soft and nontender. Test Results: X-rays of the left shoulder were obtained. There is a proximal humerus fracture. Emergency Department Course and Treatment: Patient was given an injection of morphine here. Patient was placed in a sling and swath. Patient was discharged back to the hospice facility. Disposition: Discharged back to hospice facility Impression: Left proximal humerus fracture This note was generated with [employer] dictation software. It may contain incorrect words, spelling, and punctuation that were not noted in review of the chart prior to signing ED Disposition - Plan for ED Patient: Disposition: Nursing Home Facility Chief Complaint: Upper Extremity Injury Diagnosis: Closed fracture of left proximal humerus Instructions: ED Fx Shoulder Referrals: Kamaljit Garcia PA [[employer]] - What to do if you have Problems For any increased pain, shortness of breath, bleeding, nausea or vomiting, chest pain, or any unexpected problems, contact your Primary Care Provider. Call [facility] ([phone]) or report to the closest Emergency Room. Call 911 if necessary. 07/28/18 9495 <Electronically signed by Cristiano Best DO> Date Cristiano Best DO Cosigner Signature (If Indicated): Date CC: Carlos Beltran MD SHOULDER MIN 2 VIEWS Observed: 07/28/2018 Status: F Source: [place] 5:20 PM [facility] [place] [facility] Imaging Services [address] [place] [address] Shoulder min 2 Views MR#: [id number] Acct: [id number] Name: REYNOLD HERNANDEZ Rep #: [id number] : 1935 F 83 From: Sushant Saha MD PCP: Carlos Beltran MD Status: REG ER Study: Shoulder min 2 Views Date of Exam: 07/28/18 Exam# [id number] Ordering Dr: Cristiano Best DO STUDY: X-RAY - LEFT SHOULDER REASON FOR EXAM: Female, 83 years old. Left shoulder deformity after fall TECHNIQUE: 3 view(s) of the shoulder. COMPARISON: None. FINDINGS: Normal glenohumeral articulation. Normal acromioclavicular joint. Normal acromion. Transverse comment fracture of the humeral neck with longitudinal components extending into the lesser and greater tuberosities. Maximum displacement measures up to 9 mm. There is anterior apical angulation on scapular Y view, approximately 55 degrees. The soft tissue structures are unremarkable. Normal visualized pulmonary apex. RAD/Shoulder min 2 Views IMPRESSION: 1. Humeral neck fracture, likely Neer 2 part classification. Electronically Signed: Sushant Saha MD at 17:53 EST , Service support , CC: Cristiano Best DO; Carlos Beltran MD 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: Signed PROGRESS Observed: 06/25/2018 Status: COMPLETED Source: [place] 3:07 PM [facility] REPOSITORY O ID: [id number] Author: Marisela Thomas LPN Service: (none) Author Type: (none) Type: Progress Notes Filed: 06/25/2018 3:07 PM Note Text: 83 year old female here for INACTIVATED INFLUENZA VACCINE. [id number] Season Patient is identified by name and date of : Yes [] CONTRAINDICATIONS color enhanced section Age less than 6 months? No Allergy to eggs, chicken, chicken feathers, or chicken dander? No Allergy to thimerosal (a preservative) or formaldehyde, gelatin? No History of severe reaction to any vaccine component or a previous dose of influenza vaccination? No History of Guillain-Aguas Buenas Syndrome within 6 weeks after a previous influenza vaccine? No Patient is not moderately or severely ill? No Current temperature greater or equal to 100.4F? No History of Bone Marrow Transplant prior 6 months or solid organ transplant in the past 3 months ? No History of fainting after a prior injection or medical procedure? No- ? If patient has fainted in the past, the CDC recommends sitting or lying down for 15 minutes after the vaccination. [] VERIFICATION color enhanced section Was the answer Yes for any of the above contraindications? No contraindications present. Acceptable to proceed with vaccine. Patient/guardian agrees the above answers are true to the best of their knowledge? Yes Flu vaccine information sheet given? Yes See immunization activity in [facility] for details of immunizations adminstered today. Patient age: [age] year old For The 2879-6386 Flu Season 6-35 months old: Fluzone 0.25 ml - IM (Preservative Free) 3 years of age: Fluzone 0.5 ml - IM (Preservative Free) 3 years and older: Fluzone 0.5 ml- IM-(with Preservatives) 65+ years old: 2-49 years old Fluzone High-Dose 0.5 ml - IM (Preservative Free) FLUMIST- intranasal REMEMBER: If patient is less than 9 years of age and this is the first vaccine of Influenza to be received in any flu season, they should receive a second dose in one months time. CNNURSE Observed: 06/25/2018 Status: COMPLETED Source: [place] 3:00 PM [facility] REPOSITORY [facility] REYNOLD HERNANDEZ ([id number]) 1935 F Date Time Provider Department 06/25/18 3:00 PM [place] NURSE BETTY During your visit today, we recorded the following information about you: Marisela Hoskinsgisselle MARSH 06/25/2018 3:07 PM Signed 83 year old female here for INACTIVATED INFLUENZA VACCINE. [id number] Season Patient is identified by name and date of : Yes [] CONTRAINDICATIONS color enhanced section Age less than 6 months? No Allergy to eggs, chicken, chicken feathers, or chicken dander? No Allergy to thimerosal (a preservative) or formaldehyde, gelatin? No History of severe reaction to any vaccine component or a previous dose of influenza vaccination? No History of Guillain-Aguas Buenas Syndrome within 6 weeks after a previous influenza vaccine? No Patient is not moderately or severely ill? No Current temperature greater or equal to 100.4F? No History of Bone Marrow Transplant prior 6 months or solid organ transplant in the past 3 months ? No History of fainting after a prior injection or medical procedure? No- ? If patient has fainted in the past, the CDC recommends sitting or lying down for 15 minutes after the vaccination. [] VERIFICATION color enhanced section Was the answer Yes for any of the above contraindications? No contraindications present. Acceptable to proceed with vaccine. Patient/guardian agrees the above answers are true to the best of their knowledge? Yes Flu vaccine information sheet given? Yes See immunization activity in [facility] for details of immunizations adminstered today. Patient age: [age] year old For The 6915-0083 Flu Season 6-35 months old: Fluzone 0.25 ml - IM (Preservative Free) 3 years of age: Fluzone 0.5 ml - IM (Preservative Free) 3 years and older: Fluzone 0.5 ml- IM-(with Preservatives) 65+ years old: 2-49 years old Fluzone High-Dose 0.5 ml - IM (Preservative Free) FLUMIST- intranasal REMEMBER: If patient is less than 9 years of age and this is the first vaccine of Influenza to be received in any flu season, they should receive a second dose in one months time. Referring Provider: CARLOS BELTRAN [[id number]] Allergies As of Date: 06/25/2018 Noted Allergy Reaction PENICILLIN 11/01/2017 16 - Unknown Date Reviewed: 01/02/2018 Reviewed by: Selena Alva) DEBORAH Kiran - Fully Assessed Reason for Visit: Imm/Inj [58] Cmt: Flu Vaccine Primary Visit Diagnosis:Need for vaccination [Z23] Order(s):INFLUENZA SEASONAL HIGH DOSE AGE 65+ [16203PMR] Order #: [id number] Prescriptions as of 06/25/2018 Sig: SERTRALINE 25 MG TABLET Take 1 tablet by mouth once d* LISINOPRIL 10 MG TABLET Take 1 tablet by mouth once d* CHILDREN'S CHEWABLE MULTIVITM* Take 1 tablet by mouth once d* BOOST HIGH PROTEIN ORAL Take by mouth. BABY ASPIRIN ORAL Take by mouth. Problem List As Of Date 06/25/2018 Noted Resolved Hip fx, right, sequela [S72.001S] INVALID FOR* Alzheimer's dementia without behavioral disturb*INVALID FOR* More... Benign essential HTN [I10] INVALID FOR* Anxiety [F41.9] INVALID FOR* More... Adenomatous polyp [D36.9] INVALID FOR* More... Age-related osteoporosis without current pathol*INVALID FOR* More... Hyperlipidemia, mixed [E78.2] INVALID FOR* More... Fracture of proximal end of left femur (HCC) [S*INVALID FOR* More... Encounter Status:Closed by MARISELA THOMAS LPN on 06/25/18 PROGRESS Observed: 06/20/2018 Status: COMPLETED Source: [place] 2:31 PM CL[facility]IC MAIN [facility]AMPUS REPOSITORY HNO ID: [id number] Author: Olga ([facility]) Jayne Service: (none) Author Type: Registered Nurse Type: Progress Notes Filed: 06/22/2018 11:20 AM Note Text: PRIMARY CARE COORDINATION QUICK NOTE Provider Action/YSABEL Pt taken home from [facility] 2 weeks ago by dgt. Pt home with dgt now and is ambulating with gait belt and 1-2 person assist Pt has been getting to bathroom to void rather than be in diapers. Pt is on Hospice Dgt will bring pt in to see Cherise Garcia in 1-2 weeks Patient identified by name and date . TC from daughter, left message stating patient came home from [facility] SNF 2 weeks ago. Pt is now Hospice. Hospice will send a wheelchair van for patient to go to appt with Dr. Gordon 06/25 at 3:30. Dgt wants pt to come in for Flu shot, appt scheduled for 06/25 at 3:00 Dgt will bring pt in to see Cherise Garcia in a week or two. Pt was in diapers and not performing PT while in [facility], however the nurses were not giving her pain meds and pt was in too much pain to participate in PT. Pt has been home and dgt and private pay aid have been working with pt. She is now walking 35 ft with gait belt assist and is getting up to bathroom. Olga Godoy RN June 20, 2018 3:49 PM PETRA Observed: 06/20/2018 Status: COMPLETED Source: [place] 12:00 AM [facility] REPOSITORY Patient Outreach ([facility]) REYNOLD HERNANDEZ ([id number]) 1935 F Date Time Provider Department 06/20/18 OLGA GODOY) BETTY During your visit today, we recorded the following information about you: Olga Godoy RN 06/22/2018 11:20 AM Signed PRIMARY CARE COORDINATION QUICK NOTE Provider Action/FYI Pt taken home from [facility] 2 weeks ago by dgt. Pt home with dgt now and is ambulating with gait belt and 1-2 person assist Pt has been getting to bathroom to void rather than be in diapers. Pt is on Hospice Dgt will bring pt in to see Cherise Garcia in 1-2 weeks Patient identified by name and date . TC from daughter, left message stating patient came home from [facility] 2 weeks ago. Pt is now Hospice. Hospice will send a wheelchair van for patient to go to appt with Dr. Gordon 06/25 at 3:30. Dgt wants pt to come in for Flu shot, appt scheduled for 06/25 at 3:00 Dgt will bring pt in to see Cherise Garcia in a week or two. Pt was in diapers and not performing PT while in [facility], however the nurses were not giving her pain meds and pt was in too much pain to participate in PT. Pt has been home and dgt and private pay aid have been working with pt. She is now walking 35 ft with gait belt assist and is getting up to bathroom. Olga Godoy RN June 20, 2018 3:49 PM Allergies As of Date: 06/20/2018 Noted Allergy Reaction PENICILLIN 11/01/2017 16 - Unknown Date Reviewed: 01/02/2018 Reviewed by: Selena Alva) DEBORAH Kiran - Fully Assessed Reason for Visit: [facility] Follow Up [3610] Prescriptions as of 06/20/2018 Sig: SERTRALINE 25 MG TABLET Take 1 tablet by mouth once d* LISINOPRIL 10 MG TABLET Take 1 tablet by mouth once d* CHILDREN'S CHEWABLE MULTIVITM* Take 1 tablet by mouth once d* BOOST HIGH PROTEIN ORAL Take by mouth. BABY ASPIRIN ORAL Take by mouth. Problem List As Of Date 06/20/2018 Noted Resolved Hip fx, right, sequela [S72.001S] INVALID FOR* Alzheimer's dementia without behavioral disturb*INVALID FOR* More... Benign essential HTN [I10] INVALID FOR* Anxiety [F41.9] INVALID FOR* More... Adenomatous polyp [D36.9] INVALID FOR* More... Age-related osteoporosis without current pathol*INVALID FOR* More... Hyperlipidemia, mixed [E78.2] INVALID FOR* More... Fracture of proximal end of left femur (HCC) [S*INVALID FOR* More... Encounter Status:Closed by OLGA GODOY on 06/22/18 CBC-COMPLETE BLOOD CNT Collected: 04/18/2018 Status: F Source: [place] NO DIFF 7:00 AM [facility] [place] Order Comment: ROOM 305 TYPE CODE TESTS RESULT OUT OF RANGE REFERENCE UNITS LAB L100.1000 4.4-11.0 K/mm3 Normal WBC 8.1 LAB L100.1200 4.2-5.4 M/mm3 Low RBC 4.09 LAB L100.1300 12.0-15.0 g/dl Low HGB 11.3 LAB L100.1400 37-47 % Low HCT 36.2 LAB L100.1500 81-99 fL Normal MCV 88.5 LAB L100.1600 27.0-32.0 pg Normal MCH 27.6 LAB L100.1700 32-36 g/gl Low MCHC 31.2 LAB L100.1810 11.6-14.6 % Normal RDW CV 14.5 LAB L100.1820 35.1-43.9 fl High RDW SD 46.9 LAB L100.1900 150-450 K/mm3 Normal PLT 442 LAB L100.2000 6.2-12.0 fl Normal MPV 9.4 Performed By: #### L100.0500 #### [facility] [place], [address] BASIC METABOLIC Collected: 04/18/2018 Status: F Source: [place] PROFILE (BMP) 7:00 AM [facility] [place] Order Comment: ROOM 305 TYPE CODE TESTS RESULT OUT OF RANGE REFERENCE UNITS LAB L501.0100 74-106 mg/dL Normal GLU 85 Result Comment: Please note revised GLUCOSE reference range effective 2017. LAB L501.1000 7-18 mg/dL High BUN 23 LAB L501.1100 0.55-1.02 mg/dL Low CREAT,SERUM 0.39 Result Comment: The validity of the calculated GFR AND GFRAA in patients over 70 years has not been determined. Clinical correlation is essential. LAB L501.1110 >60 mL/min Normal EST GFR 169 Result Comment: Non- GFR Calc LAB L501.1115 >60 mL/min Normal EST GFR - AA 204 Result Comment: GFR Calc LAB L501.1300 10-20 RATIO High BUN/CRE 59.6 LAB L501.2200 8.5-10.1 mg/dL CA Normal 8.7 LAB L501.5300 136-145 mmol/L NA Normal 138 LAB L501.5600 3.5-5.1 mmol/L K Normal 3.7 LAB L501.5900 98-107 mmol/L CL Normal 102 LAB L501.6100 21.0-32.0 mmol/L Normal CO2 29.0 LAB L501.6200 5-15 Normal GAP 7 Performed By: #### L500.2500 #### [facility] [address] [place], [address] BASIC METABOLIC Collected: 04/11/2018 Status: F Source: [place] PROFILE (BMP) 6:00 AM [facility] [place] [facility] Order Comment: ROOM 305 TYPE CODE TESTS RESULT OUT OF RANGE REFERENCE UNITS LAB L501.0100 74-106 mg/dL Normal GLU 81 Result Comment: Please note revised GLUCOSE reference range effective 2017. LAB L501.1000 7-18 mg/dL High BUN 21 LAB L501.1100 0.55-1.02 mg/dL Low CREAT,SERUM 0.34 Result Comment: The validity of the calculated GFR AND GFRAA in patients over 70 years has not been determined. Clinical correlation is essential. LAB L501.1110 >60 mL/min Normal EST GFR 195 Result Comment: Non- GFR Calc LAB L501.1115 >60 mL/min Normal EST GFR - AA 236 Result Comment: GFR Calc LAB L501.1300 10-20 RATIO High BUN/CRE 61.6 LAB L501.2200 8.5-10.1 mg/dL Low CA 8.4 LAB L501.5300 136-145 mmol/L NA Normal 137 LAB L501.5600 3.5-5.1 mmol/L K Normal 3.9 LAB L501.5900 98-107 mmol/L CL Normal 102 LAB L501.6100 21.0-32.0 mmol/L Normal CO2 26.0 LAB L501.6200 5-15 Normal GAP 9 Performed By: #### L500.2500 #### [facility] [address] [place], [address] CBC-COMPLETE BLOOD CNT Collected: 04/11/2018 Status: F Source: [place] NO DIFF 6:00 AM [facility] [place] [facility] Order Comment: ROOM 305 TYPE CODE TESTS RESULT OUT OF RANGE REFERENCE UNITS LAB L100.1000 4.4-11.0 K/mm3 Normal WBC 6.9 LAB L100.1200 4.2-5.4 M/mm3 Low RBC 3.73 LAB L100.1300 12.0-15.0 g/dl Low HGB 10.2 LAB L100.1400 37-47 % Low HCT 32.9 LAB L100.1500 81-99 fL Normal MCV 88.2 LAB L100.1600 27.0-32.0 pg Normal MCH 27.3 LAB L100.1700 32-36 g/gl Low MCHC 31.0 LAB L100.1810 11.6-14.6 % Normal RDW CV 14.6 LAB L100.1820 35.1-43.9 fl High RDW SD 46.7 LAB L100.1900 150-450 K/mm3 Normal PLT 280 LAB L100.2000 6.2-12.0 fl Normal MPV 9.3 Performed By: #### L100.0500 #### [facility] [address] [place], [address] DISCHARGE SUMMARY Observed: 04/06/2018 Status: F Source: [place] 3:10 PM [facility] [place] [facility] Medical Records Department [facility] [place] [place] [address] Discharge Summary 04/06/18 1235 MR#: [id number] Acct: [id number] Name: REYNOLD HERNANDEZ Rep #: [id number] : 1935 82 From: Elma Forman MD PCP: Kamaljit Garcia Status: ADM IN [place] [facility] [place] [id number] Discharge Date and Diagnosis - Problem List Patient Problems: Active and Suspected Problems 2-part displaced fracture of surgical neck of right humerus (Acute) Fracture of greater trochanter of left femur (Acute) Fall from bed (Acute) Hypokalemia (Acute) Date of Admission: 04/03/18 Date of Discharge: 04/06/18 - Primary Discharge Diagnosis Active and Suspected Problems 2-part displaced fracture of surgical neck of right humerus (Acute) Fracture of greater trochanter of left femur (Acute) Fall from bed (Acute) Hypokalemia (Acute) - Secondary Discharge Diagnosis Chronic Problems Hypertension (Chronic) Alzheimer's disease (Chronic) Sinus bradycardia (Chronic) Essential hypertension, benign (Chronic) 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 Electronically Signed: Carlos Huizar MD at 2:35 EDT Tel , Service support , Shoulder X-Ray 04/03/18 01:17 IMPRESSION: Displaced fracture of the surgical neck of the humerus. Electronically Signed: Carlos Huizar MD at 3:05 EDT Tel , Service support , Hip/Pelvis X-Ray 04/03/18 01:47 IMPRESSION: Acute fracture of the left greater femoral trochanter. Electronically Signed: Carlos Huizar MD at 3:09 EDT Tel , Service support , Thoracic Spine X-Ray 04/03/18 01:47 IMPRESSION: No acute osseous injury is evident. Comment: If there is further clinical concern for a radiographically occult spinal fracture, consider CT correlation if possible. Electronically Signed: Carlos Huizar MD at 2:57 EDT Tel , Service support , Hip X-Ray 04/03/18 07:55 IMPRESSION: Status post left total hip replacement. Nondisplaced fracture in the proximal femoral shaft just distal to the intertrochanteric region. Electronically Signed: Archie Carreon MD at 11:26 EDT Tel [phone], Service support , Orthopedics Operations: None Procedures: None Summary of Care Provided: 82-year-old female with past medical history of Alzheimer's disease, osteoporosis, history of recent fracture, discharged from long term facility comes in after a fall and sustained a displaced fracture surgical neck of the humerus as well as fracture of the left greater femoral trochanter. 1. Acute left surgical neck of the humerus fracture, left greater trochanteric fracture, secondary to mechanical fall, orthopedics were consulted. Did not recommend surgery after long discussion with the patient's daughter. Recommended conservative management with pain control and follow-up. Patient was managed on scheduled Tylenol as well as oxycodone. She was found to be very sensitive to the IV morphine and pain meds with reported lethargy 2. Hypertension, initially was elevated secondary to pain, better controlled with pain control, not on any home regimen 3. 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 4. Malnutrition, moderate, storage architect following 5. Alzheimer's dementia, not on any meds 6. Depression, on Zoloft Discharge Diet: No Restrictions Discharge Activity: Return to Normal Activity Home Medications: Medications to take at Discharge Polyethylene Glycol 3350 [Miralax] 17 gm PO PRN PRN 12/30/17 Sertraline HCl [Zoloft] 25 mg PO DAILY 12/30/17 Acetaminophen [Tylenol] 1,000 mg PO Q8H PRN tablet 03/16/18 Menthol/Lanolin/Calamine/Znox [Calmoseptine Ointment] 1 applic TOPICAL TID tube 03/16/18 Potassium Chloride [K-Dur] 20 meq PO DAILY #30 tab 03/16/18 Aspirin [Aspirin, Baby] 81 mg PO DAILY@0800 04/03/18 Multivitamin [Multiple Vitamins] 1 tab PO DAILY 04/03/18 Enoxaparin [Lovenox] 40 mg SC DAILY@1000 syringe 04/06/18 Ensure Enlive 120 ml PO 4X/DAY liquid 04/06/18 Oxycodone [Oxyir] 5 mg PO Q4H PRN PRN 5 Days #20 tab 04/06/18 Following Prescrptions Were Given to Patient: Oxycodone [Oxyir] 5 mg PO Q4H PRN PRN 5 Days #20 tab PRN Reason: Severe Pain (-05/23) Primary Care Physician: Kamaljit Garcia PA [Primary Care Provider] - Please follow up with your Primary Care Physician in: within 2 weeks Please Follow Up With: Nick To MD When: in 2 weeks Disposition: Nursing Home facility Minutes spent on discharge:: 40 Patient Condition:: Stable Medical Necessity - Tobacco Use Smoking Status: Former smoker Meaningful Use Info Meaningful Use Diagnoses (Choose all that apply): None applicable Code Visit Inpatient E AND M: 54715 Disch Hosp 04/06/18 1510 <Electronically signed by Elma Forman MD> Date Elma Forman MD Cosigner Signature (if applicable): Date CC: Kamaljit Garcia; Elma Forman MD Signed TRANSFER TO EXTENDED Observed: 04/06/2018 Status: F Source: [facility] 12:37 PM [facility] [place] [facility] Medical Records Department [address] [place] [address] Transfer to Extended Care MR#: [id number] Acct: [id number] Name: REYNOLD HERNANDEZ Michi Rep #: [id number] : 1935 82 From: Elma Forman MD PCP: Kamaljit Garcia Status: ADM IN REYNOLD HERNANDEZ (Patient) (Health Ins. Claim No.) (Day of Discharge to Facility) Certification of patient admission REQUIRED AT TIME OF ADMISSION. I CERTIFY THAT POST-HOSPITAL ECF SERVICES ARE REQUIRED TO BE GIVEN ON AN IN-PATIENT BASIS BECAUSE OF THE ABOVE NAMED PATIENT'S NEED FOR CORRECTION CARE ON A CONTINUING BASIS FOR THE CONDITION(S) FOR WHICH HE/SHE WAS RECEIVING IN-PATIENT HOSPITAL SERVICES PRIOR TO HIS/HER TRANSFER TO THE [facility]. 04/06/18 1235 <Electronically signed by Elma Forman MD> Date Elma Forman MD ADDENDUM by Elma Forman MD on 04/06/18 at 1237 Code Visit Speech therapy to evaluate and treat in SNF 04/06/18 1237 <Electronically signed by Elma Forman MD> Date Elma Forman MD cc: Kamaljit Garcia; Nick To MD * Signed - Diet 04/05/18 09:21 Diet: Regular Diet Food consistency:: Puree Liquid Consistency:: Regular/Thin Dietary Modifications:: Pureed Diet Type of Dietary Supplement:: [place] Breakfast Is pt able to select menu?: No Diet Comments: 1:1 supervision, meds crushed, likes chocolate ice cream AND strwbrry yogurt - Routine Orders/Code Status Routine Lab Work: CBC - within 3 days, BMP - within 3 days Code Status: DNRCC-A - Therapies Weight Bearing: Weight bearing as tolerated Extremity Affected:: Bilateral Lower Physical Therapy: Eval and Treat Occupational Therapy: Eval and Treat - Allergies/Procedures Done in Hospital Allergies/Adverse Reactions: Allergies Penicillins [PCN] Allergy (Verified 04/03/18 05:48) Unknown Procedures: None - Type of Care/Length of Stay Estimated LOS: Convalescent Care Less Than 30 days Type of Care Needed: Skilled Rehab Potential: Fair Prognosis: Fair - Additional Orders/Day of Discharge Day of Discharge: 04/06/18 - Dietary and Speech Recommendations Dietitian Recommendations/Changes: Suggest advance diet as tolerated to regular/no added salt as medically able. Will add 120 ml ensure enlive 4 times per day on medpass, pending advancement of PO diet. - Follow Up Care Primary Care Physician: Kamaljit Garcia PA [Primary Care Provider] - Please follow up with your Primary Care Physician in: within 2 weeks Please Follow Up With: Nick To MD When: in 2 weeks 04/06/18 1235 <Electronically signed by Elma Forman MD> Date Elma Forman MD CC: Kamaljit Garcia; Nick To MD Signed PROGRESS Observed: 04/06/2018 Status: COMPLETED Source: [place] 11:46 AM [facility] HNO ID: [id number] Author: Carlos Beltran Service: (none) Author Type: Physician Type: Progress Notes Filed: 04/06/2018 4:52 PM Note Text: noted PROGRESS Observed: 04/06/2018 Status: COMPLETED Source: [place] 11:24 AM [facility] RE[facility] HNO ID: [id number] Author: Olga Hoffman) Jayne Service: (none) Author Type: Registered Nurse Type: Progress Notes Filed: 04/06/2018 11:30 AM Note Text: PRIMARY CARE COORDINATION FOLLOW-UP NOTE Provider Action/FYI Re-admitted to [facility] on 04/03 for 2 part displaced fracture of surgical neck of right humerus, fracture of greater trochanter of left femur, fall from bed, Alzheimer's disease and Hypokalemia PCC re-admitted patient to Care Coordination Patient identified by name and date of . YES Spoke to daughterRosa Concerns: Pt had another fall and was re-admitted to [facility] on 04/03 for 2 part displaced fracture of surgical neck of right humerus, fracture of greater trochanter of left femur, fall from bed, Alzheimer's disease and Hypokalemia Immigration Case Worker plan for next outreach: Will follow up at hospital discharge Signature Olga Godoy RN April 06, 2018 12 LEAD ELECTROCARDIOGRAM Observed: 04/05/2018 Status: F Source: [place] 1:37 PM [facility] [place] [facility] Cardiovascular Services [address] [place] [address] 12 Lead EKG 04/03/18 0138 MR#: [id number] Acct: [id number] Name: REYNOLD HERNANDEZ Rep #: [id number] : 1935 82 From: Adan Harvey MD Attending Dr: Elma Forman MD Status: ADM IN Ordering Dr: Nilo Mcclendon MD Date: 04/03/18 Location: [facility] Sex: F C Admitted: 04/03/18 Test Reason : UPPER EXTREMITY Blood Pressure : / mmHG Vent. Rate : 088 BPM Atrial Rate : 088 BPM P-R Int : 186 ms QRS Dur : 074 ms QT Int : 394 ms P-R-T Axes : 058 069 073 degrees QTc Int : 476 ms Sinus rhythm with Premature atrial complexes Nonspecific ST abnormality Abnormal ECG Confirmed by ANTONINO WASHINGTON, ADAN ([id number]), deputy editor in chief FRITZ FOLEY ([id number]) on 04/05/2018 1:37:18 PM Referred By: HAKAN Confirmed By:ADAN HARVEY MD 04/05/18 1337 Date Adan Harvey MD CC: Kamaljit Garcia; Elma Forman MD; NILO MCCLENDON MD Signed BASIC METABOLIC Collected: 04/04/2018 Status: F Source: [place] PROFILE (BMP) 6:08 AM [facility] [place] [facility] TYPE CODE TESTS RESULT OUT OF RANGE REFERENCE UNITS LAB L501.0100 74-106 mg/dL Normal GLU 94 Result Comment: Please note revised GLUCOSE reference range effective 2017. LAB L501.1000 7-18 mg/dL Normal BUN 17 LAB L501.1100 0.55-1.02 mg/dL Low CREAT,SERUM 0.33 Result Comment: The validity of the calculated GFR AND GFRAA in patients over 70 years has not been determined. Clinical correlation is essential. LAB L501.1110 >60 mL/min Normal EST GFR 200 Result Comment: Non- GFR Calc LAB L501.1115 >60 mL/min Normal EST GFR - AA 242 Result Comment: GFR Calc LAB L501.1255 ml/min Normal Estimated CRCL 35.06 LAB L501.1300 10-20 RATIO High BUN/CRE 50.9 LAB L501.2200 8.5-10 mg/dL Low .1 CA 8.0 LAB L501.5300 136-14 mmol/L Normal 5 NA 138 LAB L501.5600 3.5-5. mmol/L Normal 1 K 3.8 LAB L501.5900 98-107 mmol/L Normal CL 106 LAB L501.6100 21.0-3 mmol/L Low 2.0 CO2 20.0 LAB L501.6200 5-15 Normal GAP 12 Performed By: #### L500.2500 #### [facility] [place], [address] CBC W/DIFF, AUTOMATED Collected: 04/04/2018 Status: F Source: [place] 6:08 AM [facility] [place] [facility] TYPE CODE TESTS RESULT OUT OF RANGE REFERENCE UNITS LAB L100.1000 4.4-11.0 K/mm3 Normal WBC 8.6 LAB L100.1200 4.2-5.4 M/mm3 Low RBC 3.79 LAB L100.1300 12.0-15.0 g/dl Low HGB 10.6 LAB L100.1400 37-47 % Low HCT 34.8 LAB L100.1500 81-99 fL Normal MCV 91.8 LAB L100.1600 27.0-32.0 pg Normal MCH 28.0 LAB L100.1700 32-36 g/gl Low MCHC 30.5 LAB L100.1810 11.6-14.6 % Normal RDW CV 14.2 LAB L100.1820 35.1-43.9 fl High RDW SD 47.4 LAB L100.1900 150-450 K/mm3 Low PLT 149 LAB L100.2000 6.2-12.0 fl Normal MPV 9.8 LAB L100.2100 47-70 % High NEUT% 75.0 LAB L100.2200 19-41 % Low LY% 13.3 LAB L100.2300 0-10 % High MONO% 10.3 LAB L100.2400 0-5 % Normal EO% 1.0 LAB L100.2500 0-1 % Normal BASO% 0.3 LAB L100.2550 0.0-0.9 % Normal IM GRAN % 0.100 Result Comment: IG% - Immature Granulocytes (promyelocytes, myelocytes and metamyelocytes) > 1% indicates that a LEFT SHIFT is Present. LAB L100.2620 2.0-7.7 X10 3/uL Normal Absolute Neut 6.5 LAB L100.2720 0.83-4.51 X10 3/ul Normal Absolute Lymph 1.15 Performed By: #### L100.0100 #### [facility] [address] [place], [address] CONSULTATION Observed: 04/03/2018 Status: F Source: [place] 7:20 PM [facility] [place] [facility] Medical Records Department [address] [place] [address] Consultation 04/03/181912 MR#: [id number] Acct: [id number] Name: REYNOLD HERNANDEZ Rep #: [id number] : 1935 82 From: Nick To MD PCP: Kamaljit Garcia Status: ADM IN Y [id number] Reason for Consult Date of Consultation: 04/03/18 Reason for Consultation: Left hip pain, right shoulder pain status post fall. Requested by Dr. Forman History of Present Illness: The patient is a 82 year old F with severe dementia who lives at home with her family presented to the emergency department last evening after a fall. Patient had a previous fall with left hip femoral neck fracture and subsequent hemiarthroplasty with cemented implants on February 17. Patient's daughter is at bedside and gives most of the history. She states the patient was discharged from the TCU after her insurance benefits ran out. She was discharged home with the family. Patient's daughter states patient is not able to follow orders and try to get up and walk and ended up falling last evening. She is complaining of left hip pain and right shoulder pain. The remainder of the details of the pain are difficult to obtain due to the patient's mental cognition. She is in her right sling. He remains neurovascularly intact. Per the daughter the patient has had dementia and Alzheimer's for the last 10 years and is noncompliant with instructions. When I asked if she will be able to do nonweightbearing or restrictions after surgery patient's daughter did not feel patient can follow with compliance. She is worried about nonweightbearing with nonoperative treatment during our discussion. 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 Smoking Status: Former smoker - *Family History Maternal History Items: No pertinent history Paternal History Items: No pertinent history Review of Systems Constitutional: Reports: - - Cachectic HEENT: Denies: Dysphasia Cardiovascular: Denies: Chest Pain Respiratory: Denies: Cough Gastrointestinal: Denies: Abdominal Pain Genitourinary: Denies: Dysuria Musculoskeletal: Reports: - - See HPI Skin: Denies: Dryness Neurological: Reports: Balance problems Psychiatric: Reports: - - Alzheimer's dementia Hematologic/ Lymphatic: Denies: Adenopathy Patient Problems: Active and Suspected Problems 2-part displaced fracture of surgical neck of right humerus (Acute) Fracture of greater trochanter of left femur (Acute) Fall from bed (Acute) Hypokalemia (Acute) Objective: Left hip radiographs are reviewed showing a nondisplaced greater trochanteric fracture. This is a [place] a periprosthetic fracture. Right shoulder x-ray show a displaced anatomic neck proximal humerus fracture with varus alignment and posterior displacement. - Physical Exam General: Non-Cooperative Abdomen: - - Right upper extremity bruising ecchymosis around the shoulder. Bruising and ecchymosis over the hip. Previous incision is well-healed. Remainder of the exam is difficult to obtain secondary to patient's mental status. Vital Signs Temp Pulse Resp BP Pulse Ox 98.9 F 99 14 149/74 H 91 04/03/18 17:52 04/03/18 17:52 04/03/18 17:52 04/03/18 17:52 04/03/18 17:52 Oxygen Flow Rate (L/min) 2 Oxygen Delivery Method Room Air Weight: 112 lb 14.027 oz Body Mass Index (BMI) 18.2 Intake and Output for Last 24 Hours Intake Total 620 / 620 Output Total 110 / 110 Balance 510 / 510 Laboratory Tests Past 24 Hrs Urine Color Yellow Urine Clarity Sl. Cloudy Assessment/Plan All Active Problems 2-part displaced fracture of surgical neck of right humerus (Acute) Fracture of greater trochanter of left femur (Acute) Fall from bed (Acute) Hypokalemia (Acute) Nausea, vomiting and diarrhea (Resolved) Syncope (Resolved) Dehydration (Resolved) UTI (urinary tract infection) (Resolved) Left femoral shaft fracture (Acute) Fracture of right inferior pubic ramus (Resolved) Ventricular asystolia (Resolved) Postoperative anemia (Resolved) Patient has left greater trochanteric fracture periprosthetic fracture. The prosthesis appears stable at this time. I recommend weightbearing as tolerated. For the right shoulder fracture I explained to the daughter that normally this would likely be an operative fracture based on the displacement and positioning of the fracture however based on patient's inability to follow postoperative orders and overall medical health I recommended nonoperative treatment she is likely to feel operative interventions with her noncompliance. Patient's family demonstrated understanding at this time are going to be nonweightbearing on the right upper extremity placed in a sling follow-up in the office in 2 weeks weightbearing as tolerated on the left lower extremity with pain control per primary service patient would likely benefit from long-term long term facility I discussed this with the family. She would likely show greatest benefit from being in a Alzheimer's unit or dementia unit where she can be closely monitored. [facility] Office: 04/03/181919 <Electronically signed by Nick To MD> Date Nick To MD Cosigner Signature (if applicable): Date CC: Kamaljit Garcia; Nick To MD Signed URINALYSIS, COMPLETE Collected: 04/03/2018 Status: F Source: [place] 10:25 AM [facility] [place] [facility] Order Comment: How was Urine Obtained? CATHETER SPECIMEN TYPE CODE TESTS RESULT OUT OF RANGE REFERENCE UNITS LAB L400.3000 Yellow COLOR Normal Yellow LAB L400.3050 Clear Normal CLARITY Sl. Cloudy LAB L400.3200 Normal mg/dl Normal GLUCOSE, UR Normal LAB L400.3300 Negative mg/dL Normal BILIRUBIN URINE Negative LAB L400.3400 Negative mg/dl Normal KETONE UR Negative LAB L400.3465 1.002-1.030 Normal SP.GR. DIPSTX 1.020 LAB L400.3550 5.0 - 8.0 pH UR Normal 6.0 LAB L400.3600 Negative mg/dl High PROT 15 DIPSTX LAB L400.3700 Normal mg/dl Normal UROBILI Normal LAB L400.3750 Negative Normal NITRITE UR Negative LAB L400.3780 Negative /ul Normal OCCULT BLOOD-UR Negative LAB L400.3800 Negative /ul High LEUK ESTERASE 100 LAB L400.4050 0-5 /hpf WBC Normal 0-5 SEEN LAB L400.4100 0-5 /hpf 0 Normal RBC-UA SEEN LAB L400.4150 5-10 /hpf SQUAM Normal EPI 10-25 SEEN LAB L400.4300 None Seen /hpf 0 Normal BACTERIA SEEN LAB L400.4350 <or=2+ /hpf 0 Normal MUCUS, URINE SEEN Performed By: #### L400.0001 #### [facility] [address] [place], [address] HIP MIN 2 VIEWS Observed: 04/03/2018 Status: F Source: [place] (PORTABLE) 8:00 AM [facility] [place] [facility] Imaging Services [address] [place] [address] Hip Min 2 Views (Portable) MR#: [id number] Acct: [id number] Name: REYNOLD HERNANDEZ Rep #: [id number] : 1935 F 82 From: Archie Carreon MD PCP: Kamaljit Garcia Status: ADM IN Study: Hip Min 2 Views (Portable) Date of Exam: 04/03/18 Exam# [id number] Ordering Dr: Nick To MD STUDY: X-RAY - PELVIS AND LEFT HIP REASON FOR EXAM: Female, 82 years old. History of fall. TECHNIQUE: Radiological exam, hip, unilateral, with pelvis when performed; 2 or 3 views. COMPARISON: Comparison is made with prior study done earlier in the day. FINDINGS: The patient is status post total knee replacement. There now is evidence of a nondisplaced fracture in the proximal femoral shaft. RAD/Hip Min 2 Views (Portable) IMPRESSION: Status post left total hip replacement. Nondisplaced fracture in the proximal femoral shaft just distal to the intertrochanteric region. Electronically Signed: Archie Carreon MD at 11:26 EDT Tel [phone], Service support , CC: Kamaljit Garcia; Nick To MD 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: Signed HISTORY AND PHYSICAL Observed: 04/03/2018 Status: F Source: [place] EXAM 4:38 AM [facility] [place] [facility] Medical Records Department [address] [place] [address] History and Physical 04/03/18 0429 MR#: [id number] Acct: [id number] Name: REYNOLD HERNANDEZ Rep #: [id number] : 1935 82 From: Adan Hernandez MD PCP: Kamaljit Garcia Status: ADM DOLLY Y Location: [place] [id number] History of Present Illness Date of Admission: 04/03/18 Chief Complaint: fall with injury The patient is a 82 year old female withe a significant past medical history of severe dementia who is status post ORIF of left hip from fracture and subsequent stay for rehab presents after falling at home. The patient was found on the floor out of her hospital bed. X-ray reveals a new fracture line along her recent left hip repair and a displace right humerus fracture. The patient is not able to provide history due to dementia. The daughter is disappointed that the patient was discharged home when her insurance ran out. She did tell me that she refused to put her in a snf to her expressed wishes in her will. The daughter runs a day care in the home for children. The patient is DNR- CCA. 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 Smoking Status: Former smoker - *Family History Maternal History Items: No pertinent history Paternal History Items: No pertinent history Review of Systems Constitutional: Denies: Chills, Fever, Weight Change HEENT: Denies: Head Aches, Sinus Congestion, Sinus Drainage Cardiovascular: Denies: Chest Pain, Palpitations Respiratory: Denies: Cough, Shortness of breath at rest, Sputum production Gastrointestinal: Denies: Abdominal Pain, Nausea, Vomiting Genitourinary: Denies: Dysuria Musculoskeletal: Reports: Joint Pain, Joint Tenderness, Shoulder Pain Skin: Denies: Rash, Wounds Neurological: Denies: Numbness, Tingling, Focal weakness Psychiatric: Denies: Anxiety, Depression, Homicidal Ideations, Suicidal Ideations Hematologic/ Lymphatic: Denies: Easy Bruising, Easy Bleeding VTE Information - Inpt Only VTE Present on Admission: No VTE Mechan Device Prophylaxis: None VTE Pharm Prophylaxis ordered?: Yes - Physical Exam General: Alert, Confused, Disoriented HEENT: Atraumatic, Normocephalic Neck: Supple Lungs: Clear to auscultation, Normal air movement Cardiovascular: Regular rate, Regular Rhythm, Normal S1, Normal S2, No murmurs Abdomen: Bowel Sounds Present, Soft, Non Tender Extremities: No edema, Capillary Refill Less than 3 Seconds Skin: No rashes, No breakdown Musculoskeletal: No Tenderness to Palpation of Joints or Extremities Neurological: Neuro grossly intact, - Psych/Mental Status: Agitated, Restless, - - incoherent speech Vital Signs Temp Pulse Resp BP Pulse Ox 97.9 F 82 14 163/75 H 95 04/03/18 00:31 04/03/18 00:31 04/03/18 00:31 04/03/18 00:31 04/03/18 01:20 Oxygen Flow Rate (L/min) 2 Oxygen Delivery Method Nasal Cannula Weight: 127 lb 3.307 oz Body Mass Index (BMI) 20.5 Laboratory Tests Past 24 Hrs WBC 11.4 H RBC 4.58 Hgb 12.8 Hct 40.4 MCV 88.2 MCH 27.9 MCHC 31.7 L RDW 13.8 Assessment/Plan All Active Problems Nausea, vomiting and diarrhea (Resolved) Syncope (Resolved) Dehydration (Resolved) UTI (urinary tract infection) (Resolved) Left femoral shaft fracture (Acute) Fracture of right inferior pubic ramus (Resolved) Ventricular asystolia (Resolved) Postoperative anemia (Resolved) assessment 1. fall with reinjury to left hip 2. displaced right humerus fracture Plan - admit to general medical floor - morphine 2-4mg IV q 2hrs prn - Normal saline at 75cc/hour - consult Dr Cuellar - NPO pending consult - LMWH for DVT prohylaxis - place vargas and bed rest only Code Visit Inpatient E AND M: [id number] Init Hosp L3 04/03/18 0438 <Electronically signed by Adan Hernandez MD> Date Adan Hernandez MD Cosigner Signature: Date (if applicable) CC: Kamaljit Garcia; Adan Hernandez MD Signed EMERGENCY DEPARTMENT Observed: 04/03/2018 Status: F Source: [place] SUMMARY 4:29 AM [facility] [place] [facility] Medical Records Department [address] [place] [address] Emergency Department Summary 04/03/18 0422 MR#: [id number] Acct: [id number] Name: REYNOLD HERNANDEZ Rep #: [id number] : 1935 82 From: Nilo Mcclendon MD PCP: Kamaljit Garcia Status: REG ER History of Present Illness Chief Complaint: Upper Extremity Injury Informant: Patient, Family Limited by: Dementia Onset: Today Context: Sudden Onset - fell out of bed -- unwitnessed; limited hx. no apparent LOC Timing: Continuous Quality: pain Location: right shoulder, left hip Current Severity: Mild Maximum Severity: Severe Worsened by: movement Relieved by: remaining still Narrative: Recently discharged from TCU after having a left hip surgery. Still having issues with mobility and working with therapy. Living at home with daughter, but she was just discharged there. - Past Medical History (1) Alzheimer's disease Status: Chronic (2) Essential hypertension, benign Status: Chronic Past Medical History - Allergies and Home Meds Allergies/Adverse Reactions: Allergies Penicillins [PCN] Allergy (Verified 04/03/18 00:30) Unknown Primary Care Physician: Kamaljit Garcia PA [Primary Care Provider] - Surgical History: cataract, - - Right hip pinning (09/01/2017), Bilateral breast implants, Left hip cemented hemiarthroplasty. Smoking Status: Former smoker - Family History Maternal Family History: Reports: No pertinent history Paternal Family History: Reports: No pertinent history Review of Systems ROS: Unable to Obtain Musculoskeletal: Reports: Back pain, Extremity Pain Physical Exam Vital Signs/Narrative: Vital Signs 04/03/18 01:20 95 04/03/18 00:31 97.9 F 82 14 163/75 H 87 Inital Vital Signs reviewed: Yes General: Well nourished, Well developed, Cachectic Head: Normocephalic, Atraumatic Eyes: Perrl, EOMI ENT: Moist mucous membranes, No rhinorrhea Neck: Supple, Nontender Cardiovascular: Regular rate, Regular rhythm, No murmurs Respiratory: No distress, CTA bilaterally, Chest nontender Abdomen: Soft, Nontender, Nondistended, Normal bowel sounds Back: Normal Inspection, Spinal tenderness - limited exam due to having to roll pt over onto left lat decub; no signs of trauma or step off, states diffusely tender when palpating middle of thoracic spine, multilevel. Extremities: No edema, Tenderness - right shoulder diffusely. limited ROM due to pain. not clinically dislocated. ttp left lateral hip; limited PROM due to pain. Skin: Normal color, No rash Neurological: Alert, Cranial nerves II-XII grossly intact, Normal Strength, Normal Sensation. Negative for: Oriented x3 Psychological: Agitated - verbally Diagnostic/Tx/Re-eval Impressions Brain CT 04/03/18 01:17 IMPRESSION: No fracture or hemorrhage. Electronically Signed: Carlos Huizar MD at 2:35 EDT Tel , Service support , Shoulder X-Ray 04/03/18 01:17 IMPRESSION: Displaced fracture of the surgical neck of the humerus. Electronically Signed: Carlos Huizar MD at 3:05 EDT Tel , Service support , Hip/Pelvis X-Ray 04/03/18 01:47 IMPRESSION: Acute fracture of the left greater femoral trochanter. Electronically Signed: Carlos Huizar MD at 3:09 EDT Tel , Service support , Thoracic Spine X-Ray 04/03/18 01:47 IMPRESSION: No acute osseous injury is evident. Comment: If there is further clinical concern for a radiographically occult spinal fracture, consider CT correlation if possible. Electronically Signed: Carlos Huizar MD at 2:57 EDT Tel , Service support , 04/03/18 01:17 Brain/Head without Contrast [CT] Stat Shoulder min 2 Views [RAD] Stat 04/03/18 01:47 HIP, UNI W/ Pelvis 2-3 Views [RAD] Stat Thoracic Spine 2 Views [RAD] Stat Laboratory Results WBC 11.4 H (4.4-11.0) K/mm3 - Rhythm Strip Rhythm Strip: Sinus Rhythm Rate: 85 Ectopy: PAC(s) - EKG Initial EKG Interpretation: Sinus Rhythm, No Acute Injury Pattern Prior: Unchanged - Medical Decision Making X-rays show displaced 2 part proximal humerus fracture that is treated with sling and swath, as well as a new nondisplaced fracture of the left hip at the greater trochanter, this is new compared with her postoperative films from before, however it appears to already be stabilized by the pre-existing hardware. So far, her labs are revealing hypokalemia which is treated here, and she was given morphine for pain. EKG shows no gross changes, it is somewhat limited because the patient would not follow directions to stay still. Discussed with hospitalist for admission. ED Disposition - Plan for ED Patient: Disposition: Acute Care Hospital [facility] Chief Complaint: Upper Extremity Injury Diagnosis: 2-part displaced fracture of surgical neck of right humerus, Fracture of greater trochanter of left femur, Fall from bed, Alzheimer's disease, Hypokalemia What to do if you have Problems For any increased pain, shortness of breath, bleeding, nausea or vomiting, chest pain, or any unexpected problems, contact your Primary Care Provider. Call [facility] ([phone]) or report to the closest Emergency Room. Call 911 if necessary. 04/03/18 0429 <Electronically signed by Nilo Mcclendon MD> Date Nilo Mcclendon MD Cosigner Signature (If Indicated): Date CC: Kamaljit Garcia CBC W/DIFF, AUTOMATED Collected: 04/03/2018 Status: F Source: [place] 1:50 AM [facility] [place] TYPE CODE TESTS RESULT OUT OF RANGE REFERENCE UNITS LAB L100.1000 4.4-11.0 K/mm3 High WBC 11.4 LAB L100.1200 4.2-5.4 M/mm3 Normal RBC 4.58 LAB L100.1300 12.0-15.0 g/dl Normal HGB 12.8 LAB L100.1400 37-47 % Normal HCT 40.4 LAB L100.1500 81-99 fL Normal MCV 88.2 LAB L100.1600 27.0-32.0 pg Normal MCH 27.9 LAB L100.1700 32-36 g/gl Low MCHC 31.7 LAB L100.1810 11.6-14.6 % Normal RDW CV 13.8 LAB L100.1820 35.1-43.9 fl High RDW SD 44.5 LAB L100.1900 150-450 K/mm3 Normal PLT 211 LAB L100.2000 6.2-12.0 fl Normal MPV 9.4 LAB L100.2100 47-70 % High NEUT% 79.0 LAB L100.2200 19-41 % Low LY% 12.2 LAB L100.2300 0-10 % Normal MONO% 7.5 LAB L100.2400 0-5 % Normal EO% 1.0 LAB L100.2500 0-1 % Normal BASO% 0.1 LAB L100.2550 0.0-0.9 % Normal IM GRAN % 0.200 Result Comment: IG% - Immature Granulocytes (promyelocytes, myelocytes and metamyelocytes) > 1% indicates that a LEFT SHIFT is Present. LAB L100.2620 2.0-7.7 X10 3/uL High Absolute Neut 9.0 LAB L100.2720 0.83-4.51 X10 3/ul Normal Absolute Lymph 1.40 Performed By: #### L100.0100 #### [facility] [address] [place], [place], [address] BASIC METABOLIC Collected: 04/03/2018 Status: F Source: [place] PROFILE (BMP) 1:50 AM [facility] [place] TYPE CODE TESTS RESULT OUT OF RANGE REFERENCE UNITS LAB L501.0100 74-106 mg/dL High GLU 107 Result Comment: Fasting Glucose result from 100 to 125 mg/dL suggests IMPAIRED HOMEOSTASIS per A.D.A. criteria. Please note revised GLUCOSE reference range effective 2017. LAB L501.1000 7-18 mg/dL High BUN 21 LAB L501.1100 0.55-1.02 mg/dL Low CREAT,SERUM 0.50 Result Comment: The validity of the calculated GFR AND GFRAA in patients over 70 years has not been determined. Clinical correlation is essential. LAB L501.1110 >60 mL/min Normal EST GFR 127 Result Comment: Non- GFR Calc LAB L501.1115 >60 mL/min Normal EST GFR - AA 153 Result Comment: GFR Calc LAB L501.1255 ml/min Normal Estimated CRCL 39.51 LAB L501.1300 10-20 RATIO High BUN/CRE 42.4 LAB L501.2200 8.5-10 mg/dL Normal .1 CA 8.8 LAB L501.5300 136-14 mmol/L Normal 5 NA 136 LAB L501.5600 3.5-5. mmol/L Low 1 K 3.3 LAB L501.5900 98-107 mmol/L Normal CL 100 LAB L501.6100 21.0-3 mmol/L Normal 2.0 CO2 30.0 LAB L501.6200 5-15 Normal GAP 6 Performed By: #### L500.2500 #### [facility] [address] [facility] [address] [place], [address] THORACIC SPINE 2 Observed: 04/03/2018 Status: F Source: [place] VIEWS 1:48 AM [facility] [place] [facility] Imaging Services [address] [place] [address] Thoracic Spine 2 Views MR#: [id number] Acct: [id number] Name: REYNOLD HERNANDEZ Rep #: [id number] : 1935 F 82 From: Carlos Huizar MD PCP: Kamaljit Garcia Status: REG ER Study: Thoracic Spine 2 Views Date of Exam: 04/03/18 Exam# [id number] Ordering Dr: Nilo Mcclendon MD STUDY: X-RAY - THORACIC SPINE REASON FOR EXAM: Female, 82 years old. Fall TECHNIQUE: 2 view(s) of the thoracic spine were obtained. COMPARISON: None. FINDINGS: Normal kyphosis of the thoracic spine. There is no substantial scoliosis. Normal thoracic vertebrae and endplates. Normal disc space heights. The soft tissue structures are unremarkable. Breast implants. RAD/Thoracic Spine 2 Views IMPRESSION: No acute osseous injury is evident. Comment: If there is further clinical concern for a radiographically occult spinal fracture, consider CT correlation if possible. Electronically Signed: Carlos Huizar MD at 2:57 EDT Tel , Service support , CC: Kamaljit Garcia; NILO MCCLENDON MD 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: Signed HIP, UNI W/ PELVIS Observed: 04/03/2018 Status: F Source: [place] 2-3 VIEWS 1:48 AM [facility] [place] [facility] Imaging Services [address] [place] [address] HIP, UNI W/ Pelvis 2-3 Views MR#: [id number] Acct: [id number] Name: REYNOLD HERNANDEZ Rep #: [id number] : 1935 F 82 From: Carlos Huizar MD PCP: Kamaljit Garcia Status: REG ER Study: HIP, UNI W/ Pelvis 2-3 Views Date of Exam: 04/03/18 Exam# [id number] Ordering Dr: Nilo Mcclendon MD STUDY: X-RAY - PELVIS AND LEFT HIP REASON FOR EXAM: Female, 82 years old. Fall and pain TECHNIQUE: Radiological exam, hip, unilateral, with pelvis when performed; 2 or 3 views. COMPARISON: 01/22/2018 FINDINGS: Previous surgical fusion of the right proximal femur. Remote right proximal femur deformity. Left hip arthroplasty. An acute appearing fracture is noted involving the left greater femoral trochanter. No acute pelvic fractures seen. RAD/HIP, UNI W/ Pelvis 2-3 Views IMPRESSION: Acute fracture of the left greater femoral trochanter. Electronically Signed: Carlos Huizar MD at 3:09 EDT Tel , Service support , CC: Kamaljit Garcia; NILO MCCLENDON MD 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: Signed BRAIN/HEAD WITHOUT Observed: 04/03/2018 Status: F Source: [place] CONTRAST 1:18 AM [facility] [place] [facility] [place] [address] Brain/Head without Contrast MR#: [id number] Acct: [id number] Name: REYNOLD HERNANDEZ Rep #: [id number] : 1935 F 82 From: Carlos Huizar MD PCP: Kamaljit Garcia Status: REG ER Study: Brain/Head without Contrast Date of Exam: 04/03/18 Exam# [id number] Ordering Dr: Nilo Mcclendon MD STUDY: CT BRAIN WITHOUT CONTRAST REASON FOR EXAM: Female, 82 years old. Fall RADIATION DOSAGE (If Supplied By Facility): CTDIvol = ( 44.99 ) mGy, DLP = ( 779.24 ) mGycm TECHNIQUE: Transaxial CT imaging of the brain was performed without administration of intravenous contrast material. Individualized dose optimization techniques were used for this CT. COMPARISON: None. FINDINGS: Left temporal scalp injury. Right lens replacement. Normal calvarium. Normal size ventricles and extra-axial spaces for the patient's age. There are areas of decreased attenuation within the white matter tracts of the supratentorial brain, consistent with microvascular disease changes. There are small punctate calcifications of the basal ganglia which are seen in the aging brain as a normal variant. Normal brainstem. Normal cerebellum. There is no intracranial hemorrhage. There are no findings of an acute ischemic infarction. Normal visualized paranasal sinuses. CT/Brain/Head without Contrast IMPRESSION: No fracture or hemorrhage. Electronically Signed: Carlos Huizar MD at 2:35 EDT Tel , Service support , CC: Kamaljit Garcia; NILO MCCLENDON MD 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: Signed SHOULDER MIN 2 VIEWS Observed: 04/03/2018 Status: F Source: [place] 1:18 AM [facility] [place] [facility] Imaging Services [address] [place] [address] Shoulder min 2 Views MR#: [id number] Acct: [id number] Name: REYNOLD HERNANDEZ Rep #: [id number] : 1935 F 82 From: Carlos Huizar MD PCP: Kamaljit Garcia Status: REG ER Study: Shoulder min 2 Views Date of Exam: 04/03/18 Exam# [id number] Ordering Dr: Nilo Mcclendon MD STUDY: X-RAY - RIGHT SHOULDER REASON FOR EXAM: Female, 82 years old. Fall and pain TECHNIQUE: 3 view(s) of the shoulder. COMPARISON: None. FINDINGS: Displaced fracture of the surgical neck of the humerus. Glenohumeral and acromioclavicular joints are intact. Visualized right lung is intact. RAD/Shoulder min 2 Views IMPRESSION: Displaced fracture of the surgical neck of the humerus. Electronically Signed: Carlos Huizar MD at 3:05 EDT Tel , Service support , CC: Kamaljit Garcia; NILO MCCLENDON MD 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: Signed PROGRESS Observed: 04/02/2018 Status: COMPLETED Source: [place] 4:49 PM [facility] [place] REPOS[facility] HNO ID: [id number] Author: Olga (Rn) Jayne Service: (none) Author Type: Registered Nurse Type: Progress Notes Filed: 04/06/2018 11:24 AM Note Text: TRANSITION CARE MANAGEMENT (TCM) INITIAL CONTACT Provider Action/FYI: Initial contact with patient post discharge, Patient identified by name and . SUMMARY: -Pt discharged from [facility] on 03/29/18. -Follow up appointment on N/A. -Medication review done N/A L Hip Fx 02/17 with tj-arthroplasty repair AND was transferred to [facility] 02[facility] for rehab. CONCERNS: NEW MEDICATIONS: MEDS HELD/DISCONTINUED: BRIEF HOSPITAL COURSE: The patient is a 82 year old F who was seen in the emergency room at [facility] after sustaining a fall at home when she went to close a window at her home, she has a history of Alzheimer's dementia and lives with her daughter. On evaluation in the emergency room, x-rays were obtained which indicated a proximal left femoral fracture, labs were remarkable for BUN of 23. Patient was admitted to [place] [address], seen in consultation by orthopedic surgery who performed a cemented hemiarthroplasty of the left hip on 02/17/18. Patient was seen by PT and OT and it was felt she would benefit from placement in long term facility, postop course was complicated by an episode of syncope-the etiology of this was unknown, patient underwent an EEG which showed no evidence of seizure disorder. Evidently the patient had a similar episode during her hospitalization earlier in the year this year. Patient also had an episode of fever and a chest x-ray indicated a right lower lobe infiltrate that was felt to be either due to pneumonia or atelectasis. Patient was placed on a course of antibiotics which were then changed to oral antibiotics at the time of her discharge from [facility]. In addition, patient developed evidence of dysphagia and was seen by speech therapy who had to perform a videofluoroscopic examination to determine if the patient was safe for oral intake, it was determined that she could take oral intake with modifications of her diet. On 02/21/18, patient was seen and examined and felt to be in stable condition for transfer to [facility] for [facility] services. She was then D[facility]C from [facility] to [facility], Rosa with services. CNPTOUTRDONNACH Observed: 04/02/2018 Status: COMPLETED Source: [place] 12:00 AM [facility] REPOSITORY Patient Outreach (INTMWS) REYNOLD HERNANDEZ ([id number]) 1935 F Date Time Provider Department 04/02/18 NATHAN THOMPSON During your visit today, we recorded the following information about you: Olga Godoy RN 04/06/2018 11:24 AM Signed TRANSITION CARE MANAGEMENT (TCM) INITIAL CONTACT Provider Action/FYI: Initial contact with patient post discharge, Patient identified by name and . SUMMARY: -Pt discharged from [facility] on 03/29/18. -Follow up appointment on N/A. -Medication review done N/A L Hip Fx 02/17 with tj-arthroplasty repair AND was transferred to [facility] for rehab. CONCERNS: NEW MEDICATIONS: MEDS HELD/DISCONTINUED: BRIEF HOSPITAL COURSE: The patient is a 82 year old F who was seen in the emergency room at [facility] after sustaining a fall at home when she went to close a window at her home, she has a history of Alzheimer's dementia and lives with her daughter. On evaluation in the emergency room, x-rays were obtained which indicated a proximal left femoral fracture, labs were remarkable for BUN of 23. Patient was admitted to [place] [address], seen in consultation by orthopedic surgery who performed a cemented hemiarthroplasty of the left hip on 02/17/18. Patient was seen by PT and OT and it was felt she would benefit from placement in long term facility, postop course was complicated by an episode of syncope-the etiology of this was unknown, patient underwent an EEG which showed no evidence of seizure disorder. Evidently the patient had a similar episode during her hospitalization earlier in the year this year. Patient also had an episode of fever and a chest x-ray indicated a right lower lobe infiltrate that was felt to be either due to pneumonia or atelectasis. Patient was placed on a course of antibiotics which were then changed to oral antibiotics at the time of her discharge from [facility]. In addition, patient developed evidence of dysphagia and was seen by speech therapy who had to perform a videofluoroscopic examination to determine if the patient was safe for oral intake, it was determined that she could take oral intake with modifications of her diet. On 02/21/18, patient was seen and examined and felt to be in stable condition for transfer to [facility] for rehab services. She was then D/C from [facility] to daughterRosa with services. Olga Godoy RN 04/06/2018 11:30 AM Addendum PRIMARY CARE COORDINATION FOLLOW-UP NOTE Provider Action/FYI Re-admitted to [facility] on 04/03 for 2 part displaced fracture of surgical neck of right humerus, fracture of greater trochanter of left femur, fall from bed, Alzheimer's disease and Hypokalemia PCC re-admitted patient to Care Coordination Patient identified by name and date of . YES Spoke to Rosa batres Concerns: Pt had another fall and was re-admitted to [facility] on 04/03 for 2 part displaced fracture of surgical neck of right humerus, fracture of greater trochanter of left femur, fall from bed, Alzheimer's disease and Hypokalemia Immigration Case Worker plan for next outreach: Will follow up at hospital discharge Signature Olga Godoy RN April 06, 2018 Carlos Beltran MD 04/06/2018 4:52 PM Signed noted Allergies As of Date: 04/02/2018 Noted Allergy Reaction PENICILLIN 11/01/2017 16 - Unknown Date Reviewed: 01/02/2018 Reviewed by: Selena Alva) DEBORAH Kiran - Fully Assessed Reason for Visit: Clinical Data Research Hospital Follow Up [7943] Cmt: D/C 03/29 from TCU Prescriptions as of 04/02/2018 Sig: SERTRALINE 25 MG TABLET Take 1 tablet by mouth once d* LISINOPRIL 10 MG TABLET Take 1 tablet by mouth once d* CHILDREN'S CHEWABLE MULTIVITM* Take 1 tablet by mouth once d* BOOST HIGH PROTEIN ORAL Take by mouth. BABY ASPIRIN ORAL Take by mouth. Problem List As Of Date 04/02/2018 Noted Resolved Hip fx, right, sequela [S72.001S] INVALID FOR* Alzheimer's dementia without behavioral disturb*INVALID FOR* More... Benign essential HTN [I10] INVALID FOR* Anxiety [F41.9] INVALID FOR* More... Adenomatous polyp [D36.9] INVALID FOR* More... Age-related osteoporosis without current pathol*INVALID FOR* More... Hyperlipidemia, mixed [E78.2] INVALID FOR* More... Fracture of proximal end of left femur (HCC) [S*INVALID FOR* More... Encounter Status:Closed by OLGA GODOY on 04/06/18 HOME HEALTH PROGRESS Observed: 03/28/2018 Status: F Source: [place] NOTE 4:30 PM [facility] [place] [facility] Medical Records Department [address] [place] [address] Home Health Progress Note Vctc-rr-Bowg Encounter Encounter Date: 03/16/18 1230 MR#: [id number] Acct: [id number] Name: REYNOLD HERNANDEZ Rep #: [id number] : 1935 82 From: Royce Salinas MD PCP: Kamaljit Garcia Status: ADM IN Location: [facility] TCU01-1 ADDENDUM by Royce Salinas MD on 03/28/18 at 1630 Add long term for medical management, and Home Health Aide. 03/28/18 1630 <Electronically signed by Royce Salinas MD> Date Royce Salinas MD cc: * Signed ADDENDUM by Royce Salinas MD on 03/26/18 at 1745 Discharge 03/29/2018. 03/26/18 1745 <Electronically signed by Royce Salinas MD> Date Royce Salinas MD cc: * Signed ADDENDUM by Royce Salinas MD on 03/20/18 at 2033 Discharge 03/23/2018. 03/20/18 203 <Electronically signed by Royce Salinas MD> Date Royce Salinas MD cc: * Signed ADDENDUM by Royce Salinas MD on 03/16/18 at 1239 Hold discharge until further notice. 03/16/18 1240 <Electronically signed by Royce Salinas MD> Date Royce Salinas MD cc: * Signed Home Health Note - Plan Overview of reason of hospitalization: The patient is a 82 year old Female with below past medical history significant for Alzheimer's Disease, hospitalized for left hip fracture, underwent left hip hemiarthroplasty 02/17/[address] Gordon, complicated by right lower lobe pneumonia, admitted to TCU with debility, here for rehabilitation, strengthening, prior to discharge home with family. Discharge home with daughter Rosa, and Home Health Services. 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) Fracture of hip, right, closed (Chronic) - Requirements and Reasons Disciplines Needed/Ordered: Physical Therapy Reason for Disciplines: Gait Training, Stair Training, Fall Prevention, Home Safety/Equipment Instruction, Balance and/or Posture Training, Transfer Training Related To: Limited/Poor Endurance, Shortness of Breath with Activity, Physical Impairments, Unsteady Gait/Balance, Fall Risk Patient is unable to leave the home: Without Aid of Supportive Devices (crutches, cane, wheelchair, walker), Without the assistance of another person - Additional Disciplines Additional Disciplines Needed/Ordered: Occupational Therapy 03/16/18 1231 <Electronically signed by Royce Salinas MD> Date Royce Salians MD Cosigner Signature (if indicated): Date CC: Signed PROGRESS Observed: 03/28/2018 Status: COMPLETED Source: [place] 3:20 PM [facility] REPOSITORY [facility] ID: [id number] Author: Olga (Mercy) Jayne Service: (none) Author Type: Registered Nurse Type: Progress Notes Filed: 03/28/2018 3:24 PM Note Text: PRIMARY CARE COORDINATION FOLLOW-UP NOTE Provider Action/FYI Pt is being discharged from [facility] will be seeing pt. Informed Dr. Beltran will sign orders for Silverio Garcia left hip fracture, underwent left hip hemiarthroplasty 02/17/[address] Gordon Patient identified by name and date of . YES Spoke to Julieta at [facility] Summary: Pt is being discharged from [facility]. HH needs the name of the physician who will be signing orders since PCP is Cherise Garcia. Informed Dr. Beltran will sign orders. Copied from [facility]: The patient is a 82 year old Female with below past medical history significant for Alzheimer's Disease, hospitalized for left hip fracture, underwent left hip hemiarthroplasty 02/17/[address] Gordon, complicated by right lower lobe pneumonia, admitted to [facility] with debility, here for rehabilitation, strengthening, prior to discharge home with family. Discharge home with daughter Rosa, and Home Health Services. Immigration Case Worker plan for next outreach: No further follow up needed at this time Signature Olga Godoy RN March 28, 2018 CNPTOUTREACH Observed: 03/28/2018 Status: COMPLETED Source: [place] 12:00 AM [facility] REPOSITORY Patient Outreach (FAMPWS) REYNOLD HERNANDEZ ([id number]) 1935 F Date Time Provider Department 03/28/18 OLGA GODOY) BETTY During your visit today, we recorded the following information about you: Olga Godoy RN 03/28/2018 3:24 PM Signed PRIMARY CARE COORDINATION FOLLOW-UP NOTE Provider Action/FYI Pt is being discharged from [facility] will be seeing pt. Informed Dr. Beltran will sign orders for Silverio Garcia left hip fracture, underwent left hip hemiarthroplasty 02/17/[address] Gordon Patient identified by name and date of . YES Spoke to Julieta at [facility] Summary: Pt is being discharged from TCU. HH needs the name of the physician who will be signing orders since PCP is Cherise Garcia. Informed Dr. Beltran will sign orders. Copied from [facility] [employer]: The patient is a 82 year old Female with below past medical history significant for Alzheimer's Disease, hospitalized for left hip fracture, underwent left hip hemiarthroplasty 02/17/[address] Gordon, complicated by right lower lobe pneumonia, admitted to TCU with debility, here for rehabilitation, strengthening, prior to discharge home with family. Discharge home with daughter Rosa, and Home Health Services. Immigration Case Worker plan for next outreach: No further follow up needed at this time Signature Olga Godoy RN March 28, 2018 Allergies As of Date: 03/28/2018 Noted Allergy Reaction PENICILLIN 11/01/2017 16 - Unknown Date Reviewed: 01/02/2018 Reviewed by: Selena Alva) DEBORAH Kiran - Fully Assessed Reason for Visit: Transition Of Care [4074] Prescriptions as of 03/28/2018 Sig: SERTRALINE 25 MG TABLET Take 1 tablet by mouth once d* LISINOPRIL 10 MG TABLET Take 1 tablet by mouth once d* CHILDREN'S CHEWABLE MULTIVITM* Take 1 tablet by mouth once d* BOOST HIGH PROTEIN ORAL Take by mouth. BABY ASPIRIN ORAL Take by mouth. Problem List As Of Date 03/28/2018 Noted Resolved Hip fx, right, sequela [S72.001S] INVALID FOR* Alzheimer's dementia without behavioral disturb*INVALID FOR* More... Benign essential HTN [I10] INVALID FOR* Anxiety [F41.9] INVALID FOR* More... Adenomatous polyp [D36.9] INVALID FOR* More... Age-related osteoporosis without current pathol*INVALID FOR* More... Hyperlipidemia, mixed [E78.2] INVALID FOR* More... Fracture of proximal end of left femur (HCC) [S*INVALID FOR* More... Encounter Status:Closed by OLGA GODOY on 03/29/18 DISCHARGE INSTRUCTION Observed: 03/26/2018 Status: F Source: [place] 5:44 PM [facility] [place] [facility] Medical Records Department [address] [place] [address] Instructions for Home/Discharge Instructions 03/16/18 1227 MR#: [id number] Acct: [id number] Name: REYNOLD HERNANDEZ Rep #: [id number] : 1935 82 From: Royce Salinas MD PCP: Kamaljit Garcia Status: ADM IN ADDENDUM by Royce Salinas MD on 03/26/18 at 1744 Discharge 03/29/2018. Date Royce Salinas MD cc: Kamaljit Garcia * Signed ADDENDUM by Royce Salinas MD on 03/20/18 at 2032 Discharge 03/23/2018. Date Royce Salinas MD cc: Kamaljit Garcia * Signed ADDENDUM by Royce Sailnas MD on 03/16/18 at 1238 Hold discharge until further notice. Date Royce Salinas MD cc: Kamaljit Garcia * Signed - Discharge Diagnoses Current Active Problems: Current Active and Chronic Problems Hypertension (Chronic) Alzheimer's disease (Chronic) You will use the following diet at home:: No restrictions, Regular Your food should be the consistency of: Regular Your liquids should be the consistency of: Regular/Thin Discharge Activity: Return to Normal Activity, May Shower, Use Walker Weight Bearing Status: Weight bearing as tolerated Call your doctor if you observe: Fever of 101 or Higher, Inability to urinate, Inability to have a bowel movement, Shortness of breath, Chest pain, Uncontrolled pain Allergies/Adverse Reactions: Allergies Penicillins [PCN] Allergy (Verified 12/30/17 08:43) Unknown Medications to take at Discharge Polyethylene Glycol 3350 [Miralax] 17 gm PO PRN PRN 12/30/17 Sertraline HCl [Zoloft] 25 mg PO DAILY 12/30/17 Acetaminophen [Tylenol] 1,000 mg PO Q8H PRN tablet 03/16/18 Menthol/Lanolin/Calamine/Znox [Calmoseptine Ointment] 1 applic TOPICAL TID tube 03/16/18 Potassium Chloride [K-Dur] 20 meq PO DAILY #30 tab 03/16/18 Rivaroxaban [Xarelto] 10 mg PO DAILY #6 tab 03/16/18 The following prescriptions were given: Potassium Chloride [K-Dur] 20 meq PO DAILY #30 tab Rivaroxaban [Xarelto] 10 mg PO DAILY #6 tab Primary Care Physician: Kamaljit Garcia PA [Primary Care Provider] - Please follow up with your Primary Care Physician in: 1 week. Test Results: Test results from this visit will be discussed in further detail at your follow-up appointment, if applicable. Please Follow Up With: Roge Gordon DO When: 2 weeks Proposed Discharge Date: 03/18/18 03/16/18 1229 <Electronically signed by Royce Sailnas MD> Date Royce Salinas MD CC: Kamaljit Garcia DISCHARGE SUMMARY Observed: 03/26/2018 Status: F Source: [place] 5:44 PM [facility] [place] [facility] Medical Records Department [address] [place] [id number] Discharge Summary 03/16/18 1229 MR#: [id number] Acct: [id number] Name: REYNOLD HERNANDEZ Rep #: [id number] : 1935 82 From: Royce Salinas MD PCP: Kamaljit Garcia Status: ADM IN Location: [facility] TCU01-1 ADDENDUM by Royce Salinas MD on 03/26/18 at 1744 Code Visit Discharge 03/29/2018. 03/26/18 1744 <Electronically signed by Royce Salinas MD> Date Royce Salinas MD cc: Kamaljit Garcia; Royce Salinas MD * Signed ADDENDUM by Royce Salinas MD on 03/20/18 at 2032 Code Visit Discharge 03/23/2018. 03/20/18 2032 <Electronically signed by Royce Salinas MD> Date Royce Salinas MD cc: Kamaljit Garcia; Royce Salinas MD * Signed ADDENDUM by Royce Salinas MD on 03/16/18 at 1238 Code Visit Hold discharge until further notice. 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 No acute osseous abnormality is evident. Electronically Signed: Carlos Huizar MD at 7:02 EDT Tel , Service support , Operations: None Procedures: None Summary of Care Provided: The patient is a 82 year old Female with below past medical history significant for Alzheimer's Disease, hospitalized for left hip fracture, underwent left hip hemiarthroplasty 02/17/[address] Gordon, complicated by right lower lobe pneumonia, admitted to TCU with debility, here for rehabilitation, strengthening, prior to discharge home with family. Discharge home with daughter Rosa, and Home Health Services. Discharge Diet: No Restrictions Discharge Activity: Return to Normal Activity, May Shower, Use Walker Weight Bearing Status: Weight bearing as tolerated Call your doctor if you observe: Fever of 101 or Higher, Inability to urinate, Inability to have a bowel movement, Shortness of breath, Chest pain, Uncontrolled pain Home Medications: Medications to take at Discharge Polyethylene Glycol 3350 [Miralax] 17 gm PO PRN PRN 12/30/17 Sertraline HCl [Zoloft] 25 mg PO DAILY 12/30/17 Acetaminophen [Tylenol] 1,000 mg PO Q8H PRN tablet 03/16/18 Menthol/Lanolin/Calamine/Znox [Calmoseptine Ointment] 1 applic TOPICAL TID tube 03/16/18 Potassium Chloride [K-Dur] 20 meq PO DAILY #30 tab 03/16/18 Rivaroxaban [Xarelto] 10 mg PO DAILY #6 tab 03/16/18 Following Prescrptions Were Given to Patient: Potassium Chloride [K-Dur] 20 meq PO DAILY #30 tab Rivaroxaban [Xarelto] 10 mg PO DAILY #6 tab Primary Care Physician: Kamaljit Garcia PA [Primary Care Provider] - Please follow up with your Primary Care Physician in: 1 week. Please Follow Up With: Roge Gordon DO When: 2 weeks Disposition: Home with Home Health Minutes spent on discharge:: 35 Patient Condition:: Stable Medical Necessity - Tobacco Use Smoking Status: Former smoker Tobacco Use: Non-smoker Meaningful Use Info Meaningful Use Diagnoses (Choose all that apply): None applicable 03/16/18 1231 <Electronically signed by Royce Salinas MD> Date Royec Salinas MD Cosigner Signature (if applicable): Date CC: Kamaljit Garcia; Royce Salinas MD Signed BASIC METABOLIC Collected: 03/26/2018 Status: F Source: [place] PROFILE (BMP) 5:05 AM [facility] [place] TYPE CODE TESTS RESULT OUT OF RANGE REFERENCE UNITS LAB L501.0100 74-106 mg/dL Normal GLU 80 Result Comment: Please note revised GLUCOSE reference range effective 2017. LAB L501.1000 7-18 mg/dL High BUN 22 LAB L501.1100 0.55-1.02 mg/dL Normal CREAT,SERUM 0.55 Result Comment: The validity of the calculated GFR AND GFRAA in patients over 70 years has not been determined. Clinical correlation is essential. LAB L501.1110 >60 mL/min Normal EST GFR 113 Result Comment: Non- GFR Calc LAB L501.1115 >60 mL/min Normal EST GFR - AA 136 Result Comment: GFR Calc LAB L501.1255 ml/min Normal Estimated CRCL 33.02 LAB L501.1300 10-20 RATIO High BUN/CRE 40.1 LAB L501.2200 8.5-10 mg/dL Normal .1 CA 8.8 LAB L501.5300 136-14 mmol/L Normal 5 NA 143 LAB L501.5600 3.5-5. mmol/L Normal 1 K 3.6 LAB L501.5900 98-107 mmol/L Normal CL 104 LAB L501.6100 21.0-3 mmol/L Normal 2.0 CO2 29.0 LAB L501.6200 5-15 Normal GAP 10 Performed By: #### L500.2500 #### [facility] [address] [place], [place], [address] CBC W/DIFF, AUTOMATED Collected: 03/26/2018 Status: F Source: [place] 5:05 AM [facility] [place] TYPE CODE TESTS RESULT OUT OF RANGE REFERENCE UNITS LAB L100.1000 4.4-11.0 K/mm3 Normal WBC 5.9 LAB L100.1200 4.2-5.4 M/mm3 Normal RBC 4.40 LAB L100.1300 12.0-15.0 g/dl Normal HGB 12.5 LAB L100.1400 37-47 % Normal HCT 40.1 LAB L100.1500 81-99 fL Normal MCV 91.1 LAB L100.1600 27.0-32.0 pg Normal MCH 28.4 LAB L100.1700 32-36 g/gl Low MCHC 31.2 LAB L100.1810 11.6-14.6 % Normal RDW CV 14.4 LAB L100.1820 35.1-43.9 fl High RDW SD 47.1 LAB L100.1900 150-450 K/mm3 Normal PLT 225 LAB L100.2000 6.2-12.0 fl Normal MPV 10.7 LAB L100.2100 47-70 % Normal NEUT% 58.1 LAB L100.2200 19-41 % Normal LY% 27.4 LAB L100.2300 0-10 % High MONO% 11.3 LAB L100.2400 0-5 % Normal EO% 2.7 LAB L100.2500 0-1 % Normal BASO% 0.3 LAB L100.2550 0.0-0.9 % Normal IM GRAN % 0.200 Result Comment: IG% - Immature Granulocytes (promyelocytes, myelocytes and metamyelocytes) > 1% indicates that a LEFT SHIFT is Present. LAB L100.2620 2.0-7.7 X10 3/uL Normal Absolute Neut 3.5 LAB L100.2720 0.83-4.51 X10 3/ul Normal Absolute Lymph 1.63 Performed By: #### L100.0100 #### [facility] [address] [place], [address] CBC W/DIFF, AUTOMATED Collected: 03/19/2018 Status: F Source: [place] 5:22 AM [facility] [place] TYPE CODE TESTS RESULT OUT OF RANGE REFERENCE UNITS LAB L100.1000 4.4-11.0 K/mm3 Normal WBC 5.6 LAB L100.1200 4.2-5.4 M/mm3 Normal RBC 4.36 LAB L100.1300 12.0-15.0 g/dl Normal HGB 12.3 LAB L100.1400 37-47 % Normal HCT 39.6 LAB L100.1500 81-99 fL Normal MCV 90.8 LAB L100.1600 27.0-32.0 pg Normal MCH 28.2 LAB L100.1700 32-36 g/gl Low MCHC 31.1 LAB L100.1810 11.6-14.6 % Normal RDW CV 14.6 LAB L100.1820 35.1-43.9 fl High RDW SD 48.2 LAB L100.1900 150-450 K/mm3 Normal PLT 209 LAB L100.2000 6.2-12.0 fl Normal MPV 9.9 LAB L100.2100 47-70 % Normal NEUT% 59.3 LAB L100.2200 19-41 % Normal LY% 27.0 LAB L100.2300 0-10 % High MONO% 11.7 LAB L100.2400 0-5 % Normal EO% 1.6 LAB L100.2500 0-1 % Normal BASO% 0.4 LAB L100.2550 0.0-0.9 % Normal IM GRAN % 0.000 Result Comment: IG% - Immature Granulocytes (promyelocytes, myelocytes and metamyelocytes) > 1% indicates that a LEFT SHIFT is Present. LAB L100.2620 2.0-7.7 X10 3/uL Normal Absolute Neut 3.3 LAB L100.2720 0.83-4.51 X10 3/ul Normal Absolute Lymph 1.52 Performed By: #### L100.0100 #### [facility] [address] [place] [address]. [place], [address] BASIC METABOLIC Collected: 03/19/2018 Status: F Source: [place] PROFILE (BMP) 5:22 AM [facility] [place] TYPE CODE TESTS RESULT OUT OF RANGE REFERENCE UNITS LAB L501.0100 74-106 mg/dL Normal GLU 86 Result Comment: Please note revised GLUCOSE reference range effective 2017. LAB L501.1000 7-18 mg/dL High BUN 24 LAB L501.1100 0.55-1.02 mg/dL Low CREAT,SERUM 0.45 Result Comment: The validity of the calculated GFR AND GFRAA in patients over 70 years has not been determined. Clinical correlation is essential. LAB L501.1110 >60 mL/min Normal EST GFR 141 Result Comment: Non- GFR Calc LAB L501.1115 >60 mL/min Normal EST GFR - AA 171 Result Comment: GFR Calc LAB L501.1255 ml/min Normal Estimated CRCL 34.24 LAB L501.1300 10-20 RATIO High BUN/CRE 53.2 LAB L501.2200 8.5-10 mg/dL Normal .1 CA 8.7 LAB L501.5300 136-14 mmol/L Normal 5 NA 141 LAB L501.5600 3.5-5. mmol/L Normal 1 K 3.8 LAB L501.5900 98-107 mmol/L Normal CL 102 LAB L501.6100 21.0-3 mmol/L Normal 2.0 CO2 30.0 LAB L501.6200 5-15 Normal GAP 9 Performed By: #### L500.2500 #### [facility] [address] [place], [place], [address] BASIC METABOLIC Collected: 03/08/2018 Status: F Source: [place] PROFILE (BMP) 5:05 AM [facility] [place] TYPE CODE TESTS RESULT OUT OF RANGE REFERENCE UNITS LAB L501.0100 74-106 mg/dL Normal GLU 86 Result Comment: Please note revised GLUCOSE reference range effective 2017. LAB L501.1000 7-18 mg/dL High BUN 24 LAB L501.1100 0.55-1.02 mg/dL Low CREAT,SERUM 0.45 Result Comment: The validity of the calculated GFR AND GFRAA in patients over 70 years has not been determined. Clinical correlation is essential. LAB L501.1110 >60 mL/min Normal EST GFR 140 Result Comment: Non- GFR Calc LAB L501.1115 >60 mL/min Normal EST GFR - AA 170 Result Comment: GFR Calc LAB L501.1255 ml/min Normal Estimated CRCL 32.30 LAB L501.1300 10-20 RATIO High BUN/CRE 53.0 LAB L501.2200 8.5-10 mg/dL Normal .1 CA 8.6 LAB L501.5300 136-14 mmol/L Normal 5 NA 140 LAB L501.5600 3.5-5. mmol/L Normal 1 K 3.7 LAB L501.5900 98-107 mmol/L Normal CL 102 LAB L501.6100 21.0-3 mmol/L High 2.0 CO2 33.0 LAB L501.6200 5-15 Normal GAP 5 Performed By: #### L500.2500 #### [facility] [place], [address] CBC W/DIFF, AUTOMATED Collected: 03/08/2018 Status: F Source: [place] 5:05 AM [facility] [place] TYPE CODE TESTS RESULT OUT OF RANGE REFERENCE UNITS LAB L100.1000 4.4-11.0 K/mm3 Normal WBC 5.1 LAB L100.1200 4.2-5.4 M/mm3 Low RBC 4.01 LAB L100.1300 12.0-15.0 g/dl Low HGB 11.5 LAB L100.1400 37-47 % Normal HCT 37.2 LAB L100.1500 81-99 fL Normal MCV 92.8 LAB L100.1600 27.0-32.0 pg Normal MCH 28.7 LAB L100.1700 32-36 g/gl Low MCHC 30.9 LAB L100.1810 11.6-14.6 % High RDW CV 15.6 LAB L100.1820 35.1-43.9 fl High RDW SD 51.8 LAB L100.1900 150-450 K/mm3 Normal PLT 339 LAB L100.2000 6.2-12.0 fl Normal MPV 9.4 LAB L100.2100 47-70 % Normal NEUT% 57.3 LAB L100.2200 19-41 % Normal LY% 25.0 LAB L100.2300 0-10 % High MONO% 14.0 LAB L100.2400 0-5 % Normal EO% 2.7 LAB L100.2500 0-1 % Normal BASO% 0.6 LAB L100.2550 0.0-0.9 % Normal IM GRAN % 0.400 Result Comment: IG% - Immature Granulocytes (promyelocytes, myelocytes and metamyelocytes) > 1% indicates that a LEFT SHIFT is Present. LAB L100.2620 2.0-7.7 X10 3/uL Normal Absolute Neut 2.9 LAB L100.2720 0.83-4.51 X10 3/ul Normal Absolute Lymph 1.28 Performed By: #### L100.0100 #### [facility] [address] [place], [place], [address] CBC W/DIFF, AUTOMATED Collected: 03/01/2018 Status: F Source: [place] 5:05 AM [facility] [place] TYPE CODE TESTS RESULT OUT OF RANGE REFERENCE UNITS LAB L100.1000 4.4-11.0 K/mm3 Normal WBC 10.0 LAB L100.1200 4.2-5.4 M/mm3 Low RBC 3.28 LAB L100.1300 12.0-15.0 g/dl Low HGB 9.7 LAB L100.1400 37-47 % Low HCT 30.6 LAB L100.1500 81-99 fL Normal MCV 93.3 LAB L100.1600 27.0-32.0 pg Normal MCH 29.6 LAB L100.1700 32-36 g/gl Low MCHC 31.7 LAB L100.1810 11.6-14.6 % High RDW CV 15.6 LAB L100.1820 35.1-43.9 fl High RDW SD 49.3 LAB L100.1900 150-450 K/mm3 Normal PLT 311 LAB L100.2000 6.2-12.0 fl Normal MPV 9.3 LAB L100.2100 47-70 % Normal NEUT% 68.2 LAB L100.2200 19-41 % Low LY% 16.3 LAB L100.2300 0-10 % High MONO% 11.5 LAB L100.2400 0-5 % Normal EO% 2.1 LAB L100.2500 0-1 % Normal BASO% 0.5 LAB L100.2550 0.0-0.9 % High IM GRAN % 1.400 Result Comment: IG% - Immature Granulocytes (promyelocytes, myelocytes and metamyelocytes) > 1% indicates that a LEFT SHIFT is Present. LAB L100.2620 2.0-7.7 X10 3/uL Normal Absolute Neut 6.8 LAB L100.2720 0.83-4.51 X10 3/ul Normal Absolute Lymph 1.63 Performed By: #### L100.0100 #### [facility] [address] [place], [place], [address] BASIC METABOLIC Collected: 03/01/2018 Status: F Source: [place] PROFILE (BMP) 5:05 AM [facility] [place] TYPE CODE TESTS RESULT OUT OF RANGE REFERENCE UNITS LAB L501.0100 74-106 mg/dL Normal GLU 86 Result Comment: Please note revised GLUCOSE reference range effective 2017. LAB L501.1000 7-18 mg/dL High BUN 32 LAB L501.1100 0.55-1.02 mg/dL Low CREAT,SERUM 0.42 Result Comment: The validity of the calculated GFR AND GFRAA in patients over 70 years has not been determined. Clinical correlation is essential. LAB L501.1110 >60 mL/min Normal EST GFR 153 Result Comment: Non- GFR Calc LAB L501.1115 >60 mL/min Normal EST GFR - AA 185 Result Comment: GFR Calc LAB L501.1255 ml/min Normal Estimated CRCL 34.24 LAB L501.1300 10-20 RATIO High BUN/CRE 76.2 LAB L501.2200 8.5-10 mg/dL Low .1 CA 8.4 LAB L501.5300 136-14 mmol/L Normal 5 NA 137 LAB L501.5600 3.5-5. mmol/L Normal 1 K 4.0 Result Comment: Critical Result(s) Called at: 06:46:09 02/22/2018 by: Donovan Oneill to Dolores Griffith RN (TCU). LAB L501.5900 98-107 mmol/L Normal CL 99 LAB L501.6100 21.0-32.0 mmol/L Normal CO2 30.0 LAB L501.6200 5-15 Normal GAP 8 Performed By: #### L500.2500 #### [facility] [address] [place], [address] 12 LEAD ELECTROCARDIOGRAM Observed: 02/27/2018 Status: F Source: [place] 3:09 PM [facility] [place] [facility] Cardiovascular Services [address] [address] 12 Lead EKG 02/18/18 0753 MR#: [id number] Acct: [id number] Name: MARYREYNOLD L Rep #: [id number] : 1935 82 From: Jayy Park MD Attending Dr: Jessee Falk DO Status: DIS IN Ordering Dr: Jessee Falk DO Date: 02/18/18 Location: MS3 Sex: F C Admitted: 02/17/18 Test Reason : POSS SEIZURE Blood Pressure : / mmHG Vent. Rate : 089 BPM Atrial Rate : 089 BPM P-R Int : 198 ms QRS Dur : 082 ms QT Int : 364 ms P-R-T Axes : 033 005 008 degrees QTc Int : 442 ms Normal sinus rhythm Nonspecific ST abnormality Abnormal ECG When compared with ECG of 16-FEB-2018 23:07, MANUAL COMPARISON REQUIRED, DATA IS UNCONFIRMED Confirmed by XAVIER WASHINGTON, JAYY ([id number]), deputy editor in chief FRITZ FOLEY ([id number]) on 02/27/2018 3:09:34 PM Referred By: GORAN Confirmed By:JAYY PARK MD 02/27/18 1509 Date Jayy Park MD CC: Kamaljit Garcia; Jessee Falk DO Signed CBC W/DIFF, AUTOMATED Collected: 02/27/2018 Status: F Source: [place] 6:10 AM [facility] [place] TYPE CODE TESTS RESULT OUT OF RANGE REFERENCE UNITS LAB L100.1000 4.4-11.0 K/mm3 High WBC 14.6 LAB L100.1200 4.2-5.4 M/mm3 Low RBC 3.59 LAB L100.1300 12.0-15.0 g/dl Low HGB 10.4 LAB L100.1400 37-47 % Low HCT 32.7 LAB L100.1500 81-99 fL Normal MCV 91.1 LAB L100.1600 27.0-32.0 pg Normal MCH 29.0 LAB L100.1700 32-36 g/gl Low MCHC 31.8 LAB L100.1810 11.6-14.6 % High RDW CV 15.4 LAB L100.1820 35.1-43.9 fl High RDW SD 47.9 LAB L100.1900 150-450 K/mm3 Normal PLT 256 LAB L100.2000 6.2-12.0 fl Normal MPV 9.0 LAB L100.2100 47-70 % High NEUT% 79.0 LAB L100.2200 19-41 % Low LY% 8.6 LAB L100.2300 0-10 % Normal MONO% 9.9 LAB L100.2400 0-5 % Normal EO% 1.1 LAB L100.2500 0-1 % Normal BASO% 0.4 LAB L100.2550 0.0-0.9 % High IM GRAN % 1.000 Result Comment: IG% - Immature Granulocytes (promyelocytes, myelocytes and metamyelocytes) > 1% indicates that a LEFT SHIFT is Present. LAB L100.2620 2.0-7.7 X10 3/uL High Absolute Neut 11.5 LAB L100.2720 0.83-4.51 X10 3/ul Normal Absolute Lymph 1.26 Performed By: #### L100.0100, L500.2500 #### [facility] [address] [place], [place], [address] BASIC METABOLIC Collected: 02/27/2018 Status: F Source: [place] PROFILE (BMP) 6:10 AM [facility] [place] TYPE CODE TESTS RESULT OUT OF RANGE REFERENCE UNITS LAB L501.0100 74-106 mg/dL Normal GLU 95 Result Comment: Please note revised GLUCOSE reference range effective 2017. LAB L501.1000 7-18 mg/dL Normal BUN 16 LAB L501.1100 0.55-1.02 mg/dL Low CREAT,SERUM 0.38 Result Comment: The validity of the calculated GFR AND GFRAA in patients over 70 years has not been determined. Clinical correlation is essential. LAB L501.1110 >60 mL/min Normal EST GFR 173 Result Comment: Non- GFR Calc LAB L501.1115 >60 mL/min Normal EST GFR - AA 209 Result Comment: GFR Calc LAB L501.1255 ml/min Normal Estimated CRCL 34.24 LAB L501.1300 10-20 RATIO High BUN/CRE 42.2 LAB L501.2200 8.5-10 mg/dL Low .1 CA 8.4 LAB L501.5300 136-14 mmol/L Low 5 NA 132 LAB L501.5600 3.5-5. mmol/L Normal 1 K 4.2 LAB L501.5900 98-107 mmol/L Low CL 97 LAB L501.6100 21.0-3 mmol/L Normal 2.0 CO2 27.0 LAB L501.6200 5-15 Normal GAP 8 Performed By: #### L100.0100, L500.2500 #### [facility] [address] [place], [place], [address] BEDSIDE GLUCOSE Collected: 02/27/2018 Status: F Source: [place] 5:36 AM [facility] [place] CODE TESTS RESULT OUT OF RANGE REFERENCE UNITS LAB L501.080 70-110 mg/dL Normal BEDSIDE GLU 98 Result Comment: MANAGEMENT OF PATIENT CARE PER NURSING PROTOCOL Performed By: #### L501.080 #### [facility] Point of Care [address] [place], [place] [address] BASIC METABOLIC Collected: 02/24/2018 Status: F Source: [place] PROFILE (BMP) 6:05 AM [facility] [place] TYPE CODE TESTS RESULT OUT OF RANGE REFERENCE UNITS LAB L501.0100 74-106 mg/dL Normal GLU 86 Result Comment: Please note revised GLUCOSE reference range effective 2017. LAB L501.1000 7-18 mg/dL Normal BUN 11 LAB L501.1100 0.55-1.02 mg/dL Low CREAT,SERUM 0.33 Result Comment: The validity of the calculated GFR AND GFRAA in patients over 70 years has not been determined. Clinical correlation is essential. LAB L501.1110 >60 mL/min Normal EST GFR 204 Result Comment: Non- GFR Calc LAB L501.1115 >60 mL/min Normal EST GFR - AA 247 Result Comment: GFR Calc LAB L501.1255 ml/min Normal Estimated CRCL 34.24 LAB L501.1300 10-20 RATIO High BUN/CRE 33.5 LAB L501.2200 8.5-10 mg/dL Low .1 CA 8.3 LAB L501.5300 136-14 mmol/L Normal 5 NA 140 LAB L501.5600 3.5-5. mmol/L Normal 1 K 4.2 LAB L501.5900 98-107 mmol/L Normal CL 104 LAB L501.6100 21.0-3 mmol/L Normal 2.0 CO2 28.0 LAB L501.6200 5-15 Normal GAP 8 Performed By: #### L500.2500 #### [facility] [address] [place], [address] DISCHARGE SUMMARY Observed: 02/22/2018 Status: F Source: [place] 6:27 PM [facility] [place] [facility] Medical Records Department [address] [place] [address] Discharge Summary 02/22/18 1820 MR#: [id number] Acct: [id number] Name: REYNOLD HERNANDEZ Rep #: [id number] : 1935 82 From: Jessee Falk DO PCP: Kamaljit Garcia Status: DIS IN Y [place] [facility] [place] [id number] Discharge Date and Diagnosis Date of Admission: 02/17/18 Date of Discharge: 02/21/18 - Primary Discharge Diagnosis #1 proximal left femur fracture secondary to fall with osteoporosis #2 Alzheimer's dementia #3 syncopal episode-etiology unclear, not related to femur fracture #4 essential hypertension #5 right lower lobe infiltrate-either pneumonia or atelectasis- exact etiology unknown #6 dysphagia secondary to Alzheimer's dementia - Secondary Discharge Diagnosis Chronic Problems Hypertension (Chronic) Alzheimer's disease (Chronic) Sinus bradycardia (Chronic) Essential hypertension, benign (Chronic) 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 On evaluation in the emergency room, x-rays were obtained which indicated a proximal left femoral fracture, labs were remarkable for BUN of 23. Patient was admitted to [place] [address], seen in consultation by orthopedic surgery who performed a cemented hemiarthroplasty of the left hip on 02/17/18. Patient was seen by PT and OT and it was felt she would benefit from placement in long term facility, postop course was complicated by an episode of syncope-the etiology of this was unknown, patient underwent an EEG which showed no evidence of seizure disorder. Evidently the patient had a similar episode during her hospitalization earlier in the year this year. Patient also had an episode of fever and a chest x-ray indicated a right lower lobe infiltrate that was felt to be either due to pneumonia or atelectasis. Patient was placed on a course of antibiotics which were then changed to oral antibiotics at the time of her discharge from [facility]. In addition, patient developed evidence of dysphagia and was seen by speech therapy who had to perform a videofluoroscopic examination to determine if the patient was safe for oral intake, it was determined that she could take oral intake with modifications of her diet. On 02/21/18, patient was seen and examined and felt to be in stable condition for transfer to TCU for rehab services. Home Medications: Medications to take at Discharge Polyethylene Glycol 3350 [Miralax] 17 gm PO PRN PRN 12/30/17 Sertraline HCl [Zoloft] 25 mg PO DAILY 12/30/17 Acetaminophen [Tylenol] 650 mg PO Q6H PRN 02/21/18 Ipratropium/Albuterol Sulfate [Duoneb] 3 ml INHALATION TID 02/21/18 Oxycodone [Oxyir] 5 mg PO Q4H PRN PRN 02/21/18 Rivaroxaban [Xarelto] 10 mg PO DAILY 02/21/18 levoFLOXacin tablet [Levaquin tablet] 250 mg PO DAILY 02/21/18 Primary Care Physician: Kamaljit Garcia PA [Primary Care Provider] - Disposition: Nursing Home facility Minutes spent on discharge:: 32 Patient Condition:: Stable Medical Necessity - Tobacco Use Smoking Status: Former smoker Meaningful Use Info Meaningful Use Diagnoses (Choose all that apply): None applicable Code Visit Inpatient E AND M: 83993 Disch Hosp 02/22/18 1827 <Electronically signed by Jessee Falk DO> Date Jessee Falk DO Cosigner Signature (if applicable): Date CC: Kamaljit Garcia; Jessee Falk DO Signed HIP 2-3 VIEWS WITH Observed: 02/21/2018 Status: F Source: [place] PELVIS 8:31 PM [facility] REPOSITORY [facility] Imaging Services [address] [place] [address] Hip 2-3 Views with Pelvis MR#: [id number] Acct: [id number] Name: REYNOLD HERNANDEZ Rep #: [id number] : 1935 F 82 From: Carlos Huizar MD PCP: Kamaljit Garcia Status: ADM IN Study: Hip 2-3 Views with Pelvis Date of Exam: 02/21/18 Exam# [id number] Ordering Dr: Royce Salinas MD STUDY: X-RAY - PELVIS AND LEFT HIP REASON FOR EXAM: Female, 82 years old. Postop left hip TECHNIQUE: Radiological exam, hip, unilateral, with pelvis when performed; 2 or 3 views. COMPARISON: 02/17/2018 FINDINGS: Residual contrast in the colon and appendix. Skin celia over the left hip. Right femoral hardware with remote femoral deformity. Left hip arthroplasty with normal alignment. Postoperative air on the left. RAD/Hip 2-3 Views with Pelvis IMPRESSION: Normally aligned left hip arthroplasty. No acute osseous abnormality is evident. Electronically Signed: Carlos Huizar MD at 7:02 EDT Tel , Service support , CC: Kamaljit Garcia; Royce Salinas MD 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: Signed HISTORY AND PHYSICAL Observed: 02/21/2018 Status: F Source: [place] EXAM 8:29 PM [facility] REPOSITORY [facility] Medical Records Department [address] [place] [address] History and Physical 02/21/182011 MR#: [id number] Acct: [id number] Name: REYNOLD HERNANDEZ Rep #: [id number] : 1935 82 From: Royce Salinas MD PCP: Kamaljit Garcia Status: ADM IN Y Location: [place] [address] Problem List (1) Hypertension Status: Chronic (2) Alzheimer's disease Status: Chronic (3) Left femoral shaft fracture Status: Acute History of Present Illness Date of Admission: 02/21/18 Chief Complaint: Here for rehabilitation, strengthening, prior to discharge home with family. The patient is a 82 year old Female with below past medical history presented to [facility] Emergency Department 02/16/2018 with fall. 02/16/2018 Chest X-ray bilateral breast implants, tortuous aorta. 02/16/2018 EKG Normal Sinus Rhythm, Normal EKG. 02/16/2018 X-ray pelvis, Left hip acute left femur fracture. Fall, lives with family, History of Alzheimer's Disease. Left hip pain. CBCD, BMP okay, Cr 0.53, INR 1.0. 02/17/2018 Admit to Hospital. IV fluids, hold lisinopril. 02/17/2018 Dr. Gordon performed cemented hemiarthroplasty left hip. 02/18/2018 Chest X-ray right lower lobe pneumonia. 02/19/2018 EEG showed non-specific slowing. 02/19/2018 Was on Macrodantin for UTI but stopped because patient on IV Zosyn for right lower lobe pneumonia. 02/20/2018 Brief syncope. Zosyn IV RLL pneumonia. Dysphagia, Speech Therapy will evaluate. 02/21/2018 Modified barium swallow showed moderate to severe dysphagia. Recommend pureed textured, thin liquid diet. 02/21/2018 Admit to TCU with debility, here for rehabilitation, strengthening, prior to discharge home with family. 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 Psychiatric History: No pertinent psych hx PROFESSOR OF FINANCE History: No pertinent PROFESSOR OF FINANCE history Lives: With Family - Lives with daughter who runs in home daycare for children. Smoking Status: Former smoker Tobacco Use: Non-smoker Alcohol: None Drugs: None - *Family History Maternal History Items: No pertinent history Paternal History Items: No pertinent history Review of Systems Constitutional: Denies: Chills, Fever, Weight Change HEENT: Denies: Head Aches, Sinus Congestion, Sinus Drainage Cardiovascular: Denies: Chest Pain, Palpitations Respiratory: Denies: Cough, Shortness of breath at rest, Sputum production Gastrointestinal: Denies: Abdominal Pain, Nausea, Vomiting Genitourinary: Denies: Dysuria Musculoskeletal: Denies: Joint Pain, Joint Tenderness Skin: Denies: Rash, Wounds Neurological: Denies: Numbness, Tingling, Focal weakness Psychiatric: Denies: Anxiety, Depression, Homicidal Ideations, Suicidal Ideations Hematologic/ Lymphatic: Denies: Easy Bruising, Easy Bleeding VTE Information - Inpt Only VTE Present on Admission: No VTE Mechan Device Prophylaxis: Knee High MOSHE Hose VTE Pharm Prophylaxis ordered?: Yes - Physical Exam General: Alert, Oriented x3, Cooperative HEENT: Atraumatic, PERRLA, EOMI, Normocephalic Neck: Supple, No JVD, Negative Carotid Bruits Lungs: Clear to auscultation, Normal air movement Cardiovascular: Regular rate, No murmurs Abdomen: Bowel Sounds Present, Soft, Non Tender Extremities: No edema, Capillary Refill Less than 3 Seconds Skin: No rashes, No breakdown, Incision - Left hip clean, dry, intact. Musculoskeletal: No Tenderness to Palpation of Joints or Extremities Neurological: Cranial nerves II-XII grossly intact Psych/Mental Status: Normal Affect, Appropriate Intake and Output for Last 24 Hours Intake Total 120 / 120 Balance 120 / 120 Assessment/Plan All Active Problems Nausea, vomiting and diarrhea (Resolved) Syncope (Resolved) Dehydration (Resolved) UTI (urinary tract infection) (Resolved) Left femoral shaft fracture (Acute) Fracture of right inferior pubic ramus (Resolved) Ventricular asystolia (Resolved) Postoperative anemia (Resolved) 82 year old female with below past medical history significant for Alzheimer's Disease, hospitalized for left hip fracture, underwent left hip hemiarthroplasty 02/17/[address] Gordon, complicated by right lower lobe pneumonia, admitted to TCU with debility, here for rehabilitation, strengthening, prior to discharge home with family. * Debility - PT/OT. * Dysphagia - ST, modified diet. * Pain - Tylenol 1000MG Q8H PRN mild pain, Oxycodone 5MG Q4H PRN moderate to severe pain. * Bowel - Miralax 17GM daily, Senna/colace 1 tablet BID, Dulcolax 10MG PO daily PRN. * Pneumonia vaccination - Administer Prevnar 13 and/or Pneumovax 23 as necessary. * DVT prophylaxis - Xarelto 10MG thru 03/24/2018. * Shortness of breath - Duoneb 3ML TID. * Right lower lobe pneumonia - Levaquin 250MG daily thru 02/26/2018. * Depression - Sertraline 25MG daily. 02/21/182028 <Electronically signed by Royce Salinas MD> Date Royce Salinas MD Cosigner Signature: Date (if applicable) CC: Kamaljit Garcia; Royce Salinas MD Signed MODIFIED BARIUM Observed: 02/21/2018 Status: F Source: [place] SWALLOW STUDY 5:41 PM [facility] [place] [facility] Speech Pathology [address] [place] [address] Modified Barium Swallow Study MR#: [id number] Acct: [id number] Name: REYNOLD HERNANDEZ Rep #: [id number] : 1935 82 From: Yoel Deng M.A., CFY-TANK INSULATOR RUBBER PRIMARY / SECONDARY DIAGNOSIS: dysphagia (R13.12) REFERRING PHYSICIAN: Dr. Jessee Falk MD CURRENT DIET: NPO DENTITION: WFL MENTAL STATUS: severely impaired RESPIRATORY STATUS: O2 via room air PREVIOUS MODIFIED BARIUM SWALLOW STUDY: none REASON FOR REFERRAL: Patient is an 82 year old female referred for a modified barium swallow (MBS) study to objectively assess the Patients oropharyngeal swallow function under fluoroscopy secondary to concerns for silent aspiration associated with recent right lower lung pneumonia and longstanding severe dementia, with inability to advance at bedside. MEDICAL HISTORY: 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, sinus bradycardia, benign essential hypertension, right inferior pubic ramus fracture, closed right hip fracture. STUDY FINDINGS: Patient participated in a Modified Barium Swallow (MBS) study on 02/21/2018. This study was recorded in the lateral view and images were sent to PACs for storage. The following consistencies were presented to this patient for analysis of oropharyngeal swallow function: thin liquids, pudding, and a regular textured, Elizabeth Doone cookie. Results of the MBS are as follows: PENETRATION / ASPIRATION SCALE (GLEASON): 1 = does not enter airway 2 = enters airway/above vocal folds/ejected 3 = enters airway/above vocal folds/not ejected 4 = enters airway/contacts vocal folds/ejected 5 = enters airway/contacts vocal folds/not ejected 6 = enters airway/below vocal folds/ejected 7 = enters airway/below vocal folds/not ejected despite effort 8 = enters airway/below vocal folds/no effort PENETRATION / ASPIRATION SCALE (SCORE): Thin liquid - 5 mL tsp.: 1 Thin liquids via cup (sequential swallows large volume): 1 Thin liquids via cup (sequential swallows large volume): 1 Pudding via spoon: 1 Regular textured cookie: NA* Thin liquids via straw (sequential swallows): 1 Thin liquids via straw (sequential swallows): 1 * denotes complete lack of mastication or attempt to manipulate the bolus despite maintenance of alertness, conversing between trials, apparent oral agnosia; required clinician assisted removal IMPRESSION: DIAGNOSIS: moderate to severe oral dysphagia (R13.11) ORAL PHASE CHARACTERIZED BY: LABIAL SEAL: escape beyond interlabial space or lateral juncture; no extension beyond sue border (associated with odd use of utensil during placement versus labial dysfunction) TONGUE CONTROL DURING BOLUS MANIPULATION: intermittent posterior escape of less than half of bolus BOLUS PREPARATION / MASTICATION: minimal to no chewing/mashing with bolus unchewed; required clinician assisted removal; unnecessary mastication motions with purees BOLUS TRANSPORT / LINGUAL MOTION: slowed tongue motion with occasional delayed initiation of tongue motion in addition to intermittent repetitive / disorganized tongue motion ORAL RESIDUE: residue collection on oral structures (primarily the posterior lingual blade) PHARYNGEAL PHASE CHARACTERIZED BY: INITIATION OF PHARYNGEAL SWALLOW: bolus head in valleculae at first hyoid excursion SOFT PALATE ELEVATION: no bolus between soft palate and pharyngeal wall LARYNGEAL ELEVATION: complete superior movement of thyroid cartilage with complete approximation of arytenoids cartilage to epiglottic petiole ANTERIOR HYOID EXCURSION: partial anterior movement EPIGLOTTIC MOVEMENT: complete epiglottic inversion LARYNGEAL VESTIBULE CLOSURE AT HEIGHT OF SWALLOW: complete laryngeal vestibule closure with no air/contrast in laryngeal vestibule PHARYNGEAL STRIPPING WAVE: pharyngeal stripping wave present / complete PHARYNGOESOPHAGEAL SEGMENT OPENING: partial distension and partial duration; partial obstruction of flow TONGUE BASE RETRACTION: trace column of contrast between tongue base and posterior pharyngeal wall PHARYNGEAL RESIDUE: intermittent collection of residue within or on pharyngeal structures (pyriforms with thin liquids) ESOPHAGEAL PHASE CHARACTERIZED BY: ESOPHAGEAL BOLUS CLEARANCE IN THE UPRIGHT POSITION: could not view DIET TEXTURE RECOMMENDATIONS: Will recommend a pureed textured, thin liquid diet. COMPENSATORY STRATEGIES RECOMMENDED: Supervision with assistance as needed, seated upright at 90 degrees during PO intake, medications whole with purees (check for oral clearance) INTERPRETATION OF RESULTS: Patient presents with moderate to severe oral dysphagia (R13.11) secondary to the diagnosis of Alzheimer's disease with severe major neurocognitive disorder. 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 This would place the Patient at HIGH RISK OF ASPIRATION DURING INTAKE IN SUBOPTIMAL POSITIONS. Based on the current study results and prior knowledge of this Patient, it is suspected that this is the cause of the individuals suspected aspiration event in the absence of silent aspiration. RECOMMENDATIONS: Patient requires intensive skilled speech-language intervention targeting continued diet texture management; and caregiver training targeting meal preparation if unable to advance to baseline diet textures prior to discharge; with any intervention targeting behavioral changes to yield no effect, as the Patient was unable to follow directions, and is considered to be at her baseline cognitive abilities per staff members familiar with the Patient (prolonged recent TCU admissions). It is anticipated that the Patients oral phase dysphagia will only worsen with continued cognitive decline, and would likely benefit from test and research reactor operator care placement. ADDITIONAL COMMENTS/RECOMMENDATIONS: Results and recommendations were discussed with the Patient immediately following MBS completion, with the Patient verbalizing understanding and agreement with all recommendations and education provided. IMAGE COUNT: [id number] 02/21/18 1741 <Electronically signed by Yoel Deng M.A., CFY-TANK INSULATOR RUBBER> Date Yoel Deng M.A., CFY-TANK INSULATOR RUBBER Co-Signature Required for all Medicare patients Date/Time Co-Signature CC: SWALLOWING FUNCTION Observed: 02/21/2018 Status: F Source: [place] W/VIDEO 9:02 AM [facility] [place] [facility] Imaging Services [address] [place] [address] Swallowing Function w/Video MR#: [id number] Acct: [id number] Name: REYNOLD HERNANDEZ Rep #: [id number] : 1935 F 82 From: Archie Carreon MD PCP: Kamaljit Garcia Status: ADM IN Study: Swallowing Function w/Video Date of Exam: 02/21/18 Exam# [id number] Ordering Dr: Jessee Falk DO STUDY: SWALLOWING STUDY REASON FOR EXAM: Female, 82 years old. Dysphagia. TECHNIQUE: The examination was performed with Speech Pathology in attendance. Under fluoroscopic observation, the patient ingested thin barium, thick barium, barium pudding, and barium coated cracker. FLUOROSCOPY TIME: 3:06 minutes/seconds. 2837 fluoroscopic images were obtained. RADIOLOGIST INVOLVEMENT: Radiologist was present and providing direct supervision. COMPARISON: None. FINDINGS: The following was observed during swallowing of the various mixtures of barium: Oral phase dysphagia. Thin Barium: There was no evidence of aspiration or laryngeal penetration. Barium Pudding: There was no evidence of aspiration or laryngeal penetration. Barium Coated Cracker: The patient was unable to ingest the cookie. RAD/Swallowing Function w/Video IMPRESSION: Normal tailored barium swallow study. Oral phase dysphagia. The swallow study findings were discussed with the patient by the speech pathologist at the conclusion of the examination. Please see speech pathology report for more information and recommendations. Electronically Signed: Archie Carreon MD at 16:01 EDT Tel [phone], Service support , CC: Kamaljit Garcia; Jessee Falk DO 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: Signed CBC-COMPLETE BLOOD CNT Collected: 02/20/2018 Status: F Source: [place] NO DIFF 6:00 AM [facility] [place] TYPE CODE TESTS RESULT OUT OF RANGE REFERENCE UNITS LAB L100.1000 4.4-11.0 K/mm3 Normal WBC 7.3 LAB L100.1200 4.2-5.4 M/mm3 Low RBC 2.85 LAB L100.1300 12.0-15.0 g/dl Low HGB 8.5 LAB L100.1400 37-47 % Low HCT 25.9 LAB L100.1500 81-99 fL Normal MCV 90.9 LAB L100.1600 27.0-32.0 pg Normal MCH 29.8 LAB L100.1700 32-36 g/gl Normal MCHC 32.8 LAB L100.1810 11.6-14.6 % Normal RDW CV 12.9 LAB L100.1820 35.1-43.9 fl Normal RDW SD 41.9 LAB L100.1900 150-450 K/mm3 Normal PLT 152 LAB L100.2000 6.2-12.0 fl Normal MPV 10.2 Performed By: #### L100.0500 #### [facility] [address] [place], [address] 12 LEAD ELECTROCARDIOGRAM Observed: 02/19/2018 Status: F Source: [place] 2:19 PM [facility] [place] [facility] Cardiovascular Services [address] [place] [address] 12 Lead EKG 02/16/18 2307 MR#: [id number] Acct: [id number] Name: REYNOLD HERNANDEZ Rep #: [id number] : 1935 82 From: Jayy Park MD Attending Dr: Jessee Falk DO Status: ADM IN Ordering Dr: Rebecca Holley MD Date: 02/16/18 [place] [facility] [place] Sex: F C Admitted: 02/17/18 Test Reason : Blood Pressure : / mmHG Vent. Rate : 075 BPM Atrial Rate : 075 BPM P-R Int : 194 ms QRS Dur : 072 ms QT Int : 394 ms P-R-T Axes : 042 009 024 degrees QTc Int : 439 ms Poor data quality, interpretation may be adversely affected Normal sinus rhythm Normal ECG Confirmed by JAYY PARK MD ([id number]), deputy editor in chief FRITZ FOLEY ([id number]) on 02/19/2018 2:18:55 PM Referred By: GIOVANNI Confirmed By:JAYY PARK MD 02/19/18 1419 Date Jayy Park MD CC: Kamaljit Garcia; Rebecca Holley MD; Jessee Falk DO Signed ELECTROENCEPHALOGRAM Observed: 02/19/2018 Status: F Source: [place] 11:14 AM [facility] [place] [facility] Pulmonary Services/Neurology [address] [place] [address] MR#: [id number] Acct: [id number] Name: REYNOLD HERNANDEZ Rep #: [id number] : 1935 82 From: Vijay Sanchez MD Referring Dr: Jessee Falk DO Status: ADM IN Ordering Dr: Date: Location: MS3 QR123-1 Sex: F C - Electroencephalogram This is an 18 channel EEG performed on this 82-year-old female with history of unresponsiveness status post left femur fracture. Nursing staff has noted an episode of eye rolling. 18 channel EEG is performed utilizing the international 1020 electrode placement protocol along with EKG reference leads. Photic stimulation was also performed however hyperventilation was unable to be performed due to the patient's unresponsiveness. Background activity is very slow at 4-5 Hz symmetrically in the posterior leads. Does not attenuate with eye opening. There are no lateralizing or epileptiform changes during this recording. Photic stimulation generates a normal symmetric driving response in the posterior leads. Impression this is an abnormal electroencephalogram due to the presence of nonspecific slowing it is noted that the patient has history of dementia and this may be the patient's baseline. There are no lateralizing or epileptiform changes. 02/19/18 1114 <Electronically signed by Vijay Sanchez MD> Date Vijay Sanchez MD CC: Kamaljit Garcia; Jessee Falk DO; Vijay Sanchez MD Date Dictated: 02/19/18 1111 Date Transcribed: 02/19/18 1111 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: NF Signed CBC-COMPLETE BLOOD CNT Collected: 02/19/2018 Status: F Source: [place] NO DIFF 5:46 AM [facility] [place] [facility] TYPE CODE TESTS RESULT OUT OF RANGE REFERENCE UNITS LAB L100.1000 4.4-11.0 K/mm3 Normal WBC 9.6 LAB L100.1200 4.2-5.4 M/mm3 Low RBC 3.08 LAB L100.1300 12.0-15.0 g/dl Low HGB 9.1 LAB L100.1400 37-47 % Low HCT 27.7 LAB L100.1500 81-99 fL Normal MCV 89.9 LAB L100.1600 27.0-32.0 pg Normal MCH 29.5 LAB L100.1700 32-36 g/gl Normal MCHC 32.9 LAB L100.1810 11.6-14.6 % Normal RDW CV 13.3 LAB L100.1820 35.1-43.9 fl Normal RDW SD 43.9 LAB L100.1900 150-450 K/mm3 Low PLT 118 LAB L100.2000 6.2-12.0 fl Normal MPV 9.6 Performed By: #### L100.0500 #### [facility] [address] [place], [address] BLOOD GASES BY CPS Collected: 02/18/2018 Status: F Source: [place] 11:10 PM [facility] [place] [facility] TYPE CODE TESTS RESULT OUT OF RANGE REFERENCE UNITS LAB L9000.9990 Normal BLD GAS TYPE ART LAB L9001.1000 Normal SITE R Radial LAB L9001.1010 Normal JESSICA TEST POS LAB L9001.1050 O2 Normal Delivery Dev Nasal Can LAB L9001.1055 /min Normal LPM 4.0 LAB L9001.1104 Normal Results To HOSP MD LAB L9001.1105 Normal Time Given 2305 LAB L9001.1110 7.35-7.45 High pH - I-STAT 7.46 LAB L9001.1210 35-45 mmHg Low pCO2 - ISTAT 29.9 LAB L9001.1310 75-100 mmHG Low PO2 I-STAT 52 LAB L9001.2300 22-26 mmol/L Low HCO3 ISTAT 21.3 LAB L9001.2400 -2 to +2 mmol/L BE Normal ISTAT -2 LAB L9001.2415 mmol/L Normal TOTAL CO2 22 ISTAT LAB L9001.2425 95-99 % Low SO2 ISTAT 89 Performed By: #### L9000.0800 #### [facility] Point of Care [address] [place] [address] CHEST 1 VIEW Observed: 02/18/2018 Status: F Source: [place] (PORTABLE) 10:48 PM [facility] [place] [facility] Imaging Services [address] [place] [address] Chest 1 View (Portable) MR#: [id number] Acct: [id number] Name: REYNOLD HERNANDEZ Rep #: [id number] : 1935 F 82 From: Arthur Valentino MD PCP: Kamaljit Garcia Status: ADM IN Study: Chest 1 View (Portable) Date of Exam: 02/18/18 Exam# [id number] Ordering Dr: Cayetano Lacey MD STUDY: X-RAY CHEST REASON FOR EXAM: Female, 82 years old. SOB / SOA TECHNIQUE: Single frontal view of the chest. COMPARISON: Study done 2 days ago. FINDINGS: Chronic appearing increased interstitial lung markings. There are bilateral breast implants. The lung coe are hyperexpanded. There is no demonstrated pleural abnormality. There is a new infiltrate in the right lower lobe. Normal heart size. Normal mediastinum and mirza. Normal visualized pulmonary arteries. There is atherosclerotic calcification of the aortic arch with tortuosity. There are diffuse degenerative changes of the visualized thoracic spine. There is degenerative osteoarthritis of the bilateral shoulders. There is no demonstrated abnormality of the visualized soft tissue structures of the upper abdomen. RAD/Chest 1 View (Portable) IMPRESSION: Right lower lobe pneumonia. Electronically Signed: Arthur Valentino MD at 23:33 EDT , Service support , CC: Kamaljit Garcia; Cayetano Lacey MD 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: Signed CBC-COMPLETE BLOOD CNT Collected: 02/18/2018 Status: F Source: [place] NO DIFF 5:50 AM [facility] [place] [facility] TYPE CODE TESTS RESULT OUT OF RANGE REFERENCE UNITS LAB L100.1000 4.4-11.0 K/mm3 High WBC 12.4 LAB L100.1200 4.2-5.4 M/mm3 Low RBC 3.77 LAB L100.1300 12.0-15.0 g/dl Low HGB 11.0 LAB L100.1400 37-47 % Low HCT 34.3 LAB L100.1500 81-99 fL Normal MCV 91.0 LAB L100.1600 27.0-32.0 pg Normal MCH 29.2 LAB L100.1700 32-36 g/gl Normal MCHC 32.1 LAB L100.1810 11.6-14.6 % Normal RDW CV 13.3 LAB L100.1820 35.1-43.9 fl High RDW SD 44.3 LAB L100.1900 150-450 K/mm3 Normal PLT 154 LAB L100.2000 6.2-12.0 fl Normal MPV 9.5 Performed By: #### L100.0500 #### [facility] [address] [place], [place], [address] BASIC METABOLIC Collected: 02/18/2018 Status: F Source: [place] PROFILE (BMP) 5:50 AM [facility] [place] [facility] TYPE CODE TESTS RESULT OUT OF RANGE REFERENCE UNITS LAB L501.0100 74-106 mg/dL Normal GLU 94 Result Comment: Please note revised GLUCOSE reference range effective 2017. LAB L501.1000 7-18 mg/dL High BUN 21 LAB L501.1100 0.55-1.02 mg/dL Normal CREAT,SERUM 0.56 Result Comment: The validity of the calculated GFR AND GFRAA in patients over 70 years has not been determined. Clinical correlation is essential. LAB L501.1110 >60 mL/min Normal EST GFR 109 Result Comment: Non- GFR Calc LAB L501.1115 >60 mL/min Normal EST GFR - AA 132 Result Comment: GFR Calc LAB L501.1255 ml/min Normal Estimated CRCL 34.10 LAB L501.1300 10-20 RATIO High BUN/CRE 37.2 LAB L501.2200 8.5-10 mg/dL Low .1 CA 7.9 LAB L501.5300 136-14 mmol/L Normal 5 NA 137 LAB L501.5600 3.5-5. mmol/L Normal 1 K 4.0 LAB L501.5900 98-107 mmol/L Normal CL 103 LAB L501.6100 21.0-3 mmol/L Normal 2.0 CO2 26.0 LAB L501.6200 5-15 Normal GAP 8 Performed By: #### L500.2500 #### [facility] [address] [place], [place], [address] CBC-COMPLETE BLOOD CNT Collected: 02/17/2018 Status: F Source: [place] NO DIFF 12:10 PM [facility] [place] [facility] Order Comment: Comments: To be done in PACU TYPE CODE TESTS RESULT OUT OF RANGE REFERENCE UNITS LAB L100.1000 4.4-11.0 K/mm3 High WBC 12.7 LAB L100.1200 4.2-5.4 M/mm3 Normal RBC 4.42 LAB L100.1300 12.0-15.0 g/dl Normal HGB 13.3 LAB L100.1400 37-47 % Normal HCT 40.5 LAB L100.1500 81-99 fL Normal MCV 91.6 LAB L100.1600 27.0-32.0 pg Normal MCH 30.1 LAB L100.1700 32-36 g/gl Normal MCHC 32.8 LAB L100.1810 11.6-14.6 % Normal RDW CV 13.2 LAB L100.1820 35.1-43.9 fl Normal RDW SD 43.9 LAB L100.1900 150-450 K/mm3 Normal PLT 170 LAB L100.2000 6.2-12.0 fl Normal MPV 9.1 Performed By: #### L100.0500 #### [facility] [address] [place], [address] HIP MIN 2 VIEWS Observed: 02/17/2018 Status: F Source: [place] (PORTABLE) 9:11 AM [facility] [place] [facility] Imaging Services [address] [place] [address] Hip Min 2 Views (Portable) MR#: [id number] Acct: [id number] Name: BALJEETREYNOLD DUNAWAY Michi Rep #: [id number] : 1935 F 82 From: Hebert Felix DO PCP: Kamaljit Garcia Status: ADM IN Study: Hip Min 2 Views (Portable) Date of Exam: 02/17/18 Exam# [id number] Ordering Dr: Roge Gordon DO STUDY: X-RAY - PELVIS AND RIGHT HIP REASON FOR EXAM: Female, 82 years old. Postop. TECHNIQUE: Radiological exam, hip, unilateral, with pelvis when performed; 2 or 3 views. COMPARISON: Pelvis and left hip, January 17, 2018. FINDINGS: There is a non-specific bowel gas pattern. Normal visualized soft tissue structures. Normal visualized iliac wings, sacroiliac joints and sacrum. Normal bilateral superior and inferior pubic rami. Normal pubic symphysis. Normal bilateral ischial tuberosities. Again seen is evidence of remote internal fixation of a right intertrochanteric fracture which appears unchanged from prior study. There is now a left total hip arthroplasty. The prosthetic components are intact. There is no fracture dislocation or loosening from the underlying bone. Air is seen in the surrounding soft tissues with lateral skin clips. RAD/Hip Min 2 Views (Portable) IMPRESSION: Status post left hip replacement. Electronically Signed: Hebert Felix DO at 12:25 EDT Tel [phone], Service support , CC: Kamaljit Garcia; Roge Gordon DO 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: Signed CBC W/DIFF, AUTOMATED Collected: 02/17/2018 Status: F Source: [place] 7:50 AM [facility] [place] [facility] TYPE CODE TESTS RESULT OUT OF RANGE REFERENCE UNITS LAB L100.1000 4.4-11.0 K/mm3 Normal WBC 10.1 LAB L100.1200 4.2-5.4 M/mm3 Normal RBC 4.52 LAB L100.1300 12.0-15.0 g/dl Normal HGB 13.2 LAB L100.1400 37-47 % Normal HCT 41.1 LAB L100.1500 81-99 fL Normal MCV 90.9 LAB L100.1600 27.0-32.0 pg Normal MCH 29.2 LAB L100.1700 32-36 g/gl Normal MCHC 32.1 LAB L100.1810 11.6-14.6 % Normal RDW CV 13.2 LAB L100.1820 35.1-43.9 fl Normal RDW SD 43.8 LAB L100.1900 150-450 K/mm3 Normal PLT 194 LAB L100.2000 6.2-12.0 fl Normal MPV 9.4 LAB L100.2100 47-70 % High NEUT% 81.0 LAB L100.2200 19-41 % Low LY% 11.6 LAB L100.2300 0-10 % Normal MONO% 6.5 LAB L100.2400 0-5 % Normal EO% 0.6 LAB L100.2500 0-1 % Normal BASO% 0.2 LAB L100.2550 0.0-0.9 % Normal IM GRAN % 0.100 Result Comment: IG% - Immature Granulocytes (promyelocytes, myelocytes and metamyelocytes) > 1% indicates that a LEFT SHIFT is Present. LAB L100.2620 2.0-7.7 X10 3/uL High Absolute Neut 8.2 LAB L100.2720 0.83-4.51 X10 3/ul Normal Absolute Lymph 1.17 Performed By: #### L100.0100 #### [facility] [address] [place], [address] BASIC METABOLIC Collected: 02/17/2018 Status: F Source: [place] PROFILE (BMP) 7:50 AM [facility] [place] [facility] TYPE CODE TESTS RESULT OUT OF RANGE REFERENCE UNITS LAB L501.0100 74-106 mg/dL Normal GLU 85 Result Comment: Please note revised GLUCOSE reference range effective 2017. LAB L501.1000 7-18 mg/dL High BUN 19 LAB L501.1100 0.55-1.02 mg/dL Low CREAT,SERUM 0.54 Result Comment: The validity of the calculated GFR AND GFRAA in patients over 70 years has not been determined. Clinical correlation is essential. LAB L501.1110 >60 mL/min Normal EST GFR 114 Result Comment: Non- GFR Calc LAB L501.1115 >60 mL/min Normal EST GFR - AA 138 Result Comment: GFR Calc LAB L501.1255 ml/min Normal Estimated CRCL 34.10 LAB L501.1300 10-20 RATIO High BUN/CRE 35.0 LAB L501.2200 8.5-10 mg/dL Low .1 CA 8.3 LAB L501.5300 136-14 mmol/L Normal 5 NA 138 LAB L501.5600 3.5-5. mmol/L Normal 1 K 4.1 LAB L501.5900 98-107 mmol/L Normal CL 103 LAB L501.6100 21.0-3 mmol/L Normal 2.0 CO2 28.0 LAB L501.6200 5-15 Normal GAP 7 Performed By: #### L500.2500 #### [facility] [address] [place], [address] TYPE AND SCREEN Collected: 02/17/2018 Status: F Source: [place] 7:50 AM [facility] [place] [facility] Order Comment: Comments: per surgical protocol Reason for Type AND Screen/Red Cells: SURGERY Surgery Date: 02/17/18 Time: 1000 Type of Surgery: FRACTURED HIP TYPE CODE TESTS RESULT OUT OF RANGE REFERENCE UNITS LAB B10.0800 O Normal BLOOD TYPE GEL POSITIVE LAB B100.4000 Normal Antibody NEGATIVE Screen Performed By: #### B101.7450 #### [facility] [address] [place], [address] HISTORY AND PHYSICAL Observed: 02/17/2018 Status: F Source: [place] EXAM 2:32 AM [facility] [place] [facility] Medical Records Department [address] [place] [id number] History and Physical 02/17/18 0210 MR#: [id number] Acct: [id number] Name: REYNOLD HERNANDEZ Rep #: [id number] : 1935 82 From: Cayetano Lacey MD PCP: Kamaljit Garcia Status: ADM IN Location: [address] Problem List (1) Left femoral shaft fracture Status: Acute (2) Essential hypertension, benign Status: Chronic (3) 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 She is unable to provide history secondary to dementia x 10 years. History is taken from her daughter. Her daughter told her not to close the window and she went to close the window. Her daughter startled her and she felt on her left hip. No lost of consciousness. However, she was unable to get up and a few minutes later, her daughter heard crackle sounds. Her daughter called EMS given that sound. Past Medical History Past Medical History (Chronic Problems): Chronic Problems Sinus bradycardia (Chronic) Fracture of right inferior pubic ramus (Chronic) Essential hypertension, benign (Chronic) 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 (Chronic) Fracture of hip, right, closed (Chronic) Allergies Penicillins [PCN] Allergy (Verified 12/30/17 08:43) Unknown Home Medications: Ambulatory Orders Medication Instructions Recorded Aspirin [Aspirin, Baby] 81 mg PO DAILY@0800 08/29/17 Multivitamin [Animal Shapes] 1 each PO DAILY 08/29/17 Polyethylene Glycol 3350 [Miralax] 17 gm PO PRN PRN 12/30/17 Surgical History: cataract, - - Right hip pinning (09/01/2017). Psychiatric History: No pertinent psych hx PROFESSOR OF FINANCE History: No pertinent PROFESSOR OF FINANCE history Lives: With Family Smoking Status: Former smoker - *Family History Maternal History Items: No pertinent history Paternal History Items: No pertinent history Review of Systems Constitutional: Denies: Chills, Fever, Weight Change HEENT: Denies: Head Aches, Sinus Congestion, Sinus Drainage Cardiovascular: Denies: Chest Pain, Palpitations Respiratory: Denies: Cough, Shortness of breath at rest, Sputum production Gastrointestinal: Denies: Abdominal Pain, Nausea, Vomiting Genitourinary: Denies: Dysuria Musculoskeletal: Denies: Joint Pain, Joint Tenderness Skin: Denies: Rash, Wounds Neurological: Denies: Numbness, Tingling, Focal weakness Psychiatric: Denies: Anxiety, Depression, Homicidal Ideations, Suicidal Ideations Hematologic/ Lymphatic: Denies: Easy Bruising, Easy Bleeding VTE Information - Inpt Only VTE Present on Admission: No VTE Mechan Device Prophylaxis: SCD's VTE Pharm Prophylaxis ordered?: No Patient Problems: Active and Suspected Problems Left femoral shaft fracture (Acute) - Physical Exam General: Confused, Disoriented HEENT: Atraumatic, PERRLA, EOMI, Normocephalic Neck: Supple, No JVD, Negative Carotid Bruits Lungs: Clear to auscultation, Normal air movement Cardiovascular: Regular rate, No murmurs Abdomen: Bowel Sounds Present, Soft, Non Tender Extremities: No edema, Capillary Refill Less than 3 Seconds Skin: No rashes, No breakdown Musculoskeletal: No Tenderness to Palpation of Joints or Extremities Neurological: Cranial nerves II-XII grossly intact Psych/Mental Status: Normal Affect, Appropriate Vital Signs Temp Pulse Resp BP Pulse Ox 97.8 F 83 12 139/88 H 97 02/16/18 22:47 02/17/18 01:04 02/17/18 01:04 02/17/18 01:04 02/17/18 01:04 Oxygen Flow Rate (L/min) 3 Oxygen Delivery Method Nasal Cannula Weight: 57.2 kg Body Mass Index (BMI) 18.6 Laboratory Tests Past 24 Hrs WBC 7.2 RBC 4.63 Hgb 13.6 Hct 42.3 MCV 91.4 MCH 29.4 MCHC 32.2 RDW 13.2 RDW Differential 44.2 H Plt Count 215 Assessment/Plan All Active Problems Nausea, vomiting and diarrhea (Acute) Syncope (Acute) Dehydration (Acute) UTI (urinary tract infection) (Acute) Left femoral shaft fracture (Acute) Ventricular asystolia (Acute) Postoperative anemia (Resolved) 82 year old female w/ h/o HTN and alzheimer's admitted for left proximal femur fracture. 1) Left proximal femur fracture: Secondary to mechanical fall. Xray disclosed acute mid cervical fracture of the proximal left femur with a varus deformity. EKG nondiagnostic. NPO. Pain controlled. IVF hydration. Consulted ortho. 2) HTN: Hold lisinopril given possible surgery. Monitor SBP. Will add coreg if elevated. 3) Alzheimer's: Resume home meds. Supportive care. 4) Prophylaxis: SCD. 02/17/18 0232 <Electronically signed by Cayetano Lacey MD> Date Cayetano Lacey MD Cosigner Signature: Date (if applicable) CC: Kamaljit Garcia; Cayetano Lacey MD Signed EMERGENCY DEPARTMENT Observed: 02/17/2018 Status: F Source: [place] SUMMARY 1:37 AM [facility] [place] [facility] Medical Records Department [address] [place] [address] Emergency Department Summary 02/16/18 2254 MR#: [id number] Acct: [id number] Name: REYNOLD HERNANDEZ Rep #: [id number] : 1935 82 From: Rebecca Holley MD PCP: Kamaljit Garcia Status: REG ER - ER Visit Summary Date of Service: 02/16/18 Chief Complaint: Fall History of Present Illness: The patient is a 82 F presenting after fall at home. Patient lives with family. She has a history of Alzheimer's dementia. She is unable to provide history. She arrives via EMS. She complains of left hip pain. Per patient's daughter she witnessed the fall. She was trying to close a window and lost her balance and fell. She did not hit her head or lose consciousness. She was unable to get up after the fall. Physical Examination: Vitals are stable. Patient is afebrile. Alert no acute distress. HEENT exam is unremarkable. Neck is nontender Lungs are clear and equal bilaterally. Heart is regular rate and rhythm. Abdomen is soft nontender nondistended. Extremities left anterior hip tenderness with pain with logrolling. Skin is warm and dry. No focal neurologic deficit. Remainder of exam is unremarkable. Emergency Department Course and Treatment: Patient given morphine, Zofran. EKG is sinus rate is 75. CBC, chemistries unremarkable other than creatinine 0.53. INR is 1.0. Left hip x-ray shows an acute mid cervical fracture of the proximal left femur with a varus deformity. An internally fixed healed or healing intertrochanteric fracture of the proximal right femur. Chest x-ray shows no acute process. Discussed with Dr. Gordon and the hospitalist for admission. Disposition: Admission Impression: Left proximal femur fracture This note was generated with [employer] dictation software. It may contain incorrect words, spelling, and punctuation that were not noted in review of the chart prior to signing ED Disposition - Plan for ED Patient: Chief Complaint: Fall Referrals: Kamaljit Garcia PA [Primary Care Provider] - What to do if you have Problems For any increased pain, shortness of breath, bleeding, nausea or vomiting, chest pain, or any unexpected problems, contact your Primary Care Provider. Call [facility] ([phone]) or report to the closest Emergency Room. Call 911 if necessary. 02/17/18 0137 <Electronically signed by Rebecca Holley MD> Date Rebecca Holley MD Cosigner Signature (If Indicated): Date CC: Kamaljit Trevon Garcia TOTAL HIP REPLACEMENT Observed: 02/17/2018 Status: F Source: [place] 12:00 AM [facility] [place] [facility] Patient: REYNOLD HERNANDEZ : 1935 (82/F) Acct Num: [id number] Phys: Dileep LOPEZ,Jessee Unit Num: [id number] Loc: MS3 MD155-5 Specimen: [id number] Received: 02/19/18 - 1443 Spec Type: TOTAL HIP TISSUES TISSUES: Hip, NOS GROSS DESCRIPTION Received is one container designated left femoral head. The specimen consists of a femoral head measuring 4.5 x 4.5 x 4 cm. The resection margin is irregular and hemorrhagic. The articular surface is smooth. Also present in the container are multiple pieces of bone measuring in aggregate 7 x 6 x 3 cm. Soft tissue is not identified. Auto Body Shop Manager sections are submitted in three cassettes as follows: 1 AND 2 detached pieces of bone, 3- femoral head after decalcification. / GEORGIE:mal 02/19/18 TC:5 CPT: 08228, 13705 HEADER OPERATION: Left hemiarthroplasty, hip PRE-OP DIAGNOSIS: Subcapital fracture left hip TISSUE SUBMITTED: Left femoral head and bone MICROSCOPIC DESCRIPTION Slides are reviewed. MICROSCOPIC DIAGNOSIS Left femoral head and bone, hemiarthroplasty: Femoral head and detached pieces of bone with focal area of hemorrhage, clinically subcapital fracture left hip. GEORGIE:mal 02/22/18 Signed Jovanny Barnes 02/22/18 <signature on file> Performed By: #### PHIP #### [facility] [address] [place], [address] CBC W/DIFF, AUTOMATED Collected: 02/16/2018 Status: F Source: [place] 11:00 PM [facility] [place] [facility] TYPE CODE TESTS RESULT OUT OF RANGE REFERENCE UNITS LAB L100.1000 4.4-11.0 K/mm3 Normal WBC 7.2 LAB L100.1200 4.2-5.4 M/mm3 Normal RBC 4.63 LAB L100.1300 12.0-15.0 g/dl Normal HGB 13.6 LAB L100.1400 37-47 % Normal HCT 42.3 LAB L100.1500 81-99 fL Normal MCV 91.4 LAB L100.1600 27.0-32.0 pg Normal MCH 29.4 LAB L100.1700 32-36 g/gl Normal MCHC 32.2 LAB L100.1810 11.6-14.6 % Normal RDW CV 13.2 LAB L100.1820 35.1-43.9 fl High RDW SD 44.2 LAB L100.1900 150-450 K/mm3 Normal PLT 215 LAB L100.2000 6.2-12.0 fl Normal MPV 9.3 LAB L100.2100 47-70 % Normal NEUT% 63.3 LAB L100.2200 19-41 % Normal LY% 24.2 LAB L100.2300 0-10 % Normal MONO% 8.5 LAB L100.2400 0-5 % Normal EO% 2.9 LAB L100.2500 0-1 % Normal BASO% 0.7 LAB L100.2550 0.0-0.9 % Normal IM GRAN % 0.400 Result Comment: IG% - Immature Granulocytes (promyelocytes, myelocytes and metamyelocytes) > 1% indicates that a LEFT SHIFT is Present. LAB L100.2620 2.0-7.7 X10 3/uL Normal Absolute Neut 4.5 LAB L100.2720 0.83-4.51 X10 3/ul Normal Absolute Lymph 1.73 Performed By: #### L100.0100 #### [facility] [address] [place], [address] BASIC METABOLIC Collected: 02/16/2018 Status: F Source: [place] PROFILE (BMP) 11:00 PM [facility] [place] [facility] TYPE CODE TESTS RESULT OUT OF RANGE REFERENCE UNITS LAB L501.0100 74-106 mg/dL Normal GLU 90 Result Comment: Please note revised GLUCOSE reference range effective 2017. LAB L501.1000 7-18 mg/dL High BUN 23 LAB L501.1100 0.55-1.02 mg/dL Low CREAT,SERUM 0.53 Result Comment: The validity of the calculated GFR AND GFRAA in patients over 70 years has not been determined. Clinical correlation is essential. LAB L501.1110 >60 mL/min Normal EST GFR 117 Result Comment: Non- GFR Calc LAB L501.1115 >60 mL/min Normal EST GFR - AA 142 Result Comment: GFR Calc LAB L501.1255 ml/min Normal Estimated CRCL 39.17 LAB L501.1300 10-20 RATIO High BUN/CRE 43.3 LAB L501.2200 8.5-10 mg/dL Normal .1 CA 8.7 LAB L501.5300 136-14 mmol/L Normal 5 NA 139 LAB L501.5600 3.5-5. mmol/L Normal 1 K 3.8 LAB L501.5900 98-107 mmol/L Normal CL 102 LAB L501.6100 21.0-3 mmol/L Normal 2.0 CO2 31.0 LAB L501.6200 5-15 Normal GAP 6 Performed By: #### L500.2500 #### [facility] [address] [place], [address] PROTHROMBIN TIME W/INR Collected: 02/16/2018 Status: F Source: [place] 11:00 PM [facility] [place] [facility] TYPE CODE TESTS RESULT OUT OF RANGE REFERENCE UNITS LAB L300.4150 11.7-14.9 SECONDS Normal PROTIME 13.2 LAB L300.4200 Normal INR 1.0 Performed By: #### L300.3900 #### [facility] [address] [place], [address] HIP 2-3 VIEWS WITH Observed: 02/16/2018 Status: F Source: [place]ITA PELVIS 10:54 PM [facility] REPOSITORY [facility] Imaging Services [address] [place] [address] Hip 2-3 Views with Pelvis MR#: [id number] Acct: [id number] Name: REYNOLD HERNANDEZ Rep #: [id number] : 1935 F 82 From: Silvestre Murray MD PCP: Kamaljit Garcia Status: REG ER Study: Hip 2-3 Views with Pelvis Date of Exam: 02/16/18 Exam# [id number] Ordering Dr: Rebecca Holley MD STUDY: X-RAY - PELVIS AND LEFT HIP REASON FOR EXAM: Female, 82 years old. Patient fell. Left hip pain TECHNIQUE: Radiological exam, hip, unilateral, with pelvis when performed; 2 or 3 views. COMPARISON: None. FINDINGS: There is a midcervical fracture of the proximal left femur with varus deformity. The left hip joint is well-maintained. The left superior inferior pubic rami are normal. An intramedullary jayne and 2 interference screws have been used to transfix a healed or healing intertrochanteric fracture of the proximal right femur. There are no acute fractures. The right superior and inferior rami are normal. RAD/Hip 2-3 Views with Pelvis IMPRESSION: An acute mid cervical fracture of the proximal left femur with a varus deformity. An internally fixed healed or healing intertrochanteric fracture of the proximal right femur. Electronically Signed: Silvestre Murray, at 0:08 EDT Tel , Service support , CC: Kamaljit Garcia; Rebecca Holley MD 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: Signed CHEST 1 VIEW Observed: 02/16/2018 Status: F Source: LOLITA (PORTABLE) 10:54 PM [facility] REPOSITORY [facility] Imaging Services [address] [place] [address] Chest 1 View (Portable) MR#: [id number] Acct: [id number] Name: REYNOLD HERNANDEZ Rep #: [id number] : 1935 F 82 From: Silvestre Murray MD PCP: Kamaljit Garcia Status: REG ER Study: Chest 1 View (Portable) Date of Exam: 02/16/18 Exam# [id number] Ordering Dr: Rebecca Holley MD STUDY: X-RAY CHEST REASON FOR EXAM: Female, 82 years old. Patient fell TECHNIQUE: 1 view COMPARISON: None. FINDINGS: Bilateral breast implants. The heart is normal in size. The aorta is tortuous. There is no acute pneumonia or failure and no pleural effusions.. Normal visualized thoracic spine. Normal visualized ribs, clavicles, and shoulders. There is no demonstrated abnormality of the visualized soft tissue structures of the upper abdomen. RAD/Chest 1 View (Portable) IMPRESSION: Bilateral breast implants. No acute findings in the lungs. A tortuous aorta. No acute fractures Electronically Signed: Silvestre Murray, at 0:10 EDT Tel , Service support , CC: Kamaljit Garcia; Rebecca Holley MD 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: Signed URINALYSIS Collected: 02/15/2018 Status: F Source: [place] 7:00 AM [facility] REPOSITORY TYPE CODE TESTS RESULT OUT OF RANGE REFERENCE UNITS LAB UCOL Yellow Color Yellow LAB [facility] Clear Clarity Abnormal Cloudy Alert LAB UGLUC Negative mg/dL Glucose, Urine Negative LAB UBIL Negative Bilirubin, Urine Negative LAB UKET Negative Ketones, Urine Negative LAB USPG 1.005-1.030 Specific [place], Ur 1.010 LAB UHGB Negative Hemoglobin/Blood, Negative Ur LAB UPH 4.5-8.0 pH 6.0 LAB UPROT Negative mg/dL Protein, Urine Negative LAB UUROB Normal Urobilinogen Normal LAB UNITR Negative Nitrites Negative LAB ULKEST Negative Leukest Abnormal 3+ Alert LAB UCOM Comments SEE COMMENT Result Comment: Microscopic Examination Performed LAB UWBC 0-5 /HPF Abnormal WBC Alert 6-10 LAB URBC 0-3 /HPF RBC 0-3 LAB UEPI /HPF Epithelial Cells SEE COMMENT Result Comment: Few Squamous Epithelial Cells LAB UMCOM Urine SEE Avila Comment COMMENT Result Comment: Result rechecked. LAB UCRYS 0 /HPF Abnormal Alert Crystals SEE COMMENT Result Comment: Moderate Calcium Oxalate Crystal Performed By: #### UA #### [facility] [employer] [place], [place] [address] URINALYSIS WITH Collected: 02/15/2018 Status: F Source: [place] MICROSCOPIC 7:00 AM [facility] REPOSITORY TYPE CODE TESTS RESULT OUT OF RANGE REFERENCE UNITS LAB UCOL Yellow Color Yellow LAB [facility] Clear Clarity Abnormal Cloudy Alert LAB UGLUC Negative mg/dL Glucose, Urine Negative LAB UBIL Negative Bilirubin, Urine Negative LAB UKET Negative Ketones, Urine Negative LAB USPG 1.005-1.030 Specific [place], Ur 1.010 LAB UHGB Negative Hemoglobin/Blood, Negative Ur LAB UPH 4.5-8.0 pH 6.0 LAB UPROT Negative mg/dL Protein, Urine Negative LAB UUROB Normal Urobilinogen Normal LAB UNITR Negative Nitrites Negative LAB ULKEST Negative Leukest Abnormal 3+ Alert LAB UCOM Comments SEE COMMENT Result Comment: N/A LAB UMCOM Urine SEE [place]ila Comment COMMENT Result Comment: N/A LAB UWBC 0-5 /HPF Abnormal WBC Alert 11-25 LAB URBC 0-3 /HPF RBC 0-3 LAB UEPI /HPF Epithelial Cells SEE COMMENT Result Comment: Few Squamous Epithelial Cells LAB UCRYS 0 /HPF Abnormal Alert Crystals SEE COMMENT Result Comment: Moderate Calcium Oxalate Crystal Performed By: #### UAWMIC #### [facility] [employer] [address] [place], [place] [address] Observed: 02/15/2018 Status: F Source: [place] URINE CULTURE 7:00 AM [facility] REPOSITORY Sp. Request/Comment: - Specimen received in preservative Culture Result - 50,000 - <100,000 CFU/ml Escherichia coli --> ABNORMAL ALERT ORGANISM: Escherichia coli METHOD: Minimum inhibitory concentration(Vitek) Antibiotic Interp AVILA Status Ampicillin INTERMEDIATE 16 F Gentamicin SUSCEPTIBLE <=1 F Trimeth sulfameth SUSCEPTIBLE <=20 F Cefazolin SUSCEPTIBLE <=4 F CLSI breakpoints for therapy of uncomplicated UTI's due to E.coli, K.pneumoniae, and P.mirabilis were applied and may be used to predict the activity of oral agents(cefaclor, cefdinir, cefpodoxime, cefp rozil, cefuroxime, cephalexin, loracarbef). Ciprofloxacin RESISTANT >=4 F Nitrofurantoin SUSCEPTIBLE <=16 F Cefepime SUSCEPTIBLE <=1 F Piperacillin/Tazobac SUSCEPTIBLE 8 F Ampicillin Sulbact SUSCEPTIBLE 8 F Ceftriaxone SUSCEPTIBLE <=1 F Meropenem SUSCEPTIBLE <=0.25 F Ertapenem SUSCEPTIBLE <=0.5 F Performed By: #### URCUL #### [facility] [address] [place], [place] [address] XR CHEST 2V FRONTAL/LAT Observed: 02/12/2018 Status: F Source: [place] 9:37 AM [facility] REPOSITORY * * *Final Report* * * DATE OF EXAM: Feb 12 2018 9:37AM WRX [id number] - XR CHEST 2V FRONTAL/LAT / PROCEDURE REASON: Cough * * * * Physician Interpretation * * * * EXAMINATION: CHEST RADIOGRAPH (2 VIEW FRONTAL and LATERAL) Clinical History: Cough MQ: [id number]_5 Comparison: RESULT: Lines, tubes, and devices: None. Lungs and pleura: No consolidation. No lung mass. No pleural effusion. Cardiomediastinal silhouette: Normal cardiomediastinal silhouette. Other: Bilateral rim calcified breast implants. IMPRESSION: No acute radiographic abnormality. 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: PSCB Transcribe Date/Time: Feb 13 2018 8:02A Dictated by : SCOTT SIMS MD This examination was interpreted and the report reviewed and electronically signed by: SCOTT SIMS MD on Feb 13 2018 8:02AM EST [id number] Observed: 02/12/2018 Status: COMPLETED Source: [place] 9:36 AM [facility] REPOSITORY HNO ID: [id number] Author: DYANA Angeles (Ct) Service: (none) Author Type: Clinical Sticker Operator Type: Progress Notes Filed: 02/12/2018 9:36 AM Note Text: Radiology Service Progress Note PATIENT NAME: Reynold Hernandez DATE OF SERVICE: February 12, 2018 TIME: 9:36 AM PATIENT IDENTITY VERIFICATION COMPLETED USING TWO (2) METHODS: Patient confirmed name verbally and Date of . PATIENT GENDER DATA: Female. status: : No status: NO. PATIENT RELEVANT IMPLANT DATA REVIEWED: Not Applicable RADIOLOGY DEPARTMENT: General X-ray: Exam(s) Completed: Chest X-Ray PERIPHERAL IV DATA: Not applicable SIGNED BY: DYANA Angeles February 12, 2018 9:36 AM PROGRESS Observed: 02/12/2018 Status: COMPLETED Source: [place] 8:35 AM [facility] REPOSITORY [facility] ID: [id number] Author: Carlos Beltran Service: (none) Author Type: Physician Type: Progress Notes Filed: 02/12/2018 8:50 AM Note Text: Patient presents with: Cough: for a few days Chest Pain HPI: Patient presents today for office visit for follow up. Nursing Notes: Marleen Martinez LPN 02/12/2018 8:27 AM Signed Nonproductive cough when lies down for a few days. Complains of pain in left breast. Complains of this pain anytime not just while coughing. Recently treated with Cipro for UTI. States that increasing incontinence. Left upper arm area to check. Cough started on Mon. Grabs her chest on . Unable to check temp. They are trying to push fluids. No vomiting or diarrhea. No apparent pain. No apparent shortness of breath. Did bring up some sputum this am. Is clear. Dementia is fairly advanced. Has a rash on her left upper arm. Nonspecific. No exposure to anything new. ? Itching. Recently treated for uti. Was incontinent last night which is unusual for her Did have an odor last night. MEDICATIONS: Current Outpatient Prescriptions: sertraline (ZOLOFT) 25 mg tablet Take 1 tablet by mouth once daily. lisinopril (ZESTRIL, PRINIVIL) 10 mg tablet Take 1 tablet by mouth once daily. pedi multivit no.25/folic acid (CHILDREN'S CHEWABLE MULTIVITMN ORAL) Take 1 tablet by mouth once daily. LACTOSE-REDUCED FOOD (BOOST HIGH PROTEIN ORAL) Take by mouth. BABY ASPIRIN ORAL Take by mouth. No current facility-administered medications for this visit. ALLERGIES: ALLERGIES Allergen Reactions - Penicillin Unknown PAST MEDICAL HISTORY Diagnosis Date - Alzheimer disease - Anxiety hx panic attacks, ED visits - Basal cell carcinoma (BCC) of forehead - Dementia - Essential hypertension - History of blood product transfusion 09/10/2017 following hip pinning PAST SURGICAL HISTORY Procedure Laterality Date - CATARACT EXTRACTION W/ INTRAOCULAR LENS IMPLANT HX right 11/2016 - COLONOSCOP W/ OR W/O BRS SPEC 2011 [facility] - EXCISION OF LESION BCC forehead - HIP SURGERY HX Right 09/01/2017 09/01/17 -- right hip pinning No family history on file. Social History Marital status: Spouse name: Years of education: Number of children: Social History Main Topics Smoking status: Former Smoker Packs/day: 0.00 Years: 0.00 Smokeless tobacco: Never Used Alcohol use: No Drug use: No Sexual activity: No Social History Narrative Moved in with her daughter [place] 23 years. 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 REVIEW OF SYSTEMS All other reviewed and negative other than HPI. VITALS: BP 112/62 Pulse 72 Resp 16 Last 4 Encounter Wt Readings: Date: Wt: 01/02/2018 51.3 kg (113 lb) 12/06/2017 52.6 kg (116 lb) 11/01/2017 54 kg (119 lb) 05/15/2017 55.8 kg (123 lb) PHYSICAL EXAMINATION: General appearance: Well appearing, breathing comfortably, confused at baseline. Skin: Skin color, texture, turgor normal, no suspicious rashes or lesions Head: Normocephalic, no masses, lesions, tenderness or abnormalities Eyes: Anicteric sclera. Pupils are equally round and reactive to light. Extraocular movements are intact. Ears: External ears normal, canals clear Nose/Sinuses: Nares normal, septum midline, mucosa normal, no drainage or sinus tenderness Oropharynx: Lips, mucosa, and tongue normal, teeth and gums normal, oropharynx normal Neck: Supple, no adenopathy; thyroid symmetric, normal size, no bruits Lungs: Lungs clear to auscultation. No wheezing, rhonchi, rales Heart: RRR without murmur, gallop, or rubs. No ectopy Abdomen: Normal abdominal exam, Abdomen soft, non-tender. Bowel sounds normal. No masses, organomegaly ASSESSMENT/PLAN: 1. Urinary incontinence, unspecified type - ICD9: 788.30, ICD10: R32 (primary diagnosis) - bring in urine, has a hat at home. - URINALYSIS WITH MICROSCOPIC - URINE CULTURE 2. Cough - ICD9: 786.2, ICD10: R05 - push fluids - Call if symptoms worsen at all or if not better in one to two weeks - URINALYSIS WITH MICROSCOPIC - XR CHEST 2V FRONTAL/LAT - DOXYCYCLINE MONOHYDRATE 100 MG CAPSULE 3. Alzheimer's dementia without behavioral disturbance, unspecified timing of dementia onset - ICD9: 331.0, 294.10, ICD10: G30.9, F02.80 - continue to monitor symptoms. Carlos Beltran MD CNOV Observed: 02/12/2018 Status: COMPLETED Source: [place] 8:20 AM [facility] REPOSITORY Office Visit (FAMPWS) REYNOLD HERNANDEZ ([id number]) 1935 F Date Time Provider Department 02/12/18 8:20 AM [facility] During your visit today, we recorded the following information about you: Temperature Pulse Respiration Blood pressure 98.8 degrees 72/minute 16/minute 112/62 Marleen Martinez LPN 02/12/2018 8:27 AM Signed Nonproductive cough when lies down for a few days. Complains of pain in left breast. Complains of this pain anytime not just while coughing. Recently treated with Cipro for UTI. States that increasing incontinence. Left upper arm area to check. Carlos Beltran MD 02/12/2018 8:50 AM Signed Patient presents with: Cough: for a few days Chest Pain HPI: Patient presents today for office visit for follow up. Nursing Notes: Marleen Martinez SLAMA 02/12/2018 8:27 AM Signed Nonproductive cough when lies down for a few days. Complains of pain in left breast. Complains of this pain anytime not just while coughing. Recently treated with Cipro for UTI. States that increasing incontinence. Left upper arm area to check. Cough started on Mon. Grabs her chest on . Unable to check temp. They are trying to push fluids. No vomiting or diarrhea. No apparent pain. No apparent shortness of breath. Did bring up some sputum this am. Is clear. Dementia is fairly advanced. Has a rash on her left upper arm. Nonspecific. No exposure to anything new. ? Itching. Recently treated for uti. Was incontinent last night which is unusual for her Did have an odor last night. MEDICATIONS: Current Outpatient Prescriptions: sertraline (ZOLOFT) 25 mg tablet Take 1 tablet by mouth once daily. lisinopril (ZESTRIL, PRINIVIL) 10 mg tablet Take 1 tablet by mouth once daily. pedi multivit no.25/folic acid (CHILDREN'S CHEWABLE MULTIVITMN ORAL) Take 1 tablet by mouth once daily. LACTOSE-REDUCED FOOD (BOOST HIGH PROTEIN ORAL) Take by mouth. BABY ASPIRIN ORAL Take by mouth. No current facility-administered medications for this visit. ALLERGIES: ALLERGIES Allergen Reactions - Penicillin Unknown PAST MEDICAL HISTORY Diagnosis Date - Alzheimer disease - Anxiety hx panic attacks, ED visits - Basal cell carcinoma (BCC) of forehead - Dementia - Essential hypertension - History of blood product transfusion 09/10/2017 following hip pinning PAST SURGICAL HISTORY Procedure Laterality Date - CATARACT EXTRACTION W/ INTRAOCULAR LENS IMPLANT HX right 11/2016 - COLONOSCOP W/ OR W/O [facility] SPEC 2011 [facility] - EXCISION OF LESION BCC forehead - HIP SURGERY HX Right 09/01/2017 09/01/17 -- right hip pinning No family history on file. Social History Marital status: Spouse name: Years of education: Number of children: Social History Main Topics Smoking status: Former Smoker Packs/day: 0.00 Years: 0.00 Smokeless tobacco: Never Used Alcohol use: No Drug use: No Sexual activity: No Social History Narrative Moved in with [place] 23 years. 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 REVIEW OF SYSTEMS All other reviewed and negative other than HPI. VITALS: BP 112/62 Pulse 72 Resp 16 Last 4 Encounter Wt Readings: Date: Wt: 01/02/2018 51.3 kg (113 lb) 12/06/2017 52.6 kg (116 lb) 11/01/2017 54 kg (119 lb) 05/15/2017 55.8 kg (123 lb) PHYSICAL EXAMINATION: General appearance: Well appearing, breathing comfortably, confused at baseline. Skin: Skin color, texture, turgor normal, no suspicious rashes or lesions Head: Normocephalic, no masses, lesions, tenderness or abnormalities Eyes: Anicteric sclera. Pupils are equally round and reactive to light. Extraocular movements are intact. Ears: External ears normal, canals clear Nose/Sinuses: Nares normal, septum midline, mucosa normal, no drainage or sinus tenderness Oropharynx: Lips, mucosa, and tongue normal, teeth and gums normal, oropharynx normal Neck: Supple, no adenopathy; thyroid symmetric, normal size, no bruits Lungs: Lungs clear to auscultation. No wheezing, rhonchi, rales Heart: RRR without murmur, gallop, or rubs. No ectopy Abdomen: Normal abdominal exam, Abdomen soft, non-tender. Bowel sounds normal. No masses, organomegaly ASSESSMENT/PLAN: 1. Urinary incontinence, unspecified type - ICD9: 788.30, ICD10: R32 (primary diagnosis) - bring in urine, has a hat at home. - URINALYSIS WITH MICROSCOPIC - URINE CULTURE 2. Cough - ICD9: 786.2, ICD10: R05 - push fluids - Call if symptoms worsen at all or if not better in one to two weeks - URINALYSIS WITH MICROSCOPIC - XR CHEST 2V FRONTAL/LAT - DOXYCYCLINE MONOHYDRATE 100 MG CAPSULE 3. Alzheimer's dementia without behavioral disturbance, unspecified timing of dementia onset - ICD9: 331.0, 294.10, ICD10: G30.9, F02.80 - continue to monitor symptoms. Carlos Beltran MD Referring Provider: SELF [200] Allergies As of Date: 02/12/2018 Noted Allergy Reaction PENICILLIN 11/01/2017 16 - Unknown Date Reviewed: 01/02/2018 Reviewed by: Selena Alva) DEBORHA Kiran - Fully Assessed Reason for Visit: Cough [28] Cmt: for a few days Chest Pain [21] Primary Visit Diagnosis:Urinary incontinence, unspecified type [R32] Other Visit Diagnoses:Cough [R05] Alzheimer's dementia without behavioral disturbance, unspecified timing of dementia onset [G30.9, F02.80] Order(s):URINALYSIS WITH MICROSCOPIC [SQUAWMIC] Order #: [id number] FUTURE URINE CULTURE [SQURCUL] Order #: [id number] FUTURE XR CHEST 2V FRONTAL/LAT [[id number]] Order #: [id number] FUTURE doxycycline monohydrate (MONODOX) 100 mg capsuleTake 1 capsule by mouth twice daily for 10 days.Disp: 20 capsuleRfl: 0 Prescriptions as of 02/12/2018 Sig: DOXYCYCLINE MONOHYDRATE 100 M* Take 1 capsule by mouth twice* SERTRALINE 25 MG TABLET Take 1 tablet by mouth once d* LISINOPRIL 10 MG TABLET Take 1 tablet by mouth once d* CHILDREN'S CHEWABLE MULTIVITM* Take 1 tablet by mouth once d* BOOST HIGH PROTEIN ORAL Take by mouth. BABY ASPIRIN ORAL Take by mouth. Problem List As Of Date 02/12/2018 Noted Resolved Hip fx, right, sequela [S72.001S] INVALID FOR* Alzheimer's dementia without behavioral disturb*INVALID FOR* More... Benign essential HTN [I10] INVALID FOR* Anxiety [F41.9] INVALID FOR* More... Adenomatous polyp [D36.9] INVALID FOR* More... Age-related osteoporosis without current pathol*INVALID FOR* More... Hyperlipidemia, mixed [E78.2] INVALID FOR* More... Visit Notes: >> Marleen Martinez SALMA Mon Feb 12, 2018 8:22 AM Status: Signed Nonproductive cough when lies down for a few days. Complains of pain in left breast. Complains of this pain anytime not just while coughing. Recently treated with Cipro for UTI. States that increasing incontinence. Left upper arm area to check. Prescriptions ordered this encounter Disp Refills Start End DOXYCYCLINE MONOHYDRATE 100 MG CAPSU* 20 c* 0 02/12/2018 02/12/2018 Route: ORAL Sig: Take 1 capsule by mouth twice daily for 10 days. DOXYCYCLINE MONOHYDRATE 100 MG CAPSU* 20 c* 0 02/12/2018 02/22/2018 Route: ORAL Sig: Take 1 capsule by mouth twice daily for 10 days. Medications Discontinued During This Encounter doxycycline monohydrate (MONODOX) 10* 20 c* 0 02/12/2018 02/12/2018 Route: ORAL Sig: Take 1 capsule by mouth twice daily for 10 days. Disc: Reason for discontinue is not on file. Encounter Status:Closed by CARLOS BELTRAN MD on 02/12/18 CNPN Observed: 02/02/2018 Status: COMPLETED Source: [place] 12:00 AM [facility] REYNOLD HERNANDEZ ([id number]) 1935 F Date Time Provider Department 02/02/18 CARLOS BELTRAN [facility] During your visit today, we recorded the following information about you: Janet Escobedo Ma 02/02/2018 4:48 PM Signed Please review urine culture and advise. Carlos Beltran MD 02/02/2018 4:49 PM Signed Urine shows uti but it is resistant to cipro. Change to macrobid. Ana Lilia Bond LPN 02/02/2018 5:25 PM Signed Daughter aware of same. Script called to [facility]. Allergies As of Date: 02/02/2018 Noted Allergy Reaction PENICILLIN 11/01/2017 16 - Unknown Date Reviewed: 01/02/2018 Reviewed by: Selena (Deborah) DEBORAH Kiran - Fully Assessed Reason for Visit: Results [95] Order(s):nitrofurantoin monohydrate and macrocrystal (MACROBID) 100 mg capsuleTake 1 capsule by mouth twice daily with meals for 7 days.Disp: 14 capsuleRfl: 0 Prescriptions as of 02/02/2018 Sig: SERTRALINE 25 MG TABLET Take 1 tablet by mouth once d* LISINOPRIL 10 MG TABLET Take 1 tablet by mouth once d* NITROFURANTOIN MONOHYDRATE AND * Take 1 capsule by mouth twice* CIPROFLOXACIN 500 MG TABLET Take 1 tablet by mouth twice * CHILDREN'S CHEWABLE MULTIVITM* Take 1 tablet by mouth once d* BOOST HIGH PROTEIN ORAL Take by mouth. BABY ASPIRIN ORAL Take by mouth. Problem List As Of Date 02/02/2018 Noted Resolved Hip fx, right, sequela [S72.001S] INVALID FOR* Alzheimer's dementia without behavioral disturb*INVALID FOR* More... Benign essential HTN [I10] INVALID FOR* Anxiety [F41.9] INVALID FOR* More... Adenomatous polyp [D36.9] INVALID FOR* More... Age-related osteoporosis without current pathol*INVALID FOR* More... Hyperlipidemia, mixed [E78.2] INVALID FOR* More... Prescriptions ordered this encounter Disp Refills Start End NITROFURANTOIN MONOHYDRATE AND MACROCR* 14 c* 0 02/02/2018 02/09/2018 Route: ORAL Sig: Take 1 capsule by mouth twice daily with meals for 7 days. Encounter Status:Closed by CARLOS BELTRAN MD on 02/02/18 URINALYSIS WITH Collected: 01/31/2018 Status: F Source: [facility] 12:45 PM [facility] REPOSITORY TYPE CODE TESTS RESULT OUT OF RANGE REFERENCE UNITS LAB UCOL Yellow Color Abnormal Harleen Alert LAB [facility] Clear Clarity Abnormal Turbid Alert LAB UGLUC Negative mg/dL Glucose, Urine Negative LAB UBIL Negative Bilirubin, Urine Negative LAB UKET Negative Ketones, Urine Negative LAB USPG 1.005-1.030 Specific [place], Ur 1.016 LAB UHGB Negative Hemoglobin/Blood, Negative Ur LAB UPH 4.5-8.0 pH 5.0 LAB UPROT Negative mg/dL Protein, Abnormal Urine 30 Alert LAB UUROB Normal Urobilinogen Normal LAB UNITR Negative Nitrites Negative LAB ULKEST Negative Leukest Abnormal 3+ Alert LAB UCOM Comments SEE COMMENT Result Comment: N/A LAB UMCOM Urine SEE [place] Comment COMMENT Result Comment: N/A LAB UWBC 0-5 /HPF Abnormal WBC Alert >25 LAB URBC 0-3 /HPF RBC 0-3 LAB UEPI /HPF Epithelial Cells SEE COMMENT Result Comment: Few Squamous Epithelial Cells Performed By: #### UAWMIC #### [facility] [address] [place], [place] [address] Observed: 01/31/2018 Status: F Source: [place] URINE CULTURE 10:00 AM [facility] REPOSITORY Sp. Request/Comment: - Specimen received in preservative Culture Result - >=100,000 CFU/ml Escherichia coli --> ABNORMAL ALERT ORGANISM: Escherichia coli METHOD: Minimum inhibitory concentration(Vitek) Antibiotic Interp AVILA Status Ampicillin RESISTANT F Gentamicin SUSCEPTIBLE <=1 F Trimeth sulfameth SUSCEPTIBLE <=20 F Cefazolin SUSCEPTIBLE <=4 F CLSI breakpoints for therapy of uncomplicated UTI's due to E.coli, K.pneumoniae, and P.mirabilis were applied and may be used to predict the activity of oral agents(cefaclor, cefdinir, cefpodoxime, cefp rozil, cefuroxime, cephalexin, loracarbef). Ciprofloxacin RESISTANT >=4 F Nitrofurantoin SUSCEPTIBLE <=16 F Cefepime SUSCEPTIBLE <=1 F Piperacillin/Tazobac SUSCEPTIBLE <=4 F Ampicillin Sulbact SUSCEPTIBLE 4 F Ceftriaxone SUSCEPTIBLE <=1 F Meropenem SUSCEPTIBLE <=0.25 F Ertapenem SUSCEPTIBLE <=0.5 F Performed By: #### URCUL #### [facility] [address] [place], [place] [address] [facility] Observed: 01/31/2018 Status: COMPLETED Source: [place] 12:00 AM [facility] REPOSITORY Telephone ([facility]) REYNOLD HERNANDEZ ([id number]) 1935 F Date Time Provider Department 01/31/18 [facility] During your visit today, we recorded the following information about you: Marleen Martinez LPN 01/31/2018 9:42 AM Signed Family calling with concerns about possible UTI. Asking if ok to check urine or needs to be seen? Per Silverio ok to check urine. Orders pending. Allergies As of Date: 01/31/2018 Noted Allergy Reaction PENICILLIN 11/01/2017 16 - Unknown Date Reviewed: 01/02/2018 Reviewed by: Selena Alva) DEBORAH Kiran - Fully Assessed Reason for Visit: Patient Update [1234] Orders [681] Primary Visit Diagnosis:Altered mental status, unspecified altered mental status type [R41.82] Order(s):URINE CULTURE [SQURCUL] Order #: [id number] URINALYSIS WITH MICROSCOPIC [SQUAWMIC] Order #: [id number] UA DIP B/O [[id number]] Order #: [id number] ciprofloxacin HCl (CIPRO) 500 mg tabletTake 1 tablet by mouth twice daily for 7 days.Disp: 20 tabletRfl: 0 Prescriptions as of 01/31/2018 Sig: CIPROFLOXACIN 500 MG TABLET Take 1 tablet by mouth twice * CHILDREN'S CHEWABLE MULTIVITM* Take 1 tablet by mouth once d* SERTRALINE 25 MG TABLET Take 1 tablet by mouth once d* LISINOPRIL 10 MG TABLET Take 1 tablet by mouth once d* BOOST HIGH PROTEIN ORAL Take by mouth. BABY ASPIRIN ORAL Take by mouth. Problem List As Of Date 01/31/2018 Noted Resolved Hip fx, right, sequela [S72.001S] INVALID FOR* Alzheimer's dementia without behavioral disturb*INVALID FOR* More... Benign essential HTN [I10] INVALID FOR* Anxiety [F41.9] INVALID FOR* More... Adenomatous polyp [D36.9] INVALID FOR* More... Age-related osteoporosis without current pathol*INVALID FOR* More... Hyperlipidemia, mixed [E78.2] INVALID FOR* More... Prescriptions ordered this encounter Disp Refills Start End CIPROFLOXACIN 500 MG TABLET 20 t* 0 01/31/2018 02/07/2018 Route: ORAL Sig: Take 1 tablet by mouth twice daily for 7 days. Encounter Status:Closed by Kamaljit GARCIA PA-C on 01/31/18 [facility]CO Observed: 01/10/2018 Status: COMPLETED Source: [place] 12:00 AM CLINIC MAIN CAMPUS REPOSITORY Letter Text Silverio Garcia PA-C [facility] Reynold Hernandez [address] [facility] [address] Clinic #: [id number] 01/10/2018 Dear Ms. Hernandez, I have received the results of your recent tests. The results of your lab tests were either normal or within the acceptable range. We can discuss this at your next visit. Please do not hesitate to contact me with any questions. Sincerely, Silverio Garcia PA-C [facility] Medicine Department electronically signed to expedite mailing CBC AND DIFFERENTIAL Collected: 01/09/2018 Status: F Source: [place] 8:31 AM [facility] MAIN CAMPUS REPOSITORY TYPE CODE TESTS RESULT OUT OF REFERENCE UNITS RANGE LAB WBC 3.70-11.00 k/uL WBC 7.27 LAB RBC 3.90-5.20 m/uL RBC 4.78 LAB HGB 11.5-15.5 g/dL Hemoglobin 13.7 LAB HCT 36.0-46.0 % Hematocrit 43.9 LAB MCV 80.0-100.0 fL MCV 91.8 LAB MCH 26.0-34.0 pG MCH 28.7 LAB MCHC 30.5-36.0 g/dL MCHC 31.2 LAB RDWCV 11.5-15.0 % RDW-CV 13.8 LAB PLTCT 150-400 k/uL Platelet Count 270 LAB MPV 9.0-12.7 fL MPV 10.0 LAB ANEUT % Neut% 63.0 LAB AANEUT 1.45-7.50 k/uL Abs Neut 4.58 LAB ALYMP % Lymph% 26.7 LAB AALYMP 1.00-4.00 k/uL Abs Lymph 1.94 LAB AMONO % Burleigh% 7.8 LAB AAMONO <0.87 k/uL Abs Burleigh 0.57 LAB AEOS % Eosin% 1.8 LAB AAEOS <0.46 k/uL Abs Eosin 0.13 LAB ABASO % Baso% 0.7 LAB AABASO <0.11 k/uL Abs Baso 0.05 LAB AUNRBC 0 /100 WBC NRBCs 0.0 LAB ABNRBC <0.01 k/uL Absolute nRBC <0.01 LAB DTYP DTYPE Auto Diff Performed By: #### CBCDIF, BMP #### [facility] [address] [place], [place] [address] BASIC METABOLIC PANL Collected: 01/09/2018 Status: F Source: [place] 8:31 AM [facility] REPOSITORY TYPE CODE TESTS RESULT OUT OF REFERENCE UNITS RANGE LAB GLU 74-99 mg/dL Glucose 78 Result Comment: The [place] Diabetes Association (ADA) provides guidance for cutoff values for fasting glucose and random glucose. The ADA defines fasting as no caloric intake for at least 8 hours. Fas ting plasma glucose results between 100 to 125 mg/dL indicate increased risk for diabetes (prediabetes). Fasting plasma glucose results greater than or equal to 126 mg/dL meet the criteria for diagnosis of diabetes. In the absence of unequivocal hyperglycemia, results should be confirmed by repeat testing. In a patient with classic symptoms of hyperglycemia or hyperglycemic crisis, random plasma glucose results greater than or equal to 200 mg/dL meet the criteria for diagnosis of diabetes. Reference: Standards of Medical Care in Diabetes 2016, [place] [employer] Association. Diabetes Care. 2016.39(Suppl 1). LAB BUN 7-21 mg/dL BUN 16 LAB CRET 0.58-0.96 mg/dL Creatinine Low 0.56 LAB NA 136-144 mmol/L Sodium 139 LAB K 3.7-5.1 mmol/L Potassium 4.5 LAB CL 97-105 mmol/L Chloride 99 LAB CO2 22-30 mmol/L CO2 26 LAB AGAP 9-18 mmol/L Anion Gap 14 LAB CA 8.5-10.2 mg/dL Calcium, Total 9.0 LAB GFRAA eGFR- Amer. >60 LAB GFRNAA . eGFR-All Other Races >60 Result Comment: eGFR (Estimated GFR) Units of measure: mL/min/1.73 meters squared eGFR is derived from the reexpressed MDRD Study equation using the following parameters: serum creatinine, age, gender and race. The creatinine assay has been calibrated to be traceable to IDMS. An eGFR <60 mL/min/1.73m2 for >3 months is consistent with chronic kidney disease. Refer to KDOQI guidelines for clinical interpretation. In patients with unstable renal function, e.g. those with acute kidney injury, the eGFR may not accurately reflect actual GFR. Performed By: #### CBCDIF, BMP #### [facility] [address] [place], [place] [address] 12 LEAD ELECTROCARDIOGRAM Observed: 01/02/2018 Status: F Source: [place] 2:37 PM [facility] [place] [facility] Cardiovascular Services [address] [address] 12 Lead EKG 12/30/17 0904 MR#: [id number] Acct: [id number] Name: REYNOLD HERNANDEZ Michi Rep #: [id number] : 1935 82 From: Adan Harvey MD Attending Dr: Beverly Samson Status: DIS DOLLY Ordering Dr: Dayron Dickson MD Date: 12/30/17 Location: IA3 Sex: F C Admitted: 12/30/17 Test Reason : Blood Pressure : / mmHG Vent. Rate : 073 BPM Atrial Rate : 073 BPM P-R Int : 206 ms QRS Dur : 080 ms QT Int : 414 ms P-R-T Axes : 054 035 033 degrees QTc Int : 456 ms Normal sinus rhythm Normal ECG Confirmed by ANTONINO WASHINGTON, ADAN ([id number]), deputy editor in chief FRITZ FOLEY ([id number]) on 01/02/2018 2:36:53 PM Referred By: EVERETT Confirmed By:ADAN HARVEY MD 01/02/18 1436 Date Adan Harvey MD CC: Kamaljit Garcia; Beverly Samson; Dayron Dickson MD Signed CNOV Observed: 01/02/2018 Status: COMPLETED Source: [place] 1:40 PM [facility] REPOSITORY Office Visit (FAMPWS) MARYREYNOLD Michi ([id number]) 1935 F Date Time Provider Department 01/02/18 1:40 PM Kamaljit GARCIA (EVA-C) FAMPWS During your visit today, we recorded the following information about you: Pulse Respiration Blood pressure Weight 80/minute 16/minute 110/72 51.3 kg M Trevon Garcia PA-C 01/02/2018 7:03 PM Signed Note TRANSITION CARE MANAGEMENT (TCM) INITIAL CONTACT Regulatory Submissions Specialist Outreach ? Provider Action/FYI: Spoke with daughter Gifty for TCM ? ? Initial contact with patient post discharge, spoke to daughter. Patient identified by name and . ? SUMMARY: -Pt discharged from [facility] on 12/31/17. -Admitted for: dehydration and UTI ? Do you have a hospital follow up appointment with your PCP? Appointment on 01/02/18 with Silverio Garcia (open access). Yes. Remind patient of appointment date, time, and location. If not within 14 calendar days of discharge - please reschedule accordingly. ? MEDICATIONS: Many patients have questions or concerns about their medications once they are home. Were you prescribed any new medications? Yes If yes, what are those medications? levofloxacin and potassium 20 meq twice daily ? Were you told to hold any medications? No Were any of your medications discontinued? No ? Do you have any questions about getting or taking your medications? No ? Your discharge instructions/After visit Summary (AVS) are important in guiding you through the recovery process. Is there anything I might help you understand? No ? Do you have all the necessary equipment and supplies at home? Yes ? Medical records from recent hospitalization: Placed for provider to review Transitional Care Management Progress Note The patients TCM visit was performed within the 7 days of discharge. Patient's Date of discharge: 12/31/17 Date of initial coordinator contact after discharge:01/02/18 Discharge diagnosis: dehydration and uti Medication review completed Yes Selena Kiran MA Provider Documentation: In follow-up of hospitalization, Reynold Hernandez is a 82 year old female with the chief complaint of dehydration and UTI I have reviewed the patient?s last hospital course including diagnostic testing performed during this hospitalization, their discharge medications, and my assessment and plan with the patient and any family members present at today?s visit. HOSPITAL/ER FOLLOW UP: Reason for visit: unresponsive at home. Daughter brought Er. Diarrhea over 2 days. Daughter noted sudden slump, open mouth, not responsive x 30-40 sec. . Took to ED [facility]. Which facility: [facility] Date of visit: 12/30-/12/31/17 Diagnosis: Nausea. vomiting, diarrhea Syncope Dehydration UTI with E. Coli Testing done: 12/30 WBC 15.4 down to 8.7 Next day. BUN 20, creat 0.61. Chems normal, negative troponin. CXR reticulonodular opacities in lung bases. K 3.4 day of discharge. Treatment given: Levaquin. Discharged on Levaquin for 5 days and potassium x 2 days completed. Current symptoms: Weepy at home more than usual. Had diarrhea x 5 over last 24 hours. No vomiting. Taking fluids sparingly. 20oz water yesterday. Won't drink sweetened beverages. Drinks coffee often. Urinating normally. C/o intermitently of abdominal pain, possibly cramps but only momentary. Up and active per usual. Remains confused but easily directed. HISTORIES No family history on file. PAST MEDICAL HISTORY Diagnosis Date - Alzheimer disease - Anxiety hx panic attacks, ED visits - Basal cell carcinoma (BCC) of forehead - Dementia - Essential hypertension - History of blood product transfusion 09/10/2017 following hip pinning PAST SURGICAL HISTORY Procedure Laterality Date - CATARACT EXTRACTION W/ INTRAOCULAR LENS IMPLANT HX right 11/2016 - COLONOSCOP W/ OR W/O [facility] SPEC 2011 [facility] - EXCISION OF LESION BCC forehead - HIP SURGERY HX Right 09/01/2017 09/01/17 -- right hip pinning Social History Marital status: Spouse name: Years of education: Number of children: Social History Main Topics Smoking status: Former Smoker Packs/day: 0.00 Years: 0.00 Smokeless tobacco: Never Used Alcohol use: No Drug use: No Sexual activity: No Social History Narrative Moved in with her [place] 23 years. 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 Last 3 Encounter BP Readings: Date: BP: 01/02/2018 110/72 12/06/2017 114/62 11/01/2017 102/66 Last 2 Encounter Wt Readings: Date: Wt: 01/02/2018 51.3 kg (113 lb) 12/06/2017 52.6 kg (116 lb) General appearance: Pleasant older woman, very confused, difficulty completing a thought. Often random jibberish, incomplete sentences but occasional full communication. Respirations: regular, unlabored Color: pink to lips and nailbeds, normal turgor Skin: warm, dry, no unusual rashes or lesions Head: Normocephalic Eyes: sclerae and conjunctivae without injection or exudate, PERRLA, EOMI, corneal light reflex symmetric bilaterally Ears: TM's are clear/ hart bilaterally with normal landmarks, no swelling or deformity ear canal or external ear Nose/Sinuses: Nose patent. No turbinate swelling. Active exudate: none. Maxillary and frontal sinuses nontender to percussion. Oropharynx: oral membranes are mildly dry. Lips, mucosa, and tongue free from lesions. Gums without inflammation. Posterior pharynx no injection, no exudate, no tonsillar hypertrophy. Neck: Neck supple, no lymphadenopathy; thyroid without mass or tenderness. Neck vein flat Chest: normally shaped, equal expansion with breaths. Lungs: Lungs clear to auscultation and percussion. No crackles or wheezes. Heart: RRR without murmur, gallop, or rubs. S1 and S2 normal. Abdomen: active bowel sounds throughout, soft, nontender, no masses or organomegaly. No CVAT. Laying down on exam table, patient became distressed, holding lower abdomen c/o pain but non-tender on exam. ASSESSMENT/PLAN: 1. Dehydration - ICD9: 276.51, ICD10: E86.0 (primary diagnosis) Patient drink a full glass of water in the office. Encouraged her daughter to continue offering water. Monitor diarrhea for 2-3 days. It seems to be increasing in volume or irregular stools we may need to check for impaction. Monitor appetite and intake. Daughter does not want excessive measures. - CBC + DIFF - BASIC METABOLIC PNL 2. Urinary tract infection, E. coli - ICD9: 599.0, 041.49, ICD10: N39.0, B96.20 Completed Cipro. Follow-up with UA in 1 week. - Patient education for prevention given - CBC + DIFF - BASIC METABOLIC PNL - URINALYSIS MICRO 3. Diarrhea, unspecified type - ICD9: 787.91, ICD10: R19.7 Continue push fluid likely is. Soft bland diet. Notify if not improving over 3 days. 4. Alzheimer's dementia without behavioral disturbance, unspecified timing of dementia onset - ICD9: 331.0, 294.10, ICD10: G30.9, F02.80 Stable. Follow-up in one week for labs, otherwise 3 months for routine. Kamaljit Garcia PA-C Referring Provider: SELF [200] Allergies As of Date: 01/02/2018 Noted Allergy Reaction PENICILLIN 11/01/2017 16 - Unknown Date Reviewed: 01/02/2018 Reviewed by: Selena Alva) DEBORAH Kiran - Fully Assessed Reason for Visit: Hospital F/U [57] Cmt: dehydration and UTI Primary Visit Diagnosis:Dehydration [E86.0] Other Visit Diagnoses:Urinary tract infection, E. coli [N39.0, B96.20] Diarrhea, unspecified type [R19.7] Alzheimer's dementia without behavioral disturbance, unspecified timing of dementia onset [G30.9, F02.80] Order(s):CBC + DIFF [SQCBCDIF] Order #: [id number] FUTURE BASIC METABOLIC PNL [SQBMP] Order #: [id number] FUTURE URINALYSIS WITH MICROSCOPIC [SQUAWMIC] Order #: [id number] Prescriptions as of 01/02/2018 Sig: CHILDREN'S CHEWABLE MULTIVITM* Take 1 tablet by mouth once d* SERTRALINE 25 MG TABLET Take 1 tablet by mouth once d* LISINOPRIL 10 MG TABLET Take 1 tablet by mouth once d* BOOST HIGH PROTEIN ORAL Take by mouth. BABY ASPIRIN ORAL Take by mouth. Problem List As Of Date 01/02/2018 Noted Resolved Hip fx, right, sequela [S72.001S] INVALID FOR* Alzheimer's dementia without behavioral disturb*INVALID FOR* More... Benign essential HTN [I10] INVALID FOR* Anxiety [F41.9] INVALID FOR* More... Adenomatous polyp [D36.9] INVALID FOR* More... Age-related osteoporosis without current pathol*INVALID FOR* More... Hyperlipidemia, mixed [E78.2] INVALID FOR* More... Disposition: Return in about 3 months (around 04/04/2018). Follow-up and Disposition History Recorded Encounter Status:Closed by JOSE GORMAN, Kamaljit BRADFORD on 01/02/18 PROGRESS Observed: 01/02/2018 Status: COMPLETED Source: [place] 1:29 PM [facility] [place] REPOSITORY [facility] ID: [id number] Author: Kamaljit Bradford (Sherif) Jose Service: (none) Author Type: Physician Biopsychologist Type: Progress Notes Filed: 01/02/2018 7:03 PM Note Text: Note TRANSITION CARE MANAGEMENT (TCM) INITIAL CONTACT Regulatory Submissions Specialist Outreach ? Provider Action/FYI: Spoke with daughter Gifty for TCM ? ? Initial contact with patient post discharge, spoke to daughter. Patient identified by name and . ? SUMMARY: -Pt discharged from [facility] on 12/31/17. -Admitted for: dehydration and UTI ? Do you have a hospital follow up appointment with your PCP? Appointment on 01/02/18 with Silverio Garcia (open access). Yes. Remind patient of appointment date, time, and location. If not within 14 calendar days of discharge - please reschedule accordingly. ? MEDICATIONS: Many patients have questions or concerns about their medications once they are home. Were you prescribed any new medications? Yes If yes, what are those medications? levofloxacin and potassium 20 meq twice daily ? Were you told to hold any medications? No Were any of your medications discontinued? No ? Do you have any questions about getting or taking your medications? No ? Your discharge instructions/After visit Summary (AVS) are important in guiding you through the recovery process. Is there anything I might help you understand? No ? Do you have all the necessary equipment and supplies at home? Yes ? Medical records from recent hospitalization: Placed for provider to review Transitional Care Management Progress Note The patients TCM visit was performed within the 7 days of discharge. Patient's Date of discharge: 12/31/17 Date of initial coordinator contact after discharge:01/02/18 Discharge diagnosis: dehydration and uti Medication review completed Yes Selena Kiran MA Provider Documentation: In follow-up of hospitalization, Reynold Hernandez is a 82 year old female with the chief complaint of dehydration and UTI I have reviewed the patient?s last hospital course including diagnostic testing performed during this hospitalization, their discharge medications, and my assessment and plan with the patient and any family members present at today?s visit. HOSPITAL/ER FOLLOW UP: Reason for visit: unresponsive at home. Daughter brought Er. Diarrhea over 2 days. Daughter noted sudden slump, open mouth, not responsive x 30-40 sec. . Took to ED [facility]. Which facility: [facility] Date of visit: 12/30-/12/31/17 Diagnosis: Nausea. vomiting, diarrhea Syncope Dehydration UTI with E. Coli Testing done: 12/30 WBC 15.4 down to 8.7 Next day. BUN 20, creat 0.61. Chems normal, negative troponin. CXR reticulonodular opacities in lung bases. K 3.4 day of discharge. Treatment given: Levaquin. Discharged on Levaquin for 5 days and potassium x 2 days completed. Current symptoms: Weepy at home more than usual. Had diarrhea x 5 over last 24 hours. No vomiting. Taking fluids sparingly. 20oz water yesterday. Won't drink sweetened beverages. Drinks coffee often. Urinating normally. C/o intermitently of abdominal pain, possibly cramps but only momentary. Up and active per usual. Remains confused but easily directed. HISTORIES No family history on file. PAST MEDICAL HISTORY Diagnosis Date - Alzheimer disease - Anxiety hx panic attacks, ED visits - Basal cell carcinoma (BCC) of forehead - Dementia - Essential hypertension - History of blood product transfusion 09/10/2017 following hip pinning PAST SURGICAL HISTORY Procedure Laterality Date - CATARACT EXTRACTION W/ INTRAOCULAR LENS IMPLANT HX right 11/2016 - COLONOSCOP W/ OR W/O [facility] SPEC 2011 [facility] - EXCISION OF LESION BCC forehead - HIP SURGERY HX Right 09/01/2017 09/01/17 -- right hip pinning Social History Marital status: Spouse name: Years of education: Number of children: Social History Main Topics Smoking status: Former Smoker Packs/day: 0.00 Years: 0.00 Smokeless tobacco: Never Used Alcohol use: No Drug use: No Sexual activity: No Social History Narrative Moved in with [place] 23 [place]. 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 Last 3 Encounter BP Readings: Date: BP: 01/02/2018 110/72 12/06/2017 114/62 11/01/2017 102/66 Last 2 Encounter Wt Readings: Date: Wt: 01/02/2018 51.3 kg (113 lb) 12/06/2017 52.6 kg (116 lb) General appearance: Pleasant older woman, very confused, difficulty completing a thought. Often random jibberish, incomplete sentences but occasional full communication. Respirations: regular, unlabored Color: pink to lips and nailbeds, normal turgor Skin: warm, dry, no unusual rashes or lesions Head: Normocephalic Eyes: sclerae and conjunctivae without injection or exudate, PERRLA, EOMI, corneal light reflex symmetric bilaterally Ears: TM's are clear/ hart bilaterally with normal landmarks, no swelling or deformity ear canal or external ear Nose/Sinuses: Nose patent. No turbinate swelling. Active exudate: none. Maxillary and frontal sinuses nontender to percussion. Oropharynx: oral membranes are mildly dry. Lips, mucosa, and tongue free from lesions. Gums without inflammation. Posterior pharynx no injection, no exudate, no tonsillar hypertrophy. Neck: Neck supple, no lymphadenopathy; thyroid without mass or tenderness. Neck vein flat Chest: normally shaped, equal expansion with breaths. Lungs: Lungs clear to auscultation and percussion. No crackles or wheezes. Heart: RRR without murmur, gallop, or rubs. S1 and S2 normal. Abdomen: active bowel sounds throughout, soft, nontender, no masses or organomegaly. No CVAT. Laying down on exam table, patient became distressed, holding lower abdomen c/o pain but non-tender on exam. ASSESSMENT/PLAN: 1. Dehydration - ICD9: 276.51, ICD10: E86.0 (primary diagnosis) Patient drink a full glass of water in the office. Encouraged her daughter to continue offering water. Monitor diarrhea for 2-3 days. It seems to be increasing in volume or irregular stools we may need to check for impaction. Monitor appetite and intake. Daughter does not want excessive measures. - CBC + DIFF - BASIC METABOLIC PNL 2. Urinary tract infection, E. coli - ICD9: 599.0, 041.49, ICD10: N39.0, B96.20 Completed Cipro. Follow-up with UA in 1 week. - Patient education for prevention given - CBC + DIFF - BASIC METABOLIC PNL - URINALYSIS MICRO 3. Diarrhea, unspecified type - ICD9: 787.91, ICD10: R19.7 Continue push fluid likely is. Soft bland diet. Notify if not improving over 3 days. 4. Alzheimer's dementia without behavioral disturbance, unspecified timing of dementia onset - ICD9: 331.0, 294.10, ICD10: G30.9, F02.80 Stable. Follow-up in one week for labs, otherwise 3 months for routine. Kamaljit Garcia PA-C DISCHARGE SUMMARY Observed: 12/31/2017 Status: F Source: [place] 1:54 PM [facility] [place] [facility] Medical Records Department [address] [place] [address] Discharge Summary 12/31/17 1330 MR#: [id number] Acct: [id number] Name: REYNOLD HERNANDEZ Rep #: [id number] : 1935 82 From: Kamaljit Samson DO PCP: Kamaljit Garcia Status: ADM DOLLY Y Location: [place] [address] 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 today after becoming unresponsive at the table while eating breakfast. She did not fall. Her dtr immediately went to her and swept the food out of her mouth. She was unresponsive for approximately 15-30 seconds. She had been having loose stool since (no more than 2 a day but loose) and had not been eating or drinking much. She lives with her dtr who runs a daycare in the home with small children. Some of the children had been ill recently. She had not been on any recent antibiotics. Vital signs at presentation to the emergency room were temperature 97.7, pulse rate 69, blood pressure 97/66, respiratory rate 12 and she was 90%-93% saturated on room air. White blood cell count was elevated at 15.4 with 74% neutrophils. Hemoglobin was 13.8 and the platelets were within normal limits. Electrolytes were within normal limits and the BUN was 20 with a creatinine of 0.61 and a BUN/creatinine ratio of 32.7 Troponin was less than 0.015. Chest x-ray showed possible developing infiltrates in the right lower lobe. Once she arrived on MS3 she had another episode of unresponsiveness. The pt is a poor historian and hx was obtained from her Rosa. She was admitted to the hospital with transient unresponsiveness suspected to be due to dehydration and hypotension. She takes Lisinopril 10 mg daily. Lisinopril was held and she was hydrated. She was straight cath'd for urine and the UA showed 50-100 WBC's per HPF. She was started on Levaquin. Review of old charts shows she has had a few urine cultures + for E. Coli and it has always been sensitive to Levaquin. She was placed on telemetry due to the hx of SB and ventricular asystole in August 2017 when she fractured her hip. Telemetry showed normal sinus rhythm with no significant ectopy, no pauses and no ventricular asystole. One day following admission she was very alert but confused, which is her baseline. She sat up in the chair for a prolonged period of of time with no periods of unresponsiveness. The preliminary on the urine culture is greater than 100,000 gram-negative rods. She was discharged home on Levaquin 250 mg daily to complete 7 days of treatment for urinary tract infection. She was given my cell phone number and will call me Monday or Monday afternoon for the final urine culture results. She will follow-up with Dr. Garcia in 1 week. Potassium was mildly decreased at 3.4 on the date of discharge and she was given a potassium supplement. Because of the hypotension at admission lisinopril was decreased to 5 mg daily from 10 mg daily. PE: alert and in NAD Lungs - CTA Heart - RRR, no gallop Abd: soft, NT, ND no edema This note was generated with [employer] dictation software. It may contain incorrect words, spelling, and punctuation that were not noted in checking the note before signing. Discharge Activity: Return to Normal Activity Call your doctor if you observe: Fever of 101 or Higher, - - rash, greater than 5 BM's in 24H Home Medications: Medications to take at Discharge Aspirin [Aspirin, Baby] 81 mg PO DAILY@0800 08/29/17 Multivitamin [Animal Shapes] 1 each PO DAILY 08/29/17 Polyethylene Glycol 3350 [Miralax] 17 gm PO PRN PRN 12/30/17 Sertraline HCl [Zoloft] 25 mg PO DAILY 12/30/17 Levofloxacin [Levaquin] 250 mg PO DAILY #5 tab 12/31/17 Lisinopril [Prinivil] 5 mg PO DAILY #0 12/31/17 Potassium Chloride [K-Dur] 20 meq PO BIDCM #2 tab 12/31/17 Following Prescrptions Were Given to Patient: Levofloxacin [Levaquin] 250 mg PO DAILY #5 tab Potassium Chloride [K-Dur] 20 meq PO BIDCM #2 tab Primary Care Physician: Kamaljit Garcia PA [Primary Care Provider] - Please follow up with your Primary Care Physician in: 1 week Patient Instructions: ED Hypotension Orthostatic Disposition: Home Minutes spent on discharge:: 30 Patient Condition:: Stable Medical Necessity - Tobacco Use Smoking Status: Former smoker Tobacco Use: Non-smoker Meaningful Use Info Meaningful Use Diagnoses (Choose all that apply): None applicable Code Visit OBSV Ghislaine AND Kamaljit: [id number] Initial observation care L3 12/31/17 7594 <Electronically signed by Kamaljit Samson DO> Date Kamaljit Samson DO Cosigner Signature (if applicable): Date CC: Kamaljit Garcia; Beverly Samson Signed DISCHARGE INSTRUCTION Observed: 12/31/2017 Status: F Source: [place] 1:29 PM [facility] [place] [facility] Medical Records Department [address] [place] [address] Instructions for Home/Discharge Instructions 12/31/17 1312 MR#: [id number] Acct: [id number] Name: REYNOLD HERNANDEZ Rep #: [id number] : 1935 82 From: Kamaljit Samson DO PCP: Kamaljit Garcia Status: ADM DOLLY - Discharge Diagnoses Current Active Problems: Current Active and Chronic Problems Nausea, vomiting and diarrhea (Acute) Syncope (Acute) Dehydration (Acute) UTI (urinary tract infection) (Acute) You will use the following diet at home:: No restrictions Your food should be the consistency of: Regular Your liquids should be the consistency of: Regular/Thin Discharge Activity: Return to Normal Activity Call your doctor if you observe: Fever of 101 or Higher, - - rash, greater than 5 BM's in 24H Instructions: ED Hypotension Orthostatic Additional Instructions: 1. You have a urinary tract infection. The infection is the likely reason for the nausea and the vomiting. The urine culture is still pending but the preliminary is consistent with urinary tract infections you have had in the past due to a bacteria called E. Coli. This bacteria lives in everyone's intestines and is a frequent cause of urinary tract infections, maryjo in women. I am sending you home with a prescription for an antibiotic called Levaquin. You will take this antibiotic twice a day until all gone. 2. The final urine culture report should be back Monday or Monday. If you call my cell phone at [phone] Monday afternoon or Monday I will review the results of the urine culture with you on the phone. 3. There was no problem with the rhythm of the heart while you were on the heart monitor in the hospital. The most likely reason for passing out would be low blood pressure due to dehydration and the BP medicine. The BP in the hospital is better after hydration with IV fluids. I have decreased the Lisinopril to 1/2 tab daily (5 mg). Try and stay well hydrated. Sometimes salty foods will increase thirst in patients with dementia and they will drink more......it is always a challenge getting enough fluid into a woman with dementia. Pending Tests on Discharge: final urine culutre Allergies/Adverse Reactions: Allergies Penicillins [PCN] Allergy (Verified 12/30/17 08:43) Unknown Medications to take at Discharge Aspirin [Aspirin, Baby] 81 mg PO DAILY@0800 08/29/17 Multivitamin [Animal Shapes] 1 each PO DAILY 08/29/17 Polyethylene Glycol 3350 [Miralax] 17 gm PO PRN PRN 12/30/17 Sertraline HCl [Zoloft] 25 mg PO DAILY 12/30/17 Lisinopril [Prinivil] 5 mg PO DAILY #0 12/31/17 Potassium Chloride [K-Dur] 20 meq PO BIDCM #2 tab 12/31/17 The following prescriptions were given: Potassium Chloride [K-Dur] 20 meq PO BIDCM #2 tab Primary Care Physician: Kamaljit Garcia PA [Primary Care Provider] - Please follow up with your Primary Care Physician in: 1 week Proposed Discharge Date: 12/31/17 12/31/17 1329 <Electronically signed by Kamaljit Samson DO> Date Kamaljit Samson DO CC: Kamaljit Garcia EMERGENCY DEPARTMENT Observed: 12/31/2017 Status: F Source: [place] SUMMARY 7:01 AM [facility] [place] [facility] Medical Records Department [address] [place] [address] Emergency Department Summary 12/30/17 1000 MR#: [id number] Acct: [id number] Name: REYNOLD HENRANDEZ Rep #: [id number] : 1935 82 From: Dayron Dickson MD PCP: Kamaljit Garcia Status: ADM DOLLY - ER Visit Summary Date of Service: 12/30/17 Chief Complaint: Syncope History of Present Illness: The patient is a 82 F who sees Silverio Garcia. She does not see a cyber security architect. Patient has a history of dementia and is not able to give any history. Daughter, whom she lives with, reports that this morning patient was sitting at the table she heard a thump and looked over and the patient's head had slumped backward. Her mouth was open and her eyes were wide open. She had a blank stare. Daughter reports that she is flipped her head forward and got the food out of her mouth. She was unresponsive for approximately 15-30 seconds. There is no seizure activity during this. Patient had a similar episode in August and was transferred to [facility] for assessment for a pacemaker as she had bradycardia with a 12 second period of ventricular asystole while here. 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 Daughter also reports the patient had diarrhea for the past 2 days. She is having at 89 times per day. No blood in her stool. She is given 3 doses of Imodium. She has had sick contacts and daughter reports that this is been going through the house. She has had subjective fever. No vomiting. No cough or difficulty breathing. She is more weak than usual. Physical Examination: Vitals: 97.7, 97/66, 69, 12, 90% on room air which is hypoxic. General: Well-nourished and well-developed. Head: Normocephalic atraumatic. Neck: Supple, no lymphadenopathy. No JVD. Nontender. Cardiovascular: Regular rate and rhythm. 2 out of 6 systolic murmur. Respiratory: No respiratory distress. Clear to auscultation bilaterally. Abdominal: Soft, nontender, nondistended, normal bowel sounds. No guarding, rebound, or peritoneal signs. Back: Nontender. Extremities: Nontender, no edema. Skin: Normal color, no rash. Neurologic: Alert and oriented 1. Moves all extremities well. Psych: Normal affect. Test Results: EKG is sinus at 73 is unchanged from August. Troponin is negative. Chem-7 is more for glucose of 119, BUN of 20, BUN/creatinine ratio 32.7. CBC is marked for a white count of 15.4 with 74 segmented neutrophils and 16 lymphocytes. Chest x-ray shows chronic changes. Emergency Department Course and Treatment: Patient denies any pain. She did have a straight cath and we were not able to appearing urine. Had a prolonged discussion with patient's daughter about treatment options. Again she does not want a pacemaker placed. Treatment Plan: Patient will be admitted to the hospital for observation and hydration. She was discussed with Dr. Samson. Disposition: Admitted in improved condition. Impression: 1. Diarrhea. 2. Syncope. 3. Dehydration. This note was generated with [employer] dictation software. It may contain incorrect words, spelling, and punctuation that were not noted in review of the chart prior to signing ED Disposition - Plan for ED Patient: Chief Complaint: Syncope Referrals: Kamaljit Garcia PA [Primary Care Provider] - What to do if you have Problems For any increased pain, shortness of breath, bleeding, nausea or vomiting, chest pain, or any unexpected problems, contact your Primary Care Provider. Call [facility] ([phone]) or report to the closest Emergency Room. Call 911 if necessary. 12/31/17 0701 <Electronically signed by Dayron Dickson MD> Date Dayron Dickson MD Cosigner Signature (If Indicated): Date CC: Kamaljit Garcia CBC W/DIFF, AUTOMATED Collected: 12/31/2017 Status: F Source: [place] 6:30 AM [facility] [place] TYPE CODE TESTS RESULT OUT OF RANGE REFERENCE UNITS LAB L100.1000 4.4-11.0 K/mm3 Normal WBC 8.7 LAB L100.1200 4.2-5.4 M/mm3 Normal RBC 4.24 LAB L100.1300 12.0-15.0 g/dl Normal HGB 12.3 LAB L100.1400 37-47 % Normal HCT 37.7 LAB L100.1500 81-99 fL Normal MCV 88.9 LAB L100.1600 27.0-32.0 pg Normal MCH 29.0 LAB L100.1700 32-36 g/gl Normal MCHC 32.6 LAB L100.1810 11.6-14.6 % Normal RDW CV 13.8 LAB L100.1820 35.1-43.9 fl High RDW SD 44.8 LAB L100.1900 150-450 K/mm3 Normal PLT 197 LAB L100.2000 6.2-12.0 fl Normal MPV 9.3 LAB L100.2100 47-70 % High NEUT% 75.9 LAB L100.2200 19-41 % Low LY% 13.3 LAB L100.2300 0-10 % Normal MONO% 9.6 LAB L100.2400 0-5 % Normal EO% 1.0 LAB L100.2500 0-1 % Normal BASO% 0.1 LAB L100.2550 0.0-0.9 % Normal IM GRAN % 0.100 Result Comment: IG% - Immature Granulocytes (promyelocytes, myelocytes and metamyelocytes) > 1% indicates that a LEFT SHIFT is Present. LAB L100.2620 2.0-7.7 X10 3/uL Normal Absolute Neut 6.6 LAB L100.2720 0.83-4.51 X10 3/ul Normal Absolute Lymph 1.16 Performed By: #### L100.0100 #### [facility] [address] [place], [address] COMPREHENSIVE METABOLIC Collected: 12/31/2017 Status: F Source: [facility] 6:30 AM [facility] [place] TYPE CODE TESTS RESULT OUT OF RANGE REFERENCE UNITS LAB L501.0100 74-106 mg/dL Normal GLU 89 Result Comment: Please note revised GLUCOSE reference range effective 2017. LAB L501.1000 7-18 mg/dL Normal BUN 13 LAB L501.1100 0.55-1.02 mg/dL Low CREAT,SERUM 0.47 Result Comment: The validity of the calculated GFR AND GFRAA in patients over 70 years has not been determined. Clinical correlation is essential. LAB L501.1110 >60 mL/min Normal EST GFR 133 Result Comment: Non- GFR Calc LAB L501.1115 >60 mL/min Normal EST GFR - AA 161 Result Comment: GFR Calc LAB L501.1255 ml/min Normal Estimated CRCL 35.31 LAB L501.1300 10-20 RATIO High BUN/CRE 27.4 LAB L501.1500 6.4-8. g/dL Low 2 T PROT 5.8 LAB L501.1800 3.2-5. g/dL Low 0 ALB 2.7 LAB L501.1950 2.2-4. g/dL Normal 2 GLOB 3.1 LAB L501.2000 0.9-2. RATIO Normal 4 A/G 0.9 LAB L501.2200 8.5-10 mg/dL Low .1 CA 8.1 LAB L501.4100 15-37 U/L Normal AST 26 LAB L501.4305 45-117 U/L Normal ALK P 74 LAB L501.4405 13-56 U/L Normal ALT 14 LAB L501.4600 0.20-1 mg/dL Normal .00 T BILI 0.80 LAB L501.5300 136-14 mmol/L Normal 5 NA 141 LAB L501.5600 3.5-5. mmol/L Low 1 K 3.4 LAB L501.5900 98-107 mmol/L Normal CL 103 LAB L501.6100 21.0-3 mmol/L Normal 2.0 CO2 30.0 LAB L501.6200 5-15 Normal GAP 8 Performed By: #### L500.4050, L501.2300, L501.5200 #### [facility] [address] [place], [place], [id number] PHOSPHORUS Collected: 12/31/2017 Status: F Source: [place] 6:30 AM [facility] [place] TYPE CODE TESTS RESULT OUT OF RANGE REFERENCE UNITS LAB L501.2300 2.5-4.9 mg/dL Normal PHOS 3.3 Performed By: #### L500.4050, L501.2300, L501.5200 #### [facility] [address] [place], [address] MAGNESIUM Collected: 12/31/2017 Status: F Source: [place] 6:30 AM [facility] [place] TYPE CODE TESTS RESULT OUT OF RANGE REFERENCE UNITS LAB L501.5200 1.6-2.6 mg/dL Normal MG 2.2 Performed By: #### L500.4050, L501.2300, L501.5200 #### [facility] [address] [place], [place], [address] URINALYSIS, COMPLETE Collected: 12/30/2017 Status: F Source: [place] 4:00 PM [facility] [place] Order Comment: How was Urine Obtained? CATHETER SPECIMEN TYPE CODE TESTS RESULT OUT OF RANGE REFERENCE UNITS LAB L400.3000 Yellow COLOR Normal Yellow LAB L400.3050 Clear Normal CLARITY Sl. Cloudy LAB L400.3200 Normal mg/dl Normal GLUCOSE, UR Normal LAB L400.3300 Negative mg/dL Normal BILIRUBIN URINE Negative LAB L400.3400 Negative mg/dl Normal KETONE UR Negative LAB L400.3465 1.002-1.030 Normal SP.GR. DIPSTX 1.015 LAB L400.3550 5.0 - 8.0 pH UR Normal 6.0 LAB L400.3600 Negative mg/dl High PROT 15 DIPSTX LAB L400.3700 Normal mg/dl Normal UROBILI Normal LAB L400.3750 Negative High NITRITE UR Positive LAB L400.3780 Negative /ul High 10 OCCULT BLOOD-UR LAB L400.3800 Negative /ul High LEUK ESTERASE 500 LAB L400.4050 0-5 /hpf WBC Normal 50-100 SEEN LAB L400.4100 0-5 /hpf Normal RBC-UA 0-5 SEEN LAB L400.4150 5-10 /hpf SQUAM Normal EPI 0-5 SEEN LAB L400.4300 None Seen /hpf 3+ Normal BACTERIA LAB L400.4350 <or=2+ /hpf 0 Normal MUCUS, URINE SEEN LAB L400.4900 1+ Normal AMORPHOUS URATE Performed By: #### L400.0001 #### [facility] [address] [place], [address] Observed: 12/30/2017 Status: F Source: [place] CULTURE, URINE 4:00 PM [facility] [place] [facility] Urine Culture ORGANISM 1: Escherichia coli Crowder Count >100,000 Escherichia coli: REACTION Amoxacillin/Clavulanic Acid $ 8 S Ampicillin $ 8 S Ampicillin/Sulbactam $ <=2 S Cefazolin $ <=4 S Cefepime $ <=1 S Ceftriaxone $ <=1 S Ciprofloxacin $ >=4 R ESBL - Ertapenim $$$ <=0.5 S Gentamicin $ <=1 S Imipenem *NF <=0.25 S Levofloxacin $ >=8 R Nitrofurantoin $ <=16 S Piperacillin/Tazobactam $$ <=4 S Tobramycin $ <=1 S Trimethoprim/Sulfametho $ <=20 S (NF) indicates non-formulary drug at [facility]. Approval by Infectious Disease Specialist required before non-formulary drugs may be ordered and/or dispensed. Performed By: #### M100.0650 #### [facility] [address] [place], [address] HISTORY AND PHYSICAL Observed: 12/30/2017 Status: F Source: [place] EXAM 12:59 PM [facility] [place] [facility] Medical Records Department [address] [place] [address] History and Physical 12/30/17 1217 MR#: [id number] Acct: [id number] Name: REYNOLD HERNANDEZ Rep #: [id number] : 1935 82 From: Kamaljit Samson DO PCP: Kamaljit Garcia Status: ADM DOLLY Y Location: [place] [address] Problem List (1) Nausea, vomiting and diarrhea Status: Acute (2) Syncope Status: Acute (3) Dehydration Status: Acute (4) UTI (urinary tract infection) Status: Acute (5) Fall Status: Inactive (6) Fracture of hip, right, closed Status: Chronic Qualifiers: (7) Fracture of right inferior pubic ramus Status: Chronic (8) Postoperative anemia Status: Resolved (9) Sinus bradycardia Status: Chronic (10) Ventricular asystolia Status: Acute (11) Essential hypertension, benign Status: Chronic (12) 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 today after becoming unresponsive at the table while eating breakfast. She did not fall. Her dtr immediately went to her and swept the food out of her mouth. She was unresponsive for approximately 15-30 seconds. She has been having loose stool since and has not been eating or drinking much. She lives with her dtr and the dtr runs a daycare in the home with small children. Some of the children have been ill recently. No recent antibiotics. Vital signs at presentation to the emergency room are temperature 97.7, pulse rate 69, blood pressure 97/66, respiratory rate 12 and she was 90%-93% saturated on room air. White blood cell count is elevated at 15.4 with 74% neutrophils. Hemoglobin is 13.8 and the platelets are within normal limits. Electrolytes are within normal limits and the BUN is 20 with a creatinine of 0.61 and a BUN/creatinine ratio of 32.7 troponin was less than 0.015. Chest x-ray showed possible developing infiltrates in the right lower lobe. Once she arrived on MS3 she had another episode of unresponsiveness. The pt is a poor historian and hx was obtained from her dtr. She is being admitted to the hospital with transient unresponsiveness, dehydration and diarrhea. 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 Psychiatric History: No pertinent psych hx PROFESSOR OF FINANCE History: No pertinent PROFESSOR OF FINANCE history Smoking Status: Former smoker Tobacco Use: Non-smoker Alcohol: None Drugs: None - *Family History Maternal History Items: No pertinent history Paternal History Items: No pertinent history Review of Systems Constitutional: Reports: Anorexia, Weakness Eyes: Reports: Blurred vision HEENT: Denies: Head Aches Cardiovascular: Denies: Chest Pain, Edema Respiratory: Denies: Cough, Shortness of Breath Gastrointestinal: Reports: Diarrhea, Nausea. Denies: Abdominal Pain Genitourinary: Reports: - - unknown - hx is being given by the dtr-- pt is unable to answer my questions Gynecological: Reports: - - has BL breast implants Skin: Denies: Jaundice, Rash, Wounds Neurological: Reports: Difficulty swallowing, - - she ambulates at home without an AD.....she takes her daughter's hand or wall walks. No recent falls. Denies: Focal weakness Psychiatric: Reports: Depression Hematologic/ Lymphatic: Denies: Hx of blood clot VTE Information - Inpt Only VTE Present on Admission: No VTE Mechan Device Prophylaxis: Knee High MOSHE Hose VTE Pharm Prophylaxis ordered?: Yes Patient Problems: Active and Suspected Problems Nausea, vomiting and diarrhea (Acute) Syncope (Acute) Dehydration (Acute) UTI (urinary tract infection) (Acute) - Physical Exam General: Confused, - - slow to respond to commands. seems very sleepy HEENT: Atraumatic, PERRLA, EOMI, Normocephalic Oral: No Gingival or Mucosal Lesions/ Ulcerations, Dry Mucosa, - - she has torii Neck: Supple, No JVD, No Nodes, No Nuchal Rigidity, Trachea Midline Lungs: Clear to auscultation, No rhonchi, No wheeze, No rales, Diminished Cardiovascular: Regular Rhythm, Normal S1, Normal S2, No murmurs, Bradycardic, No Gallop Abdomen: Bowel Sounds Present, Soft, Non Tender, Non-Distended, - - No guarding with palpation Extremities: No clubbing, No cyanosis, No edema, Diminished Peripheral Pulses Skin: No rashes, No breakdown Neurological: Cranial nerves II-XII grossly intact, Neuro grossly intact, - - Moving all extremities Psych/Mental Status: - - advanced dementia with no behavioral disturbances Vital Signs Temp Pulse Resp BP Pulse Ox 97.4 F L 66 12 100/61 98 12/30/17 11:10 12/30/17 11:10 12/30/17 11:10 12/30/17 11:10 12/30/17 11:10 Oxygen Flow Rate (L/min) 2 Oxygen Delivery Method Nasal Cannula Weight: 113 lb 11.2 oz Body Mass Index (BMI) 17.8 Intake and Output for Last 24 Hours Intake Total 501 / 501 Balance 501 / 501 Assessment/Plan Active and Suspected Problems Nausea, vomiting and diarrhea (Acute) Syncope (Acute) Dehydration (Acute) UTI (urinary tract infection) (Acute) Impressions 1. N/V/D - suspect viral 2. transient episodes of unresponsiveness - orthostatics are negative. The second epidose happened when she was lying flat in bed. I suspect this may be cardiac syncope. 3. Advanced Alzheimer's dementia with no behavioral disturbances 4. Leukocytosis with history of urinary tract infections in the past 5. History of depression 6. Hypertension 7. Dehydration 8. possible aspiration? will repeat the CXR for now and start clindamycin and Levaquin which will treat the UTI and also aspiration PNA Hydrate recheck lab in the AM Telemetry orthostatics negative Discussed code status with her dtr. CODE STATUS: Discussed code status at length with patients dtr including the difference between FULL CODE, DNR CCA and DNR CC status. All questions were answered. An order for DNR CC arrest was entered into the computer. A total of 20 minutes face to face time was devoted to advanced care planning. No intubation, no CPR, no Cardioversion but, can give meds She did urinate a large amount this AM......straight cath attempted in the ER and no return......will straight cath for UA and culture after she receives more fluid. enteric pathogen panel, fecal leukocytes Clinda and Levaquin --- allergic to PCN Code Visit OBSV E AND M: 01100 Initial observation care L3 12/30/17 1259 <Electronically signed by Kamaljit Samson DO> Date Kamaljit Samson DO Cosigner Signature: Date (if applicable) CC: Kamaljit Garcia; Beverly Samson Signed CBC W/DIFF, AUTOMATED Collected: 12/30/2017 Status: F Source: [place] 9:00 AM [facility] REPOSITORY TYPE CODE TESTS RESULT OUT OF RANGE REFERENCE UNITS LAB L100.1000 4.4-11.0 K/mm3 High WBC 15.4 LAB L100.1200 4.2-5.4 M/mm3 Normal RBC 4.65 LAB L100.1300 12.0-15.0 g/dl Normal HGB 13.8 LAB L100.1400 37-47 % Normal HCT 41.4 LAB L100.1500 81-99 fL Normal MCV 89.0 LAB L100.1600 27.0-32.0 pg Normal MCH 29.7 LAB L100.1700 32-36 g/gl Normal MCHC 33.3 LAB L100.1810 11.6-14.6 % Normal RDW CV 14.2 LAB L100.1820 35.1-43.9 fl High RDW SD 45.3 LAB L100.1900 150-450 K/mm3 Normal PLT 262 LAB L100.2000 6.2-12.0 fl Normal MPV 9.6 LAB L100.2100 47-70 % High NEUT% 74.0 LAB L100.2200 19-41 % Low LY% 16.1 LAB L100.2300 0-10 % Normal MONO% 8.9 LAB L100.2400 0-5 % Normal EO% 0.6 LAB L100.2500 0-1 % Normal BASO% 0.2 LAB L100.2550 0.0-0.9 % Normal IM GRAN % 0.200 Result Comment: IG% - Immature Granulocytes (promyelocytes, myelocytes and metamyelocytes) > 1% indicates that a LEFT SHIFT is Present. LAB L100.2620 2.0-7.7 X10 3/uL High Absolute Neut 11.4 LAB L100.2720 0.83-4.51 X10 3/ul Normal Absolute Lymph 2.47 Performed By: #### L100.0100 #### [facility] [address] [place], [address] BASIC METABOLIC Collected: 12/30/2017 Status: F Source: [place] PROFILE (BMP) 9:00 AM [facility] [place] TYPE CODE TESTS RESULT OUT OF RANGE REFERENCE UNITS LAB L501.0100 74-106 mg/dL High GLU 119 Result Comment: Fasting Glucose result from 100 to 125 mg/dL suggests IMPAIRED HOMEOSTASIS per A.D.A. criteria. Please note revised GLUCOSE reference range effective 2017. LAB L501.1000 7-18 mg/dL High BUN 20 LAB L501.1100 0.55-1.02 mg/dL Normal CREAT,SERUM 0.61 Result Comment: The validity of the calculated GFR AND GFRAA in patients over 70 years has not been determined. Clinical correlation is essential. LAB L501.1110 >60 mL/min Normal EST GFR 100 Result Comment: Non- GFR Calc LAB L501.1115 >60 mL/min Normal EST GFR - AA 120 Result Comment: GFR Calc LAB L501.1255 ml/min Normal Estimated CRCL 38.69 LAB L501.1300 10-20 RATIO High BUN/CRE 32.7 LAB L501.2200 8.5-10 mg/dL Normal .1 CA 8.5 LAB L501.5300 136-14 mmol/L Normal 5 NA 137 LAB L501.5600 3.5-5. mmol/L Normal 1 K 3.8 LAB L501.5900 98-107 mmol/L Normal CL 102 LAB L501.6100 21.0-3 mmol/L Normal 2.0 CO2 28.0 LAB L501.6200 5-15 Normal GAP 7 Performed By: #### L500.2500, L501.4010 #### [facility] [address] [place], [address] TROPONIN-I Collected: 12/30/2017 Status: F Source: [place] 9:00 AM [facility] [place] TYPE CODE TESTS RESULT OUT OF RANGE REFERENCE UNITS LAB L501.4010 <0.045 ng/mL Normal < 0.015 TROPONIN-I Result Comment: TROPONIN-I EXPECTED VALUES <0.045 Negative 0.045 - 0.590 Consistent with Cardiac Damage > OR = 0.600 Critical Value Not every elevated troponin is indicative of OK. These values should be used with clinical judgement in examining the patient's clinical picture for diagnosis. To establish a diagnosis of OK versus myocardial injury, there must be a demonstrated rise and/or fall in the troponin values, in addition to ischemic symptoms, EKG changes, new regional wall motion abnormality, and/or angiographical evidence. PLEASE NOTE: REFERENCE RANGES EDITED 17 Performed By: #### L500.2500, L501.4010 #### [facility] [address] [place], [address] CHEST 1 VIEW Observed: 12/30/2017 Status: F Source: [place] (PORTABLE) 8:52 AM [facility] REPOSITORY [facility] Imaging Services [address] [place] [address] Chest 1 View (Portable) MR#: [id number] Acct: [id number] Name: REYNOLD HERNANDEZ Rep #: [id number] : 1935 F 82 From: Vu Novoa MD PCP: Kamaljit Garcia Status: ADM DOLLY Study: Chest 1 View (Portable) Date of Exam: 12/30/17 Exam# [id number] Ordering Dr: Dayron Dickson MD STUDY: X-RAY CHEST REASON FOR EXAM: Female, 82 years old. Cough TECHNIQUE: August 29, 2017 COMPARISON: None. FINDINGS: No lung consolidation, pleural effusion or pneumothorax. Mild pulmonary vascular congestion. Subtle developing infiltrates in the right lower lobe suspected. Calcified lesion in the right upper lobe. Cardiac size is slightly prominent. Left lower lobe retrocardiac region airspace opacities also seen bilateral breast prostheses IMPRESSION: Reticulonodular opacities in the lung bases with lower lobe retrocardiac region airspace opacities. No pneumothorax or pleural effusion. Electronically Signed: Vu Novoa, at 10:36 EDT Tel , Service support , RAD/Chest 1 View (Portable) CC: Kamaljit Garcia; Dayron Dickson MD 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: Signed PROGRESS Observed: 12/29/2017 Status: COMPLETED Source: [place] 10:39 AM [facility] REPOSITORY HNO ID: [id number] Author: Kamaljit Garcia Service: (none) Author Type: Physician Biopsychologist Type: Progress Notes Filed: 12/29/2017 10:40 AM Note Text: Transferred records reviewed with hx and problems updated. Silverio Garcia PA-C PROGRESS Observed: 12/26/2017 Status: COMPLETED Source: [place] 8:29 AM [facility] REPOSITORY HNO ID: [id number] Author: Shima Culp Service: (none) Author Type: Physician Type: Progress Notes Filed: 12/26/2017 12:17 PM Note Text: Subjective: Patient presents to clinic c/o painful toenails. They state that the nails are especially painful with shoe gear and pressure. Patient states that nails left hallux are painful. Patient denies diabetes. Patient recently admitted for broken hip requiring surgery. No other pedal complaints at this time. Patient states no change in medications or medical history since last visit. Objective: Patient presents to clinic ambulating in sneakers Vasc: DP and PT pulses are faint bilateral. CFT is less than 5 seconds bilateral. Skin temperature is warm to cool proximal to distal bilateral. There is no edema or varicosities noted. Neuro: Protective sensation is decreased to the foot and toes when tested with the 5.07 SWM bilateral. Vibratory sensation is decreased at the hallux IPJ bilateral. The hallux is downgoing bilateral. Derm: Nails 1-5 b/l are painful, discolored-yellow, thick, crumbly, dystrophic and with subungal debris. Skin is of normal turgor, texture and hair growth is decreased bilateral. There are no hyperkeratosis, ulcerations, scars, verruca or other lesions noted. Ortho: Muscle strength is 5/5 for all pedal groups tested. Ankle joint DF is decreased with the knee extended with no pain or crepitus noted. 1st MPJ ROM is decreased bilateral. Assessment: (B35.1) Onychomycosis (primary encounter diagnosis) (M79.675) Pain in toe of left foot (M79.674) Pain in toe of right foot Plan: Patient was seen and evaluated. Nails 1-5 bilateral were debrided in length and thickness. Patient is to RTC in 3-4 months. ULISSES Pfeiffer Observed: 12/26/2017 Status: COMPLETED Source: [place] 7:55 AM [facility] REPOSITORY Office Visit (PODIWS) MARYREYNOLD ([id number]) 1935 F Date Time Provider Department 12/26/17 7:55 AM SHIMA CULP During your visit today, we recorded the following information about you: Shima Culp DPM 12/26/2017 12:17 PM Signed Subjective: Patient presents to clinic c/o painful toenails. They state that the nails are especially painful with shoe gear and pressure. Patient states that nails left hallux are painful. Patient denies diabetes. Patient recently admitted for broken hip requiring surgery. No other pedal complaints at this time. Patient states no change in medications or medical history since last visit. Objective: Patient presents to clinic ambulating in [facility] Vasc: DP and PT pulses are faint bilateral. CFT is less than 5 seconds bilateral. Skin temperature is warm to cool proximal to distal bilateral. There is no edema or varicosities noted. Neuro: Protective sensation is decreased to the foot and toes when tested with the 5.07 SWM bilateral. Vibratory sensation is decreased at the hallux IPJ bilateral. The hallux is downgoing bilateral. Derm: Nails 1-5 b/l are painful, discolored-yellow, thick, crumbly, dystrophic and with subungal debris. Skin is of normal turgor, texture and hair growth is decreased bilateral. There are no hyperkeratosis, ulcerations, scars, verruca or other lesions noted. Ortho: Muscle strength is 5/5 for all pedal groups tested. Ankle joint DF is decreased with the knee extended with no pain or crepitus noted. 1st MPJ ROM is decreased bilateral. Assessment: (B35.1) Onychomycosis (primary encounter diagnosis) (M79.675) Pain in toe of left foot (M79.674) Pain in toe of right foot Plan: Patient was seen and evaluated. Nails 1-5 bilateral were debrided in length and thickness. Patient is to RTC in 3-4 months. Shima Culp DPM Referring Provider: KULDIP YOUNGBLOOD [[id number]] Allergies As of Date: 12/26/2017 Noted Allergy Reaction PENICILLIN 11/01/2017 16 - Unknown Date Reviewed: 12/26/2017 Reviewed by: Deidre Kaminksi RN - Fully Assessed Reason for Visit: Recheck [92] Primary Visit Diagnosis:Onychomycosis [B35.1] Other Visit Diagnoses:Pain in toe of left foot [M79.675] Pain in toe of right foot [M79.674] Prescriptions as of 12/26/2017 Sig: CHILDREN'S CHEWABLE MULTIVITM* Take 1 tablet by mouth once d* SERTRALINE 25 MG TABLET Take 1 tablet by mouth once d* LISINOPRIL 10 MG TABLET Take 1 tablet by mouth once d* BOOST HIGH PROTEIN ORAL Take by mouth. BABY ASPIRIN ORAL Take by mouth. Problem List As Of Date 12/26/2017 Noted Resolved Hip fx, right, sequela [S72.001S] INVALID FOR* Alzheimer's dementia without behavioral disturb*INVALID FOR* Benign essential HTN [I10] INVALID FOR* Anxiety [F41.9] INVALID FOR* More... Disposition: Return in about 3 months (around 03/28/2018) for nail care. Follow-up and Disposition History Recorded Encounter Status:Closed by SHIMA CULP DPM on 12/26/17 PROGRESS Observed: 12/06/2017 Status: COMPLETED Source: [place] 8:27 AM [facility] REPOSITORY [facility] ID: [id number] Author: Kamaljit Bradford (Sherif) Jose Service: (none) Author Type: Physician Biopsychologist Type: Progress Notes Filed: 12/06/2017 5:05 PM Note Text: 82 year old female with c/o here for follow up from hip fracture, rehab. Patient has advanced dementia. Daughter Rosa with whom she lives gives pertinent information. HOSPITAL/ER FOLLOW UP: Reason for visit: fractured right 08/29/17 Which facility: Initially [facility], transferred to [facility] 08/30/17 for pacemaker but cardiology felt not necessary. Date of visit: [facility] 08/19-08/31, [facility] 08/31-? (no records), 3/2- [facility] rehab unit Testing: Post-op anemia. XR, CT hip: comminuted Intertrochanteric fx Echocardiogram: EF 70%, LVDF NL. No valvular disease Procedures: 08/31/17 right hip nailed Treatment given: Heart stopped x 12 sec after surgery. Came back on her own Rehab [facility]: discharged october. Post-op anemia resolved. Walking independently. Current symptoms: c/o pain in right knee. Has [place] but only using sparingly. Constipation: Miralax every few days. Dependent for hygiene, a little incontinence at night. No risky incidents. Home is all one floor. She is monitored continuously. No other falls identified. Cooperative and easily redirected. Anxiety after surgery has improved with Zoloft. EXAM: BP 130/68 Pulse 72 Resp 12 Wt 76.2 kg (168 lb) BMI 27.12 kg/m2 Pleasant Adult woman cooperative, severe dementia, in no acute distress. Speech normal. Respirations: regular, unlabored Color: pink to lips and nailbeds, normal turgor Skin: warm, dry, no unusual rashes or lesions Head: Normocephalic Eyes: sclerae and conjunctivae without injection or exudate, PERRLA, EOMI, corneal light reflex symmetric bilaterally Ears: TM's are clear/ hart bilaterally with normal landmarks, no swelling or deformity ear canal or external ear Nose/Sinuses: Nose patent. No turbinate swelling. Active exudate: none. Maxillary and frontal sinuses nontender to percussion. Oropharynx: oral membranes are moist. Lips, mucosa, and tongue free from lesions. Gums without inflammation. Posterior pharynx none injection, no exudate, no tonsillar hypertrophy. Neck: Neck supple, no lymphadenopathy; thyroid without mass or tenderness. Carotids 2/4+ without bruit. Chest: normally shaped, equal expansion with breaths. Lungs: Lungs clear to auscultation and percussion. No crackles or wheezes. Heart: RRR without murmur, gallop, or rubs. S1 and S2 normal. Extrem: no clubbing, cyanosis, edema. Incision well healed. Distal pulses 2+/4, prompt capillary refill. Able extend knees without complication. No effusion. No pain with varus or valgus stress. ASSESSMENT/PLAN: 1. Alzheimer's dementia without behavioral disturbance, unspecified timing of dementia onset - ICD9: 331.0, 294.10, ICD10: G30.9, F02.80 (primary diagnosis) Stable. Under family care which is excellent. Weight loss. - CBC + DIFF - TSH BLD 2. Benign essential HTN - ICD9: 401.1, ICD10: I10 - good control - Continue current medication(s) - Goal of BP <140/90 - COMP METABOLIC PANEL 3. Hip fx, right, sequela - ICD9: 905.3, ICD10: S72.001S Doing well. 4. Anxiety - ICD9: 300.00, ICD10: F41.9 Improved with Zoloft. Doing well in home Kamaljit Garcia PA-C CNOV Observed: 12/06/2017 Status: COMPLETED Source: [place] 8:00 AM [facility] REPOSITORY Office Visit (FAMPWS) REYNOLD HERNANDEZ ([id number]) 1935 F Date Time Provider Department 12/06/17 8:00 AM Kamaljit GARCIA) FAMPWS During your visit today, we recorded the following information about you: Pulse Respiration Blood pressure Weight 60/minute 12/minute 114/62 52.6 kg Kamaljit Garcia PA-C 12/06/2017 5:05 PM Signed 82 year old female with c/o here for follow up from hip fracture, rehab. Patient has advanced dementia. Daughter Rosa with whom she lives gives pertinent information. HOSPITAL/ER FOLLOW UP: Reason for visit: fractured right 08/29/17 Which facility: Initially [facility], transferred to [facility] 08/30/17 for pacemaker but cardiology felt not necessary. Date of visit: [facility] 08/19-08/31, [facility] 08/31-? (no records), 10/13- [facility] rehab unit Testing: Post-op anemia. XR, CT hip: comminuted Intertrochanteric fx Echocardiogram: EF 70%, LVDF NL. No valvular disease Procedures: 08/31/17 right hip nailed Treatment given: Heart stopped x 12 sec after surgery. Came back on her own Rehab [facility]CU [facility]: discharged october. Post-op anemia resolved. Walking independently. Current symptoms: c/o pain in right knee. Has [place] but only using sparingly. Constipation: Miralax every few days. Dependent for hygiene, a little incontinence at night. No risky incidents. Home is all one floor. She is monitored continuously. No other falls identified. Cooperative and easily redirected. Anxiety after surgery has improved with Zoloft. EXAM: BP 130/68 Pulse 72 Resp 12 Wt 76.2 kg (168 lb) BMI 27.12 kg/m2 Pleasant Adult woman cooperative, severe dementia, in no acute distress. Speech normal. Respirations: regular, unlabored Color: pink to lips and nailbeds, normal turgor Skin: warm, dry, no unusual rashes or lesions Head: Normocephalic Eyes: sclerae and conjunctivae without injection or exudate, PERRLA, EOMI, corneal light reflex symmetric bilaterally Ears: TM's are clear/ hart bilaterally with normal landmarks, no swelling or deformity ear canal or external ear Nose/Sinuses: Nose patent. No turbinate swelling. Active exudate: none. Maxillary and frontal sinuses nontender to percussion. Oropharynx: oral membranes are moist. Lips, mucosa, and tongue free from lesions. Gums without inflammation. Posterior pharynx none injection, no exudate, no tonsillar hypertrophy. Neck: Neck supple, no lymphadenopathy; thyroid without mass or tenderness. Carotids 2/4+ without bruit. Chest: normally shaped, equal expansion with breaths. Lungs: Lungs clear to auscultation and percussion. No crackles or wheezes. Heart: RRR without murmur, gallop, or rubs. S1 and S2 normal. Extrem: no clubbing, cyanosis, edema. Incision well healed. Distal pulses 2+/4, prompt capillary refill. Able extend knees without complication. No effusion. No pain with varus or valgus stress. ASSESSMENT/PLAN: 1. Alzheimer's dementia without behavioral disturbance, unspecified timing of dementia onset - ICD9: 331.0, 294.10, ICD10: G30.9, F02.80 (primary diagnosis) Stable. Under family care which is excellent. Weight loss. - CBC + DIFF - TSH BLD 2. Benign essential HTN - ICD9: 401.1, ICD10: I10 - good control - Continue current medication(s) - Goal of BP ANDlt;140/90 - COMP METABOLIC PANEL 3. Hip fx, right, sequela - ICD9: 905.3, ICD10: S72.001S Doing well. 4. Anxiety - ICD9: 300.00, ICD10: F41.9 Improved with Zoloft. Doing well in home M Trevon Garcia PA-C Referring Provider: SELF [200] Allergies As of Date: 12/06/2017 Noted Allergy Reaction PENICILLIN 11/01/2017 16 - Unknown Date Reviewed: 11/01/2017 Reviewed by: Nadine Ames Software Sales Executive - Fully Assessed Reason for Visit: Establish Care [42] Primary Visit Diagnosis:Alzheimer's dementia without behavioral disturbance, unspecified timing of dementia onset [G30.9, F02.80] Other Visit Diagnoses:Benign essential HTN [I10] Hip fx, right, sequela [S72.001S] Anxiety [F41.9] Order(s):sertraline (ZOLOFT) 25 mg tabletTake 1 tablet by mouth once daily.Disp: 90 tabletRfl: 3 CBC + DIFF [SQCBCDIF] Order #: [id number] FUTURE COMP METABOLIC PANEL [SQCMP] Order #: [id number] FUTURE TSH BLD [SQTSH] Order #: [id number] FUTURE Prescriptions as of 12/06/2017 Sig: CHILDREN'S CHEWABLE MULTIVITM* Take 1 tablet by mouth once d* SERTRALINE 25 MG TABLET Take 1 tablet by mouth once d* LISINOPRIL 10 MG TABLET Take 1 tablet by mouth once d* BOOST HIGH PROTEIN ORAL Take by mouth. BABY ASPIRIN ORAL Take by mouth. Problem List As Of Date 12/06/2017 Noted Resolved Hip fx, right, sequela [S72.001S] INVALID FOR* Alzheimer's dementia without behavioral disturb*INVALID FOR* Benign essential HTN [I10] INVALID FOR* Anxiety [F41.9] INVALID FOR* More... Prescriptions ordered this encounter Disp Refills Start End SERTRALINE 25 MG TABLET 90 t* 3 12/06/2017 Class: Print RX Route: ORAL Sig: Take 1 tablet by mouth once daily. Medications Discontinued During This Encounter MULTIVITAMIN ORAL 12/06/2017 Class: Historical Med Route: ORAL Sig: Take by mouth. Disc: Erroneous entry sertraline (ZOLOFT) 25 mg tablet 30 t* 5 11/01/2017 12/06/2017 Route: ORAL Sig: Take 1 tablet by mouth once daily. Disc: Reason for discontinue is not on file. Letter Text [facility] of [facility] [address] [id number] 12/06/2017 THIS IS A PRESCRIPTION FOR HANDICAPPED PARKING PERMIT Re: Reynold Hernandez [address] [facility] [address] The above named person requires a disability parking placard. DURATION: LIFETIME EXPIRATION: DATE + 5 YEARS Sincerely, Elva Garcia PA-C Encounter Status:Closed by Kamaljit GARCIA PA-C on 12/06/17 PROGRESS Observed: 11/24/2017 Status: COMPLETED Source: [place] 10:20 AM [facility] REPOSITORY HNO ID: [id number] Author: Kuldip Youngblood Service: (none) Author Type: Physician Type: Progress Notes Filed: 11/24/2017 10:22 AM Note Text: Good job. Kuldip Youngblood MD PROGRESS Observed: 11/23/2017 Status: COMPLETED Source: [place] 5:14 PM [facility] REPOSITORY HNO ID: [id number] Author: Olga (Rn) Jayne Service: (none) Author Type: Registered Nurse Type: Progress Notes Filed: 11/23/2017 5:22 PM Note Text: PRIMARY CARE COORDINATION DISCHARGE Patient has been identified by name and date of : Yes Patient discharged from Primary Care Coordination: YES Goals met Patient has reliable caregiver, family and/or social support Patient managing well at home with daughter as CG Goals not met Daughter, Rosa doesn't feel she needs Care Coordination any longer Patient knowledgeable and confident in contacting Health Care Providers for questions or concerns: YES Reinforced with patient and/or caregiver that Primary Care Coordination may be reinitiated if a change in status warrants navigation readmission: YES Discussed with: Caregiver Agree What was the Focus/Challenges addressed in Care Coordination? Psychosocial needs Resources Disposition: Follow up with PCP Patient to establish care with Silverio Garcia on 12/06 Care Team Tab - End: YES Daughter states patient is walking around home independently. States she has fallen twice but CG able to assist her to ground once and pt was very close to ground the second time. Pt having occasional pain in leg but dgt feels it may be stiffness when pt has sat for a while. Home Health PT completed several weeks ago CG hasn't seen any side effects from Zoloft. States pt still has some occasional tearfulness Olga Godoy RN [facility] Observed: 11/23/2017 Status: COMPLETED Source: [place] 12:00 AM [facility] REPOSITORY Patient Outreach (FAMPWS) REYNOLD HERNANDEZ ([id number]) 1935 F Date Time Provider Department 11/23/17 OLGA GODOY (RN) FAMPWS During your visit today, we recorded the following information about you: Olga Godoy RN 11/23/2017 5:22 PM Addendum PRIMARY CARE COORDINATION DISCHARGE Patient has been identified by name and date of : Yes Patient discharged from Primary Care Coordination: YES Goals met Patient has reliable caregiver, family and/or social support Patient managing well at home with daughter as CG Goals not met Daughter, Rosa doesn't feel she needs Care Coordination any longer Patient knowledgeable and confident in contacting Health Care Providers for questions or concerns: YES Reinforced with patient and/or caregiver that Primary Care Coordination may be reinitiated if a change in status warrants navigation readmission: YES Discussed with: Caregiver Agree What was the Focus/Challenges addressed in Care Coordination? Psychosocial needs Resources Disposition: Follow up with PCP Patient to establish care with Silverio Garcia on 12/06 Care Team Tab - ANDquot;EndANDquot;: YES Daughter states patient is walking around home independently. States she has fallen twice but CG able to assist her to ground once and pt was very close to ground the second time. Pt having occasional pain in leg but dgt feels it may be stiffness when pt has sat for a while. Home Health PT completed several weeks ago CG hasn't seen any side effects from Zoloft. States pt still has some occasional tearfulness MERCY Nino MD 11/24/2017 10:22 AM Signed Good job. Kuldip Youngblood MD Allergies As of Date: 11/23/2017 Noted Allergy Reaction PENICILLIN 11/01/2017 16 - Unknown Date Reviewed: 11/01/2017 Reviewed by: Nadine Ames [facility] - Fully Assessed Reason for Visit: Clinical Data Research Chronic Care [3612] Prescriptions as of 11/23/2017 Sig: MULTIVITAMIN ORAL Take by mouth. SERTRALINE 25 MG TABLET Take 1 tablet by mouth once d* LISINOPRIL 10 MG TABLET Take 1 tablet by mouth once d* BOOST HIGH PROTEIN ORAL Take by mouth. BABY ASPIRIN ORAL Take by mouth. Problem List As Of Date 11/23/2017 Noted Resolved Hip fx, right, sequela [S72.001S] INVALID FOR* Alzheimer's dementia without behavioral disturb*INVALID FOR* Benign essential HTN [I10] INVALID FOR* Anxiety [F41.9] INVALID FOR* Encounter Status:Closed by OLGA GODOY on 11/23/17 CNPN Observed: 11/20/2017 Status: COMPLETED Source: [place] 12:00 AM [facility] REPOSITORY Telephone (WADS) REYNOLD HERNANDEZ ([id number]) 1935 F Date Time Provider Department 11/20/17 KULDIP YOUNGBLOOD During your visit today, we recorded the following information about you: Parisa Foley [facility] [facility] 11/20/2017 10:22 AM Signed Reynold Hernandez is calling Kuldip Youngblood MD today to request Electronic Communication Patient has been identified by name and birthdate. Duration of symptoms: N/A [facility] [phone] Was an appointment scheduled: No Closing statement: Amarilis from [facility] called today. She states she faxed over a plan of care almost a month ago on this patient and has not received this back? She states to fax back to [phone], also if needed she can refax this to office, please advise. Parisa Foley PSR Janet Greene Ma 11/21/2017 6:27 PM Signed Left vm for Amarilis telling her that we don't have the order and please fax a new one to us for Dr. Youngblood to sign. Janet Greene Ma 11/30/2017 5:58 PM Signed Forms signed by Dr. Youngblood and faxed back. Transmission successful. Allergies As of Date: 11/20/2017 Noted Allergy Reaction PENICILLIN 11/01/2017 16 - Unknown Date Reviewed: 11/01/2017 Reviewed by: Nadine Ames Software Sales Executive - Fully Assessed Reason for Visit: Electronic Communication [890] Prescriptions as of 11/20/2017 Sig: MULTIVITAMIN ORAL Take by mouth. SERTRALINE 25 MG TABLET Take 1 tablet by mouth once d* LISINOPRIL 10 MG TABLET Take 1 tablet by mouth once d* BOOST HIGH PROTEIN ORAL Take by mouth. BABY ASPIRIN ORAL Take by mouth. Problem List As Of Date 11/20/2017 Noted Resolved Hip fx, right, sequela [S72.001S] INVALID FOR* Alzheimer's dementia without behavioral disturb*INVALID FOR* Benign essential HTN [I10] INVALID FOR* Anxiety [F41.9] INVALID FOR* Encounter Status:Closed by JANET GREENE MA on 11/21/17 PROGRESS Observed: 11/02/2017 Status: COMPLETED Source: [place] 10:02 AM [facility] REPOSITORY O ID: [id number] Author: Olga (Rn) Jayne Service: (none) Author Type: Registered Nurse Type: Progress Notes Filed: 11/02/2017 10:17 AM Note Text: PRIMARY CARE COORDINATION FOLLOW-UP NOTE Provider Action/FYI Appt w/ Silverio rescheduled for 12/06 at 8:00 Discussed HH PT will visit at 5:00 to work with pt and dgt, verbalized understanding and agreement Patient identified by name and date of . YES Spoke to Brittany [facility] nurse and daughter Summary: TC to lindat, Rosa, informed of appt change with Silverio Garcia, verbalized understanding. Also discussed [facility] PT and PCC asked if Laura can visit at 5:00 to work with dgt. States Laura called and will be there today for PT. TC to Brittany at [facility], discussed patient's PT needs and orders per Dr. Salinas when pt was discharged from TCU. Informed Dr. Salinas wrote for gait, stair, transfer and balance training and home safety at D/C from TCU. Dgt states PT has not worked with patient on the stairs or worked with the dgt on exercises, transfer techniques or safe stair training. 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 Asked Brittany if Laura could possibly visit at 5:00 PM because dgt's kids are gone by then and she will have time to work with PT. States she will call Laura and talk to her about dgt's request and she thinks that should be okay because Laura works later in the day. Concerns: TC from [facility], left message, stating she needs to reschedule f/u appt with Silverio. Discussed with Silverio and appt scheduled for 12/06 at 8:00 AM Immigration Case Worker plan for next outreach: Will follow up 3 weeks Signature Olga Godoy RN November 02, 2017 USHATOUTRDONNACH Observed: 11/02/2017 Status: COMPLETED Source: [place] 12:00 AM [facility] REPOSITORY Patient Outreach (FAMPWS) REYNOLD HERNANDEZ ([id number]) 1935 F Date Time Provider Department 11/02/17 OLGA GODOY (RN) BETTY During your visit today, we recorded the following information about you: Olga Godoy RN 11/02/2017 10:17 AM Signed PRIMARY CARE COORDINATION FOLLOW-UP NOTE Provider Action/FYI Appt w/ Silverio rescheduled for 12/06 at 8:00 Discussed PT will visit at 5:00 to work with pt and dgt, verbalized understanding and agreement Patient identified by name and date of . YES Spoke to Brittany, [facility] nurse and daughter Summary: TC to dgt, Rosa, informed of appt change with Silverio Garcia, verbalized understanding. Also discussed [facility] PT and PCC asked if Laura can visit at 5:00 to work with dgt. States Laura called and will be there today for PT. TC to Brittany at [facility], discussed patient's PT needs and orders per Dr. Salinas when pt was discharged from [facility]. Informed Dr. Salinas wrote for gait, stair, transfer and balance training and home safety at D/C from [facility]. Dgt states PT has not worked with patient on the stairs or worked with the dgt on exercises, transfer techniques or safe stair training. 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 Asked Brittany if Laura could possibly visit at 5:00 PM because dgt's kids are gone by then and she will have time to work with PT. States she will call Laura and talk to her about dgt's request and she thinks that should be okay because Laura works later in the day. Concerns: TC from daughter, left message, stating she needs to reschedule f/u appt with Silverio. Discussed with Silverio and appt scheduled for 12/06 at 8:00 AM Immigration Case Worker plan for next outreach: Will follow up 3 weeks Signature Olga Godoy, RN November 02, 2017 Allergies As of Date: 11/02/2017 Noted Allergy Reaction PENICILLIN 11/01/2017 16 - Unknown Date Reviewed: 11/01/2017 Reviewed by: Nadine Ames Software Sales Executive - Fully Assessed Reason for Visit: Clinical Data Research Chronic Care [3612] Prescriptions as of 11/02/2017 Sig: MULTIVITAMIN ORAL Take by mouth. SERTRALINE 25 MG TABLET Take 1 tablet by mouth once d* LISINOPRIL 10 MG TABLET Take 1 tablet by mouth once d* BOOST HIGH PROTEIN ORAL Take by mouth. BABY ASPIRIN ORAL Take by mouth. Problem List As Of Date 11/02/2017 Noted Resolved Hip fx, right, sequela [S72.001S] INVALID FOR* Alzheimer's dementia without behavioral disturb*INVALID FOR* Benign essential HTN [I10] INVALID FOR* Anxiety [F41.9] INVALID FOR* Encounter Status:Closed by OLGA GODOY on 11/02/17 CR FEMUR 2+ VIEWS Observed: 11/01/2017 Status: F Source: [facility] 4:10 PM SYSTEM REPOSITORY Patient Name: REYNOLD HERNANDEZ Diagnostic Radiology Exam Date/Time 11/01/2017 09:26:28 EDT Exam CR Femur 2+ Views Right n Ordering Physician MD VALENCIA SALVATORE J Accession Number [id number] CPT4 Codes 47105 () Reason For Exam PAIN Report RIGHT FEMUR CLINICAL INDICATION: Pain TECHNIQUE: AP and lateral COMPARISON: 08/31/2017 FINDINGS: Redemonstration of a right intertrochanteric fracture with internal fixation with a long intramedullary jayne. The fracture is in similar alignment to the prior exam. There is no soft tissue abnormality. IMPRESSION: Status post ORIF through a right intertrochanteric fracture. Report Dictated on Final Dictated: 11/01/2017 4:10 pm Dictating Physician: MD DAS NICHOLAS Signed Date and Time: 11/01/2017 4:12 pm Signed by: MD DAS NICHOLAS Transcribed Date and Time: 11/01/2017 4:10 PROGRESS Observed: 11/01/2017 Status: COMPLETED Source: [place] 3:28 PM [facility] HNO ID: [id number] Author: Olga (Mercy) Jayne Service: (none) Author Type: Registered Nurse Type: Progress Notes Filed: 11/01/2017 3:58 PM Note Text: PRIMARY CARE COORDINATION IN OFFICE VISIT WITH PCP Patient has been identified by name and date of . PCP Assessment/Plan: Reviewed PCP plan with patient using [employer] [facility] Discussed Home Health for PT, dgt isn't sure of PT plan of care and if [facility] HH can't meet pt's needs may request a different home health company Discussed [facility] and gave pamphlet to dgt for future reference Discussed Primary Care Coordination program, dgt agrees to participation PCC Plan of Care: Patient concerns: Dgt concerned about patient's continued rehab at home Dgt is willing to perform PT exercises in evening but would like some instruction by home care PT PCC Interventions: Dgt will call PCC with ortho surgeon name PCC will call [facility] to discuss plan of care for PT Next Office Visit: 12/04/2017 Plan For Next Call: 3 weeks Olga Godoy RN November 01, 2017 PROGRESS Observed: 11/01/2017 Status: COMPLETED Source: [place] 2:15 PM [facility] [place] REPOSITORY HNO ID: [id number] Author: Daphne (Usha) OSORIO Rocha.USHA Service: (none) Author Type: Nurse Practitioner Type: Progress Notes Filed: 11/01/2017 5:43 PM Note Text: HPI/CC: Reynold Hernandez is a 82 year old female who presents to the office today for hospital follow-up. Reynold actually moved here from [place] last year. She lives with her robinaer/KIKO Saleh. Reynold has fairly advanced alzheimers disease. Information provided by daughter and records. 08/29/17 -- Admitted to hospital s/o fall. Comminuted intertrochanteric right hip fracture. 08/30/17 -- Sinus bradycardia. Ventricular asystolic > 12 seconds. Transferred to [facility] to consider pacemaker and right hip surgery. 09/01/17 -- right hip pinning. Pacer not recommended. 09/04/17 -- 2 units PRBCs. -- posttransfusion hemoglobin 10.1 09/05/17 -- Admit to [facility] for rehab, strengthening. 10/19/17 -- Released from rehab. Lives with daughter. OT not coming. Has an aid that comes in to assist with showering. PT is coming in twice a week. Daughter is concerned because she was discharge with ativan. She really doesn't want her mother to be on this medication. She has done research and would like an SSRI. Has only used ativan twice since home. Refers pain has not been a problem. She has been vicodin -- has only used twice since being home. REVIEW OF SYSTEMS PAIN ASSESSMENT: Pt currently denies pain after direct questioning. GENERAL: No weight loss, malaise or fevers RESPIRATORY: Negative for cough, hemoptysis, wheezing, COPD, dyspnea or shortness of breath. Daughter recently noticed a cough. No fever/chills. CARDIOVASCULAR: Negative for chest pain, leg swelling, hypertension, CHF or palpitations GI: no diarrhea. Daughter reports alternating mirilax and fiber for constipation. : hx of UTI -- daughter denies symptoms at present. Mostly continent. MUSCULOSKELETAL: Negative for joint pain or swelling, back pain or muscle pain SKIN: Negative for lesions, rash, and itching PSYCH: + anxiety HEMATOLOGY/LYMPHOLOGY: Negative for prolonged bleeding, bruising easily or swollen nodes ENDOCRINE: Negative for cold or heat intolerance, polyuria, polydipsia and goiter NEURO: No history of headaches, syncope, paralysis, seizures or tremors HISTORIES: PAST MEDICAL HISTORY Diagnosis Date - Alzheimer disease - Dementia - Essential hypertension PAST SURGICAL HISTORY Procedure Laterality Date - COLONOSCOP W/ OR W/O [facility] SPE[facility] 2011 [facility] - HIP SURGERY HX Right 09/01/2017 09/01/17 -- right hip pinning Social History Marital status: Spouse name: Years of education: Number of children: Social History Main Topics Smoking status: Former Smoker Packs/day: 0.00 Years: 0.00 Alcohol use: No Drug use: No Sexual activity: No Social History Narrative Moved in with her daughter after being retrieved from [place]. 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 LACTOSE-REDUCED FOOD (BOOST HIGH PROTEIN ORAL) Take by mouth. BABY ASPIRIN ORAL Take by mouth. No current facility-administered medications on file prior to visit. ALLERGIES Allergen Reactions - Penicillin Unknown PHYSICAL EXAMINATION: BP 102/66 (BP Site: Left Arm, BP Position: Sitting, BP Cuff Size: Regular Adult) Pulse 72 Resp 12 Wt 54 kg (119 lb) BMI 19.21 kg/m2 General appearance: Pale, dozing most of the visit, in no acute distress, well-hydrated, well nourished. Minimally verbal during visit. Skin: Skin color, texture, turgor normal, no suspicious rashes or lesions Head: Normocephalic, no masses, lesions, tenderness or abnormalities Eyes: Anicteric sclera. Extraocular movements are intact. Neck: Supple, no adenopathy; thyroid symmetric, normal size, no bruits Lungs: Lungs clear to auscultation. No wheezing, rhonchi, rales Heart: RRR without murmur, gallop, or rubs. No ectopy Abdomen: Abdomen soft, non-tender. Bowel sounds normal. No masses, organomegaly Extremities: No deformities, edema, skin discoloration, clubbing or cyanosis. Good capillary refill. Peripheral pulses: Normal ASSESSMENT/PLAN: 1. Hip fx, right, sequela - ICD9: 905.3, ICD10: S72.001S (primary diagnosis) Had f/u with ortho earlier today. Continue with PT. network coordinator brought in on case to help with services. 2. Alzheimer's dementia without behavioral disturbance, unspecified timing of dementia onset - ICD9: 331.0, 294.10, ICD10: G30.9, F02.80 Hx of frequent UTIs. Given supplies to day, so daughter can collect specimen at home and bring in if patient develops symptoms. - URINALYSIS WITH MICROSCOPIC - URINE CULTURE 3. Benign essential HTN - ICD9: 401.1, ICD10: I10 - good control - Continue current medication(s) BP very stable today. Recheck next visit -- may wish to try to decrease or eliminate lisinopril dose if BP stays this controlled. 4. Anxiety - ICD9: 300.00, ICD10: F41.9 Start low-dose - SERTRALINE 25 MG TABLET Recheck in a month. Discussed treatment plan and patient voices understanding. Patient's questions answered appropriately. Medications and potential side effects were discussed and patient voices understanding. Return to the office as scheduled or as needed for worsening/no improvement. Would like to establish with Cherise Garcia/Dr. Beltran. Recheck effectiveness of sertraline at that time. Daughter aware to call with any problems/concerns if needed prior to next appt. Daphne Rocha APRN.USHA CNOV Observed: 11/01/2017 Status: COMPLETED Source: [place] 2:00 PM [facility] REPOSITORY Office Visit (FAMPWS) REYNOLD HERNANDEZ ([id number]) 1935 F Date Time Provider Department 11/01/17 2:00 PM DAPHNE ROCHA (USHA) BETTY During your visit today, we recorded the following information about you: Pulse Respiration Blood pressure Weight 72/minute 12/minute 102/66 54 kg Daphne Rocha APRN.CNP, APRN.CNP 11/01/2017 5:43 PM Signed HPI/CC: Reynold Hernandez is a 82 year old female who presents to the office today for hospital follow-up. Reynold actually moved here from [place] last year. She lives with her robinaer/KIKO Saleh. Reynold has fairly advanced alzheimers disease. Information provided by daughter and records. 08/29/17 -- Admitted to hospital s/o fall. Comminuted intertrochanteric right hip fracture. 08/30/17 -- Sinus bradycardia. Ventricular asystolic ANDgt; 12 seconds. Transferred to [facility] to consider pacemaker and right hip surgery. 09/01/17 -- right hip pinning. Pacer not recommended. 09/04/17 -- 2 units PRBCs. -- posttransfusion hemoglobin 10.1 09/05/17 -- Admit to [facility] for rehab, strengthening. 10/19/17 -- Released from rehab. Lives with daughter. OT not coming. Has an aid that comes in to assist with showering. PT is coming in twice a week. Daughter is concerned because she was discharge with ativan. She really doesn't want her mother to be on this medication. She has done research and would like an SSRI. Has only used ativan twice since home. Refers pain has not been a problem. She has been vicodin -- has only used twice since being home. REVIEW OF SYSTEMS PAIN ASSESSMENT: Pt currently denies pain after direct questioning. GENERAL: No weight loss, malaise or fevers RESPIRATORY: Negative for cough, hemoptysis, wheezing, COPD, dyspnea or shortness of breath. Daughter recently noticed a cough. No fever/chills. CARDIOVASCULAR: Negative for chest pain, leg swelling, hypertension, CHF or palpitations GI: no diarrhea. Daughter reports alternating mirilax and fiber for constipation. : hx of UTI -- daughter denies symptoms at present. Mostly continent. MUSCULOSKELETAL: Negative for joint pain or swelling, back pain or muscle pain SKIN: Negative for lesions, rash, and itching PSYCH: + anxiety HEMATOLOGY/LYMPHOLOGY: Negative for prolonged bleeding, bruising easily or swollen nodes ENDOCRINE: Negative for cold or heat intolerance, polyuria, polydipsia and goiter NEURO: No history of headaches, syncope, paralysis, seizures or tremors HISTORIES: PAST MEDICAL HISTORY Diagnosis Date - Alzheimer disease - Dementia - Essential hypertension PAST SURGICAL HISTORY Procedure Laterality Date - COLONOSCOP W/ OR W/O [facility] SPE[facility] 2011 [facility] - HIP SURGERY HX Right 09/01/2017 09/01/17 -- right hip pinning Social History Marital status: Spouse name: Years of education: Number of children: Social History Main Topics Smoking status: Former Smoker Packs/day: 0.00 Years: 0.00 Alcohol use: No Drug use: No Sexual activity: No Social History Narrative Moved in with her daughter after being retrieved from [place]. 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 LACTOSE-REDUCED FOOD (BOOST HIGH PROTEIN ORAL) Take by mouth. BABY ASPIRIN ORAL Take by mouth. No current facility-administered medications on file prior to visit. ALLERGIES Allergen Reactions - Penicillin Unknown PHYSICAL EXAMINATION: BP 102/66 (BP Site: Left Arm, BP Position: Sitting, BP Cuff Size: Regular Adult) Pulse 72 Resp 12 Wt 54 kg (119 lb) BMI 19.21 kg/m2 General appearance: Pale, dozing most of the visit, in no acute distress, well-hydrated, well nourished. Minimally verbal during visit. Skin: Skin color, texture, turgor normal, no suspicious rashes or lesions Head: Normocephalic, no masses, lesions, tenderness or abnormalities Eyes: Anicteric sclera. Extraocular movements are intact. Neck: Supple, no adenopathy; thyroid symmetric, normal size, no bruits Lungs: Lungs clear to auscultation. No wheezing, rhonchi, rales Heart: RRR without murmur, gallop, or rubs. No ectopy Abdomen: Abdomen soft, non-tender. Bowel sounds normal. No masses, organomegaly Extremities: No deformities, edema, skin discoloration, clubbing or cyanosis. Good capillary refill. Peripheral pulses: Normal ASSESSMENT/PLAN: 1. Hip fx, right, sequela - ICD9: 905.3, ICD10: S72.001S (primary diagnosis) Had f/u with ortho earlier today. Continue with PT. network coordinator brought in on case to help with services. 2. Alzheimer's dementia without behavioral disturbance, unspecified timing of dementia onset - ICD9: 331.0, 294.10, ICD10: G30.9, F02.80 Hx of frequent UTIs. Given supplies to day, so daughter can collect specimen at home and bring in if patient develops symptoms. - URINALYSIS WITH MICROSCOPIC - URINE CULTURE 3. Benign essential HTN - ICD9: 401.1, ICD10: I10 - good control - Continue current medication(s) BP very stable today. Recheck next visit -- may wish to try to decrease or eliminate lisinopril dose if BP stays this controlled. 4. Anxiety - ICD9: 300.00, ICD10: F41.9 Start low-dose - SERTRALINE 25 MG TABLET Recheck in a month. Discussed treatment plan and patient voices understanding. Patient's questions answered appropriately. Medications and potential side effects were discussed and patient voices understanding. Return to the office as scheduled or as needed for worsening/no improvement. Would like to establish with Cherise Garcia/Dr. Beltran. Recheck effectiveness of sertraline at that time. Daughter aware to call with any problems/concerns if needed prior to next appt. Daphne Rocha APRN.HEEL SCOURER Referring Provider: SELF [200] Allergies As of Date: 11/01/2017 Noted Allergy Reaction PENICILLIN 11/01/2017 16 - Unknown Date Reviewed: 11/01/2017 Reviewed by: Nadine Ames Software Sales Executive - Fully Assessed Reason for Visit: Recurrent Erosion Follow Up [3402] Primary Visit Diagnosis:Hip fx, right, sequela [S72.001S] Other Visit Diagnoses:Alzheimer's dementia without behavioral disturbance, unspecified timing of dementia onset [G30.9, F02.80] Benign essential HTN [I10] Anxiety [F41.9] Order(s):sertraline (ZOLOFT) 25 mg tabletTake 1 tablet by mouth once daily.Disp: 30 tabletRfl: 5 URINALYSIS WITH MICROSCOPIC [SQUAWMIC] Order #: [id number] FUTURE URINE CULTURE [SQURCUL] Order #: [id number] FUTURE Prescriptions as of 11/01/2017 Sig: MULTIVITAMIN ORAL Take by mouth. LISINOPRIL 10 MG TABLET Take 1 tablet by mouth once d* BOOST HIGH PROTEIN ORAL Take by mouth. BABY ASPIRIN ORAL Take by mouth. SERTRALINE 25 MG TABLET Take 1 tablet by mouth once d* Problem List As Of Date 11/01/2017 Noted Resolved Hip fx, right, sequela [S72.001S] INVALID FOR* Alzheimer's dementia without behavioral disturb*INVALID FOR* Benign essential HTN [I10] INVALID FOR* Anxiety [F41.9] INVALID FOR* Prescriptions ordered this encounter Disp Refills Start End SERTRALINE 25 MG TABLET 30 t* 5 11/01/2017 Route: ORAL Sig: Take 1 tablet by mouth once daily. Disposition: Return in about 1 month (around 12/02/2017), or if symptoms worsen or fail to improve, for recheck zoloft. . Follow-up and Disposition History Recorded Encounter Status:Closed by DAPNHE ROCHA CNP on 11/01/17 PETRA Observed: 11/01/2017 Status: COMPLETED Source: [place] 12:00 AM [facility] REPOSITORY Patient Outreach (FAMPWS) REYNOLD HERNANDEZ ([id number]) 1935 F Date Time Provider Department 11/01/17 OLGA GODOY (RN) FAMPWS During your visit today, we recorded the following information about you: Olga Godoy RN 11/01/2017 3:58 PM Signed PRIMARY CARE COORDINATION IN OFFICE VISIT WITH PCP Patient has been identified by name and date of . PCP Assessment/Plan: Reviewed PCP plan with patient using [employer] Discussed Home Health for PT, dgt isn't sure of PT plan of care and if [facility] HH can't meet pt's needs may request a different home health company Discussed [facility] and gave pamphlet to dgt for future reference Discussed Primary Care Coordination program, dgt agrees to participation PCC Plan of Care: Patient concerns: Dgt concerned about patient's continued rehab at home Dgt is willing to perform PT exercises in evening but would like some instruction by home care PT PCC Interventions: Dgt will call PCC with ortho surgeon name PCC will call [facility] to discuss plan of care for PT Next Office Visit: 12/04/2017 Plan For Next Call: 3 weeks Olga Godoy RN November 01, 2017 Allergies As of Date: 11/01/2017 Noted Allergy Reaction PENICILLIN 11/01/2017 16 - Unknown Date Reviewed: 11/01/2017 Reviewed by: Nadine Ames Software Sales Executive - Fully Assessed Reason for Visit: Clinical Data Research-In Office Visit [9133] Prescriptions as of 11/01/2017 Sig: MULTIVITAMIN ORAL Take by mouth. SERTRALINE 25 MG TABLET Take 1 tablet by mouth once d* LISINOPRIL 10 MG TABLET Take 1 tablet by mouth once d* BOOST HIGH PROTEIN ORAL Take by mouth. BABY ASPIRIN ORAL Take by mouth. Problem List As Of Date: 11/01/2017 (None) Encounter Status:Closed by OLGA GODOY on 11/01/17 BASIC METABOLIC Collected: 10/18/2017 Status: F Source: [place] PROFILE (BMP) 6:33 AM [facility] [place] TYPE CODE TESTS RESULT OUT OF RANGE REFERENCE UNITS LAB L501.0100 74-106 mg/dL Normal GLU 89 Result Comment: Please note revised GLUCOSE reference range effective 2017. LAB L501.1000 7-18 mg/dL High BUN 31 LAB L501.1100 0.55-1.02 mg/dL Normal CREAT,SERUM 0.56 Result Comment: The validity of the calculated GFR AND GFRAA in patients over 70 years has not been determined. Clinical correlation is essential. LAB L501.1110 >60 mL/min Normal EST GFR 111 Result Comment: Non- GFR Calc LAB L501.1115 >60 mL/min Normal EST GFR - AA 134 Result Comment: GFR Calc LAB L501.1255 ml/min Normal Estimated CRCL 37.59 LAB L501.1300 10-20 RATIO High BUN/CRE 55.7 LAB L501.2200 8.5-10 mg/dL Normal .1 CA 8.7 LAB L501.5300 136-14 mmol/L Normal 5 NA 138 LAB L501.5600 3.5-5. mmol/L Normal 1 K 4.0 LAB L501.5900 98-107 mmol/L Normal CL 101 LAB L501.6100 21.0-3 mmol/L Normal 2.0 CO2 30.0 LAB L501.6200 5-15 Normal GAP 7 Performed By: #### L500.2500 #### [facility] [address] [place], [place], [address] CBC W/DIFF, AUTOMATED Collected: 10/18/2017 Status: F Source: [place] 6:33 AM [facility] [place] TYPE CODE TESTS RESULT OUT OF RANGE REFERENCE UNITS LAB L100.1000 4.4-11.0 K/mm3 Normal WBC 6.2 LAB L100.1200 4.2-5.4 M/mm3 Normal RBC 4.33 LAB L100.1300 12.0-15.0 g/dl Normal HGB 12.7 LAB L100.1400 37-47 % Normal HCT 40.1 LAB L100.1500 81-99 fL Normal MCV 92.6 LAB L100.1600 27.0-32.0 pg Normal MCH 29.3 LAB L100.1700 32-36 g/gl Low MCHC 31.7 LAB L100.1810 11.6-14.6 % Normal RDW CV 14.3 LAB L100.1820 35.1-43.9 fl High RDW SD 48.7 LAB L100.1900 150-450 K/mm3 Normal PLT 177 LAB L100.2000 6.2-12.0 fl Normal MPV 9.7 LAB L100.2100 47-70 % Normal NEUT% 59.8 LAB L100.2200 19-41 % Normal LY% 25.8 LAB L100.2300 0-10 % High MONO% 11.6 LAB L100.2400 0-5 % Normal EO% 2.3 LAB L100.2500 0-1 % Normal BASO% 0.3 LAB L100.2550 0.0-0.9 % Normal IM GRAN % 0.200 Result Comment: IG% - Immature Granulocytes (promyelocytes, myelocytes and metamyelocytes) > 1% indicates that a LEFT SHIFT is Present. LAB L100.2620 2.0-7.7 X10 3/uL Normal Absolute Neut 3.7 LAB L100.2720 0.83-4.51 X10 3/ul Normal Absolute Lymph 1.60 Performed By: #### L100.0100 #### [facility] [address] [place], [address] HOME HEALTH PROGRESS Observed: 10/16/2017 Status: F Source: [place] NOTE 9:45 PM [facility] [place] [facility] Medical Records Department [address] [place] [address] Home Health Progress Note [id number] Encounter Encounter Date: 10/13/17 1418 MR#: [id number] Acct: [id number] Name: REYNOLD HERNANDEZ Rep #: [id number] : 1935 82 From: Royce Salinas MD PCP: Jay Youngblood MD Status: ADM IN Location: [place] [address] ADDENDUM by Royce Salinas MD on 10/16/17 at 2144 Discharge home 10/19/2017. 10/16/17 2145 <Electronically signed by Royce Salinas MD> Date Royce Salinas MD cc: * Signed Home Health Note - Plan Overview of reason of hospitalization: The patient is a 82 year old Female with below past medical history hospitalized for right hip fracture, underwent right hip pinning 09/01/2017, complicated by unresponsiveness secondary to prolonged ventricular asystole, no pacemaker recommended, admitted to TCU for rehabilitation, strengthening, prior to discharge home with daughter. [] Discharge home with daughter for 24 hour care, and home health services. Home health ordered. 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 (Chronic) Fracture of hip, right, closed (Acute) - Requirements and Reasons Disciplines Needed/Ordered: Physical Therapy Reason for Disciplines: Gait Training, Stair Training, Fall Prevention, Home Safety/Equipment Instruction, Balance and/or Posture Training, Transfer Training Related To: Limited/Poor Endurance, Shortness of Breath with Activity, Physical Impairments, Unsteady Gait/Balance, Fall Risk Patient is unable to leave the home: Without Aid of Supportive Devices (crutches, cane, wheelchair, walker), Without the assistance of another person - Additional Disciplines Additional Disciplines Needed/Ordered: Occupational Therapy, Home Health Aide 10/13/17 1419 <Electronically signed by Royce Salinas MD> Date [facility] Salinas MD [facility]if indicated): Date CC: Signed DISCHARGE INSTRUCTION Observed: 10/16/2017 Status: F Source: [place] 9:44 PM [facility] [place] [facility] Medical Records Department [address] [place] [address] Instructions for Home/Discharge Instructions 10/13/17 1415 MR#: [id number] Acct: [id number] Name: REYNOLD HERNANDEZ Rep #: [id number] : 1935 82 From: Royce Salinas MD PCP: Jay Youngblood MD Status: ADM IN ADDENDUM by Royce Salinas MD on 10/16/17 at 2143 Discharge home 10/19/2017. 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 (Chronic) You will use the following diet at home:: No restrictions, Regular Your food should be the consistency of: Regular Your liquids should be the consistency of: Regular/Thin Discharge Activity: Return to Normal Activity, May Shower, Use Walker Weight Bearing Status: Weight bearing as tolerated Call your doctor if you observe: Fever of 101 or Higher, Inability to urinate, Inability to have a bowel movement, Shortness of breath, Chest pain, Uncontrolled pain Allergies/Adverse Reactions: Allergies Penicillins [PCN] Allergy (Verified 08/29/17 16:37) Unknown Medications to take at Discharge Aspirin [Aspirin, Baby] 81 mg PO DAILY@0800 08/29/17 Lisinopril [Prinivil] 10 mg PO DAILY 08/29/17 Multivitamin [Animal Shapes] 1 each PO DAILY 08/29/17 Acetaminophen 650 mg PO Q4H PRN PRN 09/05/17 Hydrocodone/Acetaminophen [Hydrocodon-Acetaminophen 5-325] 1 each PO Q6H PRN PRN #30 tablet 10/13/17 Lorazepam [Ativan] 0.5 mg PO Q6H PRN PRN #30 tablet 10/13/17 Menthol/Lanolin/Calamine/Znox [Calmoseptine Ointment] 1 applic TOPICAL 0600,2200 tube 10/13/17 Polyethylene Glycol 3350 [Miralax] 17 gm PO DAILY #30 packet 10/13/17 The following prescriptions were given: Hydrocodone/Acetaminophen [Hydrocodon-Acetaminophen 5-325] 1 each PO Q6H PRN PRN #30 tablet PRN Reason: Severe Pain (6-10/10) Lorazepam [Ativan] 0.5 mg PO Q6H PRN PRN #30 tablet PRN Reason: ANXIETY/RESTLESSNESS/SLEEP Polyethylene Glycol 3350 [Miralax] 17 gm PO DAILY #30 packet Primary Care Physician: Jay Youngblood MD [Primary Care Provider] - Please follow up with your Primary Care Physician in: 1 week. Proposed Discharge Date: 10/16/17 10/13/17 7777 <Electronically signed by Royce Salinas MD> Date Royce Salinas MD CC: Jay Youngblood MD DISCHARGE SUMMARY Observed: 10/16/2017 Status: F Source: [place] 9:44 PM [facility] [place] [facility] Medical Records Department [address] [place] [address] Discharge Summary 10/13/17 1417 MR#: [id number] Acct: [id number] Name: REYNOLD HERNANDEZ Rep #: [id number] : 1935 82 From: Royce Salinas MD PCP: Jay Youngblood MD Status: ADM IN Location: [place] [address] ADDENDUM by Royce Salinas MD on 10/16/17 at 2144 Code Visit Discharge home 10/19/2017. 10/16/17 2144 <Electronically signed by Royce Salinas MD> Date Royce Salinas MD cc: Jay Youngblood MD; Royec Salinas MD * Signed Discharge Date and Diagnosis - Problem List Patient Problems: Active and Suspected Problems Sinus bradycardia (Acute) Unresponsiveness (Acute) Fracture of right inferior pubic ramus (Acute) Fall (Acute) Postoperative anemia (Acute) Date of Admission: 09/05/17 Date of Discharge: 10/16/17 - Primary Discharge Diagnosis Active and Suspected Problems Sinus bradycardia (Acute) Unresponsiveness (Acute) Fracture of right inferior pubic ramus (Acute) Fall (Acute) Postoperative anemia (Acute) - Secondary Discharge Diagnosis Chronic Problems Hypertension (Chronic) Dementia (Chronic) Essential hypertension, benign (Chronic) 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 Electronically Signed: Archie Carreon MD at 12:47 EST Tel [phone], Service support , Labs (Last 48 Hours) Sodium 141 Potassium 4.2 Chloride 105 Carbon Dioxide 29.0 Operations: None Procedures: None Summary of Care Provided: The patient is a 82 year old Female with below past medical history hospitalized for right hip fracture, underwent right hip pinning 09/01/2017, complicated by unresponsiveness secondary to prolonged ventricular asystole, no pacemaker recommended, admitted to TCU for rehabilitation, strengthening, prior to discharge home with daughter. [] Discharge home with daughter for 24 hour care, and home health services. Home health ordered. Discharge Diet: No Restrictions Discharge Activity: Return to Normal Activity, May Shower, Use Walker Weight Bearing Status: Weight bearing as tolerated Call your doctor if you observe: Fever of 101 or Higher, Inability to urinate, Inability to have a bowel movement, Shortness of breath, Chest pain, Uncontrolled pain Home Medications: Medications to take at Discharge Aspirin [Aspirin, Baby] 81 mg PO DAILY@0800 08/29/17 Lisinopril [Prinivil] 10 mg PO DAILY 08/29/17 Multivitamin [Animal Shapes] 1 each PO DAILY 08/29/17 Acetaminophen 650 mg PO Q4H PRN PRN 09/05/17 Hydrocodone/Acetaminophen [Hydrocodon-Acetaminophen 5-325] 1 each PO Q6H PRN PRN #30 tablet 10/13/17 Lorazepam [Ativan] 0.5 mg PO Q6H PRN PRN #30 tablet 10/13/17 Menthol/Lanolin/Calamine/Znox [Calmoseptine Ointment] 1 applic TOPICAL 0600,2200 tube 10/13/17 Polyethylene Glycol 3350 [Miralax] 17 gm PO DAILY #30 packet 10/13/17 Following Prescrptions Were Given to Patient: Hydrocodone/Acetaminophen [Hydrocodon-Acetaminophen 5-325] 1 each PO Q6H PRN PRN #30 tablet PRN Reason: Severe Pain (6-10/10) Lorazepam [Ativan] 0.5 mg PO Q6H PRN PRN #30 tablet PRN Reason: ANXIETY/RESTLESSNESS/SLEEP Polyethylene Glycol 3350 [Miralax] 17 gm PO DAILY #30 packet Primary Care Physician: Jay Youngblood MD [Primary Care Provider] - Please follow up with your Primary Care Physician in: 1 week. Disposition: Home with Home Health Minutes spent on discharge:: 35 Patient Condition:: Good Meaningful Use Info Meaningful Use Diagnoses (Choose all that apply): None applicable 10/13/17 1418 <Electronically signed by Royce Salinas MD> Date Royce Salinas MD Cosigner Signature (if applicable): Date CC: Jay Youngblood MD; Royce Salinas MD Signed BASIC METABOLIC Collected: 10/12/2017 Status: F Source: [place] PROFILE ([facility]) 5:40 AM [facility] [place] TYPE CODE TESTS RESULT OUT OF RANGE REFERENCE UNITS LAB L501.0100 74-106 mg/dL Normal GLU 77 Result Comment: Please note revised GLUCOSE reference range effective 2017. LAB L501.1000 7-18 mg/dL High BUN 28 LAB L501.1100 0.55-1.02 mg/dL Low CREAT,SERUM 0.53 Result Comment: The validity of the calculated GFR AND GFRAA in patients over 70 years has not been determined. Clinical correlation is essential. LAB L501.1110 >60 mL/min Normal EST GFR 116 Result Comment: Non- GFR Calc LAB L501.1115 >60 mL/min Normal EST GFR - AA 141 Result Comment: GFR Calc LAB L501.1255 ml/min Normal Estimated CRCL 37.59 LAB L501.1300 10-20 RATIO High BUN/CRE 52.4 LAB L501.2200 8.5-10 mg/dL Normal .1 CA 8.5 LAB L501.5300 136-14 mmol/L Normal 5 NA 141 LAB L501.5600 3.5-5. mmol/L Normal 1 K 4.2 LAB L501.5900 98-107 mmol/L Normal CL 105 LAB L501.6100 21.0-3 mmol/L Normal 2.0 CO2 29.0 LAB L501.6200 5-15 Normal GAP 7 Performed By: #### L500.2500 #### [facility] [place], [address] CBC W/DIFF, AUTOMATED Collected: 10/11/2017 Status: F Source: [place] 5:35 AM [facility] [place] TYPE CODE TESTS RESULT OUT OF RANGE REFERENCE UNITS LAB L100.1000 4.4-11.0 K/mm3 Normal WBC 6.4 LAB L100.1200 4.2-5.4 M/mm3 Normal RBC 4.64 LAB L100.1300 12.0-15.0 g/dl Normal HGB 13.9 LAB L100.1400 37-47 % Normal HCT 43.4 LAB L100.1500 81-99 fL Normal MCV 93.5 LAB L100.1600 27.0-32.0 pg Normal MCH 30.0 LAB L100.1700 32-36 g/gl Normal MCHC 32.0 LAB L100.1810 11.6-14.6 % Normal RDW CV 14.3 LAB L100.1820 35.1-43.9 fl High RDW SD 47.6 LAB L100.1900 150-450 K/mm3 Normal PLT 203 LAB L100.2000 6.2-12.0 fl Normal MPV 10.1 LAB L100.2100 47-70 % Normal NEUT% 64.9 LAB L100.2200 19-41 % Normal LY% 22.8 LAB L100.2300 0-10 % High MONO% 10.2 LAB L100.2400 0-5 % Normal EO% 1.4 LAB L100.2500 0-1 % Normal BASO% 0.5 LAB L100.2550 0.0-0.9 % Normal IM GRAN % 0.200 Result Comment: IG% - Immature Granulocytes (promyelocytes, myelocytes and metamyelocytes) > 1% indicates that a LEFT SHIFT is Present. LAB L100.2620 2.0-7.7 X10 3/uL Normal Absolute Neut 4.1 LAB L100.2720 0.83-4.51 X10 3/ul Normal Absolute Lymph 1.45 Performed By: #### L100.0100 #### [facility] [address] [place], [address] URINALYSIS, COMPLETE Collected: 10/06/2017 Status: F Source: [place] 1:20 PM [facility] [place] Order Comment: How was Urine Obtained? CATHETER SPECIMEN TYPE CODE TESTS RESULT OUT OF RANGE REFERENCE UNITS LAB L400.3000 Yellow COLOR Normal Yellow LAB L400.3050 Clear Normal CLARITY Clear LAB L400.3200 Normal mg/dl Normal GLUCOSE, UR Normal LAB L400.3300 Negative mg/dL Normal BILIRUBIN URINE Negative LAB L400.3400 Negative mg/dl Normal KETONE UR Negative LAB L400.3465 1.002-1.030 Normal SP.GR. DIPSTX 1.015 LAB L400.3550 5.0 - 8.0 pH UR Normal 6.5 LAB L400.3600 Negative mg/dl PROT Normal DIPSTX Negative LAB L400.3700 Normal mg/dl Normal UROBILI Normal LAB L400.3750 Negative Normal NITRITE UR Negative LAB L400.3780 Negative /ul Normal OCCULT BLOOD-UR Negative LAB L400.3800 Negative /ul LEUK Normal ESTERASE Negative LAB L400.4050 0-5 /hpf WBC Normal 0-5 SEEN LAB L400.4100 0-5 /hpf 0 Normal RBC-UA SEEN LAB L400.4150 5-10 /hpf SQUAM Normal EPI 0-5 SEEN LAB L400.4300 None Seen /hpf Normal BACTERIA RARE LAB L400.4350 <or=2+ /hpf 0 Normal MUCUS, URINE SEEN Performed By: #### L400.0001 #### [facility] [address] [place], [address] Observed: 10/06/2017 Status: F Source: [place] CULTURE, URINE 1:20 PM [facility] [place] Urine Culture Culture exhibits no growth. Performed By: #### M100.0650 #### [facility] [address] [place], [address] BASIC METABOLIC Collected: 10/04/2017 Status: F Source: [place] PROFILE (BMP) 5:35 AM [facility] [place] TYPE CODE TESTS RESULT OUT OF RANGE REFERENCE UNITS LAB L501.0100 74-106 mg/dL High GLU 123 Result Comment: Fasting Glucose result from 100 to 125 mg/dL suggests IMPAIRED HOMEOSTASIS per A.D.A. criteria. Please note revised GLUCOSE reference range effective 2017. LAB L501.1000 7-18 mg/dL High BUN 30 LAB L501.1100 0.55-1.02 mg/dL Normal CREAT,SERUM 0.56 Result Comment: The validity of the calculated GFR AND GFRAA in patients over 70 years has not been determined. Clinical correlation is essential. LAB L501.1110 >60 mL/min Normal EST GFR 110 Result Comment: Non- GFR Calc LAB L501.1115 >60 mL/min Normal EST GFR - AA 133 Result Comment: GFR Calc LAB L501.1255 ml/min Normal Estimated CRCL 37.90 LAB L501.1300 10-20 RATIO High BUN/CRE 53.4 LAB L501.2200 8.5-10 mg/dL Normal .1 CA 8.9 LAB L501.5300 136-14 mmol/L Normal 5 NA 136 LAB L501.5600 3.5-5. mmol/L Normal 1 K 3.9 LAB L501.5900 98-107 mmol/L Normal CL 101 LAB L501.6100 21.0-3 mmol/L Normal 2.0 CO2 29.0 LAB L501.6200 5-15 Normal GAP 6 Performed By: #### L500.2500 #### [facility] [address] [place], [address] CBC W/DIFF, AUTOMATED Collected: 09/27/2017 Status: F Source: [place] 6:18 AM [facility] [place] TYPE CODE TESTS RESULT OUT OF RANGE REFERENCE UNITS LAB L100.1000 4.4-11.0 K/mm3 Normal WBC 5.1 LAB L100.1200 4.2-5.4 M/mm3 Normal RBC 4.28 LAB L100.1300 12.0-15.0 g/dl Normal HGB 12.4 LAB L100.1400 37-47 % Normal HCT 40.9 LAB L100.1500 81-99 fL Normal MCV 95.6 LAB L100.1600 27.0-32.0 pg Normal MCH 29.0 LAB L100.1700 32-36 g/gl Low MCHC 30.3 LAB L100.1810 11.6-14.6 % High RDW CV 15.2 LAB L100.1820 35.1-43.9 fl High RDW SD 53.0 LAB L100.1900 150-450 K/mm3 Normal PLT 179 LAB L100.2000 6.2-12.0 fl Normal MPV 9.4 LAB L100.2100 47-70 % Normal NEUT% 51.2 LAB L100.2200 19-41 % Normal LY% 29.5 LAB L100.2300 0-10 % High MONO% 15.4 LAB L100.2400 0-5 % Normal EO% 3.1 LAB L100.2500 0-1 % Normal BASO% 0.6 LAB L100.2550 0.0-0.9 % Normal IM GRAN % 0.200 Result Comment: IG% - Immature Granulocytes (promyelocytes, myelocytes and metamyelocytes) > 1% indicates that a LEFT SHIFT is Present. LAB L100.2620 2.0-7.7 X10 3/uL Normal Absolute Neut 2.6 LAB L100.2720 0.83-4.51 X10 3/ul Normal Absolute Lymph 1.51 Performed By: #### L100.0100 #### [facility] [address] [place], [place], [id number] BASIC METABOLIC Collected: 09/27/2017 Status: F Source: [place] PROFILE ([place]) 6:18 AM [facility] [place] TYPE CODE TESTS RESULT OUT OF RANGE REFERENCE UNITS LAB L501.0100 74-106 mg/dL Normal GLU 79 Result Comment: Please note revised GLUCOSE reference range effective 2017. LAB L501.1000 7-18 mg/dL High BUN 31 LAB L501.1100 0.55-1.02 mg/dL Low CREAT,SERUM 0.45 Result Comment: The validity of the calculated GFR AND GFRAA in patients over 70 years has not been determined. Clinical correlation is essential. LAB L501.1110 >60 mL/min Normal EST GFR 141 Result Comment: Non- GFR Calc LAB L501.1115 >60 mL/min Normal EST GFR - AA 171 Result Comment: GFR Calc LAB L501.1255 ml/min Normal Estimated CRCL 37.87 LAB L501.1300 10-20 RATIO High BUN/CRE 68.6 LAB L501.2200 8.5-10 mg/dL Low .1 CA 8.4 LAB L501.5300 136-14 mmol/L Normal 5 NA 138 LAB L501.5600 3.5-5. mmol/L Normal 1 K 4.2 LAB L501.5900 98-107 mmol/L Normal CL 105 LAB L501.6100 21.0-3 mmol/L Normal 2.0 CO2 24.0 LAB L501.6200 5-15 Normal GAP 9 Performed By: #### L500.2500 #### [facility] [address] [place], [address] BASIC METABOLIC Collected: 09/20/2017 Status: F Source: [place] PROFILE ([facility]) 5:27 AM [facility] [place] TYPE CODE TESTS RESULT OUT OF RANGE REFERENCE UNITS LAB L501.0100 74-106 mg/dL Normal GLU 96 LAB L501.1000 7-18 mg/dL High BUN 30 LAB L501.1100 0.55-1.02 mg/dL Low 0.54 CREAT,SERUM Result Comment: The validity of the calculated GFR AND GFRAA in patients over 70 years has not been determined. Clinical correlation is essential. LAB L501.1110 >60 mL/min Normal EST GFR 114 Result Comment: Non- GFR Calc LAB L501.1115 >60 mL/min Normal EST GFR - AA 138 Result Comment: GFR Calc LAB L501.1255 ml/min Normal Estimated CRCL 39.27 LAB L501.1300 10-20 RATIO High BUN/CRE 55.1 LAB L501.2200 8.5-10 mg/dL Normal .1 CA 8.6 LAB L501.5300 136-14 mmol/L Normal 5 NA 138 LAB L501.5600 3.5-5. mmol/L Normal 1 K 4.1 LAB L501.5900 98-107 mmol/L Normal CL 101 LAB L501.6100 21.0-3 mmol/L Normal 2.0 CO2 30.0 LAB L501.6200 5-15 Normal GAP 7 Performed By: #### L500.2500 #### [facility] [address] [place], [address] CNPN Observed: 09/15/2017 Status: COMPLETED Source: [place] 12:00 AM [facility] REPOSITORY Telephone ([facility]) REYNOLD HERNANDEZ ([id number]) 1935 F Date Time Provider Department 09/15/17 KULDIP YOUNGBLOOD [facility] During your visit today, we recorded the following information about you: Brian Pedroza 09/15/2017 10:11 AM Signed Received 09/14/17 XR abd/pelvis from [facility]. Placed in pcps inbox for review. Route to [place] for scanning. Brian Pedroza 09/20/2017 2:53 PM Signed Sent to scanning. Allergies As of Date: 09/15/2017 (No Known Allergies) Date Reviewed: 06/23/2017 Reviewed by: Taylor Urrutia Ma - Fully Assessed Reason for Visit: XRay Report [1241] Cmt: [facility] 09/14/17 Prescriptions as of 09/15/2017 Sig: LISINOPRIL 10 MG TABLET Take 1 tablet by mouth once d* BOOST HIGH PROTEIN ORAL Take by mouth. BABY ASPIRIN ORAL Take by mouth. Problem List As Of Date: 09/15/2017 (None) Encounter Status:Closed by BRIAN PEDROZA on 09/15/17 PROGRESS Observed: 09/14/2017 Status: COMPLETED Source: [place] 1:57 PM [facility] REPOSITORY HNO ID: [id number] Author: Max Zapata (Rn) Service: (none) Author Type: Registered Nurse Type: Progress Notes Filed: 09/14/2017 2:03 PM Note Text: PRIMARY CARE COORDINATION QUICK NOTE Provider Action/FYI Tct [facility] TCU spk with Sharmin Pt remains in TCU, no anticipated discharge date, TCU will have plan of care meeting 09/20/17. Patient identified by name and date . Benny Santana RN September 14, 2017 1:57 PM ABDOMEN SINGLE VIEW Observed: 09/14/2017 Status: F Source: [place] 9:05 AM [facility] [place] [facility] Imaging Services [address] [place] [address] Abdomen Single View MR#: [id number] Acct: [id number] Name: REYNOLD HERNANDEZ Rep #: [id number] : 1935 F 82 From: Archie Carreon MD PCP: aJy Youngblood MD Status: ADM IN Study: Abdomen Single View Date of Exam: 09/14/17 Exam# [id number] Ordering Dr: Royce Salinas MD STUDY: X-RAY - ABDOMEN/PELVIS REASON FOR EXAM: Female, 82 years old. Constipation. TECHNIQUE: Two AP supine views of the abdomen and pelvis. COMPARISON: Comparison is made with prior study dated March 11, 2018. FINDINGS: Normal visualized lung bases. There is an abundance of fecal material throughout the colon. The visualized liver, spleen and kidneys are grossly normal in size and morphology. Normal soft tissue structures. There are diffuse degenerative changes of the visualized lumbar spine. Loss of height of the L3 vertebrae. Right intertrochanteric fracture nailing. RAD/Abdomen Single View IMPRESSION: Large amount of fecal material is seen in the colon. Electronically Signed: Archie Carreon MD at 12:47 EST Tel [phone], Service support , CC: Jay Youngblood MD; Royce Salinas MD 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: Signed CNPTOUTREACH Observed: 09/14/2017 Status: COMPLETED Source: [place] 12:00 AM [facility] RE[facility] MARYREYNOLD ([id number]) 1935 F Date Time Provider Department 09/14/17 MAX ZAPATA (RN) FAMPWS During your visit today, we recorded the following information about you: Benny Santana RN 09/14/2017 2:03 PM Signed PRIMARY CARE COORDINATION QUICK NOTE Provider Action/FYI Tct [facility] TCU spk with Sharmin Pt remains in TCU, no anticipated discharge date, TCU will have plan of care meeting 09/20/17. Patient identified by name and date . Benny Santana RN September 14, 2017 1:57 PM Allergies As of Date: 09/14/2017 (No Known Allergies) Date Reviewed: 06/23/2017 Reviewed by: Taylor Urrutia Ma - Fully Assessed Reason for Visit: [facility] Follow Up [3610] Prescriptions as of 09/14/2017 Sig: LISINOPRIL 10 MG TABLET Take 1 tablet by mouth once d* BOOST HIGH PROTEIN ORAL Take by mouth. BABY ASPIRIN ORAL Take by mouth. Problem List As Of Date: 09/14/2017 (None) Encounter Status:Closed by BENNY SANTANA on 09/14/17 CBC W/DIFF, AUTOMATED Collected: 09/13/2017 Status: F Source: [place] 5:20 AM [facility] [place] TYPE CODE TESTS RESULT OUT OF RANGE REFERENCE UNITS LAB L100.1000 4.4-11.0 K/mm3 Normal WBC 6.4 LAB L100.1200 4.2-5.4 M/mm3 Low RBC 3.60 LAB L100.1300 12.0-15.0 g/dl Low HGB 10.7 LAB L100.1400 37-47 % Low HCT 33.4 LAB L100.1500 81-99 fL Normal MCV 92.8 LAB L100.1600 27.0-32.0 pg Normal MCH 29.7 LAB L100.1700 32-36 g/gl Normal MCHC 32.0 LAB L100.1810 11.6-14.6 % High RDW CV 15.8 LAB L100.1820 35.1-43.9 fl High RDW SD 51.0 LAB L100.1900 150-450 K/mm3 Normal PLT 181 LAB L100.2000 6.2-12.0 fl Normal MPV 10.0 LAB L100.2620 2.0-7.7 X10 3/uL Normal Absolute Neut 4.3 LAB L100.2720 0.83-4.51 X10 3/ul Normal Absolute Lymph 1.09 LAB L100.2100 47-70 % Normal NEUT% 66.1 LAB L100.2200 19-41 % Low LY% 16.9 LAB L100.2300 0-10 % High MONO% 13.4 LAB L100.2400 0-5 % Normal EO% 1.7 LAB L100.2500 0-1 % Normal BASO% 0.3 LAB L100.2550 0.0-0.9 % High IM GRAN % 1.600 Result Comment: IG% - Immature Granulocytes (promyelocytes, myelocytes and metamyelocytes) > 1% indicates that a LEFT SHIFT is Present. Performed By: #### L100.0100 #### [facility] [address] [place], [address] URINALYSIS, COMPLETE Collected: 09/12/2017 Status: F Source: [place] 5:00 PM [facility] [place] [facility] Order Comment: Comments: ST CATH How was Urine Obtained? CATHETER SPECIMEN TYPE CODE TESTS RESULT OUT OF RANGE REFERENCE UNITS LAB L400.3000 Yellow COLOR Normal Yellow LAB L400.3050 Clear Normal CLARITY Cloudy LAB L400.3200 Normal mg/dl Normal GLUCOSE, UR Normal LAB L400.3300 Negative mg/dL Normal BILIRUBIN URINE Negative LAB L400.3400 Negative mg/dl Normal KETONE UR Negative LAB L400.3465 1.002-1.030 Normal SP.GR. DIPSTX 1.025 LAB L400.3550 5.0 - 8.0 pH UR Normal 6.0 LAB L400.3600 Negative mg/dl High PROT 15 DIPSTX LAB L400.3700 Normal mg/dl High 1 UROBILI LAB L400.3750 Negative Normal NITRITE UR Negative LAB L400.3780 Negative /ul High 10 OCCULT BLOOD-UR LAB L400.3800 Negative /ul High LEUK ESTERASE 500 LAB L400.4050 0-5 /hpf WBC Normal 25-50 SEEN LAB L400.4100 0-5 /hpf 0 Normal RBC-UA SEEN LAB L400.4150 5-10 /hpf SQUAM Normal EPI 50-100 SEEN Result Comment: Microscopic field is filled. Other elements may be obscured. LAB L400.4300 None Seen /hpf Normal BACTERIA 2+ LAB L400.4350 <or=2+ /hpf Normal MUCUS, URINE 2+ Performed By: #### L400.0001 #### [facility] [address] [place], [address] Observed: 09/12/2017 Status: F Source: [place] CULTURE, URINE 5:00 PM [facility] [place] [facility] Comments: [facility] Urine Culture ORGANISM 1: Escherichia coli Crowder Count 50,000-80,000 ORGANISM 2: Escherichia coli Crowder Count 50,000-80,000 Escherichia coli: REACTION Amoxacillin/Clavulanic Acid $ <=2 S Ampicillin $ <=2 S Ampicillin/Sulbactam $ <=2 S Cefazolin $ <=4 S Cefepime $ <=1 S Ceftriaxone $ <=1 S Ciprofloxacin $ <=0.25 S ESBL - Ertapenim $$$ <=0.5 S Gentamicin $ <=1 S Imipenem *NF <=0.25 S Levofloxacin $ <=0.12 S Nitrofurantoin $ <=16 S Piperacillin/Tazobactam $$ <=4 S Tobramycin $ <=1 S Trimethoprim/Sulfametho $ <=20 S (NF) indicates non-formulary drug at [facility]. Approval by Infectious Disease Specialist required before non-formulary drugs may be ordered and/or dispensed. Escherichia coli: REACTION Amoxacillin/Clavulanic Acid $ 8 S Ampicillin $ 8 S Ampicillin/Sulbactam $ 4 S Cefazolin $ <=4 S Cefepime $ <=1 S Ceftriaxone $ <=1 S Ciprofloxacin $ >=4 R ESBL - Ertapenim $$$ <=0.5 S Gentamicin $ <=1 S Imipenem *NF <=0.25 S Levofloxacin $ >=8 R Nitrofurantoin $ <=16 S Piperacillin/Tazobactam $$ <=4 S Tobramycin $ <=1 S Trimethoprim/Sulfametho $ <=20 S (NF) indicates non-formulary drug at [facility]. Approval by Infectious Disease Specialist required before non-formulary drugs may be ordered and/or dispensed. Performed By: #### M100.0650 #### [facility] [address] [place], [address] ABDOMEN SINGLE VIEW Observed: 09/11/2017 Status: F Source: [place] 10:59 AM [facility] [place] [facility] Imaging Services [address] [place] [address] Abdomen Single View MR#: [id number] Acct: [id number] Name: REYNOLD HERNANDEZ Rep #: [id number] : 1935 F 82 From: Archie Carreon MD PCP: Jay Youngblood MD Status: ADM IN Study: Abdomen Single View Date of Exam: 09/11/17 Exam# [id number] Ordering Dr: Royce Salinas MD STUDY: X-RAY - ABDOMEN/PELVIS REASON FOR EXAM: Female, 82 years old. Constipation. TECHNIQUE: Two AP supine views of the abdomen and pelvis. COMPARISON: None. FINDINGS: Normal visualized lung bases. Moderate amount of fecal material is seen throughout the colon. I suspect fecal impaction in the rectum. The small bowel measures upper limits of normal. The visualized liver, spleen and kidneys are grossly normal in size and morphology. Normal soft tissue structures. There are degenerative changes of the visualized lumbar spine. The patient is status post intramedullary jayne and screw fixation of a right intertrochanteric fracture. Fracture of the right inferior pubic ramus. There is good alignment. Dextroscoliosis. RAD/Abdomen Single View IMPRESSION: Findings suggestive of constipation. Electronically Signed: Archie Carreon MD at 12:52 EST Tel [phone], Service support , CC: Jay Youngblood MD; Royce Salinas MD 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: Signed PROGRESS Observed: 09/06/2017 Status: COMPLETED Source: [place] 2:21 PM [facility] REPOSITORY [facility] ID: [id number] Author: Max Zapata (Rn) Service: (none) Author Type: Registered Nurse Type: Progress Notes Filed: 10/01/2017 10:28 PM Note Text: PRIMARY CARE COORDINATION QUICK NOTE Provider Action/FYI Chart Review: Pt is currently at [facility] recent from [place] to [place], lives with Daughter Therese, Pt fell 08/29/[address] [facility] after fall, troponin neg, Dr. Harvey consulted for Bradycardia, CT Right Hip showed comminuted intertrochanteric Right hip Fx 08/30/17 Transferred to [facility] for possible Pacemaker, 09/01/17 Pt underwent right hip surgery/ Pinning, No Pacemaker recommended 09/04/17 Transfused with 2 units PRBC, post transfusion Hgb 10.1 09/05/[address] [facility] for rehab, strengthening. Update to Pcp Patient identified by name and date . Benny Santana RN September 06, 2017 2:21 PM 12 LEAD ELECTROCARDIOGRAM Observed: 09/06/2017 Status: F Source: [place] 11:33 AM [facility] [place] [facility] Cardiovascular Services [address] [place] [address] 12 Lead EKG 08/30/17 1841 MR#: [id number] Acct: [id number] Name: REYNOLD HERNANDEZ Rep #: [id number] : 1935 82 From: Adan Harvey MD Attending Dr: Naveen Bonilla MD Status: DIS IN Ordering Dr: Adan Havrey MD Date: 08/30/17 Location: U Sex: F C Admitted: 08/29/17 Test Reason : CP Blood Pressure : / mmHG Vent. Rate : 089 BPM Atrial Rate : 089 BPM P-R Int : 192 ms QRS Dur : 076 ms QT Int : 382 ms P-R-T Axes : 039 020 017 degrees QTc Int : 464 ms Normal sinus rhythm Nonspecific ST abnormality Abnormal ECG Confirmed by ANTONINO WASHINGTON, ADAN ([id number]), deputy editor in chief FRITZ FOLEY ([id number]) on 09/06/2017 11:33:36 AM Referred By: DR. HARVEY Confirmed By:ADAN HARVEY MD 09/06/17 1133 Date Adan Harvey MD CC: Jay Youngblood MD Signed BASIC METABOLIC Collected: 09/06/2017 Status: F Source: [place] PROFILE (BMP) 5:28 AM [facility] [place] [facility] TYPE CODE TESTS RESULT OUT OF RANGE REFERENCE UNITS LAB L501.0100 70-110 mg/dL Normal GLU 88 LAB L501.1000 7-18 mg/dL Normal BUN 17 LAB L501.1100 0.55-1.02 mg/dL Low 0.41 CREAT,SERUM Result Comment: The validity of the calculated GFR AND GFRAA in patients over 70 years has not been determined. Clinical correlation is essential. LAB L501.1110 >60 mL/min Normal EST GFR 159 Result Comment: Non- GFR Calc LAB L501.1115 >60 mL/min Normal EST GFR - AA 193 Result Comment: GFR Calc LAB L501.1255 ml/min Normal Estimated CRCL 41.29 LAB L501.1300 10-20 RATIO High BUN/CRE 41.8 LAB L501.2200 8.5-10 mg/dL Low .1 CA 8.2 LAB L501.5300 136-14 mmol/L Low 5 NA 135 LAB L501.5600 3.5-5. mmol/L Normal 1 K 3.8 LAB L501.5900 98-107 mmol/L Normal CL 98 LAB L501.6100 21.0-3 mmol/L Normal 2.0 CO2 29.0 LAB L501.6200 5-15 Normal GAP 8 Performed By: #### L500.2500 #### [facility] [address] [place], [address] HISTORY AND PHYSICAL Observed: 09/05/2017 Status: F Source: [place] EXAM 9:11 PM [facility] [place] [facility] Medical Records Department [address] [place] [address] History and Physical 09/05/172053 MR#: [id number] Acct: [id number] Name: REYNOLD HERNANDEZ Rep #: [id number] : 1935 82 From: Royce Salinas MD PCP: Jay Youngblood MD Status: ADM IN Y Location: TCU [place] [address] Problem List (1) Fall Status: Acute (2) Fracture of right inferior pubic ramus Status: Acute (3) Unresponsiveness Status: Acute (4) Sinus bradycardia Status: Acute (5) Hypertension Status: Chronic (6) 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 The patient is a 82 year old Female with below past medical history presented to [facility] Emergency Department 08/29/2017 with fall. 08/29/2017 Chest X-ray bibasilar scarring, bilateral breast prosthesis calcifications. 08/29/2017 X-ray pelvis, right hip showed comminuted nondisplaced left intertrochanteric fracture with a cephalic migration of the distal fracture fragment. Right inferior pubic rami fracture. 08/29/2017 EKG sinus rhythm with marked sinus arrhythmia, nonspecific ST abnormality. Recent from [place] to [place]. Lives with daughter Therese. Fell on right side. Bloodwork negative. Vargas placed, Morphine, Zofran, IV fluids given. 08/29/2017 Admit to Hospital. IV Dilaudid for pain. IV fluids for hypotension, dehydration. 08/29/2017 CT right hip showed comminuted intertrochanteric right hip fracture. 08/30/2017 Dr. Harvey consulted for sinus bradycardia with ventricular asystolic > 12 seconds. Troponin negative. Recommended transfer to tertiary care center for consideration of pacemaker. 08/30/2017 Transferred to [facility] for pacemaker, then right hip surgery. 09/01/2017 Right hip pinning performed. No pacemaker recommended. 09/04/2017 Transfused 2 units Packed Red Blood Cells, Post transfusion hemoglobin 10.1. 09/05/2017 Admit to TCU for rehabilitation, strengthening, prior to discharge home with daughter Therese. I told Therese resident's risk of is at least 50%. 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 Psychiatric History: No pertinent psych hx PROFESSOR OF FINANCE History: No pertinent PROFESSOR OF FINANCE history Lives: With Family - Daughter Therese. Smoking Status: Former smoker Tobacco Use: Non-smoker Alcohol: None Drugs: None - *Family History Maternal History Items: No pertinent history Paternal History Items: No pertinent history Review of Systems Constitutional: Denies: Chills, Fever, Weight Change HEENT: Denies: Head Aches, Sinus Congestion, Sinus Drainage Cardiovascular: Denies: Chest Pain, Palpitations Respiratory: Denies: Cough, Shortness of breath at rest, Sputum production Gastrointestinal: Denies: Abdominal Pain, Nausea, Vomiting Genitourinary: Denies: Dysuria Musculoskeletal: Denies: Joint Pain, Joint Tenderness Skin: Denies: Rash, Wounds Neurological: Denies: Numbness, Tingling, Focal weakness Psychiatric: Denies: Anxiety, Depression, Homicidal Ideations, Suicidal Ideations Hematologic/ Lymphatic: Denies: Easy Bruising, Easy Bleeding VTE Information - Inpt Only VTE Present on Admission: No VTE Mechan Device Prophylaxis: Knee High MOSHE Hose VTE Pharm Prophylaxis ordered?: Yes Patient Problems: Active and Suspected Problems Fall (Acute) Fracture of right inferior pubic ramus (Acute) Unresponsiveness (Acute) Sinus bradycardia (Acute) Postoperative anemia (Acute) - Physical Exam General: Alert, Oriented x3, Cooperative HEENT: Atraumatic, PERRLA, EOMI, Normocephalic Neck: Supple, No JVD, Negative Carotid Bruits Lungs: Clear to auscultation, Normal air movement Cardiovascular: Regular rate, No murmurs Abdomen: Bowel Sounds Present, Soft, Non Tender Extremities: No edema, Capillary Refill Less than 3 Seconds Skin: No rashes, No breakdown, Incision - Right hip celia clean, dry, intact. Musculoskeletal: No Tenderness to Palpation of Joints or Extremities Neurological: Cranial nerves II-XII grossly intact Psych/Mental Status: Normal Affect, Appropriate Weight: 60.3 kg Body Mass Index (BMI) 20.2 Assessment/Plan Active and Suspected Problems Fall (Acute) Fracture of right inferior pubic ramus (Acute) Unresponsiveness (Acute) Sinus bradycardia (Acute) Postoperative anemia (Acute) 82 year old female with below past medical history hospitalized for right hip fracture, underwent right hip pinning 09/01/2017, complicated by unresponsiveness secondary to prolonged ventricular asystole, no pacemaker recommended, admitted to TCU for rehabilitation, strengthening, prior to discharge home with daughter. * Debility - PT/OT. * Pain - Tylenol 650MG Q4H PRN mild pain, Hamden 5/325MG 1 tablet Q6H PRN severe pain. * Bowel - Miralax 17GM daily, Senna/colace 2 tablets BID, Dulcolax 10MG PO daily PRN. * Pneumonia vaccination - Administer Prevnar 13 and/or Pneumovax 23 as necessary. * DVT prophylaxis - Lovenox 40MG SC daily. * CV prophylaxis - Aspirin 81MG daily. * Hypertension - Lisinopril 10MG daily. * Macular degeneration - Ocuvite 1 tablet daily. 09/05/172110 <Electronically signed by Royce Salinas MD> Date Royce Salinas MD Cosigner Signature: Date (if applicable) CC: Jay Youngblood MD; Royce Salinas MD Signed DISCHARGE SUMMARY Observed: 08/31/2017 Status: F Source: [place] 3:20 PM [facility] [place] [facility] Medical Records Department [address] [place] [address] Discharge Summary 08/30/172199 MR#: [id number] Acct: [id number] Name: REYNOLD HERNANDEZ Rep #: [id number] : 1935 82 From: Naveen Bonilla MD PCP: Jay Youngblood MD Status: DIS IN Y Location: [place] [address]-1 Discharge Date and Diagnosis Date of Admission: 08/29/17 Date of Discharge: 08/30/17 - Primary Discharge Diagnosis #1 right hip comminuted intertrochanteric fracture with cephalic migration/displacement of the distal fracture fragment due to mechanical fall 2. 2 episodes of unresponsiveness, first 1 brief episode of unresponsiveness with apnea secondary to IV Dilaudid second one due to ventricular asystole 3. Unresponsiveness with ventricular systole, probably due to underlying/undiagnosed primary conduction system disease. - Secondary Discharge Diagnosis Chronic Problems Essential hypertension, benign (Chronic) Dementia (Chronic) Hospital Course and Treatment Summary of Care Provided: [] Patient is an 82 years old female with history of dementia, presents to ED after she fell. She has advanced Alzheimer dementia with intermittent confusion. She was trying to go over safety gate for stairs. Her daughter stopped her from going over the gate, but she fell on tiled floor instead, immediately complaining of right hip pain. She was having urinary frequency a day before admission. She had contacted PCP, suggested to have urine sample, but she came to ED instead after she fell. Apparently, she was voiding but no urine sample was collected after Vargas catheter was inserted in ED. She is afebrile, and WBC is within normal limits. At afternoon, about 1 PM, patient had rapid response called because of unresponsiveness for about 30 seconds. Prior to that patient received 0.5 mg Dilaudid. Patient was found apneic and 0.4 milligrams Narcan was given. Patient responded good and woke up. Vitals were stable. Respiratory rate calculated 16/min. She responded appropriately. She does not feel right hip pain. #1 Perioperative risk assessment for right hip comminuted intertrochanteric fracture with cephalic migration/displacement of the distal fracture fragment, Due to mechanical fall: CT right hip was done which shows comminuted intertrochanteric right hip fracture. Hip joint space narrowing but no dislocation. As per the x-ray there is cephalic migration of the distal fracture fragment. After what appears to be mechanical fall. Orthopedic surgery was consulted. Dr. Pelayo consult reviewed and appreciated. Patient posted for surgery in afternoon. Patient is moderate perioperative risk based on her advanced dementia, age and hypertension. As per the daughter, she is not aware of any cardiopulmonary diagnosis. 2. Rapid response: brief episode of unresponsiveness with apnea secondary to IV Dilaudid: Patient is sensitive to opioids. Morphine and Dilaudid discontinued dEarlier patient had hypotension after IV morphine. Try to avoid IV opioids and replace with oral Hamden/tramadol if at all needed for severe pain. 3. Unresponsiveness with ventricular systolic: As the patient was waiting in the preoperative room, she had ventricular asystole greater than 12 seconds. This appeared to be sinus bradycardia with ventricular systolic. Vision was unresponsive at that time. She returned to her baseline mental status and subsequent ECG shows sinus rhythm with nonspecific ST-T changes. Her heart rate after that was between 80-90/min. Prior to that on August 29, 2017 her heart rate was 100- 112/min. Sequently cardiology consult was called. Patient was seen by Dr. Harvey who felt that patient needs to be transferred to tertiary [facility] for permanent pacemaker and then subsequent surgery for right hip fracture. This was thought that patient might have underlying/undiagnosed primary conduction system disease. Subsequently the patient was transferred to [facility] for permanent pacemaker evaluation with EP and instruction then followed by surgery. This was accomplished by my colleague. #2 Advanced Alzheimer's dementia: The patient's history is limited because of Alzheimer's dementia. Patient has been living with her manager department so her daughter is not aware. #3 Essential hypertension. Blood pressure was normal initially. She became hypotensive after IV morphine. Monitor closely. IV bolus was given. Continue D5 1/2 NS at 125 ml/hr. #4 Oliguria ruled out: Patient had 1650 mm in last 24 hours NO urine was obtained from Vargas cath initially. IVF as above. Monitor urine output. Renal function appears adequate. 5. Hypokalemia mostly due to IV fluid normal saline, hemodilution: Replace potassium VTE prophylaxis: SCD/MOSHE hose only for anticipated surgery. Code status: Earlier, patient was DNRCC-Arrest. Discussed with her daughter who is POA, who revoked DNR CC status and patient is full code. Home Medications: Medications to take at Discharge Aspirin [Aspirin, Baby] 81 mg PO DAILY@0800 08/29/17 Lisinopril [Prinivil] 10 mg PO DAILY 08/29/17 Multivitamin [Animal Shapes] 1 each PO DAILY 08/29/17 Primary Care Physician: Jay Youngblood MD [Primary Care Provider] - Meaningful Use Info Meaningful Use Diagnoses (Choose all that apply): None applicable Code Visit Inpatient E AND M: 40559 Disch Hosp 08/31/17 1520 <Electronically signed by Naveen Bonilla MD> Date Naveen Bonilla MD Cosigner Signature (if applicable): Date CC: Jay Youngblood MD; Naveen Bonilla MD Signed 12 LEAD ELECTROCARDIOGRAM Observed: 08/31/2017 Status: F Source: [place] 11:55 AM [facility] [place] [facility] Cardiovascular Services [address] [place] [address] 12 Lead EKG 08/29/17 1550 MR#: [id number] Acct: [id number] Name: REYNOLD HERNANDEZ Rep #: [id number] : 1935 82 From: Urbano Dong MD Attending Dr: Naveen Bonilla MD Status: DIS IN Ordering Dr: Urbano Gonzáles DO Date: 08/29/17 Location: [facility] Sex: F C Admitted: 08/29/17 Test Reason : FALL Blood Pressure : / mmHG Vent. Rate : 099 BPM Atrial Rate : 099 BPM P-R Int : 188 ms QRS Dur : 070 ms QT Int : 366 ms P-R-T Axes : 047 054 041 degrees QTc Int : 469 ms Sinus rhythm with marked sinus arrhythmia Nonspecific ST abnormality Abnormal ECG Confirmed by URBANO DONG ([id number]), deputy editor in chief FRITZ FOLEY ([id number]) on 08/31/2017 11:55:21 AM Referred By: ITALIA Confirmed By:URBANO DONG 08/31/17 9298 Date Urbano Dong MD CC: Jay Youngblood MD Signed TROPONIN-I Collected: 08/30/2017 Status: F Source: [place] 8:57 PM [facility] [place] [facility] Order Comment: 'TROP' Serial specimen #1, #2, #3, or #4: 2 TYPE CODE TESTS RESULT OUT OF RANGE REFERENCE UNITS LAB L501.4010 <0.06 ng/mL Normal < 0.02 TROPONIN-I Result Comment: TROPONIN-I EXPECTED VALUES <0.05 NEGATIVE 0.06 - 0.59 AT RISK OF OK > OR = 0.60 SUGGEST OK Performed By: #### L501.4010 #### [facility] [address] [place], [address] CONSULTATION Observed: 08/30/2017 Status: F Source: [place] 7:30 PM [facility] [place] [facility] Medical Records Department [address] [place] [address] Consultation 08/30/17 1908 MR#: [id number] Acct: [id number] Name: REYNOLD HERNANDEZ Rep #: [id number] : 1935 82 From: Adan Harvey MD PCP: Jay Youngblood MD Status: ADM IN Location: [place] [address] Problem List (1) Ventricular asystolia Status: Acute (2) Essential hypertension, benign Status: Chronic (3) Fracture of hip, right, closed Status: Acute Qualifiers: Encounter type: initial encounter Qualified Code(s): S72.001A - Fracture of unspecified part of neck of right femur, initial encounter for closed fracture (4) Dementia Status: Chronic Qualifiers: Dementia type: Alzheimer's disease Alzheimer's disease onset: unspecified onset Dementia behavioral disturbance: without behavioral disturbance Qualified Code(s): G30.9 - Alzheimer's disease, unspecified; F02.80 - Dementia in other diseases classified elsewhere without behavioral disturbance Reason for Consult Date of Consultation: 08/30/17 History of Present Illness: The patient is a 82 year old female with a past medical history of hypertension (treated with an CHELSEA inhibitor) and dementia who has been undergoing evaluation for a fall and associated right hip fracture requiring right hip ORIF who is now been found to have episodes of unresponsiveness (not on cardiac monitor technician at the time) triggering a DESIGN TRANSFERRER event and subsequently placing her orthopedic surgery on hold secondary to another unresponsive event (while on a cardiac monitor technician) demonstrating what appears to be underlying sinus bradycardia with ventricular asystole of greater than 12 seconds in duration. To the best of the patient's daughters knowledge, the patient has no obvious cardiovascular history other than her history of hypertension. There is no report of the patient undergoing any cardiovascular procedures in the past. She has been living in [place] until recently when breathing brought to [place] by her daughter for ongoing care. Her daughter states that she was up and about in her home, experienced an accidental fall, which subsequently led to her right hip fracture. She was admitted to [facility] for further evaluation and care. While on the medical surgical floor she was reported as having an episode of unresponsiveness. Her daughter states that she was starting to respond when the DESIGN TRANSFERRER team arrived. As the patient had been treated with narcotic agents, which according medical staff included Dilaudid 0.5 mg IV 1, she subsequently received naloxone/Narcan. The patient was evaluated by internal medicine and orthopedic surgery. The patient was subsequently taken to the operating room area. While waiting for her surgical procedure, and reportedly without receiving any additional medications, she was noted to have another unresponsive event. She was noted on the cardiac bus driver/monitor at that time to have what appeared to be sinus bradycardia with ventricular asystole greater than 12 seconds in duration. According to the medical staff prior to her receiving any additional support she had spontaneous return to her level of consciousness. She was then placed in the PCU for further evaluation and care. Since being in the PCU she has remained in sinus rhythm. She did have a follow-up 12-lead ECG that demonstrated sinus rhythm with a nonspecific ST segment change. She also had a troponin I level performed which was negative. There has been no report by the patient's daughter of any concerns of chest discomfort, difficulty breathing, palpitations, or previous episodes of near syncope or syncope. Again there is been no report of any other medications being prescribed as an outpatient or outpatient or inpatient cardiovascular diagnostic procedures or interventions. [] Past Medical History Allergies/Adverse Reactions: Allergies Penicillins [PCN] Allergy (Verified 08/29/17 16:37) Unknown Home Medications: Ambulatory Orders Medication Instructions Recorded Aspirin [Aspirin, Baby] 81 mg PO DAILY@0800 08/29/17 Lisinopril [Prinivil] 10 mg PO DAILY 08/29/17 Multivitamin [Animal Shapes] 1 each PO DAILY 08/29/17 Past Medical History (Chronic Problems): Chronic Problems Essential hypertension, benign (Chronic) Dementia (Chronic) Surgical History: cataract Psychiatric History: No pertinent psych hx - *Family History Maternal History Items: No pertinent history Lives: With Family Smoking Status: Former smoker Alcohol: None Drugs: None Review of Systems - Review of Systems General: Denies: Fever, Night Sweats, Fatigue Cardiovascular: Denies: Chest Discomfort, Shortness of Breath, Orthopnea, PND, Peripheral Edema, Palpitations, Lightheadedness, Dizziness, Near Syncope, Syncope Respiratory: Denies: Cough, Sputum Production, Hemoptysis Gastrointestinal: Denies: Hematemesis, Hematochezia, Melena Genitourinary: Denies: Dysuria, Hematuria Skin: Denies: Rash Neurological: Reports: Falls Subjectve: This is an 82-year-old white female who appears to be resting reasonably comfortably at the moment in no acute distress. Objective: Vital Signs Temp Pulse Resp BP Pulse Ox 98.3 F 92 18 140/65 H 97 08/30/17 16:40 08/30/17 16:40 08/30/17 16:40 08/30/17 16:40 08/30/17 17:40 Oxygen Flow Rate 2 Oxygen Delivery Method Nasal Cannula Weight: 120 lb 5.958 oz Body Mass Index (BMI) 19.3 Intake and Output for Last 24 Hours Intake Total 468.1 / 468.1 4303 / 4303 Output Total 1425 / 1425 Balance 468.1 / 468.1 2878 / 2878 General: Awake, Disoriented Neck: No JVD Lungs: Clear to auscultation Cardiovascular: Regular Rhythm, Normal S1, Normal S2 Vascular: No Carotid Bruits Abdomen: Bowel Sounds Present, Soft, Non Tender Extremities: No edema Psych/Mental Status: Dementia 08/30/17 00:56: Urine Color Yellow, Urine Clarity Cloudy, Urine pH 5.0, Ur Specific [place] 1.025, Urine Protein 30 H, Urine Glucose (UA) Normal, Urine Ketones 5 H, Urine Occult Blood 25 H, Urine Nitrite Negative, Urine Bilirubin Negative, Urine Urobilinogen 1 H, Ur Leukocyte Esterase 500 H, Urine RBC 0-5 SEEN, Urine WBC 50-100 SEEN 08/30/17 05:14: Sodium 138, Potassium 3.8, Chloride 105, Carbon Dioxide 24.0, Anion Gap 9, BUN 20 H, Creatinine 0.58, Est GFR (MDRD) Af Amer 128, Est GFR (MDRD) Non-Af 106, BUN/Creatinine Ratio 34.6 H, Glucose 100, Calcium 7.5 L 08/30/17 05:14: WBC 7.9, RBC 3.01 L, Hgb 8.9 L, Hct 27.3 L, MCV 90.7, MCH 29.6, MCHC 32.6, RDW 13.0, RDW Differential 41.5, Plt Count 139 L, MPV 10.4 08/30/17 05:14: Magnesium 2.2 08/30/17 05:14: B-Natriuretic Peptide 24.0 08/30/17 17:42: Troponin I < 0.02 Rhythm: As noted above EKG: As noted above CXR: Preliminary evaluation: Portable chest x-ray: Rotated: Atherosclerotic changes of the thoracic aorta: Calcification of bilateral breast prosthesis: Please see radiology report Assessment/Plan 1. Ventricular asystole The patient has had 2 unresponsive events this day. One was not monitored and thus the underlying cardiac rate and rhythm are unknown. The second was monitored as noted above with the subsequent findings of what appeared to be sinus bradycardia with ventricular asystole lasting greater than 12 seconds. The patient has been monitored. Thus far her rhythm has remained sinus rhythm. Her initial troponin I level is negative. Her ECG demonstrated sinus rhythm with nonspecific ST segment changes. She can be considered for further evaluation of her cardiac anatomy and function with a transthoracic echocardiogram. However based upon her dementia and her orthopedic injuries she is not an ideal candidate for any additional noninvasive or invasive cardiovascular studies such as stress imaging studies or diagnostic cardiac catheterization. There is no other cardiovascular history available. She apparently has not gone through any other cardiovascular diagnostic studies or therapeutic intervention in the past. At the present time she has not been on any rate limiting medications. She did receive prior to her first unresponsive event, for her discomfort, Dilaudid 0.5 mg IV 1. Following that event, even though she was returning to her baseline state, she did receive naloxone/Narcan. She apparently received no additional medication prior to her second event. The etiology of the events are unclear at the moment. It is unclear as to whether or not her medication played a role. It is unclear whether this could have been a noxious stimuli vasovagal type mediated event with a cardioinhibitory finding. However, underlying primary conduction system disease cannot necessarily be excluded. At the present time the patient is not receiving any medication that would contribute to her underlying changes in her cardiac rate and rhythm. At the present time it has been recommended that the patient be transferred to a tertiary care center to be evaluated by electrophysiology for permanent pacemaker support as those capabilities are temporarily unavailable at [facility]. In the interim she will continue to be monitored and supported as deemed appropriate. 2. Hypertension The patient can continue to receive antihypertensive therapy. However this should be non-rate limiting therapy. 3. Right hip fracture The patient will continue to require orthopedic surgery input with respect to how to proceed, once her cardiovascular status is stabilized, with respect to her right hip fracture and need for repair. 4. Dementia The patient does have significant dementia. Thus the above was discussed with her daughter who is also her power of production machine tender. She agreed with the aforementioned evaluation and care plan. Comment: The above was discussed with Dr. Bonilla and Dr. Alves of the [facility] staff. Dr. Alves agreed to initiate transfer to a tertiary care center where she can receive additional cardiovascular care as well as continued orthopedic care. 08/30/171929 <Electronically signed by Adan Harvey MD> Date Adan Harvey MD Cosigner Signature (if applicable): Date CC: Jay Youngblood MD; Roge Pelayo DO; Adan Harvey MD Signed BEDSIDE GLUCOSE Collected: 08/30/2017 Status: F Source: [place] 12:45 PM [facility] [place] TYPE CODE TESTS RESULT OUT OF REFERENCE UNITS RANGE LAB L501.080 70-110 mg/dL High BEDSIDE GLU 135 Result Comment: MANAGEMENT OF PATIENT CARE PER NURSING PROTOCOL Performed By: #### L501.080 #### [facility] Point of Care [address] [place] [address] TYPE AND SCREEN Collected: 08/30/2017 Status: F Source: [place] 8:10 AM [facility] [place] Order Comment: Reason for Type AND Screen/Red Cells: SURGERY Type of Surgery: FRACTURED HIP TYPE CODE TESTS RESULT OUT OF RANGE REFERENCE UNITS LAB B10.0800 O Normal BLOOD TYPE GEL POSITIVE LAB B100.4000 Normal Antibody NEGATIVE Screen Performed By: #### B101.7450 #### [facility] [address] [place], [address] EMERGENCY DEPARTMENT Observed: 08/30/2017 Status: F Source: [place] SUMMARY 7:51 AM [facility] [place] [facility] Medical Records Department [address] [place] [address] Emergency Department Summary 08/29/17 1606 MR#: [id number] Acct: [id number] Name: REYNOLD HERNANDEZ Rep #: [id number] : 1935 82 From: Urbano Gonzáles DO PCP: Jay Youngblood MD Status: ADM IN - ER Visit Summary Date of Service: 08/29/17 Chief Complaint: Fall History of Present Illness: The patient is a 82 F who has advanced dementia and lives at home with her daughter. Patient has recently moved from [place] to [place]. Tells me that during the night patient was having urinary frequency. Today after using the toilet she walked out into the hallway and was opening a gate that blocked the downstairs access. Daughter ran in shouted at her mom not to go down the stairs the patient fell landing on her right side. She did not reportedly hit her head or neck. Daughter states that mostly impacted. Did not land on the right hip. The patient cannot provide much history but states that her right hip area hurts. She denies any pain anywhere else. She states that she needs to urinate. She takes lisinopril and aspirin. She is not on any dementia medications. Physical Examination: Afebrile vital signs are stable Gen: Well-nourished well-developed Head: Normocephalic atraumatic Eyes: Perrl EOMI ENT: TMs clear no rhinorrhea moist mucous membranes Neck: Supple no lymphadenopathy no JVD nontender CVS: Regular rate rhythm no murmurs normal S1-S2 Respiratory: No distress clear to auscultation bilaterally chest nontender Abdomen: Soft nontender nondistended normal bowel sounds no masses Back: Nontender Extremity: Right hip is tender to palpation of the greater trochanter. Painful logroll. Neurovascularly intact distally. Skin: Normal color no rash Neuro: alert confused Psych: Normal affect normal mood Test Results: X-rays revealed a intertrochanteric hip fracture on the right. Basic blood work is negative. Emergency Department Course and Treatment: Fully catheter was placed but there is no urine in the bladder. We will reassess if there is any urine after fluid bolus. Patient received pain and nausea medication as well as IV fluids. Family was updated. Dr. Pelayo is on-call for [facility] orthopedics and he was contacted. I spoke with the hospitalist and the patient will be admitted. Impression: 1. Right intertrochanteric hip fracture 2. Urinary frequency This note was generated with [employer] dictation software. It may contain incorrect words, spelling, and punctuation that were not noted in review of the chart prior to signing ED Disposition - Plan for ED Patient: Chief Complaint: Fall Referrals: Jay Youngblood MD [Primary Care Provider] - What to do if you have Problems For any increased pain, shortness of breath, bleeding, nausea or vomiting, chest pain, or any unexpected problems, contact your Primary Care Provider. Call [facility] ([phone]) or report to the closest Emergency Room. Call 911 if necessary. 08/30/17 0751 <Electronically signed by Urbano Gonzáles DO> Date Urbano Gonzáles DO Cosigner Signature (If Indicated): Date CC: Jay Youngblood MD CBC-COMPLETE BLOOD CNT Collected: 08/30/2017 Status: F Source: [place] NO DIFF 5:14 AM [facility] [place] TYPE CODE TESTS RESULT OUT OF RANGE REFERENCE UNITS LAB L100.1000 4.4-11.0 K/mm3 Normal WBC 7.9 LAB L100.1200 4.2-5.4 M/mm3 Low RBC 3.01 LAB L100.1300 12.0-15.0 g/dl Low HGB 8.9 LAB L100.1400 37-47 % Low HCT 27.3 LAB L100.1500 81-99 fL Normal MCV 90.7 LAB L100.1600 27.0-32.0 pg Normal MCH 29.6 LAB L100.1700 32-36 g/gl Normal MCHC 32.6 LAB L100.1810 11.6-14.6 % Normal RDW CV 13.0 LAB L100.1820 35.1-43.9 fl Normal RDW SD 41.5 LAB L100.1900 150-450 K/mm3 Low PLT 139 LAB L100.2000 6.2-12.0 fl Normal MPV 10.4 Performed By: #### L100.0500 #### [facility] [address] [place], [address] BASIC METABOLIC Collected: 08/30/2017 Status: F Source: [place] PROFILE (BMP) 5:14 AM [facility] [place] TYPE CODE TESTS RESULT OUT OF RANGE REFERENCE UNITS LAB L501.0100 70-110 mg/dL Normal GLU 100 LAB L501.1000 7-18 mg/dL High BUN 20 LAB L501.1100 0.55-1.02 mg/dL Normal 0.58 CREAT,SERUM Result Comment: The validity of the calculated GFR AND GFRAA in patients over 70 years has not been determined. Clinical correlation is essential. LAB L501.1110 >60 mL/min Normal EST GFR 106 Result Comment: Non- GFR Calc LAB L501.1115 >60 mL/min Normal EST GFR - AA 128 Result Comment: GFR Calc LAB L501.1255 ml/min Normal Estimated CRCL 37.39 LAB L501.1300 10-20 RATIO High BUN/CRE 34.6 LAB L501.2200 8.5-10 mg/dL Low .1 CA 7.5 LAB L501.5300 136-14 mmol/L Normal 5 NA 138 LAB L501.5600 3.5-5. mmol/L Normal 1 K 3.8 LAB L501.5900 98-107 mmol/L Normal CL 105 LAB L501.6100 21.0-3 mmol/L Normal 2.0 CO2 24.0 LAB L501.6200 5-15 Normal GAP 9 Performed By: #### L500.2500 #### [facility] [address] [place], [address] MAGNESIUM Collected: 08/30/2017 Status: F Source: [place] 5:14 AM [facility] [place] TYPE CODE TESTS RESULT OUT OF RANGE REFERENCE UNITS LAB L501.5200 1.6-2.6 mg/dL Normal MG 2.2 Result Comment: Please note revised Magnesium reference range effective 2017. Performed By: #### L501.5200 #### [facility] [address] [place], [address] BNP,B-TYPE NATRIURETIC Collected: 08/30/2017 Status: F Source: [place] PEPTIDE 5:14 AM [facility] [place] TYPE CODE TESTS RESULT OUT OF RANGE REFERENCE UNITS LAB L503.6620 0-100 pg/mL Normal B-TYPE 24.0 EAGLE PEP Performed By: #### L503.6620 #### [facility] [address] [place], [address] URINALYSIS, COMPLETE Collected: 08/30/2017 Status: F Source: [place] 12:56 AM [facility] [place] Order Comment: Order Date: 08/29/17 Microscopic field is filled. Other elements may be obscured. How was Urine Obtained? PHILOSOPHY AND RELIGION INSTRUCTOR TO SPECIFY TYPE CODE TESTS RESULT OUT OF RANGE REFERENCE UNITS LAB L400.3000 Yellow COLOR Normal Yellow LAB L400.3050 Clear Normal CLARITY Cloudy LAB L400.3200 Normal mg/dl Normal GLUCOSE, UR Normal LAB L400.3300 Negative mg/dL Normal BILIRUBIN URINE Negative LAB L400.3400 Negative mg/dl High 5 KETONE UR LAB L400.3465 1.002-1.030 Normal SP.GR. DIPSTX 1.025 LAB L400.3550 5.0 - 8.0 pH UR Normal 5.0 LAB L400.3600 Negative mg/dl High PROT 30 DIPSTX LAB L400.3700 Normal mg/dl High 1 UROBILI LAB L400.3750 Negative Normal NITRITE UR Negative LAB L400.3780 Negative /ul High 25 OCCULT BLOOD-UR LAB L400.3800 Negative /ul High LEUK ESTERASE 500 LAB L400.4050 0-5 /hpf WBC Normal 50-100 SEEN LAB L400.4100 0-5 /hpf Normal RBC-UA 0-5 SEEN LAB L400.4150 5-10 /hpf SQUAM 0 Normal EPI SEEN LAB L400.4300 None Seen /hpf 3+ Normal BACTERIA LAB L400.4350 <or=2+ /hpf 0 Normal MUCUS, URINE SEEN Performed By: #### L400.0001 #### [facility] [address] [place], [place], [address] Observed: 08/30/2017 Status: F Source: [place] CULTURE, URINE 12:56 AM [facility] [place] Order Date: 08/30/17 Comments: please use prior urine sample provided for U/A Urine Culture ORGANISM 1: Presumptive E. coli Crowder Count >100,000 Presumptive E. coli: REACTION Amoxacillin/Clavulanic Acid $ 8 S Ampicillin $ >=32 R Ampicillin/Sulbactam $ 16 I Cefazolin $ <=4 S Cefepime $ <=1 S Ceftriaxone $ <=1 S Ciprofloxacin $ <=0.25 S ESBL - Ertapenim $$$ <=0.5 S Gentamicin $ <=1 S Imipenem *NF <=0.25 S Levofloxacin $ <=0.12 S Nitrofurantoin $ <=16 S Piperacillin/Tazobactam $$ <=4 S Tobramycin $ <=1 S Trimethoprim/Sulfametho $ <=20 S (NF) indicates non-formulary drug at [facility]. Approval by Infectious Disease Specialist required before non-formulary drugs may be ordered and/or dispensed. Performed By: #### M100.0650 #### [facility] [address] [place], [place], [address] CORONALS SAG MULTI Observed: 08/29/2017 Status: F Source: [place] OBL 3-D REC 7:40 PM [facility] [place] [facility] Imaging Services [address] [place] [address] Coronals Sag Multi Obl 3-D Rec MR#: [id number] Acct: [id number] Name: REYNOLD HERNANDEZ Rep #: [id number] : 1935 F 82 From: Talha Jain PCP: Jay Youngblood MD Status: DIS IN Study: Coronals Sag Multi Obl 3-D Rec Date of Exam: 08/29/17 Exam# [id number] Ordering Dr: Roge Pelayo DO STUDY: NONCONTRAST CT HIP, RIGHT REASON FOR EXAM: Female, 82 years old. Fracture RADIATION DOSAGE (If Supplied By Facility): CTDIvol = ( 13.75 ) mGy, DLP = ( 576.95 ) mGycm. Individualized dose optimization techniques were used for this CT.? FLUOROSCOPY TIME (if supplied): ( ) minutes/seconds TECHNIQUE: Noncontrast axial images along with reformatted sagittal and coronal images of the right hip submitted. 3-D rendering also submitted. COMPARISON: X-ray 08/29/2017. FINDINGS: Comminuted intratrochanteric right hip fracture. No osseous lesion. No dislocation. Hip joint space narrowing. CT/Coronals Sag Multi Obl 3-D Rec IMPRESSION: Comminuted intertrochanteric right hip fracture. Electronically Signed: Talha Jain DO at 22:26 EST , Service support , CC: Jay Youngblood MD; Roge Pelayo DO 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: Signed CONSULTATION Observed: 08/29/2017 Status: F Source: [place] 7:36 PM [facility] REPOSITORY [facility] Medical Records Department [address] [place] [address] Consultation 08/29/171929 MR#: [id number] Acct: [id number] Name: REYNOLD HERNANDEZ Rep #: [id number] : 1935 82 From: Roge Pelayo DO PCP: Jay Youngblood MD Status: ADM IN Y [place] [facility] [place] NA433-1 - Consult Date of Consult: 08/29/17 - Reason for Consult 82-year-old female who sustained a fall from standing height resulting in a right closed displaced and comminuted intertrochanteric femur fracture. I was called by the emergency room the patient would be admitted by the hospitalist team. Seen the patient on the floor at this particular time. The patient's daughter, Rosa, is the power of production machine tender. Patient has significant underlying history of dementia. Patient is currently resting in bed getting ready to go down for CT examination. Patient did not know where she was, did not know that she had a femur fracture, and did not even know that she had a daughter. At this point time the patient denies any other associated trauma aside from the right hip. She is moving her upper extremities actively forming presentation. Otherwise resting completely with the right lower extremity in a displaced externally rotated position. Objective: Patient is alert but is not aware of place time or injury pattern. However she does not appear to be any acute distress at this point time. She remains otherwise distally neurovascular intact from L1-S1 distributions. EHL anterior gastrocsoleus peroneals quads hamstrings are 5 out of 5. Patient has good pulses distally. Toes are otherwise warm. Right lower extremity again is held in a [id number] position. She has no signs of expanding hematoma. She shows no signs of knee effusion or instability with gentle Jennifer's examination and varus valgus load. She has no pain with palpation across the tibia or the ankle currently. Her left lower extremity is otherwise intact. She allow me to gently flex and extend the hip. No instability about the knee. She has no long bone pain with palpation. Ankle is otherwise within normal limits. X-rays: Patient has a comminuted displaced intertrochanteric femur fracture. There is an avulsion of the lesser trochanter. Assessment: Right comminuted displaced intertrochanteric femur fracture closed initial encounter. History of dementia. Plan: At this point time I have spoken with the daughter about my recommendation for operative management. Feel the patient be a good candidate either for cephalo-medullary nail versus dynamic hip screw with the rotation. The CT examination will delineate the fracture pattern and what is the best implant of choice at this point in time. Patient is nonoperative solution will be extended nonweightbearing status and increased risk for cardiopulmonary issues. Patient will have increased hip pain with mobility until the fracture stabilizes as well. I did discuss the risks and benefits of the procedure with the daughter. Also told the patient that she may have exacerbation of dementia secondary to operative procedure and anesthesia. At this point time the daughter appears to be in approval with proceeding with operative intervention. Surgical plan will be for tomorrow around 1600 hrs. Antibiotics will be called to the chart. Patient will be given n.p.o. status prior to surgical intervention. And I will place to consents the chart for a right hip cephalo-medullary nail versus dynamic hip screw or any indicated procedure. CT examination to be reviewed tomorrow. Continue with nonweightbearing status. There is any major issues please contact me. Again through the daughter patient is otherwise consented and understands risks and benefits to include damage to nerves muscles arteries veins. Development of DVT PE infection or . Screw cut out need for further intervention. Also discussed with the patient postoperative plan. The patient's daughter does not want her to go to a snf facility. She wants to keep her with her. I told the patient my recommendation would be a long term facility for rehab and then subsequent return to home. However if the patient has appropriate facilities and capabilities and resources then home health is a consideration in the postoperative period. I will have her discuss this with case management. Any major issues please contact me. 08/29/171935 <Electronically signed by Roge Pelayo DO> Date Roge Polancoigner Signature (if applicable): Date CC: Jay Youngblood MD; Roge Pelayo DO Signed EXTREMITY LOWER Observed: 08/29/2017 Status: F Source: [place] [facility] CONTRA [facility] Imaging Services [address] [place] [address] Extremity Lower without Contra MR#: [id number] Acct: [id number] Name: REYNOLD HERNANDEZ Rep #: [id number] : 1935 F 82 From: Talha Jain PCP: Jay Youngblood MD Status: ADM IN Study: Extremity Lower without Contra Date of Exam: 08/29/17 Exam# [id number] Ordering Dr: Roge Pelayo DO STUDY: NONCONTRAST CT HIP, RIGHT REASON FOR EXAM: Female, 82 years old. Fracture RADIATION DOSAGE (If Supplied By Facility): CTDIvol = ( 13.75 ) mGy, DLP = ( 576.95 ) mGycm. Individualized dose optimization techniques were used for this CT.? FLUOROSCOPY TIME (if supplied): ( ) minutes/seconds TECHNIQUE: Noncontrast axial images along with reformatted sagittal and coronal images of the right hip submitted. 3-D rendering also submitted. COMPARISON: X-ray 08/29/2017. FINDINGS: Comminuted intratrochanteric right hip fracture. No osseous lesion. No dislocation. Hip joint space narrowing. CT/Extremity Lower without Contra IMPRESSION: Comminuted intertrochanteric right hip fracture. Electronically Signed: Talha Jain DO at 22:26 EST , Service support , CC: Jay Youngblood MD; Roge Pelayo DO 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: Signed HISTORY AND PHYSICAL Observed: 08/29/2017 Status: F Source: [place] EXAM 5:06 PM [facility] REPOSITORY [facility] Medical Records Department [address] [place] [address] History and Physical 08/29/17 1649 MR#: [id number] Acct: [id number] Name: REYNOLD HERNANDEZ Rep #: [id number] : 1935 82 From: Christopher Pleitez MD PCP: Jay Youngblood MD Status: ADM IN Y Location: MS3 [id number] Problem List (1) Fracture of hip, right, closed Status: Acute Qualifiers: Encounter type: initial encounter Qualified Code(s): S72.001A - Fracture of unspecified part of neck of right femur, initial encounter for closed fracture (2) Essential hypertension, benign Status: Chronic (3) Dementia Status: Chronic Qualifiers: Dementia type: Alzheimer's disease Alzheimer's disease onset: unspecified onset Dementia behavioral disturbance: without behavioral disturbance Qualified Code(s): G30.9 - Alzheimer's disease, unspecified; F02.80 - Dementia in other diseases classified elsewhere without behavioral disturbance History of Present Illness Date of Admission: 08/29/17 Chief Complaint: Right hip fracture. Patient is an 82 years old female with history of dementia, presents to ED after she fell. She has advanced dementia with confusion. She was trying to go over safety gate for stairs. Her daughter stopped her from going over the gate, but she fell on tiled floor instead, immediately complaining of right hip pain. She was having urinary frequency since yesterday. She had contacted PCP, suggested to have urine sample, but she came to ED instead after she fell. Apparently, she was voiding but no urine sample was collected after Vargas catheter was inserted in ED. She is afebrile, and WBC is within normal limits. She is grossly confused, which is her baseline. History was taken from her daughter who lives with her. She was moved from [place] in April 2017. Her daughter is the primary daycare teacher. Past Medical History Past Medical History (Chronic Problems): Chronic Problems Essential hypertension, benign (Chronic) Dementia (Chronic) Allergies Penicillins [PCN] Allergy (Verified 08/29/17 16:37) Unknown Home Medications: Ambulatory Orders Medication Instructions Recorded Aspirin [Aspirin, Baby] 81 mg PO DAILY@0800 08/29/17 Lisinopril [Prinivil] 10 mg PO DAILY 08/29/17 Multivitamin [Animal Shapes] 1 each PO DAILY 08/29/17 Surgical History: cataract Psychiatric History: No pertinent psych hx Lives: With Family Smoking Status: Former smoker Alcohol: None Drugs: None - *Family History Maternal History Items: No pertinent history Review of Systems Unable to obtain accurate/complete ROS d/t: Due to profound dementia. VTE Information - Inpt Only VTE Present on Admission: No VTE Mechan Device Prophylaxis: SCD's, Knee High MOSHE Hose VTE Pharm Prophylaxis ordered?: No Reason prophylaxis not ordered:: Medical Contraindication - Aniticipating surgery Patient Problems: Active and Suspected Problems Fracture of hip, right, closed (Acute) Objective: In general, patient is a well-nourished and developed adult. She is grossly confused, partially oriented to person only. Her responses are mostly incoherent. HEENT: Head is atraumatic, and normocephalic. Pupils are equal, round, and reactive to light and accommodations. Neck is supple. There is no lymphadenopathy, or thyromegaly. Oral mucosa is pink, and moist. There are no lesions. Heart: Auscultation is normal with regular rhythm and rate. There is no extra heart sounds, or murmurs. S1 and S2 are present. Point of maximal impulse is not displaced. Lungs: Lungs are clear to auscultation bilaterally. There is no wheezing, or crackles. Abdomen: Abdominal wall is non-tender, and non-distended. There is no palpable mass or organomegaly. Normoactive bowel sounds are present. Extremities: There is no cyanosis or clubbing. Peripheral pulses are palpable. There is no edema. Skin: There are no any skin discoloration or lesions. Skin is dry. Neurological: CN II - XII are intact. Sensory and motor functions are grossly normal with no obvious deficit. Cerebellar functions are within normal range. Gait was not tested. - Physical Exam Vital Signs Temp Pulse Resp BP Pulse Ox 97.3 F L 101 H 22 H 97/60 92 08/29/17 12:35 08/29/17 16:27 08/29/17 16:27 08/29/17 16:27 08/29/17 16:27 Oxygen Delivery Method Room Air Weight: 133 lb 2.547 oz Body Mass Index (BMI) 20.2 Laboratory Tests Past 24 Hrs WBC 10.1 RBC 5.05 Hgb 15.0 Hct 44.8 Diagnostic Data Chest X-Ray 08/29/17 14:34 IMPRESSION: Increased markings at the lung bases suggestive of bibasilar scarring. Calcification of the bilateral breast prosthesis. Electronically Signed: Archie Carreon MD at 15:16 EST Tel [phone], Service support , Hip/Pelvis X-Ray 08/29/17 14:36 IMPRESSION: Comminuted nondisplaced left intertrochanteric fracture with a cephalic migration of the distal fracture fragment. Deformity of the inferior pubic ramus on the right side. This most likely represents a fracture. Electronically Signed: Archie Carreon MD at 15:17 EST Tel [phone], Service support , Assessment/Plan Active and Suspected Problems Fracture of hip, right, closed (Acute) Patient is an 82 years old female with history of dementia, presents to ED after she fell. She has advanced dementia with confusion. She was trying to go over safety gate for stairs. Her daughter stopped her from going over the gate, but she fell on tiled floor instead, immediately complaining of right hip pain. She was having urinary frequency since yesterday. She had contacted PCP, suggested to have urine sample, but she came to ED instead after she fell. Apparently, she was voiding but no urine sample was collected after Vargas catheter was inserted in ED. She is afebrile, and WBC is within normal limits. #1 Right hip fracture. After what appears to be mechanical fall. Orthopedic surgery was consulted. IV hydromorphone prn for pain. #2 Advanced dementia. #3 Essential hypertension. Blood pressure was normal initially. She became hypotensive after IV morphine. Monitor closely. IV bolus was given. Continue D5 1/2 NS at 125 ml/hr. #4 Oliguria / urinary frequency. NO urine was obtained from Vargas cath initially. IVF as above. Monitor urine output. Renal function appears adequate. She appears somewhat dry, but appears reasonable. IVF as above. VTE prophylaxis: SCD/MOSHE hose only for anticipated surgery. GI prophylaxis: PPI po. Code status: DNRCC-Arrest. Discussed with her daughter who is POA. Disposition: to be determined. Code Visit Inpatient E AND M: [id number] Init Hosp L3 08/29/17 1706 <Electronically signed by Christopher Pleitez MD> Date Christopher Pleitez MD Cosign Signature: Date (if applicable) CC: Jay Youngblood MD; Christopher Pleitez M.D. Signed CHEST 1 VIEW Observed: 08/29/2017 Status: F Source: [place] (PORTABLE) 2:37 PM [facility] [place] [facility] Imaging Services [address] [place] [address] Chest 1 View (Portable) MR#: [id number] Acct: [id number] Name: REYNOLD HERNANDEZ Rep #: [id number] : 1935 F 82 From: Archie Carreon MD PCP: Jay Youngblood MD Status: REG ER Study: Chest 1 View (Portable) Date of Exam: 08/29/17 Exam# [id number] Ordering Dr: Urbano Gonzáles DO STUDY: X-RAY CHEST REASON FOR EXAM: Female, 82 years old. Pain following a fall. TECHNIQUE: Single AP portable view of the chest. COMPARISON: None. FINDINGS: EKG electrodes are seen. There is evidence of calcified bilateral breast prostheses. Increased markings at the lung bases suggestive of scarring. There is no demonstrated pleural abnormality. Normal size heart. Normal mediastinum and mirza. Normal visualized pulmonary arteries. There is atherosclerotic calcification of the aortic arch with tortuosity. Normal visualized thoracic spine. Normal visualized ribs, clavicles, and shoulders. There is no demonstrated abnormality of the visualized soft tissue structures of the upper abdomen. RAD/Chest 1 View (Portable) IMPRESSION: Increased markings at the lung bases suggestive of bibasilar scarring. Calcification of the bilateral breast prosthesis. Electronically Signed: Archie Carreon MD at 15:16 EST Tel [phone], Service support , CC: Urbano Gonzáles DO; Jay Youngblood MD 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: Signed HIP 2-3 VIEWS WITH Observed: 08/29/2017 Status: F Source: [place] PELVIS 2:37 PM [facility] [place] [facility] Imaging Services [address] [place] [address] Hip 2-3 Views with Pelvis MR#: [id number] Acct: [id number] Name: REYNOLD HERNANDEZ Rep #: [id number] : 1935 F 82 From: Archie Carreon MD PCP: Jay Youngblood MD Status: REG ER Study: Hip 2-3 Views with Pelvis Date of Exam: 08/29/17 Exam# [id number] Ordering Dr: Urbano Gonzáles DO STUDY: X-RAY - PELVIS AND RIGHT HIP REASON FOR EXAM: Female, 82 years old. Pain following a fall. TECHNIQUE: Radiological exam, hip, unilateral, with pelvis when performed; 2 or 3 views. COMPARISON: None. FINDINGS: There is a non-specific bowel gas pattern. Normal visualized soft tissue structures. Normal bilateral iliac wings, sacroiliac joints and visualized sacrum. Deformity of the inferior pubic ramus on the right side. Possible acute fracture. Normal pubic symphysis. Normal bilateral ischial tuberosities. Comminuted nondisplaced right intertrochanteric fracture with cephalic migration of the distal fracture fragment. RAD/Hip 2-3 Views with Pelvis IMPRESSION: Comminuted nondisplaced left intertrochanteric fracture with a cephalic migration of the distal fracture fragment. Deformity of the inferior pubic ramus on the right side. This most likely represents a fracture. Electronically Signed: Archie Carreon MD at 15:17 EST Tel [phone], Service support , CC: Urbano Gonzáles DO; Jay Youngblood MD 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: Signed CBC W/DIFF, AUTOMATED Collected: 08/29/2017 Status: F Source: [place] 12:45 PM [facility] [place] [facility] TYPE CODE TESTS RESULT OUT OF RANGE REFERENCE UNITS LAB L100.1000 4.4-11.0 K/mm3 Normal WBC 10.1 LAB L100.1200 4.2-5.4 M/mm3 Normal RBC 5.05 LAB L100.1300 12.0-15.0 g/dl Normal HGB 15.0 LAB L100.1400 37-47 % Normal HCT 44.8 LAB L100.1500 81-99 fL Normal MCV 88.7 LAB L100.1600 27.0-32.0 pg Normal MCH 29.7 LAB L100.1700 32-36 g/gl Normal MCHC 33.5 LAB L100.1810 11.6-14.6 % Normal RDW CV 13.2 LAB L100.1820 35.1-43.9 fl Normal RDW SD 42.5 LAB L100.1900 150-450 K/mm3 Normal PLT 237 LAB L100.2000 6.2-12.0 fl Normal MPV 10.7 LAB L100.2100 47-70 % High NEUT% 78.3 LAB L100.2200 19-41 % Low LY% 12.3 LAB L100.2300 0-10 % Normal MONO% 7.6 LAB L100.2400 0-5 % Normal EO% 0.6 LAB L100.2500 0-1 % Normal BASO% 0.4 LAB L100.2550 0.0-0.9 % Normal IM GRAN % 0.800 Result Comment: IG% - Immature Granulocytes (promyelocytes, myelocytes and metamyelocytes) > 1% indicates that a LEFT SHIFT is Present. LAB L100.2620 2.0-7.7 X10 3/uL High Absolute Neut 7.9 LAB L100.2720 0.83-4.51 X10 3/ul Normal Absolute Lymph 1.25 Performed By: #### L100.0100 #### [facility] [address] [place], [address] PROTHROMBIN TIME W/INR Collected: 08/29/2017 Status: F Source: [place] 12:45 PM [facility] [place] [facility] TYPE CODE TESTS RESULT OUT OF RANGE REFERENCE UNITS LAB L300.4150 11.7-14.9 SECONDS Normal PROTIME 12.4 LAB L300.4200 Normal INR 1.0 Performed By: #### L300.3900, L300.4310 #### [facility] [address] [place], [address] PARTIAL THROMBOPLAST Collected: 08/29/2017 Status: F Source: [facility] 12:45 PM [facility] [place] [facility] TYPE CODE TESTS RESULT OUT OF RANGE REFERENCE UNITS LAB L300.4310 24.1-36.2 Seconds Normal PTT 29.9 Performed By: #### L300.3900, L300.4310 #### [facility] [address] [place], [address] COMPREHENSIVE METABOLIC Collected: 08/29/2017 Status: F Source: [place] PROFIL 12:45 PM [facility] [place] [facility] TYPE CODE TESTS RESULT OUT OF RANGE REFERENCE UNITS LAB L501.0100 70-110 mg/dL Normal GLU 85 LAB L501.1000 7-18 mg/dL High BUN 23 LAB L501.1100 0.55-1.02 mg/dL Normal 0.69 CREAT,SERUM Result Comment: The validity of the calculated GFR AND GFRAA in patients over 70 years has not been determined. Clinical correlation is essential. LAB L501.1110 >60 mL/min Normal EST GFR 86 Result Comment: Non- GFR Calc LAB L501.1115 >60 mL/min Normal EST GFR - AA 105 Result Comment: GFR Calc LAB L501.1255 ml/min Normal Estimated CRCL 41.36 LAB L501.1300 10-20 RATIO High BUN/CRE 33.3 LAB L501.1500 6.4-8. g/dL Normal 2 T PROT 7.6 LAB L501.1800 3.4-5. g/dL Normal 0 ALB 3.9 Result Comment: Please note revised Albumin AND Globulin reference range effective 2017. LAB L501.1950 2.2-4.2 g/dL Normal GLOB 3.7 LAB L501.2000 0.9-2.4 RATIO Normal A/G 1.1 LAB L501.2200 8.5-10.1 mg/dL Normal CA 8.9 LAB L501.4100 15-37 U/L High AST 38 LAB L501.4305 45-117 U/L Normal ALK P 68 LAB L501.4405 12-78 U/L Normal ALT 25 LAB L501.4600 0.20-1.00 mg/dL Normal T BILI 0.60 LAB L501.5300 136-145 mmol/L Normal NA 138 LAB L501.5600 3.5-5.1 mmol/L Normal K 4.0 LAB L501.5900 98-107 mmol/L Normal CL 102 LAB L501.6100 21.0-32.0 mmol/L Normal CO2 30.0 LAB L501.6200 5-15 Normal GAP 6 Performed By: #### L500.4050 #### [facility] [address] [place], [address] ALLERGIES ALLERGIES DATE TYPE / CODE NAME / CODE REACTION SEVERITY SOURCE 04/03/2018 Drug Penicillins/F0010 Unknown Unknown [place] Allergy/416 32277(RXNORM) [facility] 535117([facility] ED CT) Repository 11/01/2017 DRUG PENICILLIN UNKNOWN [facility] INGREDI/[address] [place] [address]223([facility] ED CT) Drug NO KNOWN [facility] Class/67722 ALLERGIES [address] [place] 1003([facility] Repository CT) ENCOUNTERS ENCOUNTERS ADMIT/DISCHARGE ACCOUNT NUMBER ADMITTING ENCOUNTER LOCATION SOURCE CLASS 07/28/2018/07/28/20 [id number] Emergency [address] ding:ED Repository 06/25/2018/06/26/20 [id number] Ambulatory [address] Repository 04/18/2018 [id number] Ambulatory General acute hospital ding:OLS.[facility]L Repository CAR 04/11/2018 [id number] Ambulatory General acute hospital ding:OLS.WHL Repository CAR 04/03/2018 [id number] Hernandez, Ambulatory BMSBuilding: [place] Adan BMS.[facility] Repository 04/03/2018 [id number] Hernandez, Ambulatory BMSBuilding: [place] Adan BMS.[facility] Repository 04/03/2018 [id number] Hernandez, Ambulatory BMSBuilding: [place] Adan BMS.[facility] Repository 04/03/2018/04/06/20 [id number] Hernandez, Inpatient [place] 18 Adan Encounter [facility] ding:RT3Dvnz Repository : HL626Hxa: 1 04/03/2018 [id number] Hernandez, Ambulatory BMSBuilding: [place] Adan BMS.[facility] Repository 02/21/2018/03/29/20 [id number] Brad Royce Inpatient [place] 18 Chi Encounter [facility] ding:TCURoom Repository : GKC85Vds: 1 02/18/2018/02/22/20 [id number] Ambulatory BMSBuilding: [place] 18 [facility] Repository 02/17/2018 [id number] Deepthi Cayetano Ambulatory BMSBuilding: [place] BMS.[facility] Repository 02/17/2018 [id number] Sharyneletsky, Ambulatory BMSBuilding: [place] BMS.[facility] Repository 02/17/2018 [id number] Tereletsky, Ambulatory BMSBuilding: [place] BMS.[facility] Repository 02/17/2018 [id number] Sharyneletsgabino, Ambulatory BMSBuilding: [place] BMS.[facility] Repository 02/17/2018 [id number] Deepthi Cayetano Ambulatory BMSBuilding: [place] BMS.[facility] Repository 02/17/2018/02/22/20 [id number] Sharyneletsky, Inpatient [place] 18 [place] Encounter [facility] ding:LO4Gkyj Repository : [id number]: 1 02/15/2018/02/16/20 [id number] Ambulatory [address] Repository 02/12/2018/02/13/20 [id number] Ambulatory [address] Repository 02/12/2018/02/14/20 [id number] Ambulatory [address] Repository 01/09/2018/01/10/20 [id number] Ambulatory [address] Repository 01/02/2018/01/04/20 [id number] Ambulatory [address] Repository 12/30/2017 [id number] Sementi, Ambulatory BMSBuilding: [place] BMS.[facility] Repository 12/30/2017 [id number] Sementi, Ambulatory BMSBuilding: [place] BMS.[facility] Repository 12/30/2017/01/01/20 [id number] Sementi, Ambulatory [place] 18 [facility] ding:IT2Vlwx Repository : [id number]: 1 12/26/2017/12/29/19 [id number] Ambulatory [address] Repository 12/06/2017/12/08/19 [id number] Ambulatory [address] Repository 11/01/2017/11/03/19 [id number] Ambulatory [address] Repository 11/01/2017 [id number] Ambulatory [facility] Repository 09/05/2017/10/20/19 [id number] Royce Salinas Inpatient [place] 18 [place] Encounter [facility] ding:TCURoom Repository : DPX46Vdr: 1 08/29/2017/08/30/19 [id number] Imamura, Inpatient [place] 18 Yo[place] Encounter [facility] ding:PCURoom Repository : QWS840Wpo: 1 PAYERS PAYERS ENCOUNTER GUARANTOR PAYER SUBSCRIBER SOURCE 07/28/2018 REYNOLD Borden Primary NOT GIVENUNK [place] oblingerHOSPICE Insurance:SELF PAY [facility] PALLIATIVE CARE [facility] [id number]/[id number] [place] Number: [place] Date:2018-07-28 41486Gzx: () 04/18/2018 REYNOLD [id number] Primary NOT GIVENUNK [place] [address], Insurance:SELF PAY [facility] [address]Wvi: (775) [facility] [phone] () Number: Effective Repository Date:2018-04-18 04/11/2018 REYNOLD [id number] Primary NOT GIVENUNK [place] [address], Insurance:SELF PAY [facility] [place] [address]Jwj: (330) [place] [address] () Number: Effective Repository Date:2018-04-11 04/03/2018 REYNOLD ARREOLA7 Primary REYNOLD WILSON [place], Insurance:HUMANA OBLINGERDOB: [facility] [place] [address]Agb: (330) MEDICARE PPOPolicy [id number] [phone] () Number: Repository [id number] Date:4635-35-26PG [address] [address]CA: 04/03/2018 Secondary NOT GIVENUNK [place] Insurance:SELF PAY [facility] Number: Effective Repository Date:2018-04-03 04/03/2018 REYNOLD Borden [id number] Primary REYNOLD Mchugh [address] [place], Insurance:HUMANA OBLINGERDOB: [facility] [place] [address]Mgg: (330) MEDICARE PPOPolicy [id number] [phone] () Number: Repository [id number] Date:9573-37-64UN [address] [address]CM: 04/03/2018 Secondary NOT GIVENUNK [place] Insurance:SELF PAY [facility] Number: Effective Repository Date:2018-04-03 04/03/2018 REYNOLD Borden [id number] Primary REYNOLD MINEROTHY [place], Insurance:HUMANA OBLINGERDOB: [facility] [place] [address]Hxf: (330) MEDICARE PPOPolicy [id number] [phone] () Number: Repository [id number] Date:1056-27-87RJ [address] [address]BQ: 04/03/2018 Secondary NOT GIVENUNK [place] Insurance:SELF PAY [facility] Number: Effective Repository Date:2018-04-03 04/03/2018 REYNOLD Borden [id number] Primary REYNOLD Mchugh [address], Insurance:HUMANA OBLINGERDOB: [facility] [place] [address]Myc: (330) MEDICARE PPOPolicy [place] [address] () Number: Repository [id number] Date:5523-33-56QE [address] [address]MK: 04/03/2018 Secondary NOT GIVENUNK [place] Insurance:SELF PAY [facility] Number: Effective Repository Date:2018-04-03 04/03/2018 REYNOLD Borden [id number] Primary REYNOLD Mchugh [address] [place], Insurance:HUMANA OBLINGERDOB: [facility] [place] [address]Dav: (330) MEDICARE PPOPolicy [address] [address] () Number: Repository [id number] Date:6600-77-87HB [address] [address]MR: 04/03/2018 Secondary NOT GIVENUNK [place] Insurance:SELF PAY [facility] Number: Effective Repository Date:2018-04-03 02/21/2018 REYNOLD Borden [id number] Primary REYNOLD Mchugh [address], Insurance:HUMANA OBLINGERDOB: [facility] [place] [address]Owd: (330) MEDICARE PPOPolicy [address] [address] () Number: Repository [id number] Date:7015-99-13VF [address] [address]DE: 02/21/2018 Secondary NOT GIVENUNK [place] Insurance:SELF PAY [facility] Number: Effective Repository Date:2018-02-21 02/18/2018 REYNOLD Bordne [id number] Primary REYNOLD Mchugh [address], Insurance:HUMANA OBLINGERDOB: [facility] [place] [address]Mpk: (330) MEDICARE PPOPolicy [address] [address] () Number: Repository [id number] Date:5162-08-70UP [address] [address]HY: 02/18/2018 Secondary NOT GIVENUNK [place] Insurance:SELF PAY [facility] Number: Effective Repository Date:2018-02-18 02/17/2018 REYNOLD [id number] Primary REYNOLD HERNANDEZ, Insurance:HUMANA OBLINGERDOB: [place] [address]Mww: (330) MEDICARE PPOPolicy 1935[address] [address] () Number: Repository [id number] Date:5224-63-48[place] [address]WP: 02/17/2018 Secondary NOT GIVENUNK [place] Insurance:SELF PAY [facility] Number: Effective Repository Date:2018-02-17 02/17/2018 REYNOLD ARREOLA7 Primary REYNOLD FERRARIER, Insurance:HUMANA OBLINGERDOB: [facility] [place] [address]Gob: (330) MEDICARE PPOPolicy 1935[address] [address] () Number: Repository [id number] Date:8868-43-58ML[address]WP: 02/17/2018 Secondary NOT GIVENUNK [place] Insurance:SELF PAY [facility] Number: Effective Repository Date:2018-02-17 02/17/2018 REYNOLD [id number] Primary REYNOLD FERRARIER, Insurance:HUMANA OBLINGERDOB: [facility] [place] [address]Ipk: (330) MEDICARE PPOPolicy [address] [address] () Number: Repository [id number] Date:0402-13-63ZD [address] [address]VC: 02/17/2018 Secondary NOT GIVENUNK [place] Insurance:SELF PAY [facility] Number: Effective Repository Date:2018-02-17 02/17/2018 REYNOLD [id number] Primary REYNOLD WILSON PLCHUYER, Insurance:HUMANA OBLINGERDOB: [facility] [place] [address]Sdl: (330) MEDICARE PPOPolicy [address] [address] () Number: Repository [id number] Date:0595-10-70KM [address] [address]BN: 02/17/2018 Secondary NOT GIVENUNK [place] Insurance:SELF PAY [facility] Number: Effective Repository Date:2018-02-17 02/17/2018 REYNOLD [id number] Primary REYNOLD L [place] [address], Insurance:HUMANA OBLINGERDOB: [facility] [place] [address]Xvv: (330) MEDICARE [place] [id number] [address] () Number: Repository [id number] Date:2886-59-21VQ [place] [address]WP: 02/17/2018 Secondary NOT GIVENUNK [place] Insurance:SELF PAY [facility] Number: Effective Repository Date:2018-02-17 02/17/2018 REYNOLD ARREOLA7 Primary REYNOLD L [place] [address], Insurance:HUMANA OBLINGERDOB: [facility] [place] [address]Oxj: (330) MEDICARE PPOPolicy 1935[place] [address] () Number: Repository [id number] Date:1302-72-48ZH [place] [address]WP: 02/17/2018 Secondary NOT GIVENUNK [place] Insurance:SELF PAY [facility] Number: Effective Repository Date:2018-02-16 12/30/2017 REYNOLD [id number] Primary REYNOLD L [place] [address], Insurance:HUMANA OBLINGERDOB: [facility] [place] [address]Mbj: (330) MEDICARE PPOPolicy [id number] [address] () Number: Repository [id number] Date:8389-00-89KZ [address] [address]KG: 12/30/2017 Secondary REYNOLD L [place] Insurance:[facility] DELANOB: [facility] [id number] Hospital PLANPolicy Number: Repository [id number] Date:9414-74-77WIINF S DEPTP [address] [address]WG: 12/30/2017 Tertiary NOT GIVENUNK [place] Insurance:SELF PAY [facility] Number: Effective Repository Date:2017-12-30 12/30/2017 REYNOLD [id number] Primary REYNOLD HERNANDEZ, Insurance:HUMANA OBLINGERDOB: [facility] [address]Frt: (330) MEDICARE [address] [phone] () Number: Repository [id number] Date:9719-82-27OZ [address] [address]CL: 12/30/2017 Secondary REYNOLD L Lolita Insurance:[facility]: [address] Number: Repository [id number] Date:[id number] S DEPTP [address], [place] [address]YM: 12/30/2017 Tertiary NOT GIVENUNK [place] Insurance:SELF PAY [facility] Number: Effective Repository Date:2017-12-30 12/30/2017 REYNOLD [id number] Primary REYNOLD HERNANDEZ, Insurance:HUMANA OBLINGERDOB: [facility] [address]Umj: (330) MEDICARE [address] [address] () Number: Repository [id number] Date:2539-06-84[address] [place] [id number]: 12/30/2017 Secondary REYNOLD L Lolita Insurance:[facility]: [address] Number: Repository [id number] Date:[id number] S DEPTP [address], [place] [address]UR: 12/30/2017 Tertiary NOT GIVENUNK [place] Insurance:SELF PAY [facility] Number: Effective Repository Date:2017-12-30 11/01/2017 Reynold OblingerDOB: Primary Reynold [facility] [id number] Insurance:HumanaPoli OblingerDOB: System Steve [place], [place] Number: Effective [id number] Repository [place] [address]Eiw: (330) Date: [id number] (HP) 09/05/2017 REYNOLD [id number] Primary REYNOLD Lolita STEVE HERNANDEZ, Insurance:HUMANA OBLINGERDOB: [facility] [place] [address]Ybv: (330) MEDICARE [facility] [id number] Hospital [phone] () Number: Repository [id number] Date:3577-81-77[address] [place] [address]RX: 09/05/2017 Secondary REYNOLD Lolita Insurance:[facility] DELANOB: [id number] Number: Repository [id number] Date:[id number] S DEPTP [address] [place] [address]PW: 09/05/2017 Tertiary NOT GIVENUNK [place] Insurance:SELF PAY [facility] Number: Effective Repository Date:2017-09-05 08/29/2017 REYNOLD [id number] Primary REYNOLD [place] HERNANDEZ, Insurance:HUMANA OBLINGERDOB: [facility] [place] [address]Tmg: (330) MEDICARE PPOPolicy [id number] [phone] () Number: Repository [id number] Date:9176-49-93[address] [place] [id number]: 08/29/2017 Secondary NOT GIVENUNK Lolita Insurance:SELF PAY [facility] Number: Effective Repository Date:2017-08-29
== END 2018-07-28 19:44 | disposition skilled nursing facility (03) ==
PROVIDERS: Emergency Provider Emergency Medicine; Family Provider Family Medicine; PCP Family Medicine
DX: S42.202A Unspecified fracture of upper end of left humerus, initial encounter for closed fracture (principal); W07.XXXA Fall from chair, initial encounter; Y93.9 Activity, unspecified; Y92.129 Unspecified place in nursing home as the place of occurrence of the external cause; Y99.9 Unspecified external cause status; G30.9 Alzheimer's disease, unspecified; F02.80 Dementia in other diseases classified elsewhere, unspecified severity, without behavioral disturbance, psychotic disturbance, mood disturbance, and anxiety; Z79.01 Long term (current) use of anticoagulants; Z79.82 Long term (current) use of aspirin; Z79.891 Long term (current) use of opiate analgesic; Z79.899 Other long term (current) drug therapy
CPT/HCPCS: 73030; 96372; 99284